=== PATIENT | male | born 1950 | race Two or more races ===

== ENCOUNTER 2016-10-16 14:34 | Inpatient (IN) | payer MEDICARE, OTHER ==
[~2016-10-16] VITALS: Ht 172.7 cm; Wt 41.3 kg
[2016-10-16] MEDS ORDERED: BENICAR20 MG ORAL (14:40)
[2016-10-16] MEDS ORDERED: AVODART0.5 MG ORAL (14:40)
[2016-10-16] MEDS ORDERED: VITAMIN D400 INTLU ORAL (14:40)
[2016-10-16] MEDS ORDERED: DEXILANT60 MG ORAL (14:40)
[2016-10-16] MEDS ORDERED: TAMSULOSIN HCL0.4 MG ORAL (14:40)
[2016-10-16] MEDS ORDERED: NOVOLOG MI100 UNITS/ SUBQ (14:40)
[2016-10-16] MEDS ORDERED: CARVEDILOL25 MG ORAL (14:40)
[2016-10-16] MEDS ORDERED: NITROSTAT0.4 M1 SL (14:40)
[2016-10-16] MEDS ORDERED: LANTUS SOL100 UNIT/1 SUBQ (14:40)
[2016-10-16] MEDS ORDERED: LYRICA75 M1 ORAL (14:41)
[2016-10-16] MEDS ORDERED: LORATADINE10 M1 PO ×2 (14:41→14:52)
[2016-10-16] MEDS ORDERED: ASPIR 8181 MG ORAL (14:52)
[2016-10-16 15:00] VITALS: BP 157/77
[2016-10-16] MEDS ORDERED: Ipratropium 0.02% Inh Soln 2.5ml UD HHN ONE (15:00)
[2016-10-16] MEDS ORDERED: Albuterol ud Inhalation HHN ONE (15:00)
[2016-10-16] MEDS ORDERED: Solu-MEDROL 125mg Inj IVP ONE (15:00)
--- NOTE | 2016-10-16 15:18 | Diagnostic Imaging Report ---
Indication: Dyspnea Comparison: None A single view chest radiograph was obtained. Findings: The heart is enlarged. There is a pacemaker present. Lungs are essentially clear. Aorta is ectatic and calcified. Bones are osteopenic. Impression: No acute disease
--- NOTE | 2016-10-16 15:36 | Emergency Room Report ---
History of Present Illness General Chief Complaint: Upper Respiratory Illness Source: EMS Present Illness HPI 66-year-old male presents ED complaining of shortness of breath x4 days. patient lives at home. Patient is on home oxygen but states that he's been more short of breath usual. States he feels very weak and dehydrated. Patient well. No fevers or chills. No chest pain. No reported cough. No other aggravating or leading factors. Denies any other associated symptoms Allergies: Coded Allergies: IODINE (Verified Allergy, Unknown, 10/16/16) Patient History Past Medical History: DM Past Surgical History: none Pertinent Family History: none Social History: Denies: alcohol use, drug use, smoking Immunizations: UTD Reviewed Nursing Documentation: PMH: Agreed, PSxH: Agreed Nursing Documentation-PMH Past Medical History: No History, Except For Hx Cardiac Problems: Yes Hx Diabetes: Yes Hx Gastrointestinal Problems: Yes Review of Systems All Other Systems: negative except mentioned in HPI Physical Exam Vital Signs Date Time Temp Pulse Resp B/P Pulse Ox O2 Delivery O2 Flow Rate FiO2 10/16/16 14:31 97.5 77 20 153/73 100 Nasal Cannula 2.0 Sp02 EP Interpretation: reviewed, normal General Appearance: no apparent distress, alert, GCS 15, non-toxic, cachetic, thin Head: normocephalic, atraumatic Eyes: bilateral eye PERRL, bilateral eye normal inspection ENT: hearing grossly normal, normal pharynx, no angioedema, normal voice Neck: full range of motion, supple/symm/no masses Respiratory: chest non-tender, decreased breath sounds, speaking full sentences , wheezing Cardiovascular #1: regular rate, rhythm, no edema Cardiovascular #2: 2+ carotid (R), 2+ carotid (L), 2+ radial (R), 2+ radial (L) , 2+ dorsalis pedis (R), 2+ dorsalis pedis (L) Gastrointestinal: normal bowel sounds, non tender, soft, non-distended, no guarding, no rebound Rectal: deferred Genitourinary: normal inspection, no CVA tenderness Musculoskeletal: back normal, gait/station normal, normal range of motion, non- tender Neurologic: alert, oriented x3, responsive, motor strength/tone normal, sensory intact, speech normal Psychiatric: judgement/insight normal, memory normal, mood/affect normal, no suicidal/homicidal ideation Reflexes: 3+ bicep (R), 3+ bicep (L), 3+ tricep (R), 3+ tricep (L), 3+ knee (R) , 3+ knee (L) Skin: normal color, no rash, warm/dry, well hydrated Lymphatic: no adenopathy Medical Decision Making Diagnostic Impression: Primary Impression: COPD exacerbation Additional Impressions: CHF exacerbation Qualified Codes: I50.9 - Heart failure, unspecified Sepsis Qualified Codes: A41.9 - Sepsis, unspecified organism ER Course Hospital Course 66-year-old M presenting to ED with SOB. h/o COPD Differential diagnoses include: Pneumonia, CHF exacerbation, pneumothorax, fluid overload Clinical course Patient placed on stretcher. On cardiac monitor technician with stable vitals. After initial history and physical, I ordered nebulizer treatments. I ordered labs, IV fluids, EKG, chest x-ray, blood cultures, UA. Labs - no leukocytosis noted, hemoglobin/hematocrit stable, electrolytes okay, lactate > 2, troponins negative, BNP > 50,000 CXR - R sided atelectasis, cardiomegaly, pacemaker abx given. lasix given. IVFs given but not at 30cc/kg because of pronounced CHF Case discussed with Dr. Mayer and he agreed to the patient to his service for further care and support I feel this is a highly complex case requiring extensive working including EKG/ Rhythm strip, Xray/CT/US, Blood/urine lab work, repeat exams while in ED, and administration of strong opiates/narcotics for pain control, admission to hospital or close patient follow up. Diagnosis - COPD exacerbation, CHF exacerbation, sepsis Patient admitted to telemetry in serious condition Labs Test 10/16/16 15:15 10/16/16 16:19 White Blood Count 6.5 K/UL (4.8-10.8) Red Blood Count 4.86 M/UL (4.70-6.10) Hemoglobin 14.5 G/DL (14.2-18.0) Hematocrit 45.9 % (42.0-52.0) Mean Corpuscular Volume 95 FL (80-99) Mean Corpuscular Hemoglobin 29.9 PG (27.0-31.0) Mean Corpuscular Hemoglobin Concent 31.6 G/DL (32.0-36.0) Red Cell Distribution Width 13.1 % (11.6-14.8) Platelet Count 185 K/UL (150-450) Mean Platelet Volume 9.1 FL (6.5-10.1) Neutrophils (%) (Auto) 71.9 % (45.0-75.0) Lymphocytes (%) (Auto) 21.5 % (20.0-45.0) Monocytes (%) (Auto) 6.0 % (1.0-10.0) Eosinophils (%) (Auto) 0.2 % (0.0-3.0) Basophils (%) (Auto) 0.5 % (0.0-2.0) Sodium Level 142 mEQ/L (135-145) Potassium Level 4.5 mEQ/L (3.4-4.9) Chloride Level 87 mEQ/L (98-107) Carbon Dioxide Level 31 mEQ/L (20-30) Anion Gap 24 (5-15) Blood Urea Nitrogen 19 mg/dL (7-23) Creatinine 1.5 mg/dL (0.7-1.2) Estimat Glomerular Filtration Rate 46.5 mL/min (>60) Glucose Level 255 mg/dL (74-106) Lactic Acid Level 2.80 mmol/L (0.66-2.22) Calcium Level 8.6 mg/dL (8.6-10.2) Total Bilirubin 0.5 mg/dL (0.0-1.2) Aspartate Amino Transf (AST/SGOT) 25 U/L (5-40) Alanine Aminotransferase (ALT/SGPT) 12 U/L (3-41) Alkaline Phosphatase 146 U/L (40-129) Total Creatine Kinase 104 U/L (38-174) Creatine Kinase MB 3.7 ng/mL (< 6.7) Creatine Kinase MB Relative Index 3.5 Troponin I < 0.30 ng/mL (<=0.30) Pro-B-Type Natriuretic Peptide 75143 pg/mL (0-125) Total Protein 7.3 g/dL (6.6-8.7) Albumin 4.1 g/dL (3.5-5.2) Globulin 3.2 g/dL Albumin/Globulin Ratio 1.2 (1.0-2.7) Urine Color Pale yellow Urine Appearance Clear Urine pH 9 (4.5-8.0) Urine Specific [place] 1.015 (1.005-1.035) Urine Protein 2+ (NEGATIVE) Urine Glucose (UA) 1+ (NEGATIVE) Urine Ketones 4+ (NEGATIVE) Urine Occult Blood 1+ (NEGATIVE) Urine Nitrite Negative (NEGATIVE) Urine Bilirubin Negative (NEGATIVE) Urine Urobilinogen Normal MG/DL (0.0-1.0) Urine Leukocyte Esterase 1+ (NEGATIVE) Urine RBC 0-2 /HPF (0 - 0) Urine WBC 5-10 /HPF (0 - 0) Urine Squamous Epithelial Cells None /LPF (NONE/OCC) Urine Bacteria Few /HPF (NONE) EKG Diagnostic Results Rate: normal Rhythm: NSR ST Segments: other - LVH ASA given to the pt in ED: No Rhythm Strip Diag. Results EP Interpretation: yes Rhythm: NSR, no PVC's, no ectopy Chest X-Ray Diagnostic Results EP Interpretation: Yes Findings: no pneumothorax, no acute cardiopulmonary disease, other - atelectasis. pacemaker Number of Views: 1 Last Vital Signs Date Time Temp Pulse Resp B/P Pulse Ox O2 Delivery O2 Flow Rate FiO2 10/16/16 14:31 97.5 77 20 153/73 100 Nasal Cannula 2.0 Status: improved Disposition: ADMITTED INPATIENT Condition: Serious Referrals: NOT CHOSEN IPA/,REFERRING (PCP) SHANELLE TIJERINA M.D. Oct 16, 2016 15:36
[2016-10-16 15:52] LABS: BASOPHILS % (AUTO) 0.5 % (0.0-2.0); EOSINOPHILS % (AUTO) 0.2 % (0.0-3.0); LYMPHOCYTES % (AUTO) 21.5 % (20.0-45.0); MEAN CORPUSCULAR HEMOGLOBIN 29.9 PG (27.0-31.0); MEAN CORPUSCULAR HGB CONC 31.6 G/DL (32.0-36.0); MEAN CORPUSCULAR VOLUME 95 FL (80-99); MEAN PLATELET VOLUME 9.1 FL (6.5-10.1); NEUTROPHILS % (AUTO) 71.9 % (45.0-75.0); PLATELET COUNT 185 K/UL (150-450); RED BLOOD COUNT 4.86 M/UL (4.70-6.10); RED CELL DISTRIBUTION WIDTH 13.1 % (11.6-14.8); WHITE BLOOD COUNT 6.5 K/UL (4.8-10.8)
[2016-10-16 16:05] LABS: TROPONIN I < 0.30 ng/mL (<=0.30)
[2016-10-16 16:06] LABS: ALBUMIN/GLOBULIN RATIO 1.2 (1.0-2.7); CALCIUM 8.6 mg/dL (8.6-10.2); CREATININE 1.5 mg/dL (0.7-1.2); GLOMERULAR FILTRATION RATE 46.5 mL/min (>60); POTASSIUM 4.5 mEQ/L (3.4-4.9); TOTAL PROTEIN 7.3 g/dL (6.6-8.7)
[2016-10-16 16:08] LABS: REFLEX LACTIC ACID YES OR NO YES
[2016-10-16] MEDS ORDERED: ANORO ELLIPTA1 EACH (16:15)
[2016-10-16] MEDS ORDERED: PLAVIX75 MG ORAL (16:15)
[2016-10-16] MEDS ORDERED: LINZESS145 MCG PO (16:15)
[2016-10-16] MEDS ORDERED: RANEXA500 MG ORAL (16:15)
[2016-10-16] MEDS ORDERED: IMITREX50 MG ORAL (16:15)
[2016-10-16] MEDS ORDERED: FERROUS SULFAT325 MG ORAL (16:15)
[2016-10-16] MEDS ORDERED: ENTRESTO 49 MG1 EACH PO (16:15)
[2016-10-16] MEDS ORDERED: TERBINAFINE HC250 MG PO (16:15)
[2016-10-16] MEDS ORDERED: ROXICODONE15 MG ORAL (16:15)
[2016-10-16] MEDS ORDERED: LEVOTHYROXINE25 MCG ORAL (16:15)
[2016-10-16] MEDS ORDERED: MECLIZINE HCL25 MG ORAL (16:15)
[2016-10-16] MEDS ORDERED: ATORVASTATIN CA40 MG ORAL (16:15)
[2016-10-16] MEDS ORDERED: ZENPEP DR 10,01 EACH PO (16:15)
[2016-10-16] MEDS ORDERED: SENSIPAR30 MG ORAL (16:15)
[2016-10-16] MEDS ORDERED: SERTRALINE HCL25 MG ORAL (16:15)
[2016-10-16] MEDS ORDERED: MEGESTROL ACETA40 MG PO (16:15)
[2016-10-16] MEDS ORDERED: MUPIROCIN22 GM TOPIC (16:15)
[2016-10-16] MEDS ORDERED: DOCUSIL100 M1 ORAL (16:15)
[2016-10-16 16:16] LABS: CKMB 3.7 ng/mL (< 6.7)
[2016-10-16 16:35] LABS: APPEARANCE,URINE CLEAR; KETONES,URINE 4+ (NEGATIVE); LEUKOCYTE ESTERASE ,URINE 1+ (NEGATIVE); NITRITE,URINE NEGATIVE (NEGATIVE); PH,URINE 9 (4.5-8.0); PROTEIN,URINE 2+ (NEGATIVE); UROBILINOGEN,URINE NORMAL MG/DL (0.0-1.0)
[2016-10-16 16:46] LABS: RBC,URINE 0-2 /HPF (0 - 0)
[2016-10-16 16:47] LABS: BACTERIA,URINE FEW /HPF
[2016-10-16 17:30] VITALS: BP 169/76
[2016-10-16 19:09] VITALS: BP 152/79
[2016-10-16] MEDS ORDERED: DuoNeb 0.5-3(2.5)mg/3ml neb HHN PRN (19:30)
[2016-10-16] MEDS ORDERED: Promethazine/Codeine 5ml UD ORAL PRN (19:30)
[2016-10-16] MEDS ORDERED: Nitroglycerin Subl 0.4mg tab (Bottle Of 25) SL PRN (19:30)
[2016-10-16] MEDS ORDERED: LORazepam Inj 2mg/ml 1ml IV PRN (19:30)
[2016-10-16] MEDS ORDERED: NovoLOG Insulin Flexpen SUBQ SCH (21:00)
[2016-10-16] MEDS: Morphine Sulfate 2mg/ml Inj IVP PRN (21:23)
[2016-10-16] MEDS ORDERED: Piperacillin/Tazobactam 2.25 GM in D5W 55 ML IV SCH (22:00)
[2016-10-16] MEDS ORDERED: Solu-MEDROL 125mg Inj IV SCH (22:00)
[2016-10-16] MEDS: Carvedilol 25mg Tab ORAL SCH (22:32)
[2016-10-16] MEDS: Theophylline ER 100mg ORAL SCH (22:33)
[2016-10-16] MEDS: Ranolazine 500mg tab ORAL SCH (22:33)
[2016-10-16] MEDS: Tamsulosin 0.4mg cap ORAL SCH (22:33)
[2016-10-16] MEDS: Heparin 5000 units/ml inj SUBQ SCH (22:35)
[2016-10-16] MEDS: NovoLOG Insulin Flexpen SUBQ SCH (23:00)
[2016-10-16] MEDS: Zoysn 3.37gm in D5W 110ml IVPB SCH (23:19)
[2016-10-17] VITALS (7 sets, daily range): BP systolic 120–154; BP diastolic 60–79
[2016-10-17] MEDS: Solu-MEDROL 125mg Inj IV SCH ×4 (05:56→22:37)
[2016-10-17] MEDS: Zoysn 3.37gm in D5W 110ml IVPB SCH ×2 (05:57→13:31)
[2016-10-17] MEDS: Levothyroxine 25mcg tab ORAL SCH (06:03)
[2016-10-17] MEDS: NovoLOG Insulin Flexpen SUBQ SCH ×4 (06:22→21:30)
[2016-10-17] MEDS ORDERED: Sensipar 30mg Tab ORAL SCH (09:00)
[2016-10-17] MEDS: Theophylline ER 100mg ORAL SCH ×2 (09:06→21:26)
[2016-10-17] MEDS: Carvedilol 25mg Tab ORAL SCH (09:06)
[2016-10-17] MEDS: Aspirin EC 81mg tab ORAL SCH (09:07)
[2016-10-17] MEDS: Sertraline 50mg tab ORAL SCH (09:07)
[2016-10-17] MEDS: Ranolazine 500mg tab ORAL SCH (09:07)
[2016-10-17] MEDS: Heparin 5000 units/ml inj SUBQ SCH ×2 (09:08→21:29)
--- NOTE | 2016-10-17 11:35 | Cardiology Progress Note ---
Assessment/Plan Assessment/Plan Dyspnea multifactorial chf and copd abd pain hsof prior pancreatitis PCI 08/19/16 lad adn diag congestive heart failure systolic dysfunction with acute exacerbation COPD HTN HLD DM PVD CAROL ANN hsi of alcholic cirrhosis hs of previsou paracentesis icm ? ef 15-20% 07/2016 hs of heaptic encephalopathy iodine allergy icd insitu ekg now with soem more diffuse t wave changes which appear more extensive than before with prolongation of qt interval repeat trop adn ekg treat any hopkalemia or hypomagesemia diuretics as bp adn renal fucntion allow copd treatmetn as per dr hancock check amylase and lipase proton pump inhibitors ? gi evluation for epigastric pain antiacids may need u/s abd [id number] Objective Last 24 Hour Vital Signs Date Time Temp Pulse Resp B/P Pulse Ox O2 Delivery O2 Flow Rate FiO2 10/17/16 09:06 66 136/67 10/17/16 08:20 98.2 66 20 136/67 99 Nasal Cannula 2.0 10/17/16 07:50 77 10/17/16 04:00 98.2 64 18 120/60 99 Room Air 10/17/16 04:00 66 10/17/16 01:00 98.2 64 18 120/60 99 Room Air 10/17/16 00:00 83 10/17/16 00:00 97.9 88 20 129/70 98 Room Air 10/16/16 22:32 90 152/79 10/16/16 21:53 97.3 10/16/16 20:03 90 16 Room Air 10/16/16 20:00 98 10/16/16 19:09 97.3 90 13 152/79 100 Nasal Cannula 2.0 10/16/16 18:40 97 25 154/75 100 Nasal Cannula 2.0 10/16/16 17:30 93 26 169/76 100 Nasal Cannula 2.0 10/16/16 15:20 87 18 99 Room Air 2.0 10/16/16 15:15 85 20 Room Air 2.0 10/16/16 15:05 85 20 Room Air 21 10/16/16 15:05 85 20 99 Room Air 21 10/16/16 15:00 97.6 85 20 157/77 99 Room Air 10/16/16 14:31 97.5 77 20 153/73 100 Nasal Cannula 2.0 10/16/16 14:20 86 18 100 Room Air 21 Intake and Output 10/16/16 10/17/16 19:00 07:00 Intake Total 1250 ml 377.5 ml Output Total 300 ml Balance 1250 ml 77.5 ml Intake Oral 240 ml IV Total 1250 ml 137.5 ml Output Urine Total 300 ml # Voids 1 Laboratory Tests Test 10/16/16 15:15 10/16/16 16:19 10/16/16 17:35 White Blood Count 6.5 K/UL (4.8-10.8) Red Blood Count 4.86 M/UL (4.70-6.10) Hemoglobin 14.5 G/DL (14.2-18.0) Hematocrit 45.9 % (42.0-52.0) Mean Corpuscular Volume 95 FL (80-99) Mean Corpuscular Hemoglobin 29.9 PG (27.0-31.0) Mean Corpuscular Hemoglobin Concent 31.6 G/DL (32.0-36.0) L Red Cell Distribution Width 13.1 % (11.6-14.8) Platelet Count 185 K/UL (150-450) Mean Platelet Volume 9.1 FL (6.5-10.1) Neutrophils (%) (Auto) 71.9 % (45.0-75.0) Lymphocytes (%) (Auto) 21.5 % (20.0-45.0) Monocytes (%) (Auto) 6.0 % (1.0-10.0) Eosinophils (%) (Auto) 0.2 % (0.0-3.0) Basophils (%) (Auto) 0.5 % (0.0-2.0) Sodium Level 142 mEQ/L (135-145) Potassium Level 4.5 mEQ/L (3.4-4.9) Chloride Level 87 mEQ/L (98-107) L Carbon Dioxide Level 31 mEQ/L (20-30) H Anion Gap 24 (5-15) H Blood Urea Nitrogen 19 mg/dL (7-23) Creatinine 1.5 mg/dL (0.7-1.2) H Estimat Glomerular Filtration Rate 46.5 mL/min (>60) Glucose Level 255 mg/dL (74-106) H Lactic Acid Level 2.80 mmol/L (0.66-2.22) H 5.60 mmol/L (0.66-2.22) H Calcium Level 8.6 mg/dL (8.6-10.2) Total Bilirubin 0.5 mg/dL (0.0-1.2) Aspartate Amino Transf (AST/SGOT) 25 U/L (5-40) Alanine Aminotransferase (ALT/SGPT) 12 U/L (3-41) Alkaline Phosphatase 146 U/L (40-129) H Total Creatine Kinase 104 U/L (38-174) Creatine Kinase MB 3.7 ng/mL (< 6.7) Creatine Kinase MB Relative Index 3.5 Troponin I < 0.30 ng/mL (<=0.30) Pro-B-Type Natriuretic Peptide 93015 pg/mL (0-125) H Total Protein 7.3 g/dL (6.6-8.7) Albumin 4.1 g/dL (3.5-5.2) Globulin 3.2 g/dL Albumin/Globulin Ratio 1.2 (1.0-2.7) Urine Color Pale yellow Urine Appearance Clear Urine pH 9 (4.5-8.0) Urine Specific [place] 1.015 (1.005-1.035) Urine Protein 2+ (NEGATIVE) H Urine Glucose (UA) 1+ (NEGATIVE) H Urine Ketones 4+ (NEGATIVE) H Urine Occult Blood 1+ (NEGATIVE) H Urine Nitrite Negative (NEGATIVE) Urine Bilirubin Negative (NEGATIVE) Urine Urobilinogen Normal MG/DL (0.0-1.0) Urine Leukocyte Esterase 1+ (NEGATIVE) H Urine RBC 0-2 /HPF (0 - 0) H Urine WBC 5-10 /HPF (0 - 0) H Urine Squamous Epithelial Cells None /LPF (NONE/OCC) Urine Bacteria Few /HPF (NONE) Microbiology Date/Time Source Procedure Growth Status 10/16/16 18:27 Nasal Nares Influenza Types A,B Antigen (ANIBAL) - Final Complete LISA SERNA Oct 17, 2016 11:35
[2016-10-17 12:36] LABS: CALCIUM 7.4 mg/dL (8.6-10.2); CREATININE 1.8 mg/dL (0.7-1.2); GLOMERULAR FILTRATION RATE 37.7 mL/min (>60); MAGNESIUM 1.3 mg/dL (1.7-2.5); POTASSIUM 4.1 mEQ/L (3.4-4.9)
[2016-10-17 13:05] LABS: ABG ALLEN TEST POSITIVE; ABG BASE EXCESS 4.1; ABG PCO2 32.7 mmHg (35.0-45.0)
[2016-10-17] MEDS ORDERED: Pneumococcal Vaccine 25mcg/0.5ml IM ONE (16:00)
[2016-10-17] MEDS: Morphine Sulfate 2mg/ml Inj IVP PRN ×2 (16:14→21:29)
--- NOTE | 2016-10-17 16:46 | History and Physical ---
History of Present Illness General Date patient seen: Oct 17, 2016 Reason for Hospitalization: Upper Respiratory Illness Present Illness HPI 66-year-old male with extensive PMHx including endstage heart disease, COPd, on home o2, liver disease, presents ED complaining of shortness of breath x4 days. States he feels very weak and dehydrated. He has not been eating for some time and look cachectic . Because of his cardiac diagnosis, he is being admitted to telemetry. Allergies: Coded Allergies: IODINE (Verified Allergy, Unknown, 10/16/16) Medication History Scheduled Aspirin* (Aspir 81*), 81 MG ORAL DAILY, (Reported) Atorvastatin Calcium* (Atorvastatin Calcium*), 80 MG ORAL BEDTIME, (Reported) Carvedilol* (Carvedilol*), Unknown Dose ORAL EVERY 12 HOURS, (Reported) Cinacalcet* (Sensipar*), 30 MG ORAL DAILY, (Reported) Clopidogrel Bisulfate* (Plavix*), Unknown Dose ORAL DAILY, (Reported) Dexlansoprazole (Dexilant), 60 MG ORAL DAILY, (Reported) Docusate Sodium* (Docusil*), 100 MG ORAL DAILY, (Reported) Dutasteride (Avodart), 0.5 MG ORAL DAILY, (Reported) Ferrous Sulfate* (Ferrous Sulfate*), 325 MG ORAL DAILY, (Reported) Insulin Glargine (Lantus), Unknown Dose SUBQ BEDTIME, (Reported) Levothyroxine Sodium* (Levothyroxine Sodium*), 25 MCG ORAL DAILY, (Reported) Meclizine Hcl* (Meclizine*), Unknown Dose ORAL THREE TIMES A DAY, (Reported) Mupirocin* (Mupirocin*), 1 APPLIC TOPIC THREE TIMES A DAY, (Reported) Olmesartan Medoxomil (Benicar), 20 MG ORAL DAILY, (Reported) Pregabalin* (Lyrica*), 100 MG ORAL THREE TIMES A DAY, (Reported) Ranolazine* (Ranexa*), 500 MG ORAL EVERY 12 HOURS, (Reported) Sertraline Hcl* (Sertraline Hcl*), 25 MG ORAL DAILY, (Reported) Sumatriptan Succinate* (Imitrex*), 100 MG ORAL DAILY PRN MIGRAINE, (Reported) Tamsulosin Hcl (Tamsulosin Hcl*), 0.4 MG ORAL BEDTIME, (Reported) Terbinafine Hcl* (Lamisil*), Unknown Dose PO DAILY, (Reported) Vitamin D (Vitamin D3), 5,000 UNITS ORAL DAILY, (Reported) Scheduled PRN Nitroglycerin (Nitrostat), 0.4 MG SL Q5M X3 DOSES PRN for CHEST PAIN, (Reported) OXYCODONE HCl* (Roxicodone*), Unknown Dose ORAL Q6H PRN for For Pain, (Reported) Miscellaneous Medications Insulin Aspart (Novolog Mix 70-30 Flexpen Syrn), Unknown Dose SUBQ, (Reported) Linaclotide (Linzess), 145 MCG PO, (Reported) Lipase/Protease/Amylase (Zenpep Dr 10,000 Units Capsule), Unknown Dose PO, ( Reported) Loratadine (Loratadine), 10 MG PO, (Reported) Loratadine (Loratadine), 10 MG PO, (Reported) Megestrol Acetate (Megestrol Acetate), 40 MG PO, (Reported) Sacubitril/Valsartan (Entresto 49 mg-51 mg Tablet), Unknown Dose PO, (Reported) Umeclidinium Brm/Vilanterol Tr (Anoro Ellipta 62.5-25 Mcg INH), (Reported) Patient History Healthcare decision maker Resuscitation status Full Code Advanced Directive on File Past Medical/Surgical History Past Medical/Surgical History: (1) Cardiomyopathy (2) COPD (chronic obstructive pulmonary disease) Review of Systems Constitutional: Reports: malaise, weakness ENT: Reports: no symptoms Respiratory: Reports: no symptoms Cardiovascular: Reports: no symptoms Gastrointestinal: Reports: no symptoms Genitourinary: Reports: no symptoms Physical Exam General Appearance: WD/WN Lines, tubes and drains: peripheral, central line HEENT: normocephalic, atraumatic Neck: non-tender, normal alignment Respiratory/Chest: chest wall non-tender, lungs clear Cardiovascular/Chest: normal peripheral pulses, normal rate Last 24 Hour Vital Signs Date Time Temp Pulse Resp B/P Pulse Ox O2 Delivery O2 Flow Rate FiO2 10/17/16 16:00 97.9 74 20 154/71 98 Nasal Cannula 2.0 10/17/16 12:51 98.9 64 20 141/71 100 Nasal Cannula 2.0 10/17/16 09:06 66 136/67 10/17/16 08:20 98.2 66 20 136/67 99 Nasal Cannula 2.0 10/17/16 07:50 77 10/17/16 04:00 98.2 64 18 120/60 99 Room Air 10/17/16 04:00 66 10/17/16 01:00 98.2 64 18 120/60 99 Room Air 10/17/16 00:00 83 10/17/16 00:00 97.9 88 20 129/70 98 Room Air 10/16/16 22:32 90 152/79 10/16/16 21:53 97.3 10/16/16 20:03 90 16 Room Air 21 10/16/16 20:00 98 10/16/16 19:09 97.3 90 13 152/79 100 Nasal Cannula 2.0 10/16/16 18:40 97 25 154/75 100 Nasal Cannula 2.0 10/16/16 17:30 93 26 169/76 100 Nasal Cannula 2.0 Intake and Output 10/16/16 10/17/16 19:00 07:00 Intake Total 1250 ml 377.5 ml Output Total 300 ml Balance 1250 ml 77.5 ml Intake Oral 240 ml IV Total 1250 ml 137.5 ml Output Urine Total 300 ml # Voids 1 Laboratory Tests Test 10/16/16 17:35 10/17/16 11:55 10/17/16 12:30 Lactic Acid Level 5.60 mmol/L (0.66-2.22) H Sodium Level 129 mEQ/L (135-145) #L Potassium Level 4.1 mEQ/L (3.4-4.9) Chloride Level 83 mEQ/L (98-107) L Carbon Dioxide Level 27 mEQ/L (20-30) Anion Gap 19 (5-15) H Blood Urea Nitrogen 26 mg/dL (7-23) H Creatinine 1.8 mg/dL (0.7-1.2) H Estimat Glomerular Filtration Rate 37.7 mL/min (>60) Glucose Level 532 mg/dL (74-106) #*H Calcium Level 7.4 mg/dL (8.6-10.2) L Magnesium Level 1.3 mg/dL (1.7-2.5) L Amylase Level 57 U/L (10-110) Lipase 10 U/L (< 60) Arterial Blood pH 7.527 (7.350-7.450) Arterial Blood Partial Pressure CO2 32.7 mmHg (35.0-45.0) L Arterial Blood Partial Pressure O2 108.8 mmHg (75.0-100.0) H Arterial Blood HCO3 26.5 mmol/L (22.0-26.0) H Arterial Blood Oxygen Saturation 98.2 % (92.0-98.0) H Arterial Blood Base Excess 4.1 Cristian Test Positive Microbiology Date/Time Source Procedure Growth Status 10/16/16 18:27 Nasal Nares Influenza Types A,B Antigen (ANIBAL) - Final Complete Height (Feet): 5 Height (Inches): 9.00 Weight (Pounds): 91 Medications Current Medications Medications (Trade) Dose Ordered Sig/Kevin Route PRN Reason Start Time Stop Time Status Last Admin Dose Admin Albuterol/ Ipratropium (DuoNeb 0.5-3(2.5)mg/3ml) 3 ml Q4H PRN HHN dyspnea 10/16/16 19:30 10/21/16 19:29 Aspirin (Ecotrin) 81 mg DAILY ORAL 10/17/16 09:00 11/16/16 08:59 10/17/16 09:07 Atorvastatin Calcium (Lipitor) 20 mg BEDTIME ORAL 10/17/16 21:00 11/16/16 20:59 Carvedilol (Coreg) 12.5 mg EVERY 12 HOURS ORAL 10/17/16 21:00 11/16/16 20:59 Cinacalcet (Sensipar) 30 mg DAILY ORAL 10/17/16 09:00 11/16/16 08:59 10/17/16 09:07 Clopidogrel Bisulfate (Plavix) 75 mg DAILY ORAL 10/17/16 09:00 11/16/16 08:59 10/17/16 09:07 Dextrose (Dextrose 50%) STAT PRN IV Hypoglycemia 10/16/16 19:30 11/15/16 19:29 Furosemide 40 mg 40 mg EVERY 12 HOURS IV 10/17/16 13:00 11/16/16 12:59 10/17/16 13:03 Heparin Sodium (Porcine) (Heparin 5000 units/ml) 5,000 units EVERY 12 HOURS SUBQ 10/16/16 22:00 11/15/16 21:59 10/17/16 09:08 Insulin Aspart BEFORE MEALS AND HS SUBQ 10/16/16 22:00 11/15/16 21:59 10/17/16 12:45 Levothyroxine Sodium (Synthroid) 25 mcg ACBREAKFAST ORAL 10/17/16 06:30 11/16/16 06:29 10/17/16 06:03 Lorazepam (Ativan 2mg/ml 1ml) 0.5 mg Q4H PRN IV For Anxiety 10/16/16 19:30 10/23/16 19:29 Magnesium Sulfate (Magnesium Sulfate 1gm/100ml) 100 ml @ 100 mls/hr Q1H IVPB 10/17/16 16:00 10/17/16 17:59 Methylprednisolone Sodium Succinate (Solu-MEDROL) 60 mg EVERY 6 HOURS IV 10/17/16 06:00 11/16/16 05:59 10/17/16 12:43 Morphine Sulfate (Morphine Sulfate) 2 mg Q4H PRN IVP severe pain 7-10 10/16/16 19:30 10/23/16 19:29 10/17/16 16:14 Nitroglycerin (Ntg) 0.4 mg Q5M X 3 DOSES PRN SL Prn Chest Pain 10/16/16 19:30 11/15/16 19:29 Ondansetron HCl (Zofran) 4 mg Q4H PRN IVP Nausea & Vomiting 10/16/16 19:30 11/15/16 19:29 10/17/16 16:14 Piperacillin Sod/ Tazobactam Sod/ Dextrose (Zosyn/D5W) 110 ml @ 27.5 mls/hr EVERY 8 HOURS IVPB 10/16/16 23:00 10/21/16 22:59 10/17/16 13:31 Pregabalin (Lyrica) 100 mg THREE TIMES A DAY ORAL 10/17/16 22:00 11/16/16 21:59 Promethazine HCl/ Codeine (Phenergan with Codeine) 5 ml Q6H PRN ORAL cough 10/16/16 19:30 11/15/16 19:29 Sertraline HCl (Zoloft) 25 mg DAILY ORAL 10/17/16 09:00 11/16/16 08:59 10/17/16 09:07 Tamsulosin HCl (Flomax) 0.4 mg BEDTIME ORAL 10/16/16 22:00 11/15/16 21:59 10/16/16 22:33 Temazepam (Restoril) 15 mg HSPRN PRN ORAL Insomnia 10/16/16 19:30 10/23/16 19:29 10/16/16 22:34 Theophylline (Candido-Dur) 100 mg EVERY 12 HOURS ORAL 10/16/16 22:00 11/15/16 21:59 10/17/16 09:06 Assessment/Plan Problem List: (1) COPD exacerbation ICD Codes: J44.1 - Chronic obstructive pulmonary disease with (acute) exacerbation SNOMED: 456464360, 161757685 (2) Cachexia ICD Codes: R64 - Cachexia SNOMED: 712027252 (3) Severe protein-calorie malnutrition ICD Codes: E43 - Unspecified severe protein-calorie malnutrition SNOMED: 857110796 (4) Cardiomyopathy ICD Codes: I42.9 - Cardiomyopathy, unspecified SNOMED: 26052381 Assessment/Plan respiratory treatment IV antibiotics check cultures sliding scale cardiac evaluation GI evaluation for poor oral intake. HALIMA JOSEPH Oct 17, 2016 16:46
--- NOTE | 2016-10-17 18:56 | Consultation ---
Consult Note Consult Note asked to eval for hyponatremia Chief Complaint: Upper Respiratory Illness HPI 66-year-old male presents ED complaining of shortness of breath x4 days. patient lives at home. Patient is on home oxygen but states that he's been more short of breath usual. States he feels very weak and dehydrated. Patient well. No fevers or chills. No chest pain. No reported cough. No other aggravating or leading factors. Denies any other associated symptoms Allergies: Coded Allergies: IODINE (Verified Allergy, Unknown, 10/16/16) Past Medical History: DM Hx Cardiac Problems: Yes Hx Diabetes: Yes Hx Gastrointestinal Problems: Yes Assessment/Plan Status: Low Na due to Hyper Glycemia and dehydration Renal failure due to DM and HTN DM and Proteinuria, Nephropathy- HTN- UTI, Low Mag Cachexia COPD Pacer / ICD CHF / Cardiomyopathy previous EjFx 20% PVD Iodine allergy Plan: kidney ADE Avoid Nephrotoxics- Mag IV- Lower lasix dose- Monitor renal parameters Per orders Urine studies JESUS REA Oct 17, 2016 18:56
[2016-10-17] MEDS ORDERED: Carvedilol 12.5mg tab ORAL SCH (21:00)
[2016-10-17] MEDS ORDERED: Atorvastatin 20mg tab ORAL SCH (21:00)
[2016-10-17] MEDS: Piperacillin/Tazobactam 2.25 GM in D5W 110 ML IV SCH (21:25)
[2016-10-17] MEDS: Carvedilol 12.5mg tab ORAL SCH (21:26)
[2016-10-17] MEDS: Tamsulosin 0.4mg cap ORAL SCH (21:26)
[2016-10-17] MEDS: Lyrica 50mg cap ORAL SCH (22:37)
[2016-10-18] VITALS (14 sets, daily range): BP systolic 94–156; BP diastolic 51–91
[2016-10-18] MEDS: Morphine Sulfate 2mg/ml Inj IVP PRN ×3 (01:40→10:09)
[2016-10-18] MEDS: Piperacillin/Tazobactam 2.25 GM in D5W 110 ML IV SCH ×3 (05:49→21:46)
[2016-10-18] MEDS: Solu-MEDROL 125mg Inj IV SCH (06:16)
[2016-10-18] MEDS: NovoLOG Insulin Flexpen SUBQ SCH ×4 (06:28→21:19)
[2016-10-18] MEDS: Levothyroxine 25mcg tab ORAL SCH (06:30)
[2016-10-18 07:31] LABS: BASOPHILS % (AUTO) 0.3 % (0.0-2.0); EOSINOPHILS % (AUTO) 0.1 % (0.0-3.0); LYMPHOCYTES % (AUTO) 11.6 % (20.0-45.0); MEAN CORPUSCULAR HEMOGLOBIN 30.7 PG (27.0-31.0); MEAN CORPUSCULAR HGB CONC 33.6 G/DL (32.0-36.0); MEAN CORPUSCULAR VOLUME 92 FL (80-99); MEAN PLATELET VOLUME 9.1 FL (6.5-10.1); MONOCYTES % (AUTO) 6.2 % (1.0-10.0); NEUTROPHILS % (AUTO) 81.8 % (45.0-75.0); PLATELET COUNT 181 K/UL (150-450); RED CELL DISTRIBUTION WIDTH 13.2 % (11.6-14.8); WHITE BLOOD COUNT 16.3 K/UL (4.8-10.8)
[2016-10-18 07:55] LABS: THYROID STIMULATING HORMONE 1.7 uIU/mL (0.300-4.500)
[2016-10-18 07:59] LABS: ALBUMIN/GLOBULIN RATIO 1.1 (1.0-2.7); CHOLESTEROL/HDL RATIO 2.7 (3.3-4.4); CREATININE 2.1 mg/dL (0.7-1.2); GLOMERULAR FILTRATION RATE 31.6 mL/min (>60); POTASSIUM 3.1 mEQ/L (3.4-4.9); TOTAL PROTEIN 7.6 g/dL (6.6-8.7)
[2016-10-18 08:07] LABS: CRP QUANT 1.2 mg/dL (< 0.5); MAGNESIUM 3.3 mg/dL (1.7-2.5); PHOSPHORUS 3.7 mg/dL (2.5-4.8); URIC ACID 8.2 mg/dL (3.0-7.5)
[2016-10-18 08:08] LABS: HEMOGLOBIN A1C 10.2 % (< 6.0)
[2016-10-18 08:22] LABS: TROPONIN I < 0.30 ng/mL (<=0.30)
[2016-10-18] MEDS: Theophylline ER 100mg ORAL SCH ×2 (08:57→21:09)
[2016-10-18] MEDS: Sertraline 50mg tab ORAL SCH (08:58)
[2016-10-18] MEDS: Carvedilol 12.5mg tab ORAL SCH (08:58)
[2016-10-18] MEDS: Lyrica 50mg cap ORAL SCH ×3 (08:58→17:50)
[2016-10-18] MEDS: Aspirin EC 81mg tab ORAL SCH (09:00)
[2016-10-18] MEDS: Heparin 5000 units/ml inj SUBQ SCH (09:00)
[2016-10-18] MEDS ORDERED: Metoclopramide 10mg/2ml Inj IVP PRN (09:45)
[2016-10-18] MEDS ORDERED: Metoclopramide 10mg/2ml Inj IVP STA (09:46)
[2016-10-18] MEDS: Pantoprazole Inj IVP SCH ×2 (10:00→10:09)
[2016-10-18] MEDS ORDERED: Pantoprazole 80 MG in NS 250 ML IV SCH ×2 (10:30→11:30)
--- NOTE | 2016-10-18 10:33 | Diagnostic Imaging Report ---
Indication: Abdominal tenderness, abnormal renal function tests Technique: Johnson-scale and duplex images of the upper abdomen were obtained Comparison: None Findings: There is trace ascites adjacent to the liver. Gallbladder could not be demonstrated, likely surgically absent as there is a right upper quadrant scar according to the technologist. Common bile duct measures 14 mm in diameter. No intrahepatic biliary ductal dilatation. Liver demonstrates increased and coarsened echogenicity. Microcalcifications are seen within the liver parenchyma. It demonstrates minimal micro-nodularity. Portal vein and hepatic veins are patent.. Pancreas is unremarkable. Spleen is unremarkable. Left kidney measures 9.2 cm in length. Right kidney measures 8.4 cm length. Right kidney demonstrates slightly increased echogenicity. Left kidney demonstrates normal echogenicity. There is no hydronephrosis. There is a 2 cm left renal cyst, which demonstrates slight mural nodularity. Non-aneurysmal abdominal aorta. The stomach is distended, filled with fluid Impression: Nonvisualized gallbladder, likely surgically absent. Correlate with surgical history Dilated extrahepatic bile ducts. Possibly related to age and postcholecystectomy state, but degree of dilatation is somewhat striking. Correlate with liver function tests, consider MRCP if clinically indicated Coarsened hepatic echogenicity, mild surface nodularity, consistent with stated clinical history of hepatic cirrhosis Trace ascites, likely related to the above Slight increased right renal echogenicity, could indicate medical renal disease. Negative for hydronephrosis Complex left renal cyst. Recommend further evaluation with contrast CT if clinically indicated graph distended stomach, nonspecific
[2016-10-18] MEDS ORDERED: Potassium Chloride 10 MEQ in NS 1000ml 1,000 ML IV SCH ×2 (10:45→12:00)
[2016-10-18] MEDS ORDERED: Octreotide Acetate 500 MCG in Sodium Chloride 499 ML IV SCH (11:30)
[2016-10-18 11:37] LABS: PROTHROMBIN TIME 20.3 SEC (9.30-11.50)
--- NOTE | 2016-10-18 12:30 | General Progress Note ---
Assessment/Plan Status: unchanged, deteriorating Status Narrative patient vomitted coffee ground material Assessment/Plan status: Low Na due to Hyper Glycemia and dehydration Renal failure due to DM and HTN DM and Proteinuria, Nephropathy- HTN- UTI, Low Mag Cachexia COPD Pacer / ICD CHF / Cardiomyopathy previous EjFx 20% PVD Iodine allergy Plan: to ICU GI eval kidney ADE Avoid Nephrotoxics- Mag IV- as needed Lower lasix dose- Monitor renal parameters Per orders Subjective ROS Limited/Unobtainable: No Constitutional: Reports: malaise, weakness Gastrointestinal/Abdominal: Reports: vomiting Allergies: Coded Allergies: IODINE (Verified Allergy, Unknown, 10/16/16) Objective Last 24 Hour Vital Signs Date Time Temp Pulse Resp B/P Pulse Ox O2 Delivery O2 Flow Rate FiO2 10/18/16 11:53 97.3 69 20 115/74 100 Nasal Cannula 2.0 10/18/16 10:39 97.0 10/18/16 08:58 85 156/91 10/18/16 08:34 97.0 85 20 156/91 99 Nasal Cannula 2.0 10/18/16 08:13 88 10/18/16 07:58 100 Nasal Cannula 2.0 28 10/18/16 07:56 Nasal Cannula 2.0 28 10/18/16 07:54 94 18 Nasal Cannula 2.0 28 10/18/16 04:34 97.5 69 20 144/79 100 Room Air 10/18/16 04:00 82 10/18/16 00:00 97.0 78 20 138/80 100 Room Air 10/18/16 00:00 66 10/17/16 21:26 71 145/79 10/17/16 20:07 71 18 Room Air 21 10/17/16 20:00 64 10/17/16 20:00 97.9 66 20 145/79 100 Nasal Cannula 2.0 10/17/16 16:00 97.9 74 20 154/71 98 Nasal Cannula 2.0 10/17/16 16:00 67 10/17/16 12:51 98.9 64 20 141/71 100 Nasal Cannula 2.0 Intake and Output 10/17/16 10/18/16 19:00 07:00 Intake Total 257.5 ml 470 ml Output Total 400 ml 1000 ml Balance -142.5 ml -530 ml Intake Oral 120 ml 260 ml IV Total 137.5 ml 210 ml Output Urine Total 400 ml 1000 ml # Voids 2 # Bowel Movements 3 Laboratory Tests 10/17/16 12:30: Arterial Blood pH 7.527H, Arterial Blood Partial Pressure CO2 32.7L, Arterial Blood Partial Pressure O2 108.8H, Arterial Blood HCO3 26.5H, Arterial Blood Oxygen Saturation 98.2H, Arterial Blood Base Excess 4.1, Cristian Test Positive 10/17/16 22:00: Urine Eosinophils None seen, Urine Random Sodium 119 10/18/16 05:40: White Blood Count 16.3H, Red Blood Count 5.20, Hemoglobin 16.0, Hematocrit 47.6 , Mean Corpuscular Volume 92, Mean Corpuscular Hemoglobin 30.7, Mean Corpuscular Hemoglobin Concent 33.6, Red Cell Distribution Width 13.2, Platelet Count 181, Mean Platelet Volume 9.1, Neutrophils (%) (Auto) 81.8H, Lymphocytes ( %) (Auto) 11.6L, Monocytes (%) (Auto) 6.2, Eosinophils (%) (Auto) 0.1, Basophils (%) (Auto) 0.3, Sodium Level 137, Potassium Level 3.1L, Chloride Level 82L, Carbon Dioxide Level 36H, Anion Gap 19H, Blood Urea Nitrogen 33H, Creatinine 2.1H, Estimat Glomerular Filtration Rate 31.6, Glucose Level 352#H, Hemoglobin A1c 10.2H, Uric Acid 8.2H, Calcium Level 8.0L, Phosphorus Level 3.7, Magnesium Level 3.3H, Total Bilirubin 0.5, Gamma Glutamyl Transpeptidase 64H, Aspartate Amino Transf (AST/SGOT) 25, Alanine Aminotransferase (ALT/SGPT) 13, Alkaline Phosphatase 130H, Total Creatine Kinase 227H, Troponin I < 0.30, C- Reactive Protein, Quantitative 1.2H, Pro-B-Type Natriuretic Peptide 12994N, Total Protein 7.6, Albumin 4.0, Globulin 3.6, Albumin/Globulin Ratio 1.1, Triglycerides Level 109, Cholesterol Level 139, LDL Cholesterol 66, HDL Cholesterol 51, Cholesterol/HDL Ratio 2.7L, Thyroid Stimulating Hormone (TSH) 1.700 10/18/16 11:15: Prothrombin Time 20.3H, Prothromb Time International Ratio 2.0H, Activated Partial Thromboplast Time 28 Height (Feet): 5 Height (Inches): 9.00 Weight (Pounds): 91 General Appearance: mild distress, other - cachextic Neck: stiff neck Cardiovascular: normal rate Respiratory/Chest: decreased breath sounds Abdomen: distended JESUS REA Oct 18, 2016 12:30
--- NOTE | 2016-10-18 13:36 | GI Initial Consult Note ---
ShawneeMelvi Justo NAltonPAlton 10/18/16 1336: History of Present Illness General Date patient seen: Oct 18, 2016 Time patient seen: 10:00 Reason for Hospitalization: Upper Respiratory Illness Referring physician: HALIMA JOSEPH Reason for Consultation: HEMATEMESIS Present Illness HPI 66-year-old male presents ED complaining of shortness of breath x4 days. patient lives at home. Patient is on home oxygen but states that he's been more short of breath usual. States he feels very weak and dehydrated. Patient well. No fevers or chills. No chest pain. No reported cough. No other aggravating or leading factors. Denies any other associated symptoms GI NOTE: HPI as noted above. GI consulted for hematemesis. Pt seen on floor, awake A&Ox4 with active hematemesis into basin; dark red with no noted coffee grounds. According to the patient he has had SOB x 4 days during that time he has vomited multiple times and noted to vomit blood x 2. The patient states he' s had a prior history hematemesis 7 years ago and had received an upper endoscopy at that time. He does not recall any results. He presents today with hemoconcentration, leukocytosis, abnormal LFTs and is displays symptoms of DKA. Home Meds Reported Medications Ferrous Sulfate* (FERROUS SULFATE*) 325 Mg Tablet, 325 MG ORAL DAILY, #30 TAB 0 Refills 10/16/16 Ranolazine* (RANEXA*) 500 Mg Tab.er.12h, 500 MG ORAL EVERY 12 HOURS, #60 TAB 0 Refills 10/16/16 Linaclotide (LINZESS) 145 Mcg Capsule, 145 MCG PO, CAP 10/16/16 Umeclidinium Brm/Vilanterol Tr (Anoro Ellipta 62.5-25 Mcg INH) 1 Each Blst.w.dev 10/16/16 Docusate Sodium* (DOCUSIL*) 100 Mg Capsule, 100 MG ORAL DAILY, CAP 10/16/16 Sertraline Hcl* (SERTRALINE HCL*) 25 Mg Tablet, 25 MG ORAL DAILY, TAB 10/16/16 Atorvastatin Calcium* (ATORVASTATIN CALCIUM*) 40 Mg Tablet, 80 MG ORAL BEDTIME, TAB 10/16/16 Cinacalcet* (SENSIPAR*) 30 Mg Tablet, 30 MG ORAL DAILY, TAB 10/16/16 Lipase/Protease/Amylase (ZENPEP DR 10,000 UNITS CAPSULE) 1 Each Capsule., PO, CAP 10/16/16 Megestrol Acetate (MEGESTROL ACETATE) 40 Mg Tablet, 40 MG PO, TAB 10/16/16 Levothyroxine Sodium* (LEVOTHYROXINE SODIUM*) 25 Mcg Tablet, 25 MCG ORAL DAILY, TAB Take in the morning on an empty stomach, at least 30 minutes before food. 10/16/16 Mupirocin* (MUPIROCIN*) 22 Gm Oint...g., 1 APPLIC TOPIC THREE TIMES A DAY, GM 10/16/16 Meclizine Hcl* (MECLIZINE*) 25 Mg Tablet, ORAL THREE TIMES A DAY, TAB 10/16/16 Terbinafine Hcl* (LAMISIL*) 250 Mg Tablet, PO DAILY, TAB 10/16/16 OXYCODONE HCl* (ROXICODONE*) 15 Mg Tablet, ORAL Q6H Y for For Pain, TAB 10/16/16 Clopidogrel Bisulfate* (PLAVIX*) 75 Mg Tablet, ORAL DAILY, TAB 10/16/16 Sacubitril/Valsartan (Entresto 49 mg-51 mg Tablet) 1 Each Tablet, PO, TAB 10/16/16 Sumatriptan Succinate* (IMITREX*) 50 Mg Tablet, 100 MG ORAL DAILY PRN MIGRAINE, TAB 10/16/16 Aspirin* (ASPIR 81*) 81 Mg Tablet.dr, 81 MG ORAL DAILY, TAB 10/16/16 Loratadine (LORATADINE) 10 Mg Tab.rapdis, 10 MG PO, TAB 10/16/16 Loratadine (LORATADINE) 10 Mg Tab.rapdis, 10 MG PO, TAB 10/16/16 Pregabalin* (LYRICA*) 75 Mg Capsule, 100 MG ORAL THREE TIMES A DAY, CAP 10/16/16 Vitamin D (Vitamin D3) 400 Unit Tablet, 5000 UNITS ORAL DAILY, TAB 10/16/16 Nitroglycerin (NITROSTAT) 0.4 Mg Tab.subl, 0.4 MG SL Q5M X3 DOSES Y for CHEST PAIN, #25 TAB 0 Refills 10/16/16 Dexlansoprazole (Dexilant) 60 Mg Alan.bp, 60 MG ORAL DAILY, CAP 10/16/16 Dutasteride (AVODART) 0.5 Mg Capsule, 0.5 MG ORAL DAILY, CAP 10/16/16 Carvedilol* (CARVEDILOL*) 25 Mg Tablet, ORAL EVERY 12 HOURS, TAB 10/16/16 Tamsulosin Hcl (TAMSULOSIN HCL*) 0.4 Mg Cap.er.24h, 0.4 MG ORAL BEDTIME, CAP 10/16/16 Insulin Glargine (LANTUS) 100 Unit/1 Ml Insuln.pen, SUBQ BEDTIME, #1 EA 0 Refills 10/16/16 Insulin Aspart (Novolog Mix 70-30 Flexpen Syrn) 100 Unit/1 Ml Insuln.pen, SUBQ, VIAL 10/16/16 Olmesartan Medoxomil (BENICAR) 20 Mg Tablet, 20 MG ORAL DAILY, TAB 10/16/16 Med list reviewed/reconciled: Yes Allergies: Coded Allergies: IODINE (Verified Allergy, Unknown, 10/16/16) Patient History Limited by: language barrier History Provided By: Medical Record PMH Narrative Past Medical History: DM Past Surgical History: none Pertinent Family History: none Social History: Denies: alcohol use, drug use, smoking Immunizations: UTD Reviewed Nursing Documentation: PMH: Agreed, PSxH: Agreed Nursing Documentation-PMH Past Medical History: No History, Except For Hx Cardiac Problems: Yes Hx Diabetes: Yes Hx Gastrointestinal Problems: Yes Social History: Reports: alcohol use - social/has quit Review of Systems All Other Systems: negative except mentioned in HPI Physical Exam Vital Signs Date Time Temp Pulse Resp B/P Pulse Ox O2 Delivery O2 Flow Rate FiO2 10/16/16 14:20 86 18 100 Room Air 21 10/16/16 14:31 97.5 153/73 2.0 Sp02 EP Interpretation: reviewed Labs Laboratory Tests Test 10/17/16 22:00 10/18/16 05:40 10/18/16 11:15 Urine Eosinophils None seen Urine Random Sodium 119 mmol/L White Blood Count 16.3 K/UL (4.8-10.8) H Red Blood Count 5.20 M/UL (4.70-6.10) Hemoglobin 16.0 G/DL (14.2-18.0) Hematocrit 47.6 % (42.0-52.0) Mean Corpuscular Volume 92 FL (80-99) Mean Corpuscular Hemoglobin 30.7 PG (27.0-31.0) Mean Corpuscular Hemoglobin Concent 33.6 G/DL (32.0-36.0) Red Cell Distribution Width 13.2 % (11.6-14.8) Platelet Count 181 K/UL (150-450) Mean Platelet Volume 9.1 FL (6.5-10.1) Neutrophils (%) (Auto) 81.8 % (45.0-75.0) H Lymphocytes (%) (Auto) 11.6 % (20.0-45.0) L Monocytes (%) (Auto) 6.2 % (1.0-10.0) Eosinophils (%) (Auto) 0.1 % (0.0-3.0) Basophils (%) (Auto) 0.3 % (0.0-2.0) Sodium Level 137 mEQ/L (135-145) Potassium Level 3.1 mEQ/L (3.4-4.9) L Chloride Level 82 mEQ/L (98-107) L Carbon Dioxide Level 36 mEQ/L (20-30) H Anion Gap 19 (5-15) H Blood Urea Nitrogen 33 mg/dL (7-23) H Creatinine 2.1 mg/dL (0.7-1.2) H Estimat Glomerular Filtration Rate 31.6 mL/min (>60) Glucose Level 352 mg/dL (74-106) #H Hemoglobin A1c 10.2 % (< 6.0) H Uric Acid 8.2 mg/dL (3.0-7.5) H Calcium Level 8.0 mg/dL (8.6-10.2) L Phosphorus Level 3.7 mg/dL (2.5-4.8) Magnesium Level 3.3 mg/dL (1.7-2.5) H Total Bilirubin 0.5 mg/dL (0.0-1.2) Gamma Glutamyl Transpeptidase 64 U/L (8-61) H Aspartate Amino Transf (AST/SGOT) 25 U/L (5-40) Alanine Aminotransferase (ALT/SGPT) 13 U/L (3-41) Alkaline Phosphatase 130 U/L (40-129) H Total Creatine Kinase 227 U/L (38-174) H Troponin I < 0.30 ng/mL (<=0.30) C-Reactive Protein, Quantitative 1.2 mg/dL (< 0.5) H Pro-B-Type Natriuretic Peptide 01342 pg/mL (0-125) H Total Protein 7.6 g/dL (6.6-8.7) Albumin 4.0 g/dL (3.5-5.2) Globulin 3.6 g/dL Albumin/Globulin Ratio 1.1 (1.0-2.7) Triglycerides Level 109 mg/dL (< 150) Cholesterol Level 139 mg/dL (< 200) LDL Cholesterol 66 mg/dL (60-99) HDL Cholesterol 51 mg/dL (> 60) Cholesterol/HDL Ratio 2.7 (3.3-4.4) L Thyroid Stimulating Hormone (TSH) 1.700 uIU/mL (0.300-4.500) Prothrombin Time 20.3 SEC (9.30-11.50) H Prothromb Time International Ratio 2.0 (0.9-1.1) H Activated Partial Thromboplast Time 28 SEC (23-33) General Appearance: alert, thin Head: normocephalic EENT: normal ENT inspection Neck: supple Respiratory: no respiratory distress Cardiovascular: normal rate Gastrointestinal: normal inspection, non tender, soft Rectal: deferred Neurologic: alert, oriented x3, responsive Psychiatric: normal inspection Skin: normal inspection, normal color, no rash Lymphatic: normal inspection, no adenopathy Current Medications Current Medications Medications (Trade) Dose Ordered Sig/Kevin Route PRN Reason Start Time Stop Time Status Last Admin Dose Admin Albuterol/ Ipratropium (DuoNeb 0.5-3(2.5)mg/3ml) 3 ml Q4H PRN HHN dyspnea 10/16/16 19:30 10/21/16 19:29 Atorvastatin Calcium 20 mg 20 mg BEDTIME ORAL 10/17/16 21:00 11/16/16 20:59 10/17/16 21:25 Carvedilol (Coreg) 25 mg EVERY 12 HOURS ORAL 10/17/16 21:00 11/16/16 20:59 10/18/16 08:58 Dextrose (Dextrose 50%) STAT PRN IV Hypoglycemia 10/16/16 19:30 11/15/16 19:29 Furosemide (Lasix) 40 mg DAILY IV 10/18/16 09:00 11/17/16 08:59 Insulin Aspart (NovoLOG) BEFORE MEALS AND HS SUBQ 10/16/16 22:00 11/15/16 21:59 10/18/16 11:56 Levothyroxine Sodium (Synthroid) 25 mcg ACBREAKFAST ORAL 10/17/16 06:30 11/16/16 06:29 10/17/16 06:03 Lorazepam (Ativan 2mg/ml 1ml) 0.5 mg Q4H PRN IV For Anxiety 10/16/16 19:30 10/23/16 19:29 Methylprednisolone Sodium Succinate 40 mg 40 mg EVERY 8 HOURS IVP 10/18/16 14:00 11/16/16 21:59 Metoclopramide HCl 10 mg 10 mg Q6H IVP 10/18/16 16:00 11/17/16 15:59 Morphine Sulfate (Morphine Sulfate) 2 mg Q4H PRN IVP severe pain 7-10 10/16/16 19:30 10/23/16 19:29 10/18/16 10:09 Nitroglycerin (Ntg) 0.4 mg Q5M X 3 DOSES PRN SL Prn Chest Pain 10/16/16 19:30 11/15/16 19:29 Pantoprazole/ Sodium Chloride (Protonix/Sodium Chloride) 250 ml @ 25 mls/hr Q10H IV 10/18/16 11:30 11/17/16 11:29 10/18/16 13:01 Piperacillin Sod/ Tazobactam Sod/ Dextrose (Zosyn/D5W) 110 ml @ 220 mls/hr EVERY 8 HOURS IV 10/17/16 22:00 10/23/16 21:59 10/18/16 05:49 Potassium Chloride 10 meq/ Sodium Chloride 1,005 ml @ 125 mls/hr Q8H3M IV 10/18/16 12:00 10/19/16 04:04 10/18/16 13:00 Potassium Chloride/Sodium Chloride (KCl/Sodium Chloride 1000ml bag) 1,005 ml @ 100 mls/hr Q10H3M IV 10/19/16 04:06 11/18/16 04:05 Pregabalin (Lyrica) 100 mg THREE TIMES A DAY ORAL 10/17/16 22:00 11/16/16 21:59 10/18/16 08:58 Sertraline HCl (Zoloft) 25 mg DAILY ORAL 10/17/16 09:00 11/16/16 08:59 10/18/16 08:58 Tamsulosin HCl (Flomax) 0.4 mg BEDTIME ORAL 10/16/16 22:00 11/15/16 21:59 10/17/16 21:26 Temazepam (Restoril) 15 mg HSPRN PRN ORAL Insomnia 10/16/16 19:30 10/23/16 19:29 10/17/16 21:26 Theophylline (Candido-Dur) 100 mg EVERY 12 HOURS ORAL 10/16/16 22:00 11/15/16 21:59 10/18/16 08:57 GI: Plan Problems: (1) DKA (diabetic ketoacidoses) (2) Hematemesis (3) SOB (shortness of breath) (4) LFTs abnormal (5) Hypoalbuminemia (6) Diabetes mellitus (7) Severe protein-calorie malnutrition Plan labs/symptoms reviewed patient undergoing DKA defer EGD at this time, possible Sunday if stable fluid replacement >> maintain NPO + IVF's @ 150cc/hr. ppi ggt electrolyte replacement coag correction DM mgmt fu labs Discussed with Dr. Marino. Thank you for referring this patient, we will follow. ISSAC MARINO 10/23/16 0811: History of Present Illness General Reason for Hospitalization: Upper Respiratory Illness Present Illness Home Meds Reported Medications Ferrous Sulfate* (FERROUS SULFATE*) 325 Mg Tablet, 325 MG ORAL DAILY, #30 TAB 0 Refills 10/16/16 Ranolazine* (RANEXA*) 500 Mg Tab.er.12h, 500 MG ORAL EVERY 12 HOURS, #60 TAB 0 Refills 10/16/16 Linaclotide (LINZESS) 145 Mcg Capsule, 145 MCG PO, CAP 10/16/16 Umeclidinium Brm/Vilanterol Tr (Anoro Ellipta 62.5-25 Mcg INH) 1 Each Blst.w.dev 10/16/16 Docusate Sodium* (DOCUSIL*) 100 Mg Capsule, 100 MG ORAL DAILY, CAP 10/16/16 Sertraline Hcl* (SERTRALINE HCL*) 25 Mg Tablet, 25 MG ORAL DAILY, TAB 10/16/16 Atorvastatin Calcium* (ATORVASTATIN CALCIUM*) 40 Mg Tablet, 80 MG ORAL BEDTIME, TAB 10/16/16 Cinacalcet* (SENSIPAR*) 30 Mg Tablet, 30 MG ORAL DAILY, TAB 10/16/16 Lipase/Protease/Amylase (ZENPEP DR 10,000 UNITS CAPSULE) 1 Each Capsule.dr, PO, CAP 10/16/16 Megestrol Acetate (MEGESTROL ACETATE) 40 Mg Tablet, 40 MG PO, TAB 10/16/16 Levothyroxine Sodium* (LEVOTHYROXINE SODIUM*) 25 Mcg Tablet, 25 MCG ORAL DAILY, TAB Take in the morning on an empty stomach, at least 30 minutes before food. 10/16/16 Mupirocin* (MUPIROCIN*) 22 Gm Oint...g., 1 APPLIC TOPIC THREE TIMES A DAY, GM 10/16/16 Meclizine Hcl* (MECLIZINE*) 25 Mg Tablet, ORAL THREE TIMES A DAY, TAB 10/16/16 Terbinafine Hcl* (LAMISIL*) 250 Mg Tablet, PO DAILY, TAB 10/16/16 OXYCODONE HCl* (ROXICODONE*) 15 Mg Tablet, ORAL Q6H Y for For Pain, TAB 10/16/16 Clopidogrel Bisulfate* (PLAVIX*) 75 Mg Tablet, ORAL DAILY, TAB 10/16/16 Sacubitril/Valsartan (Entresto 49 mg-51 mg Tablet) 1 Each Tablet, PO, TAB 10/16/16 Sumatriptan Succinate* (IMITREX*) 50 Mg Tablet, 100 MG ORAL DAILY PRN MIGRAINE, TAB 10/16/16 Aspirin* (ASPIR 81*) 81 Mg Tablet.dr, 81 MG ORAL DAILY, TAB 10/16/16 Loratadine (LORATADINE) 10 Mg Tab.rapdis, 10 MG PO, TAB 10/16/16 Loratadine (LORATADINE) 10 Mg Tab.rapdis, 10 MG PO, TAB 10/16/16 Pregabalin* (LYRICA*) 75 Mg Capsule, 100 MG ORAL THREE TIMES A DAY, CAP 10/16/16 Vitamin D (Vitamin D3) 400 Unit Tablet, 5000 UNITS ORAL DAILY, TAB 10/16/16 Nitroglycerin (NITROSTAT) 0.4 Mg Tab.subl, 0.4 MG SL Q5M X3 DOSES Y for CHEST PAIN, #25 TAB 0 Refills 10/16/16 Dexlansoprazole (Dexilant) 60 Mg Cap.bp, 60 MG ORAL DAILY, CAP 10/16/16 Dutasteride (AVODART) 0.5 Mg Capsule, 0.5 MG ORAL DAILY, CAP 10/16/16 Carvedilol* (CARVEDILOL*) 25 Mg Tablet, ORAL EVERY 12 HOURS, TAB 10/16/16 Tamsulosin Hcl (TAMSULOSIN HCL*) 0.4 Mg Cap.er.24h, 0.4 MG ORAL BEDTIME, CAP 10/16/16 Insulin Glargine (LANTUS) 100 Unit/1 Ml Insuln.pen, SUBQ BEDTIME, #1 EA 0 Refills 10/16/16 Insulin Aspart (Novolog Mix 70-30 Flexpen Syrn) 100 Unit/1 Ml Insuln.pen, SUBQ, VIAL 10/16/16 Olmesartan Medoxomil (BENICAR) 20 Mg Tablet, 20 MG ORAL DAILY, TAB 10/16/16 Allergies: Coded Allergies: IODINE (Verified Allergy, Unknown, 10/16/16) GI: Plan Plan The patient was seen and examined at bedside and all new and available data was reviewed in the patients chart. I agree with the above findings, impression and plan. (Patient seen earlier today. Signature stamp does not reflect patient encounter time.). -[facility]ac [facility] Justo N.PAlton Oct 18, 2016 13:36 ISSAC MARINO Oct 23, 2016 08:11
[2016-10-18] MEDS ORDERED: Solu-MEDROL 40mg Inj IVP SCH (14:00)
[2016-10-18] MEDS: Potassium Chloride 10 MEQ in NS 1000ml 1,000 ML IV SCH (15:00)
[2016-10-18] MEDS: Pantoprazole 80 MG in NS 250 ML IV SCH (15:00)
[2016-10-18] MEDS ORDERED: Nitroglycerin Subl 0.4mg tab (Bottle Of 25) SL PRN (15:45)
[2016-10-18] MEDS ORDERED: Metoclopramide 10mg/2ml Inj IVP SCH (16:00)
--- NOTE | 2016-10-18 16:05 | Pulmonolgy Critical Care Note ---
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, 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, 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 Discussed with: nurses, consultants, therapeutic case manageralterations manager - Objective Last 24 Hour Vital Signs Date Time Temp Pulse Resp B/P Pulse Ox O2 Delivery O2 Flow Rate FiO2 10/18/16 11:53 97.3 69 20 115/74 100 Nasal Cannula 2.0 10/18/16 10:39 97.0 10/18/16 08:58 85 156/91 10/18/16 08:34 97.0 85 20 156/91 99 Nasal Cannula 2.0 10/18/16 08:13 88 10/18/16 07:58 100 Nasal Cannula 2.0 28 10/18/16 07:56 Nasal Cannula 2.0 28 10/18/16 07:54 94 18 Nasal Cannula 2.0 28 10/18/16 04:34 97.5 69 20 144/79 100 Room Air 10/18/16 04:00 82 10/18/16 00:00 97.0 78 20 138/80 100 Room Air 10/18/16 00:00 66 10/17/16 21:26 71 145/79 10/17/16 20:07 71 18 Room Air 21 10/17/16 20:00 64 10/17/16 20:00 97.9 66 20 145/79 100 Nasal Cannula 2.0 Status: awake HEENT: atraumatic Neck: full ROM Lungs: clear Heart: HR/BP stable Abdomen: soft, active bowel sounds Extremities: no C/C/E Micro: Microbiology Date/Time Source Procedure Growth Status 10/16/16 15:30 Blood Blood Culture - Preliminary NO GROWTH AFTER 24 HOURS Resulted 10/16/16 15:15 Blood Blood Culture - Preliminary NO GROWTH AFTER 24 HOURS Resulted 10/16/16 18:27 Nasal Nares Influenza Types A,B Antigen (ANIBAL) - Final Complete Accucheck: 390 Critical Care - Subjective ROS Limited/Unobtainable: No ICU Day: 1 Interval Events: pt started to have hematemesis Condition: critical EKG Rhythm: Sinus Tachycardia FI02: 28 Sputum Amount: None I&O: Intake and Output 10/17/16 10/18/16 19:00 07:00 Intake Total 257.5 ml 470 ml Output Total 400 ml 1000 ml Balance -142.5 ml -530 ml Intake Oral 120 ml 260 ml IV Total 137.5 ml 210 ml Output Urine Total 400 ml 1000 ml # Voids 2 # Bowel Movements 3 CXR: no change Labs: Laboratory Tests Test 10/17/16 22:00 10/18/16 05:40 10/18/16 11:15 Urine Eosinophils None seen Urine Random Sodium 119 mmol/L White Blood Count 16.3 K/UL (4.8-10.8) H Red Blood Count 5.20 M/UL (4.70-6.10) Hemoglobin 16.0 G/DL (14.2-18.0) Hematocrit 47.6 % (42.0-52.0) Mean Corpuscular Volume 92 FL (80-99) Mean Corpuscular Hemoglobin 30.7 PG (27.0-31.0) Mean Corpuscular Hemoglobin Concent 33.6 G/DL (32.0-36.0) Red Cell Distribution Width 13.2 % (11.6-14.8) Platelet Count 181 K/UL (150-450) Mean Platelet Volume 9.1 FL (6.5-10.1) Neutrophils (%) (Auto) 81.8 % (45.0-75.0) H Lymphocytes (%) (Auto) 11.6 % (20.0-45.0) L Monocytes (%) (Auto) 6.2 % (1.0-10.0) Eosinophils (%) (Auto) 0.1 % (0.0-3.0) Basophils (%) (Auto) 0.3 % (0.0-2.0) Sodium Level 137 mEQ/L (135-145) Potassium Level 3.1 mEQ/L (3.4-4.9) L Chloride Level 82 mEQ/L (98-107) L Carbon Dioxide Level 36 mEQ/L (20-30) H Anion Gap 19 (5-15) H Blood Urea Nitrogen 33 mg/dL (7-23) H Creatinine 2.1 mg/dL (0.7-1.2) H Estimat Glomerular Filtration Rate 31.6 mL/min (>60) Glucose Level 352 mg/dL (74-106) #H Hemoglobin A1c 10.2 % (< 6.0) H Uric Acid 8.2 mg/dL (3.0-7.5) H Calcium Level 8.0 mg/dL (8.6-10.2) L Phosphorus Level 3.7 mg/dL (2.5-4.8) Magnesium Level 3.3 mg/dL (1.7-2.5) H Total Bilirubin 0.5 mg/dL (0.0-1.2) Gamma Glutamyl Transpeptidase 64 U/L (8-61) H Aspartate Amino Transf (AST/SGOT) 25 U/L (5-40) Alanine Aminotransferase (ALT/SGPT) 13 U/L (3-41) Alkaline Phosphatase 130 U/L (40-129) H Total Creatine Kinase 227 U/L (38-174) H Troponin I < 0.30 ng/mL (<=0.30) C-Reactive Protein, Quantitative 1.2 mg/dL (< 0.5) H Pro-B-Type Natriuretic Peptide 11491 pg/mL (0-125) H Total Protein 7.6 g/dL (6.6-8.7) Albumin 4.0 g/dL (3.5-5.2) Globulin 3.6 g/dL Albumin/Globulin Ratio 1.1 (1.0-2.7) Triglycerides Level 109 mg/dL (< 150) Cholesterol Level 139 mg/dL (< 200) LDL Cholesterol 66 mg/dL (60-99) HDL Cholesterol 51 mg/dL (> 60) Cholesterol/HDL Ratio 2.7 (3.3-4.4) L Thyroid Stimulating Hormone (TSH) 1.700 uIU/mL (0.300-4.500) Prothrombin Time 20.3 SEC (9.30-11.50) H Prothromb Time International Ratio 2.0 (0.9-1.1) H Activated Partial Thromboplast Time 28 SEC (23-33) HALIMA JOSEPH Oct 18, 2016 16:05
[2016-10-18] MEDS: Metoclopramide 10mg/2ml Inj IVP SCH ×2 (16:26→21:46)
[2016-10-18] MEDS ORDERED: Phytonadione 10 MG in D5W 55 ML IVPB ONE (17:15)
[2016-10-18] MEDS ORDERED: LORazepam Inj 2mg/ml 1ml IV PRN (19:30)
[2016-10-18] MEDS ORDERED: DuoNeb 0.5-3(2.5)mg/3ml neb HHN PRN (19:30)
[2016-10-18] MEDS ORDERED: Morphine Sulfate 2mg/ml Inj IVP PRN (19:30)
--- NOTE | 2016-10-18 20:53 | Cardiology Progress Note ---
Assessment/Plan Assessment/Plan Dyspnea multifactorial chf and copd abd pain hsof prior pancreatitis PCI 08/19/16 lad adn diag congestive heart failure systolic dysfunction with acute exacerbation COPD HTN HLD DM PVD CAROL ANN hsi of alcholic cirrhosis hs of previsou paracentesis icm ? ef 15-20% 07/2016 hs of heaptic encephalopathy iodine allergy icd insitu ekg now with soem more diffuse t wave changes which appear more extensive than before with prolongation of qt interval repeat trop neg ekg pull back on diurtic he seem to be feeling less sob adn cr is elevated copd treatmetn as per dr hancock amylase and lipase are fine proton pump inhibitors is in icu note for diabetes [id number] Subjective Cardiovascular: Reports: lightheadedness, Denies: chest pain Respiratory: Denies: shortness of breath Gastrointestinal/Abdominal: Reports: vomiting - at 3 am not since , Denies: abdominal pain Genitourinary: Denies: burning Subjective information via shorty sweeney in [facility] Objective Last 24 Hour Vital Signs Date Time Temp Pulse Resp B/P Pulse Ox O2 Delivery O2 Flow Rate FiO2 10/18/16 19:33 62 14 Nasal Cannula 2.0 28 10/18/16 19:33 Nasal Cannula 2.0 28 10/18/16 19:33 100 Nasal Cannula 2.0 28 10/18/16 19:00 63 13 100/59 100 Nasal Cannula 2.0 10/18/16 18:00 62 18 105/61 100 Nasal Cannula 2.0 10/18/16 17:00 64 16 100/84 100 Nasal Cannula 2.0 10/18/16 16:00 97.5 69 16 109/70 100 Nasal Cannula 2.0 10/18/16 16:00 71 10/18/16 15:00 76 16 126/79 100 Nasal Cannula 2.0 10/18/16 14:30 97.6 84 19 108/79 100 Nasal Cannula 2.0 10/18/16 11:53 97.3 69 20 115/74 100 Nasal Cannula 2.0 10/18/16 10:39 97.0 10/18/16 08:58 85 156/91 10/18/16 08:34 97.0 85 20 156/91 99 Nasal Cannula 2.0 10/18/16 08:13 88 10/18/16 07:58 100 Nasal Cannula 2.0 28 10/18/16 07:56 Nasal Cannula 2.0 28 10/18/16 07:54 94 18 Nasal Cannula 2.0 28 10/18/16 04:34 97.5 69 20 144/79 100 Room Air 10/18/16 04:00 82 10/18/16 00:00 97.0 78 20 138/80 100 Room Air 10/18/16 00:00 66 10/17/16 21:26 71 145/79 General Appearance: no apparent distress Neck: supple Cardiovascular: normal rate, regular rhythm Respiratory/Chest: lungs clear Abdomen: normal bowel sounds, non tender, soft Extremities: no swelling Intake and Output 10/17/16 10/18/16 19:00 07:00 Intake Total 257.5 ml 470 ml Output Total 400 ml 1000 ml Balance -142.5 ml -530 ml Intake Oral 120 ml 260 ml IV Total 137.5 ml 210 ml Output Urine Total 400 ml 1000 ml # Voids 2 # Bowel Movements 3 Laboratory Tests Test 10/17/16 22:00 10/18/16 05:40 10/18/16 11:15 Urine Eosinophils None seen Urine Random Sodium 119 mmol/L White Blood Count 16.3 K/UL (4.8-10.8) H Red Blood Count 5.20 M/UL (4.70-6.10) Hemoglobin 16.0 G/DL (14.2-18.0) Hematocrit 47.6 % (42.0-52.0) Mean Corpuscular Volume 92 FL (80-99) Mean Corpuscular Hemoglobin 30.7 PG (27.0-31.0) Mean Corpuscular Hemoglobin Concent 33.6 G/DL (32.0-36.0) Red Cell Distribution Width 13.2 % (11.6-14.8) Platelet Count 181 K/UL (150-450) Mean Platelet Volume 9.1 FL (6.5-10.1) Neutrophils (%) (Auto) 81.8 % (45.0-75.0) H Lymphocytes (%) (Auto) 11.6 % (20.0-45.0) L Monocytes (%) (Auto) 6.2 % (1.0-10.0) Eosinophils (%) (Auto) 0.1 % (0.0-3.0) Basophils (%) (Auto) 0.3 % (0.0-2.0) Sodium Level 137 mEQ/L (135-145) Potassium Level 3.1 mEQ/L (3.4-4.9) L Chloride Level 82 mEQ/L (98-107) L Carbon Dioxide Level 36 mEQ/L (20-30) H Anion Gap 19 (5-15) H Blood Urea Nitrogen 33 mg/dL (7-23) H Creatinine 2.1 mg/dL (0.7-1.2) H Estimat Glomerular Filtration Rate 31.6 mL/min (>60) Glucose Level 352 mg/dL (74-106) #H Hemoglobin A1c 10.2 % (< 6.0) H Uric Acid 8.2 mg/dL (3.0-7.5) H Calcium Level 8.0 mg/dL (8.6-10.2) L Phosphorus Level 3.7 mg/dL (2.5-4.8) Magnesium Level 3.3 mg/dL (1.7-2.5) H Total Bilirubin 0.5 mg/dL (0.0-1.2) Gamma Glutamyl Transpeptidase 64 U/L (8-61) H Aspartate Amino Transf (AST/SGOT) 25 U/L (5-40) Alanine Aminotransferase (ALT/SGPT) 13 U/L (3-41) Alkaline Phosphatase 130 U/L (40-129) H Total Creatine Kinase 227 U/L (38-174) H Troponin I < 0.30 ng/mL (<=0.30) C-Reactive Protein, Quantitative 1.2 mg/dL (< 0.5) H Pro-B-Type Natriuretic Peptide 81843 pg/mL (0-125) H Total Protein 7.6 g/dL (6.6-8.7) Albumin 4.0 g/dL (3.5-5.2) Globulin 3.6 g/dL Albumin/Globulin Ratio 1.1 (1.0-2.7) Triglycerides Level 109 mg/dL (< 150) Cholesterol Level 139 mg/dL (< 200) LDL Cholesterol 66 mg/dL (60-99) HDL Cholesterol 51 mg/dL (> 60) Cholesterol/HDL Ratio 2.7 (3.3-4.4) L Thyroid Stimulating Hormone (TSH) 1.700 uIU/mL (0.300-4.500) Prothrombin Time 20.3 SEC (9.30-11.50) H Prothromb Time International Ratio 2.0 (0.9-1.1) H Activated Partial Thromboplast Time 28 SEC (23-33) Microbiology Date/Time Source Procedure Growth Status 10/16/16 15:30 Blood Blood Culture - Preliminary NO GROWTH AFTER 24 HOURS Resulted 10/16/16 15:15 Blood Blood Culture - Preliminary NO GROWTH AFTER 24 HOURS Resulted 10/16/16 18:27 Nasal Nares Influenza Types A,B Antigen (ANIBAL) - Final Complete LISA SERNA Oct 18, 2016 20:53
[2016-10-18] MEDS ORDERED: Tamsulosin 0.4mg cap ORAL SCH (21:00)
[2016-10-18] MEDS: Carvedilol 25mg Tab ORAL SCH (21:09)
[2016-10-19] VITALS (18 sets, daily range): BP systolic 90–143; BP diastolic 39–93
[2016-10-19] MEDS: Potassium Chloride 10 MEQ in NS 1000ml 1,000 ML IV SCH ×4 (01:33→17:57)
[2016-10-19] MEDS ORDERED: Potassium Chloride 10 MEQ in NS 1000ml 1,000 ML IV SCH (04:06)
[2016-10-19] MEDS: Metoclopramide 10mg/2ml Inj IVP SCH ×4 (05:26→21:56)
[2016-10-19] MEDS: NovoLOG Insulin Flexpen SUBQ SCH ×2 (06:08→19:03)
[2016-10-19] MEDS ORDERED: Levothyroxine 25mcg tab ORAL SCH (06:30)
--- NOTE | 2016-10-19 06:57 | Geriatric Medicine Prog Note ---
DATE: 10/18/2016 NOTE: POOR AUDIO QUALITY ENDOCRINOLOGY PROGRESS NOTE: SUBJECTIVE: The patient with possible hematemesis was brought in to the ICU, but relatively stable. No further bleeding. He remains NPO. OBJECTIVE: VITAL SIGNS: Blood pressure 110/59, pulse 61, respirations 30, and temperature 98. RESPIRATORY: Clear. CARDIAC: Regular rhythm. LABORATORY DATA: . PLAN: . Thaddeus Frazier M.D. DRShaila CHAU JOB#: [id number] CC:
[2016-10-19 07:21] LABS: ALBUMIN/GLOBULIN RATIO 1.2 (1.0-2.7); CALCIUM 6.7 mg/dL (8.6-10.2); CRP QUANT 0.7 mg/dL (< 0.5); GLOMERULAR FILTRATION RATE 33.4 mL/min (>60); MAGNESIUM 2.3 mg/dL (1.7-2.5); PHOSPHORUS 4.9 mg/dL (2.5-4.8); POTASSIUM 3.3 mEQ/L (3.4-4.9); TOTAL PROTEIN 5.5 g/dL (6.6-8.7); URIC ACID 7.3 mg/dL (3.0-7.5)
[2016-10-19] MEDS: Pantoprazole 80 MG in NS 250 ML IV SCH ×2 (08:25→17:58)
[2016-10-19] MEDS: Piperacillin/Tazobactam 2.25 GM in D5W 110 ML IV SCH ×3 (08:25→21:57)
[2016-10-19] MEDS: Theophylline ER 100mg ORAL SCH ×2 (08:28→21:56)
[2016-10-19] MEDS: Lyrica 50mg cap ORAL SCH ×3 (08:29→17:59)
[2016-10-19 08:45] LABS: BASOPHILS % (AUTO) 0.5 % (0.0-2.0); LYMPHOCYTES % (AUTO) 7.8 % (20.0-45.0); MEAN CORPUSCULAR HEMOGLOBIN 30.2 PG (27.0-31.0); MEAN CORPUSCULAR HGB CONC 32.7 G/DL (32.0-36.0); MEAN CORPUSCULAR VOLUME 92 FL (80-99); MEAN PLATELET VOLUME 9.2 FL (6.5-10.1); NEUTROPHILS % (AUTO) 83.7 % (45.0-75.0); PLATELET COUNT 132 K/UL (150-450); RED BLOOD COUNT 3.52 M/UL (4.70-6.10); RED CELL DISTRIBUTION WIDTH 13.3 % (11.6-14.8); WHITE BLOOD COUNT 9.3 K/UL (4.8-10.8)
[2016-10-19] MEDS ORDERED: Sertraline 50mg tab ORAL SCH (09:00)
[2016-10-19] MEDS: Carvedilol 25mg Tab ORAL SCH ×2 (09:36→21:55)
--- NOTE | 2016-10-19 09:51 | Diagnostic Imaging Report ---
Indication: Acute renal failure. Abnormal renal function tests Technique: Grayscale and duplex images of the kidneys, retroperitoneum, and bladder were obtained. Comparison:Abdominal ultrasound of the previous day Findings: Right kidney measures 9 cm in length. Left kidney measures 8 point cm in length. Both kidneys demonstrate normal echogenicity. Increased renal echogenicity described on previous days exam is less striking on the current study. No hydronephrosis. The left kidney demonstrates a 3.1 cm lower pole cyst. This demonstrates some mural nodularity which is also demonstrated on the prior study. Normal inferior vena cava. Bladder is distended. Impression: Negative for hydronephrosis Complex left renal cyst, also described on prior day's abdominal ultrasound. Further evaluation with contrast CT or MRI is recommended, as previously reported Distended bladder, nonspecific.
--- NOTE | 2016-10-19 10:27 | Pulmonolgy Critical Care Note ---
Critical Care - Asmt/Plan Problems: (1) Hemorrhagic shock (2) COPD exacerbation (3) Hematemesis (4) Cardiomyopathy (5) Cachexia (6) Severe protein-calorie malnutrition (7) Diabetes mellitus (8) Hypoalbuminemia Respiratory: monitor respiratory rate, adjust FIO2 Cardiac: continue to monitor HR/BP Renal: F/U I&O, keep IV fluid, check electrolytes Infectious Disease: check cultures, continue antibiotics Gastrointestinal: continue feedings/current rate Endocrine: monitor blood sugar, continue sliding scale insulin Hematologic: monitor H/H, transfuse if hgb<8.5 Neurologic: PRN Ativan, PRN Morphine, keep patient comfortable Affect: PRN ativan Disposition: keep in ICU Notes Reviewed: water manager, cardio, renal Discussed with: nurses, consultants, caseworker intakerelations manager - Objective Last 24 Hour Vital Signs Date Time Temp Pulse Resp B/P Pulse Ox O2 Delivery O2 Flow Rate FiO2 10/19/16 10:00 86 20 142/58 98 Room Air 10/19/16 09:36 73 133/77 10/19/16 09:00 71 12 133/77 100 Room Air 10/19/16 08:27 66 18 Room Air 21 10/19/16 08:27 Room Air 21 10/19/16 08:27 98 Room Air 21 10/19/16 08:00 97.1 67 18 123/60 99 Room Air 10/19/16 08:00 72 10/19/16 07:00 73 13 123/56 100 Nasal Cannula 2.0 10/19/16 06:00 59 13 110/43 100 Nasal Cannula 2.0 10/19/16 05:00 56 13 99/39 100 Nasal Cannula 2.0 10/19/16 04:00 53 10/19/16 04:00 97.5 53 13 97/42 100 Nasal Cannula 2.0 10/19/16 03:00 51 13 92/47 100 Nasal Cannula 2.0 10/19/16 02:00 97.5 54 13 91/45 100 Nasal Cannula 2.0 10/19/16 01:00 54 13 92/47 100 Nasal Cannula 2.0 10/19/16 00:00 97.7 55 13 90/47 100 Nasal Cannula 2.0 10/19/16 00:00 56 10/18/16 23:00 58 13 94/51 100 Nasal Cannula 2.0 10/18/16 22:00 61 13 94/56 100 Nasal Cannula 2.0 10/18/16 21:09 61 107/63 10/18/16 21:00 61 13 107/63 100 Nasal Cannula 2.0 10/18/16 20:00 97.5 66 13 97/55 100 Nasal Cannula 2.0 10/18/16 20:00 60 10/18/16 19:33 62 14 Nasal Cannula 2.0 28 10/18/16 19:33 Nasal Cannula 2.0 28 10/18/16 19:33 100 Nasal Cannula 2.0 28 10/18/16 19:00 63 13 100/59 100 Nasal Cannula 2.0 10/18/16 18:00 62 18 105/61 100 Nasal Cannula 2.0 10/18/16 17:00 64 16 100/84 100 Nasal Cannula 2.0 10/18/16 16:00 97.5 69 16 109/70 100 Nasal Cannula 2.0 10/18/16 16:00 71 10/18/16 15:00 76 16 126/79 100 Nasal Cannula 2.0 10/18/16 14:30 97.6 84 19 108/79 100 Nasal Cannula 2.0 10/18/16 11:53 97.3 69 20 115/74 100 Nasal Cannula 2.0 10/18/16 10:39 97.0 Status: awake Condition: critical HEENT: atraumatic Lungs: clear Heart: HR/BP stable, regular Abdomen: non-tender, active bowel sounds Extremities: no C/C/E, edema Micro: Microbiology Date/Time Source Procedure Growth Status 10/16/16 15:30 Blood Blood Culture - Preliminary NO GROWTH AFTER 48 HOURS Resulted 10/16/16 15:15 Blood Blood Culture - Preliminary NO GROWTH AFTER 48 HOURS Resulted 10/16/16 18:27 Nasal Nares Influenza Types A,B Antigen (ANIBAL) - Final Complete Accucheck: 227 Critical Care - Subjective ROS Limited/Unobtainable: No ICU Day: 2 Interval Events: no more episode of bleeding feels better FI02: 21 Sputum Amount: None Fluids: ns 10 meq 125 cc.hour I&O: Intake and Output 10/18/16 10/19/16 19:00 07:00 Intake Total 806 ml 1641.875 ml Output Total 750 ml 200 ml Balance 56 ml 1441.875 ml Intake Oral 0 ml IV Total 806 ml 1641.875 ml Output Urine Total 750 ml 200 ml CXR: no change Labs: Laboratory Tests Test 10/18/16 11:15 10/19/16 05:45 10/19/16 07:45 10/19/16 07:50 Prothrombin Time 20.3 SEC (9.30-11.50) H Prothromb Time International Ratio 2.0 (0.9-1.1) H Activated Partial Thromboplast Time 28 SEC (23-33) Sodium Level 137 mEQ/L (135-145) Potassium Level 3.3 mEQ/L (3.4-4.9) L Chloride Level 93 mEQ/L (98-107) L Carbon Dioxide Level 29 mEQ/L (20-30) Anion Gap 15 (5-15) Blood Urea Nitrogen 57 mg/dL (7-23) H Creatinine 2.0 mg/dL (0.7-1.2) H Estimat Glomerular Filtration Rate 33.4 mL/min (>60) Glucose Level 234 mg/dL (74-106) #H Uric Acid 7.3 mg/dL (3.0-7.5) Calcium Level 6.7 mg/dL (8.6-10.2) L Phosphorus Level 4.9 mg/dL (2.5-4.8) H Magnesium Level 2.3 mg/dL (1.7-2.5) Total Bilirubin 0.5 mg/dL (0.0-1.2) Gamma Glutamyl Transpeptidase 42 U/L (8-61) Aspartate Amino Transf (AST/SGOT) 15 U/L (5-40) Alanine Aminotransferase (ALT/SGPT) 11 U/L (3-41) Alkaline Phosphatase 89 U/L (40-129) C-Reactive Protein, Quantitative 0.7 mg/dL (< 0.5) H Pro-B-Type Natriuretic Peptide 00529 pg/mL (0-125) H Total Protein 5.5 g/dL (6.6-8.7) L Albumin 3.0 g/dL (3.5-5.2) L Globulin 2.5 g/dL Albumin/Globulin Ratio 1.2 (1.0-2.7) Urine Eosinophils Pending White Blood Count 9.3 K/UL (4.8-10.8) Red Blood Count 3.52 M/UL (4.70-6.10) L Hemoglobin 10.6 G/DL (14.2-18.0) #L Hematocrit 32.5 % (42.0-52.0) #L Mean Corpuscular Volume 92 FL (80-99) Mean Corpuscular Hemoglobin 30.2 PG (27.0-31.0) Mean Corpuscular Hemoglobin Concent 32.7 G/DL (32.0-36.0) Red Cell Distribution Width 13.3 % (11.6-14.8) Platelet Count 132 K/UL (150-450) L Mean Platelet Volume 9.2 FL (6.5-10.1) Neutrophils (%) (Auto) 83.7 % (45.0-75.0) H Lymphocytes (%) (Auto) 7.8 % (20.0-45.0) L Monocytes (%) (Auto) 8.0 % (1.0-10.0) Eosinophils (%) (Auto) 0.0 % (0.0-3.0) Basophils (%) (Auto) 0.5 % (0.0-2.0) HALIMA JOSEPH Oct 19, 2016 10:27
[2016-10-19] MEDS ORDERED: NovoLOG Insulin Flexpen SUBQ SCH (12:00)
--- NOTE | 2016-10-19 12:35 | Diagnostic Imaging Report ---
APPROVED REPORT CPT Code: 59837 Present Symptoms Comments: R/O DVT BILATERAL: Imaging reveals a patent deep venous system bilaterally. There is no evidence of thrombus within the femoral, popliteal or tibial segments. The greater saphenous veins are also within normal limits. Doppler indicates normal spontaneous flow within these segments.
--- NOTE | 2016-10-19 13:30 | General Progress Note ---
Assessment/Plan Status: unchanged Status Narrative Cr 1.1-1.8-2.1----2 Assessment/Plan status: GI bleed- Low Na due to Hyper Glycemia and dehydration Renal failure due to DM and HTN DM and Proteinuria, Nephropathy- HTN- UTI, Low Mag Cachexia COPD Pacer / ICD CHF / Cardiomyopathy previous EjFx 20% PVD Iodine allergy Plan: to ICU GI eval kidney ADE- Negative- Avoid Nephrotoxics- Mag IV- as needed Lower lasix dose- Monitor renal parameters Per orders Subjective ROS Limited/Unobtainable: No Constitutional: Reports: malaise, weakness Allergies: Coded Allergies: IODINE (Verified Allergy, Unknown, 10/16/16) Objective Last 24 Hour Vital Signs Date Time Temp Pulse Resp B/P Pulse Ox O2 Delivery O2 Flow Rate FiO2 10/19/16 12:00 97.2 73 16 138/65 98 Room Air 10/19/16 12:00 76 10/19/16 11:00 75 16 143/62 98 Room Air 10/19/16 10:00 86 20 142/58 98 Room Air 10/19/16 09:36 73 133/77 10/19/16 09:00 71 12 133/77 100 Room Air 10/19/16 08:27 66 18 Room Air 21 10/19/16 08:27 Room Air 21 10/19/16 08:27 98 Room Air 21 10/19/16 08:00 97.1 67 18 123/60 99 Room Air 10/19/16 08:00 72 10/19/16 07:00 73 13 123/56 100 Nasal Cannula 2.0 10/19/16 06:00 59 13 110/43 100 Nasal Cannula 2.0 10/19/16 05:00 56 13 99/39 100 Nasal Cannula 2.0 10/19/16 04:00 53 10/19/16 04:00 97.5 53 13 97/42 100 Nasal Cannula 2.0 10/19/16 03:00 51 13 92/47 100 Nasal Cannula 2.0 10/19/16 02:00 97.5 54 13 91/45 100 Nasal Cannula 2.0 10/19/16 01:00 54 13 92/47 100 Nasal Cannula 2.0 10/19/16 00:00 97.7 55 13 90/47 100 Nasal Cannula 2.0 10/19/16 00:00 56 10/18/16 23:00 58 13 94/51 100 Nasal Cannula 2.0 10/18/16 22:00 61 13 94/56 100 Nasal Cannula 2.0 10/18/16 21:09 61 107/63 10/18/16 21:00 61 13 107/63 100 Nasal Cannula 2.0 10/18/16 20:00 97.5 66 13 97/55 100 Nasal Cannula 2.0 10/18/16 20:00 60 10/18/16 19:33 62 14 Nasal Cannula 2.0 28 10/18/16 19:33 Nasal Cannula 2.0 28 10/18/16 19:33 100 Nasal Cannula 2.0 28 10/18/16 19:00 63 13 100/59 100 Nasal Cannula 2.0 10/18/16 18:00 62 18 105/61 100 Nasal Cannula 2.0 10/18/16 17:00 64 16 100/84 100 Nasal Cannula 2.0 10/18/16 16:00 97.5 69 16 109/70 100 Nasal Cannula 2.0 10/18/16 16:00 71 10/18/16 15:00 76 16 126/79 100 Nasal Cannula 2.0 10/18/16 14:30 97.6 84 19 108/79 100 Nasal Cannula 2.0 Intake and Output 10/18/16 10/19/16 19:00 07:00 Intake Total 806 ml 1641.875 ml Output Total 750 ml 200 ml Balance 56 ml 1441.875 ml Intake Oral 0 ml IV Total 806 ml 1641.875 ml Output Urine Total 750 ml 200 ml Laboratory Tests 10/19/16 05:45: Sodium Level 137, Potassium Level 3.3L, Chloride Level 93L, Carbon Dioxide Level 29, Anion Gap 15, Blood Urea Nitrogen 57H, Creatinine 2.0H, Estimat Glomerular Filtration Rate 33.4, Glucose Level 234#H, Uric Acid 7.3, Calcium Level 6.7L, Phosphorus Level 4.9H, Magnesium Level 2.3, Total Bilirubin 0.5, Gamma Glutamyl Transpeptidase 42, Aspartate Amino Transf (AST/SGOT) 15, Alanine Aminotransferase (ALT/SGPT) 11, Alkaline Phosphatase 89, C-Reactive Protein, Quantitative 0.7H, Pro-B-Type Natriuretic Peptide 68895H, Total Protein 5.5L, Albumin 3.0L, Globulin 2.5, Albumin/Globulin Ratio 1.2 10/19/16 07:45: Urine Eosinophils None seen 10/19/16 07:50: White Blood Count 9.3, Red Blood Count 3.52L, Hemoglobin 10.6#L, Hematocrit 32.5 #L, Mean Corpuscular Volume 92, Mean Corpuscular Hemoglobin 30.2, Mean Corpuscular Hemoglobin Concent 32.7, Red Cell Distribution Width 13.3, Platelet Count 132L, Mean Platelet Volume 9.2, Neutrophils (%) (Auto) 83.7H, Lymphocytes (%) (Auto) 7.8L, Monocytes (%) (Auto) 8.0, Eosinophils (%) (Auto) 0.0, Basophils (%) (Auto) 0.5 Height (Feet): 5 Height (Inches): 9.00 Weight (Pounds): 91 General Appearance: lethargic, mild distress Respiratory/Chest: decreased breath sounds Abdomen: distended JESUS REA Oct 19, 2016 13:30
--- NOTE | 2016-10-19 15:05 | GI Progress Note ---
Assessment/Plan Problems: (1) Hypoalbuminemia ICD Codes: E88.09 - Other disorders of plasma-protein metabolism, not elsewhere classified SNOMED: 620746321 (2) LFTs abnormal ICD Codes: R79.89 - Other specified abnormal findings of blood chemistry SNOMED: 637843241 (3) DKA (diabetic ketoacidoses) ICD Codes: E13.10 - Other specified diabetes mellitus with ketoacidosis without coma SNOMED: 64054289, 104362669 (4) Hematemesis ICD Codes: K92.0 - Hematemesis SNOMED: 8738860 (5) Hemorrhagic shock SNOMED: 695884 Status: stable Status Narrative Discussed with Dr. Marino. Assessment/Plan EGD scheduled for tomorrow. - CLD now, NPO @ [place]. ppi gtt repeat coags DM mgmt fu labs Subjective Gastrointestinal/Abdominal: Reports: vomiting - denies at this time Objective Last 24 Hour Vital Signs Date Time Temp Pulse Resp B/P Pulse Ox O2 Delivery O2 Flow Rate FiO2 10/19/16 14:00 73 15 122/93 98 Room Air 10/19/16 13:00 76 15 140/68 98 Room Air 10/19/16 12:00 97.2 73 16 138/65 98 Room Air 10/19/16 12:00 76 10/19/16 11:00 75 16 143/62 98 Room Air 10/19/16 10:00 86 20 142/58 98 Room Air 10/19/16 09:36 73 133/77 10/19/16 09:00 71 12 133/77 100 Room Air 10/19/16 08:27 66 18 Room Air 21 10/19/16 08:27 Room Air 21 10/19/16 08:27 98 Room Air 21 10/19/16 08:00 97.1 67 18 123/60 99 Room Air 10/19/16 08:00 72 10/19/16 07:00 73 13 123/56 100 Nasal Cannula 2.0 10/19/16 06:00 59 13 110/43 100 Nasal Cannula 2.0 10/19/16 05:00 56 13 99/39 100 Nasal Cannula 2.0 10/19/16 04:00 53 10/19/16 04:00 97.5 53 13 97/42 100 Nasal Cannula 2.0 10/19/16 03:00 51 13 92/47 100 Nasal Cannula 2.0 10/19/16 02:00 97.5 54 13 91/45 100 Nasal Cannula 2.0 10/19/16 01:00 54 13 92/47 100 Nasal Cannula 2.0 10/19/16 00:00 97.7 55 13 90/47 100 Nasal Cannula 2.0 10/19/16 00:00 56 10/18/16 23:00 58 13 94/51 100 Nasal Cannula 2.0 10/18/16 22:00 61 13 94/56 100 Nasal Cannula 2.0 10/18/16 21:09 61 107/63 10/18/16 21:00 61 13 107/63 100 Nasal Cannula 2.0 10/18/16 20:00 97.5 66 13 97/55 100 Nasal Cannula 2.0 10/18/16 20:00 60 10/18/16 19:33 62 14 Nasal Cannula 2.0 28 10/18/16 19:33 Nasal Cannula 2.0 28 10/18/16 19:33 100 Nasal Cannula 2.0 28 10/18/16 19:00 63 13 100/59 100 Nasal Cannula 2.0 10/18/16 18:00 62 18 105/61 100 Nasal Cannula 2.0 10/18/16 17:00 64 16 100/84 100 Nasal Cannula 2.0 10/18/16 16:00 97.5 69 16 109/70 100 Nasal Cannula 2.0 10/18/16 16:00 71 Intake and Output 10/18/16 10/19/16 19:00 07:00 Intake Total 806 ml 1641.875 ml Output Total 750 ml 200 ml Balance 56 ml 1441.875 ml Intake Oral 0 ml IV Total 806 ml 1641.875 ml Output Urine Total 750 ml 200 ml Laboratory Tests Test 10/19/16 05:45 10/19/16 07:45 10/19/16 07:50 Sodium Level 137 mEQ/L (135-145) Potassium Level 3.3 mEQ/L (3.4-4.9) L Chloride Level 93 mEQ/L (98-107) L Carbon Dioxide Level 29 mEQ/L (20-30) Anion Gap 15 (5-15) Blood Urea Nitrogen 57 mg/dL (7-23) H Creatinine 2.0 mg/dL (0.7-1.2) H Estimat Glomerular Filtration Rate 33.4 mL/min (>60) Glucose Level 234 mg/dL (74-106) #H Uric Acid 7.3 mg/dL (3.0-7.5) Calcium Level 6.7 mg/dL (8.6-10.2) L Phosphorus Level 4.9 mg/dL (2.5-4.8) H Magnesium Level 2.3 mg/dL (1.7-2.5) Total Bilirubin 0.5 mg/dL (0.0-1.2) Gamma Glutamyl Transpeptidase 42 U/L (8-61) Aspartate Amino Transf (AST/SGOT) 15 U/L (5-40) Alanine Aminotransferase (ALT/SGPT) 11 U/L (3-41) Alkaline Phosphatase 89 U/L (40-129) C-Reactive Protein, Quantitative 0.7 mg/dL (< 0.5) H Pro-B-Type Natriuretic Peptide 47048 pg/mL (0-125) H Total Protein 5.5 g/dL (6.6-8.7) L Albumin 3.0 g/dL (3.5-5.2) L Globulin 2.5 g/dL Albumin/Globulin Ratio 1.2 (1.0-2.7) Urine Eosinophils None seen White Blood Count 9.3 K/UL (4.8-10.8) Red Blood Count 3.52 M/UL (4.70-6.10) L Hemoglobin 10.6 G/DL (14.2-18.0) #L Hematocrit 32.5 % (42.0-52.0) #L Mean Corpuscular Volume 92 FL (80-99) Mean Corpuscular Hemoglobin 30.2 PG (27.0-31.0) Mean Corpuscular Hemoglobin Concent 32.7 G/DL (32.0-36.0) Red Cell Distribution Width 13.3 % (11.6-14.8) Platelet Count 132 K/UL (150-450) L Mean Platelet Volume 9.2 FL (6.5-10.1) Neutrophils (%) (Auto) 83.7 % (45.0-75.0) H Lymphocytes (%) (Auto) 7.8 % (20.0-45.0) L Monocytes (%) (Auto) 8.0 % (1.0-10.0) Eosinophils (%) (Auto) 0.0 % (0.0-3.0) Basophils (%) (Auto) 0.5 % (0.0-2.0) Height (Feet): 5 Height (Inches): 9.00 Weight (Pounds): 91 General Appearance: no apparent distress, alert, thin Cardiovascular: normal rate Respiratory/Chest: normal breath sounds, no respiratory distress Abdominal Exam: normal bowel sounds, non tender, soft Melvi Mallory N.PAlton Oct 19, 2016 15:05
[2016-10-19] MEDS ORDERED: Nitroglycerin Subl 0.4mg tab (Bottle Of 25) SL PRN (16:00)
[2016-10-19] MEDS ORDERED: LORazepam Inj 2mg/ml 1ml IV PRN (16:30)
[2016-10-19] MEDS ORDERED: DuoNeb 0.5-3(2.5)mg/3ml neb HHN PRN (16:30)
[2016-10-19] MEDS ORDERED: Morphine Sulfate 2mg/ml Inj IVP PRN (16:30)
[2016-10-19] MEDS ORDERED: Tubing IV Secondary IV ONE (16:37)
[2016-10-19] MEDS ORDERED: NS 275ml ONE ×2 (16:37→18:29)
[2016-10-19] MEDS ORDERED: Tubing IV Blood Pump IV ONE (18:29)
[2016-10-19] MEDS ORDERED: Tamsulosin 0.4mg cap ORAL SCH (21:00)
[2016-10-20] VITALS (11 sets, daily range): BP systolic 107–156; BP diastolic 54–82
[2016-10-20] MEDS: Pantoprazole 80 MG in NS 250 ML IV SCH ×3 (02:30→21:34)
[2016-10-20] MEDS: Potassium Chloride 10 MEQ in NS 1000ml 1,000 ML IV SCH ×3 (03:53→22:30)
[2016-10-20] MEDS: Metoclopramide 10mg/2ml Inj IVP SCH ×3 (04:24→21:31)
[2016-10-20] MEDS: Piperacillin/Tazobactam 2.25 GM in D5W 110 ML IV SCH ×2 (05:27→13:59)
[2016-10-20] MEDS: NovoLOG Insulin Flexpen SUBQ SCH ×4 (05:28→18:51)
[2016-10-20] MEDS ORDERED: Pantoprazole Inj ONE (06:06)
[2016-10-20] MEDS ORDERED: Levothyroxine 25mcg tab ORAL SCH (06:30)
[2016-10-20 07:44] LABS: BASOPHILS % (AUTO) 0.8 % (0.0-2.0); EOSINOPHILS % (AUTO) 0.1 % (0.0-3.0); LYMPHOCYTES % (AUTO) 11.8 % (20.0-45.0); MEAN CORPUSCULAR HEMOGLOBIN 30.4 PG (27.0-31.0); MEAN CORPUSCULAR HGB CONC 32.3 G/DL (32.0-36.0); MEAN CORPUSCULAR VOLUME 94 FL (80-99); MEAN PLATELET VOLUME 10.2 FL (6.5-10.1); MONOCYTES % (AUTO) 5.5 % (1.0-10.0); NEUTROPHILS % (AUTO) 81.8 % (45.0-75.0); PLATELET COUNT 116 K/UL (150-450); RED BLOOD COUNT 3.23 M/UL (4.70-6.10); RED CELL DISTRIBUTION WIDTH 13.6 % (11.6-14.8); WHITE BLOOD COUNT 8.1 K/UL (4.8-10.8)
[2016-10-20 07:56] LABS: INR 1.2 (0.9-1.1)
[2016-10-20 07:59] LABS: ALBUMIN/GLOBULIN RATIO 1.1 (1.0-2.7); CALCIUM 6.9 mg/dL (8.6-10.2); CREATININE 1.5 mg/dL (0.7-1.2); GLOMERULAR FILTRATION RATE 46.5 mL/min (>60); MAGNESIUM 1.7 mg/dL (1.7-2.5); PHOSPHORUS 2.2 mg/dL (2.5-4.8); POTASSIUM 3.4 mEQ/L (3.4-4.9); TOTAL PROTEIN 5.1 g/dL (6.6-8.7)
[2016-10-20 08:15] LABS: ABG ALLEN TEST POSITIVE; ABG BASE EXCESS -3.6; ABG PCO2 37.4 mmHg (35.0-45.0)
[2016-10-20] MEDS: Theophylline ER 100mg ORAL SCH ×2 (08:29→21:30)
[2016-10-20] MEDS: Carvedilol 25mg Tab ORAL SCH ×2 (08:29→21:30)
[2016-10-20] MEDS: Lyrica 50mg cap ORAL SCH ×3 (08:29→18:38)
--- NOTE | 2016-10-20 08:47 | Consultation ---
DATE OF CONSULTATION: 10/17/2016 CARDIOLOGY CONSULTATION REASON FOR ADMISSION: Evaluation of shortness of breath. HISTORY OF PRESENT ILLNESS: This is an elderly gentleman who has a history of multiple medical problems as delineated below. The patient was recently hospitalized in July 2016 at [facility]. Some of the records which I reviewed, and at that time, he apparently had cardiac catheterization. He subsequently underwent drug-eluting stent placements for 80% stenosis of the second diagonal and also PCI and drug-eluting stent in the left anterior descending artery, proximal and mid. He had presented with non-ST elevation myocardial infarction. He was noted to have diffuse disease in those vessels as well and he has been treated with aspirin and Plavix since. He presented to the hospital because of shortness of breath, and there is really no chest pain or pressure. He does have some epigastric pain. He denies having any similar symptoms that he had with his admission to [facility] with [id number] myocardial infarction. He has had shortness of breath. He is on chronic home O2 therapy, but he has had worsening shortness of breath. He has minimal coughing and wheezing. No pain or pressure. He uses two soft pillows. No PND. No dizziness or lightheadedness on standing. No heart pounding or palpitations. PAST MEDICAL HISTORY: Besides what was mentioned as far as coronary artery disease above, it is positive for a history of alcoholic liver disease with cirrhosis, diabetes mellitus, cardiomyopathy, hypertension, chronic obstructive pulmonary disease, systemic hypertension, rib fractures, history of hepatitis, peripheral vascular disease, and status post transurethral resection of prostate as well. In 2013, he underwent placement of Biotronik Linox Smart Device, intracardiac defibrillator was placed by Dr. Jimmie Bauer over at [facility]. He had also had a history of significant pulmonary hypertension, severe tricuspid regurgitation, alcoholic cirrhosis, ascites with recurrent paracentesis, recurrent pancreatitis, chronic obstructive pulmonary disease, peptic ulcer disease, and benign prostatic hypertrophy. ALLERGIES: He is reportedly allergic to iodine. SOCIAL HISTORY: He was born in . He has more than 28-[id number]-oeci history of smoking. He still uses tobacco at this time. He has a history of significant alcohol use, but apparently not recently. REVIEW OF SYSTEMS: Gastrointestinal: He has had nausea and vomiting, and he had just a bout of diarrhea before he came in. No bloody stools or black tarry stools. Genitourinary: Denies. Pulmonary: He does have shortness of breath, but has some coughing and no wheezing. Constitutional: He has not had any fevers, but he feels cold and chills at times. No significant weight loss according to himself. Neurologic: Negative. PHYSICAL EXAMINATION: GENERAL: Thin elderly gentleman, in no apparent respiratory distress. NECK: Supple. No jugular venous distention. LUNGS: Decreased breath sounds noted bilaterally. No wheezing. CARDIAC: Regular rate and rhythm. No heaves, thrills, or gallops noted. ABDOMEN: Soft and nontender. Positive bowel sounds. EXTREMITIES: There is no clubbing, cyanosis, nor is there any edema. NEUROLOGIC: He is awake, alert, responsive, and in no apparent respiratory distress. LABORATORY AND DIAGNOSTIC DATA: On review of [facility] data, thoracic echocardiogram that was performed on 08/20/2016 showed ejection fraction 15% to 20%. LV thrombus was not excluded. Severe diastolic relaxation abnormality was noted. Moderately severe depressed left ventricular systolic function. PA pressure of 62 with dilated IVC. Pacing device in place. His labs from this hospitalization - his white count is 6.5, hemoglobin 14.5, and platelet count 185,000. His sodium 142, potassium 4.5, chloride 87, bicarbonate of 31, BUN of 19, creatinine 1.5, and glucose of 255. Troponin less than 0.03 and ProBNP 52,000. Albumin of 4.1. His urinalysis shows 2+ protein, 1+ glucose, 4+ ketones, 1+ blood, 5 to 10 WBCs, and 0 to 2 RBCs. His electrocardiogram from yesterday shows prolongation of the QT interval. He does have some T-wave inversions in V1, V2, V3, and V4, but these T-wave inversions appear to be relatively diffuse and in direct comparison with his last echocardiogram performed at [facility], it appears that the T-wave inversions that were present before are noted to be more pronounced in V1 through V4 as well, which he seemed to not have had on prior occasions on the EKG on 08/18/2016. ASSESSMENT: 1. Dyspnea, multifactorial, probably a combination of congestive heart failure and chronic obstructive pulmonary disease. 2. Abdominal pain. 3. History of prior pancreatitis. 4. Percutaneous coronary intervention in July 2016, left anterior descending artery and diagonal. 5. Congestive heart failure, systolic and diastolic dysfunction with acute exacerbation. 6. Chronic obstructive pulmonary disease. 7. Systemic hypertension. 8. History of hyperlipidemia. 9. Diabetes mellitus. 10. Peripheral vascular disease. 11. History of renal insufficiency. 12. History of alcoholic cirrhosis. 13. Previous history of paracentesis. 14. History of ischemic cardiomyopathy, ejection fraction 15% to 20% in July 2016. 15. History of hepatic encephalopathy. 16. History of iodine allergy. 17. History of intracardiac defibrillator in situ. PLAN: Dr. Mayer, this patient was seen in cardiac consultation. As mentioned, the patient's EKG shows some changes that were not present on previous EKG in addition to prolongation of QT. His repeat EKG and troponin are pending. He should have treatment of any hypokalemia and hypomagnesemia with diuretics as blood pressure and renal function allows. Treatment of heart failure and chronic obstructive pulmonary disease treatment as per yourself, and check amylase and lipase as well for his abdominal pain in light of his prior history of pancreatitis. Proton pump inhibitor. He may need GI evaluation for his epigastric pain. Anti-acid will be provided. He may need ultrasound of the abdomen. Cole Bear M.D. DR: ONEL JOB#: [id number] CC:
--- NOTE | 2016-10-20 08:52 | Pre-Procedure Note/Attestation ---
Pre-Procedure Note/Attestation Complete Prior to Procedure Planned Procedure: not applicable Procedure Narrative: egd Indications for Procedure Pre-Operative Diagnosis: gib Attestation I attest that I discussed the nature of the procedure; its benefits; risks and complications; and alternatives (and the risks and benefits of such alternatives ), prior to the procedure, with the patient (or the patient's legal software support representative). I attest that, if there was a reasonable possibility of needing a blood transfusion, the patient (or the patient's legal software support representative) was given the [facility] standardized written summary, pursuant to the Raimundo Bonnie Blood Safety Act ([place] Health and Safety Code # 1645, as amended). I attest that I re-evaluated the patient just prior to the surgery and that there has been no change in the patient's H&P, except as documented below: SANDY GASCA Oct 20, 2016 08:52
[2016-10-20] MEDS ORDERED: Sertraline 50mg tab ORAL SCH (09:00)
[2016-10-20] MEDS ORDERED: Propofol 10mg/ml 20ml IV ONE (10:00)
[2016-10-20] MEDS ORDERED: Lidocaine 1% MPF 10mg/ml 5ml ONE (10:00)
[2016-10-20] MEDS ORDERED: NS 550ML IV ONE (10:10)
--- NOTE | 2016-10-20 10:12 | Anethesia Preoperative Eval ---
Anesthesia Pre-op PMH/ROS General Date of Evaluation: Oct 20, 2016 Time of Evaluation: 10:11 Anesthesiologist: christian ASA Score: ASA 3 Mallampati Score Class I : Soft palate, uvula, fauces, pillars visible Class II: Soft palate, uvula, fauces visible Class III: Soft palate, base of uvula visible Class IV: Only hard plate visible Mallampati Classification: Class II Surgeon: patsy Diagnosis: anemia Surgical Procedure: egd Anesthesia History: none Family History: no anesthesia problems Allergies: Coded Allergies: IODINE (Verified Allergy, Unknown, 10/16/16) Medications: see eMAR Past Medical History Cardiovascular: Reports: CAD, other - pacemaker Pulmonary: Reports: COPD Gastrointestinal/Genitourinary: Reports: CRI Endocrine: Reports: DM HEENT: Denies: EKUK (L), EKUK (R), cataract (L), cataract (R), glaucoma, other Hematology/Immune: Reports: anemia Musculoskeletal/Integumentary: Denies: DDD, DJD, OA, RA, edema, other PMH Narrative: (1) Cardiomyopathy (2) COPD (chronic obstructive pulmonary disease) Anesthesia Pre-op Phys. Exam Physician Exam Last Vital Signs Date Time Temp Pulse Resp B/P Pulse Ox O2 Delivery O2 Flow Rate FiO2 10/20/16 08:29 68 149/75 10/20/16 07:58 Room Air 10/20/16 07:58 96 10/20/16 07:57 97.5 20 10/19/16 19:00 21 10/19/16 07:00 2.0 Constitutional: NAD Neurologic: CN 2-12 intact Cardiovascular: RRR Respiratory: CTA Gastrointestinal: S/NT/ND Airway Exam Mallampati Score: Class III MO: limited ROM: full Dentures: no lower, no upper Anesthesia Pre-op A/P Labs Hematology Test 10/20/16 07:05 White Blood Count 8.1 K/UL (4.8-10.8) Red Blood Count 3.23 M/UL (4.70-6.10) L Hemoglobin 9.8 G/DL (14.2-18.0) L Hematocrit 30.4 % (42.0-52.0) L Mean Corpuscular Volume 94 FL (80-99) Mean Corpuscular Hemoglobin 30.4 PG (27.0-31.0) Mean Corpuscular Hemoglobin Concent 32.3 G/DL (32.0-36.0) Red Cell Distribution Width 13.6 % (11.6-14.8) Platelet Count 116 K/UL (150-450) L Mean Platelet Volume 10.2 FL (6.5-10.1) H Neutrophils (%) (Auto) 81.8 % (45.0-75.0) H Lymphocytes (%) (Auto) 11.8 % (20.0-45.0) L Monocytes (%) (Auto) 5.5 % (1.0-10.0) Eosinophils (%) (Auto) 0.1 % (0.0-3.0) Basophils (%) (Auto) 0.8 % (0.0-2.0) Coagulation Test 10/20/16 07:05 Prothrombin Time 12.0 SEC (9.30-11.50) H Prothromb Time International Ratio 1.2 (0.9-1.1) H Activated Partial Thromboplast Time 28 SEC (23-33) Chemistry Test 10/20/16 07:05 Sodium Level 142 mEQ/L (135-145) Potassium Level 3.4 mEQ/L (3.4-4.9) Chloride Level 102 mEQ/L (98-107) Carbon Dioxide Level 21 mEQ/L (20-30) Anion Gap 19 (5-15) H Blood Urea Nitrogen 34 mg/dL (7-23) H Creatinine 1.5 mg/dL (0.7-1.2) H Estimat Glomerular Filtration Rate 46.5 mL/min (>60) Glucose Level 213 mg/dL (74-106) H Calcium Level 6.9 mg/dL (8.6-10.2) L Phosphorus Level 2.2 mg/dL (2.5-4.8) L Magnesium Level 1.7 mg/dL (1.7-2.5) Total Bilirubin 0.5 mg/dL (0.0-1.2) Aspartate Amino Transf (AST/SGOT) 14 U/L (5-40) Alanine Aminotransferase (ALT/SGPT) 10 U/L (3-41) Alkaline Phosphatase 70 U/L (40-129) Total Protein 5.1 g/dL (6.6-8.7) L Albumin 2.7 g/dL (3.5-5.2) L Globulin 2.4 g/dL Albumin/Globulin Ratio 1.1 (1.0-2.7) Studies Pre-op Studies: EKG - sr Risk Assessment & Plan Plan: mac Status Change Before Surgery: No Pre-Antibiotics Drug: none KATHIA DENT CRNA Oct 20, 2016 10:12
--- NOTE | 2016-10-20 10:30 | Endoscopy Procedure Note ---
Endoscopy Procedure Note Indication for Procedure: gib Procedures Performed: EGD Operative Findings/Diagnosis: esophagitis Specimen: yes Pt Tolerated Procedure Well: Yes Estimated Blood Loss: none Anesthesiologist: amber Anesthesia: MAC Implant(s) used?: No 50 yrs or older w/o bx or poly: Not Applicable 10yrs. F/U not recommended: Not Applicable SANDY GASCA Oct 20, 2016 10:30
--- NOTE | 2016-10-20 10:47 | Immediate Post-Op Evaluation ---
Immediate Post-Op Evalulation Immediate Post-Op Evalulation Procedure: egd Date of Evaluation: Oct 20, 2016 Time of Evaluation: 10:35 IV Fluids: 250 Blood Pressure Systolic: 153 Blood Pressure Diastolic: 81 Pulse Rate: 78 Respiratory Rate: 14 O2 Sat by Pulse Oximetry: 99 Temperature (Fahrenheit): 98.4 Nausea: No Vomiting: No Complications none Patient Status: awake, patent Hydration Status: adequate Drug: none KATHIA DENT CRNA Oct 20, 2016 10:47
--- NOTE | 2016-10-20 10:48 | 48 Hour Post Anesthesia Eval ---
Post Anesthesia Evaluation Procedure: egd Date of Evaluation: Oct 20, 2016 Time of Evaluation: 10:47 Blood Pressure Systolic: 150 0: 80 Pulse Rate: 70 Respiratory Rate: 14 O2 Sat by Pulse Oximetry: 99 Airway: patent Nausea: No Vomiting: No Hydration Status: adequate Mental Status/LOC: patient returned to baseline Post-Anesthesia Complications: none Follow-up care needed: N/A KATHIA DENT CRNA Oct 20, 2016 10:48
--- NOTE | 2016-10-20 12:04 | Pulmonology Progress Note ---
Assessment/Plan Problems: (1) COPD exacerbation (2) Cachexia (3) Severe protein-calorie malnutrition (4) Cardiomyopathy (5) Hemorrhagic shock (6) Hypoalbuminemia (7) DKA (diabetic ketoacidoses) (8) Hematemesis Assessment/Plan vital signs stable no more gi bleeing INR better resume diet if ok with GI respiratory treatment PT/ot Subjective ROS Limited/Unobtainable: No Interval Events: EGd showing gastric ulcer and esophagitis Allergies: Coded Allergies: IODINE (Verified Allergy, Unknown, 10/16/16) Objective Last 24 Hour Vital Signs Date Time Temp Pulse Resp B/P Pulse Ox O2 Delivery O2 Flow Rate FiO2 10/20/16 11:24 96.3 74 20 155/78 96 Room Air 10/20/16 10:50 97.4 74 24 154/76 97 Room Air 10/20/16 10:48 70 14 99 10/20/16 10:47 78 14 99 10/20/16 10:40 75 23 156/78 97 Room Air 10/20/16 10:35 78 24 151/80 97 Room Air 10/20/16 10:30 97.6 80 20 153/81 100 Simple Mask 6.0 10/20/16 08:29 68 149/75 10/20/16 07:58 Room Air 10/20/16 07:58 96 Room Air 10/20/16 07:57 97.5 68 20 149/75 99 Room Air 10/20/16 07:54 83 18 Room Air 10/20/16 04:10 98.0 78 20 135/54 97 Room Air 10/20/16 04:00 66 10/20/16 00:00 62 10/20/16 00:00 97.7 51 20 107/58 94 Room Air 10/19/16 21:55 89 136/74 10/19/16 20:00 98.8 89 19 136/74 98 Room Air 10/19/16 20:00 73 10/19/16 19:00 98 Room Air 21 10/19/16 19:00 Room Air 10/19/16 19:00 69 16 Room Air 21 10/19/16 16:00 74 10/19/16 16:00 97.9 71 20 131/67 97 Room Air 10/19/16 15:00 73 14 131/51 97 Room Air 10/19/16 14:00 73 15 122/93 98 Room Air 10/19/16 13:00 76 15 140/68 98 Room Air Intake and Output 10/19/16 10/20/16 19:00 07:00 Intake Total 1380 ml 1598.75 ml Output Total 1225 ml 50 ml Balance 155 ml 1548.75 ml Intake Oral 200 ml IV Total 1120 ml 1598.75 ml Other 60 ml Output Urine Total 1225 ml 50 ml # Voids 3 # Bowel Movements 4 1 General Appearance: WD/WN HEENT: normocephalic, atraumatic Respiratory/Chest: chest wall non-tender, lungs clear Cardiovascular: normal peripheral pulses, normal rate Abdomen: normal bowel sounds, soft, non tender Genitourinary: normal external genitalia Skin: no lesions Neurologic/Psychiatric: editor newspaper II-XII grossly normal Laboratory Tests 10/20/16 07:05: White Blood Count 8.1, Red Blood Count 3.23L, Hemoglobin 9.8L, Hematocrit 30.4L , Mean Corpuscular Volume 94, Mean Corpuscular Hemoglobin 30.4, Mean Corpuscular Hemoglobin Concent 32.3, Red Cell Distribution Width 13.6, Platelet Count 116L, Mean Platelet Volume 10.2H, Neutrophils (%) (Auto) 81.8H, Lymphocytes (%) (Auto) 11.8L, Monocytes (%) (Auto) 5.5, Eosinophils (%) (Auto) 0.1, Basophils (%) (Auto) 0.8, Prothrombin Time 12.0H, Prothromb Time International Ratio 1.2H, Activated Partial Thromboplast Time 28, Sodium Level 142, Potassium Level 3.4, Chloride Level 102, Carbon Dioxide Level 21, Anion Gap 19H, Blood Urea Nitrogen 34H, Creatinine 1.5H, Estimat Glomerular Filtration Rate 46.5, Glucose Level 213H, Calcium Level 6.9L, Phosphorus Level 2.2L, Magnesium Level 1.7, Total Bilirubin 0.5, Aspartate Amino Transf (AST/SGOT ) 14, Alanine Aminotransferase (ALT/SGPT) 10, Alkaline Phosphatase 70, Total Protein 5.1L, Albumin 2.7L, Globulin 2.4, Albumin/Globulin Ratio 1.1 10/20/16 08:00: Arterial Blood pH 7.370, Arterial Blood Partial Pressure CO2 37.4, Arterial Blood Partial Pressure O2 77.9, Arterial Blood HCO3 21.2L, Arterial Blood Oxygen Saturation 95.2, Arterial Blood Base Excess -3.6, Cristian Test Positive Current Medications Medications (Trade) Dose Ordered Sig/Kevin Route PRN Reason Start Time Stop Time Status Last Admin Dose Admin Albuterol/ Ipratropium (DuoNeb 0.5-3(2.5)mg/3ml) 3 ml Q4H PRN HHN dyspnea 10/19/16 16:30 10/24/16 16:29 Carvedilol (Coreg) 25 mg EVERY 12 HOURS ORAL 10/19/16 21:00 11/18/16 20:59 10/20/16 08:29 Dextrose (Dextrose 50%) STAT PRN IV Hypoglycemia 10/19/16 16:30 11/18/16 16:29 Insulin Aspart (NovoLOG) EVERY 6 HOURS SUBQ 10/19/16 18:00 11/18/16 17:59 10/19/16 19:03 Levothyroxine Sodium (Synthroid) 25 mcg ACBREAKFAST ORAL 10/20/16 06:30 11/19/16 06:29 10/20/16 06:14 Lorazepam (Ativan 2mg/ml 1ml) 0.5 mg Q4H PRN IV For Anxiety 10/19/16 16:30 10/26/16 16:29 Metoclopramide HCl (Reglan) 5 mg Q6H IVP 10/19/16 16:30 11/18/16 16:29 10/20/16 10:57 Morphine Sulfate (Morphine Sulfate) 2 mg Q4H PRN IVP severe pain 7-10 10/19/16 16:30 10/26/16 16:29 Nitroglycerin (Ntg) 0.4 mg Q5M X 3 DOSES PRN SL Prn Chest Pain 10/19/16 16:00 11/18/16 15:59 Pantoprazole (Protonix) 40 mg DAILY ORAL 10/21/16 09:00 11/20/16 08:59 Pantoprazole 80 mg/Sodium Chloride 250 ml @ 25 mls/hr Q10H IV 10/19/16 16:30 11/18/16 16:29 10/20/16 06:15 Piperacillin Sod/ Tazobactam Sod/ Dextrose (Zosyn/D5W) 110 ml @ 220 mls/hr EVERY 8 HOURS IV 10/19/16 22:00 10/22/16 23:59 10/20/16 05:27 Potassium Chloride 10 meq/ Sodium Chloride 1,005 ml @ 100 mls/hr Q10H3M IV 10/19/16 16:30 11/18/16 16:29 10/20/16 03:53 Pregabalin (Lyrica) 50 mg THREE TIMES A DAY ORAL 10/19/16 18:00 11/18/16 17:59 10/20/16 08:29 Sertraline HCl (Zoloft) 25 mg DAILY ORAL 10/20/16 09:00 11/19/16 08:59 10/20/16 08:30 Sucralfate (Carafate) 1 gm FOUR TIMES A DAY ORAL 10/20/16 13:00 11/19/16 12:59 Tamsulosin HCl (Flomax) 0.4 mg BEDTIME ORAL 10/19/16 21:00 11/18/16 20:59 10/19/16 21:55 Temazepam (Restoril) 15 mg HSPRN PRN ORAL Insomnia 10/19/16 21:00 10/26/16 20:59 Theophylline (Candido-Dur) 100 mg EVERY 12 HOURS ORAL 10/19/16 21:00 11/18/16 20:59 10/20/16 08:29 HALIMA JOSEPH Oct 20, 2016 12:04
[2016-10-20] MEDS ORDERED: Sucralfate 1gm tab ORAL SCH (13:00)
--- NOTE | 2016-10-20 13:34 | Diagnostic Imaging Report ---
Indication: Dyspnea Comparison: 10/16/16 A single view chest radiograph was obtained. Findings: No definite infiltrate or pulmonary vascular congestion identified. Pacemaker is present. The heart is enlarged. The aorta is mildly enlarged consistent with atherosclerotic vascular disease. The bones are osteopenic. Impression: No acute disease
--- NOTE | 2016-10-20 13:43 | General Progress Note ---
Assessment/Plan Status: stable Status Narrative Cr lower Assessment/Plan status: GI bleed- Low Na due to Hyper Glycemia and dehydration Renal failure due to DM and HTN DM and Proteinuria, Nephropathy- HTN- UTI, Low Mag Cachexia COPD Pacer / ICD CHF / Cardiomyopathy previous EjFx 20% PVD Iodine allergy Plan: K Phos IV kidney ADE- Negative- Avoid Nephrotoxics- Mag IV- as needed Lower lasix dose- Monitor renal parameters Per orders Subjective ROS Limited/Unobtainable: No Constitutional: Reports: malaise Allergies: Coded Allergies: IODINE (Verified Allergy, Unknown, 10/16/16) Objective Last 24 Hour Vital Signs Date Time Temp Pulse Resp B/P Pulse Ox O2 Delivery O2 Flow Rate FiO2 10/20/16 11:24 96.3 74 20 155/78 96 Room Air 10/20/16 10:50 97.4 74 24 154/76 97 Room Air 10/20/16 10:48 70 14 99 10/20/16 10:47 78 14 99 10/20/16 10:40 75 23 156/78 97 Room Air 10/20/16 10:35 78 24 151/80 97 Room Air 10/20/16 10:30 97.6 80 20 153/81 100 Simple Mask 6.0 10/20/16 08:29 68 149/75 10/20/16 07:58 Room Air 10/20/16 07:58 96 Room Air 10/20/16 07:57 97.5 68 20 149/75 99 Room Air 10/20/16 07:54 83 18 Room Air 10/20/16 04:10 98.0 78 20 135/54 97 Room Air 10/20/16 04:00 66 10/20/16 00:00 62 10/20/16 00:00 97.7 51 20 107/58 94 Room Air 10/19/16 21:55 89 136/74 10/19/16 20:00 98.8 89 19 136/74 98 Room Air 10/19/16 20:00 73 10/19/16 19:00 98 Room Air 21 10/19/16 19:00 Room Air 10/19/16 19:00 69 16 Room Air 21 10/19/16 16:00 74 10/19/16 16:00 97.9 71 20 131/67 97 Room Air 10/19/16 15:00 73 14 131/51 97 Room Air 10/19/16 14:00 73 15 122/93 98 Room Air Intake and Output 10/19/16 10/20/16 19:00 07:00 Intake Total 1380 ml 1598.75 ml Output Total 1225 ml 50 ml Balance 155 ml 1548.75 ml Intake Oral 200 ml IV Total 1120 ml 1598.75 ml Other 60 ml Output Urine Total 1225 ml 50 ml # Voids 3 # Bowel Movements 4 1 Laboratory Tests 10/20/16 07:05: White Blood Count 8.1, Red Blood Count 3.23L, Hemoglobin 9.8L, Hematocrit 30.4L , Mean Corpuscular Volume 94, Mean Corpuscular Hemoglobin 30.4, Mean Corpuscular Hemoglobin Concent 32.3, Red Cell Distribution Width 13.6, Platelet Count 116L, Mean Platelet Volume 10.2H, Neutrophils (%) (Auto) 81.8H, Lymphocytes (%) (Auto) 11.8L, Monocytes (%) (Auto) 5.5, Eosinophils (%) (Auto) 0.1, Basophils (%) (Auto) 0.8, Prothrombin Time 12.0H, Prothromb Time International Ratio 1.2H, Activated Partial Thromboplast Time 28, Sodium Level 142, Potassium Level 3.4, Chloride Level 102, Carbon Dioxide Level 21, Anion Gap 19H, Blood Urea Nitrogen 34H, Creatinine 1.5H, Estimat Glomerular Filtration Rate 46.5, Glucose Level 213H, Calcium Level 6.9L, Phosphorus Level 2.2L, Magnesium Level 1.7, Total Bilirubin 0.5, Aspartate Amino Transf (AST/SGOT ) 14, Alanine Aminotransferase (ALT/SGPT) 10, Alkaline Phosphatase 70, Total Protein 5.1L, Albumin 2.7L, Globulin 2.4, Albumin/Globulin Ratio 1.1 10/20/16 08:00: Arterial Blood pH 7.370, Arterial Blood Partial Pressure CO2 37.4, Arterial Blood Partial Pressure O2 77.9, Arterial Blood HCO3 21.2L, Arterial Blood Oxygen Saturation 95.2, Arterial Blood Base Excess -3.6, Cristian Test Positive Height (Feet): 5 Height (Inches): 8.00 Weight (Pounds): 91 General Appearance: no apparent distress, other Objective no change in PE JESUS REA Oct 20, 2016 13:43
[2016-10-20] MEDS ORDERED: Potassium Phosphate 20 MM in NS 275 ML IV ONE (15:00)
[2016-10-20] MEDS ORDERED: Nitroglycerin Subl 0.4mg tab (Bottle Of 25) SL PRN (16:45)
[2016-10-20] MEDS ORDERED: LORazepam Inj 2mg/ml 1ml IV PRN (17:00)
[2016-10-20] MEDS ORDERED: Morphine Sulfate 2mg/ml Inj IVP PRN (17:00)
[2016-10-20] MEDS ORDERED: DuoNeb 0.5-3(2.5)mg/3ml neb HHN PRN (17:00)
[2016-10-20] MEDS: Sucralfate 1gm tab ORAL SCH ×2 (18:00→21:30)
--- NOTE | 2016-10-20 18:04 | Cardiology Progress Note ---
Assessment/Plan Assessment/Plan Dyspnea multifactorial chf and copd abd pain hsof prior pancreatitis PCI 08/19/16 lad adn diag congestive heart failure systolic dysfunction with acute exacerbation COPD HTN HLD DM PVD CAROL ANN hsi of alcholic cirrhosis hs of previsou paracentesis icm ? ef 15-20% 07/2016 hs of heaptic encephalopathy iodine allergy icd insitu ekg now with soem more diffuse t wave changes which appear more extensive than before with prolongation of qt interval will repeat in am repeat trop neg cr is better copd treatmetn as per dr hancock amylase and lipase are fine proton pump inhibitors looks improved resume plavix resume entresto lower dose [id number] Subjective Cardiovascular: Reports: lightheadedness - minor , Denies: chest pain, palpitations Respiratory: Denies: cough Gastrointestinal/Abdominal: Denies: abdomen distended Genitourinary: Denies: no symptoms Subjective has a hard tiem swallowing solid food due to pain but jello is fine Objective Last 24 Hour Vital Signs Date Time Temp Pulse Resp B/P Pulse Ox O2 Delivery O2 Flow Rate FiO2 10/20/16 16:00 97.7 74 20 148/82 97 Room Air 10/20/16 12:00 71 10/20/16 11:24 96.3 74 20 155/78 96 Room Air 10/20/16 10:50 97.4 74 24 154/76 97 Room Air 10/20/16 10:48 70 14 99 10/20/16 10:47 78 14 99 10/20/16 10:40 75 23 156/78 97 Room Air 10/20/16 10:35 78 24 151/80 97 Room Air 10/20/16 10:30 97.6 80 20 153/81 100 Simple Mask 6.0 10/20/16 08:29 68 149/75 10/20/16 08:00 73 10/20/16 07:58 Room Air 10/20/16 07:58 96 Room Air 10/20/16 07:57 97.5 68 20 149/75 99 Room Air 10/20/16 07:54 83 18 Room Air 10/20/16 04:10 98.0 78 20 135/54 97 Room Air 10/20/16 04:00 66 10/20/16 00:00 62 10/20/16 00:00 97.7 51 20 107/58 94 Room Air 10/19/16 21:55 89 136/74 10/19/16 20:00 98.8 89 19 136/74 98 Room Air 10/19/16 20:00 73 10/19/16 19:00 98 Room Air 21 10/19/16 19:00 Room Air 10/19/16 19:00 69 16 Room Air 21 General Appearance: no apparent distress, alert Neck: supple Cardiovascular: normal rate, regular rhythm Respiratory/Chest: lungs clear Abdomen: normal bowel sounds, non tender, soft Extremities: no swelling Intake and Output 10/19/16 10/20/16 19:00 07:00 Intake Total 1380 ml 1598.75 ml Output Total 1225 ml 50 ml Balance 155 ml 1548.75 ml Intake Oral 200 ml IV Total 1120 ml 1598.75 ml Other 60 ml Output Urine Total 1225 ml 50 ml # Voids 3 # Bowel Movements 4 1 Laboratory Tests Test 10/20/16 07:05 10/20/16 08:00 White Blood Count 8.1 K/UL (4.8-10.8) Red Blood Count 3.23 M/UL (4.70-6.10) L Hemoglobin 9.8 G/DL (14.2-18.0) L Hematocrit 30.4 % (42.0-52.0) L Mean Corpuscular Volume 94 FL (80-99) Mean Corpuscular Hemoglobin 30.4 PG (27.0-31.0) Mean Corpuscular Hemoglobin Concent 32.3 G/DL (32.0-36.0) Red Cell Distribution Width 13.6 % (11.6-14.8) Platelet Count 116 K/UL (150-450) L Mean Platelet Volume 10.2 FL (6.5-10.1) H Neutrophils (%) (Auto) 81.8 % (45.0-75.0) H Lymphocytes (%) (Auto) 11.8 % (20.0-45.0) L Monocytes (%) (Auto) 5.5 % (1.0-10.0) Eosinophils (%) (Auto) 0.1 % (0.0-3.0) Basophils (%) (Auto) 0.8 % (0.0-2.0) Erythrocyte Sedimentation Rate Pending Reticulocyte Count Pending Prothrombin Time 12.0 SEC (9.30-11.50) H Prothromb Time International Ratio 1.2 (0.9-1.1) H Activated Partial Thromboplast Time 28 SEC (23-33) Sodium Level 142 mEQ/L (135-145) Potassium Level 3.4 mEQ/L (3.4-4.9) Chloride Level 102 mEQ/L (98-107) Carbon Dioxide Level 21 mEQ/L (20-30) Anion Gap 19 (5-15) H Blood Urea Nitrogen 34 mg/dL (7-23) H Creatinine 1.5 mg/dL (0.7-1.2) H Estimat Glomerular Filtration Rate 46.5 mL/min (>60) Glucose Level 213 mg/dL (74-106) H Calcium Level 6.9 mg/dL (8.6-10.2) L Phosphorus Level 2.2 mg/dL (2.5-4.8) L Magnesium Level 1.7 mg/dL (1.7-2.5) Iron Level 78 ug/dL (59-158) Total Iron Binding Capacity 142 ug/dL (250-400) L Percent Iron Saturation 55 % (15-50) H Unsaturated Iron Binding 64 ug/dL (112-346) L Total Bilirubin 0.5 mg/dL (0.0-1.2) Aspartate Amino Transf (AST/SGOT) 14 U/L (5-40) Alanine Aminotransferase (ALT/SGPT) 10 U/L (3-41) Alkaline Phosphatase 70 U/L (40-129) Lactate Dehydrogenase 178 U/L (135-230) Total Protein 5.1 g/dL (6.6-8.7) L Albumin 2.7 g/dL (3.5-5.2) L Globulin 2.4 g/dL Albumin/Globulin Ratio 1.1 (1.0-2.7) Alpha Fetoprotein Pending Carcinoembryonic Antigen 5.2 ng/mL H Vitamin B12 Level 736 pg/mL (211-946) Folate Pending Arterial Blood pH 7.370 (7.350-7.450) Arterial Blood Partial Pressure CO2 37.4 mmHg (35.0-45.0) Arterial Blood Partial Pressure O2 77.9 mmHg (75.0-100.0) Arterial Blood HCO3 21.2 mmol/L (22.0-26.0) L Arterial Blood Oxygen Saturation 95.2 % (92.0-98.0) Arterial Blood Base Excess -3.6 Cristian Test Positive LISA SERNA Oct 20, 2016 18:04
[2016-10-20] MEDS ORDERED: Tubing IV Secondary IV ONE (18:21)
[2016-10-20] MEDS ORDERED: NS 275ml ONE (18:21)
--- NOTE | 2016-10-20 19:47 | Procedure Note ---
DATE OF PROCEDURE: 10/20/2016 SURGEON: Issac Marino M.D. PROCEDURE: Upper endoscopy with biopsy. ANESTHESIA: Per Sierra STOVER. INSTRUMENT: Olympus adult flexible upper endoscope. INDICATION: Upper gastrointestinal bleeding. REASON FOR PROCEDURE: The procedure, risks, benefits, and possible consequences, including hemorrhage, aspiration, perforation and infection, and alternative treatments, were explained to the patient/legal guardian by Dr. Issac Marino and the patient/legal guardian understood and accepted these risks. DESCRIPTION OF PROCEDURE: After informed consent was obtained and the patient was adequately sedated, Olympus upper endoscope was advanced from mouth into the second portion of duodenum and retroflexion was performed in the stomach. The patient had evidence of severe distal esophagitis grade 4. In the stomach, there was diffuse gastritis. Random biopsy from antrum of the stomach was obtained to rule out H. pylori infection. Retroflexion of stomach showed evidence of a small hiatal hernia. Then, the scope was advanced into the duodenum and the patient had one clean-based small duodenal ulcer. SUMMARY OF FINDINGS: 1. Severe distal esophagitis. 2. Small hiatal hernia. 3. Gastritis, status post biopsy. 4. Duodenal ulcer. RECOMMENDATIONS: 1. Start Protonix 40 mg p.o. daily. 2. Followup biopsy results. 3. Sent serology for H. pylori. 4. Reflux measures. 5. Monitor hemoglobin and hematocrit, transfuse as needed. Issac Marino M.D. DR: JAKUB JOB#: [id number] CC:
[2016-10-20] MEDS ORDERED: Levemir Flexpen SUBQ SCH (21:00)
[2016-10-20] MEDS: Tamsulosin 0.4mg cap ORAL SCH (21:30)
[2016-10-20] MEDS: Piperacillin/Tazobactam 2.25 GM in D5W 55 ML IV SCH (21:31)
[2016-10-20] MEDS: Levemir Flexpen SUBQ SCH (21:35)
[2016-10-20 22:26] LABS: RETICULOCYTE COUNT 0.9 % (0.0-2.0)
[2016-10-21] MEDS: NovoLOG Insulin Flexpen SUBQ SCH ×4 (00:12→18:00)
[2016-10-21] MEDS: Metoclopramide 10mg/2ml Inj IVP SCH ×4 (03:48→21:21)
[2016-10-21 04:00] VITALS: BP 117/61
[2016-10-21] MEDS: Piperacillin/Tazobactam 2.25 GM in D5W 55 ML IV SCH ×3 (05:06→21:20)
[2016-10-21] MEDS: Levothyroxine 25mcg tab ORAL SCH (05:46)
[2016-10-21 06:56] LABS: BASOPHILS % (AUTO) 1.1 % (0.0-2.0); EOSINOPHILS % (AUTO) 1.3 % (0.0-3.0); LYMPHOCYTES % (AUTO) 12.5 % (20.0-45.0); MEAN CORPUSCULAR HEMOGLOBIN 30.6 PG (27.0-31.0); MEAN CORPUSCULAR HGB CONC 32.3 G/DL (32.0-36.0); MEAN CORPUSCULAR VOLUME 95 FL (80-99); MEAN PLATELET VOLUME 10.8 FL (6.5-10.1); MONOCYTES % (AUTO) 7.1 % (1.0-10.0); PLATELET COUNT 145 K/UL (150-450); RED BLOOD COUNT 3.74 M/UL (4.70-6.10); RED CELL DISTRIBUTION WIDTH 13.6 % (11.6-14.8); WHITE BLOOD COUNT 8.6 K/UL (4.8-10.8)
[2016-10-21 07:14] LABS: CALCIUM 7.4 mg/dL (8.6-10.2); CREATININE 1.6 mg/dL (0.7-1.2); GLOMERULAR FILTRATION RATE 43.2 mL/min (>60); POTASSIUM 3.6 mEQ/L (3.4-4.9)
[2016-10-21 08:03] VITALS: BP 150/92
[2016-10-21] MEDS ORDERED: Pantoprazole Inj ONE (08:26)
[2016-10-21] MEDS: Pantoprazole 80 MG in NS 250 ML IV SCH ×2 (08:43→18:25)
[2016-10-21] MEDS: Levemir Flexpen SUBQ SCH ×2 (08:45→20:31)
[2016-10-21] MEDS: Carvedilol 25mg Tab ORAL SCH ×2 (08:46→20:30)
[2016-10-21] MEDS: Sucralfate 1gm tab ORAL SCH ×4 (08:46→20:30)
[2016-10-21] MEDS: Sertraline 50mg tab ORAL SCH (08:46)
[2016-10-21] MEDS: Lyrica 50mg cap ORAL SCH ×3 (08:47→18:00)
[2016-10-21] MEDS: Potassium Chloride 10 MEQ in NS 1000ml 1,000 ML IV SCH ×2 (09:00→18:25)
[2016-10-21 11:41] VITALS: BP 151/89
--- NOTE | 2016-10-21 12:08 | General Progress Note ---
Assessment/Plan Status: stable Assessment/Plan status: GI bleed- Low Na due to Hyper Glycemia and dehydration Renal failure due to DM and HTN DM and Proteinuria, Nephropathy- HTN- UTI, Low Mag Cachexia COPD Pacer / ICD CHF / Cardiomyopathy previous EjFx 20% PVD Iodine allergy Plan: K Phos IV as needed kidney ADE- Negative- Avoid Nephrotoxics- Mag IV- as needed Lower lasix dose- Monitor renal parameters Per orders Subjective ROS Limited/Unobtainable: No Constitutional: Reports: malaise, weakness Allergies: Coded Allergies: IODINE (Verified Allergy, Unknown, 10/16/16) Objective Last 24 Hour Vital Signs Date Time Temp Pulse Resp B/P Pulse Ox O2 Delivery O2 Flow Rate FiO2 10/21/16 11:41 97.0 89 19 151/89 100 Room Air 10/21/16 08:46 91 150/92 10/21/16 08:03 97.7 91 19 150/92 100 Room Air 10/21/16 07:50 97 Room Air 21 10/21/16 07:50 Room Air 10/21/16 04:50 90 18 Room Air 10/21/16 04:00 98.7 70 20 117/61 98 Room Air 10/20/16 23:49 97.8 79 20 142/72 97 Room Air 10/20/16 21:30 88 139/63 10/20/16 20:00 98.2 88 22 139/63 96 Room Air 10/20/16 19:58 Room Air 10/20/16 19:58 98 Room Air 10/20/16 19:58 82 18 Room Air 10/20/16 16:00 97.7 74 20 148/82 97 Room Air Intake and Output 10/20/16 10/21/16 19:00 07:00 Intake Total 443.888 ml 1158.888 ml Output Total 100 ml 250 ml Balance 343.888 ml 908.888 ml Intake Oral 150 ml 240 ml IV Total 293.888 ml 918.888 ml Output Urine Total 100 ml 250 ml Estimated Blood Loss 0 ml # Voids 2 # Bowel Movements 2 1 Laboratory Tests 10/20/16 19:40: Erythrocyte Sedimentation Rate 39H, Reticulocyte Count 0.9 10/21/16 05:05: White Blood Count 8.6, Red Blood Count 3.74L, Hemoglobin 11.4L, Hematocrit 35.4L , Mean Corpuscular Volume 95, Mean Corpuscular Hemoglobin 30.6, Mean Corpuscular Hemoglobin Concent 32.3, Red Cell Distribution Width 13.6, Platelet Count 145L, Mean Platelet Volume 10.8H, Neutrophils (%) (Auto) 78.0H, Lymphocytes (%) (Auto) 12.5L, Monocytes (%) (Auto) 7.1, Eosinophils (%) (Auto) 1.3, Basophils (%) (Auto) 1.1, Sodium Level 140, Potassium Level 3.6, Chloride Level 104, Carbon Dioxide Level 23, Anion Gap 13, Blood Urea Nitrogen 21, Creatinine 1.6H, Estimat Glomerular Filtration Rate 43.2, Glucose Level 113#H, Calcium Level 7.4L, Helicobacter pylori IgG Antibody [Pending] 10/21/16 06:00: Urine Eosinophils None seen Height (Feet): 5 Height (Inches): 8.00 Weight (Pounds): 91 General Appearance: no apparent distress Cardiovascular: normal rate Respiratory/Chest: decreased breath sounds Abdomen: soft Objective no change in PE JESUS REA Oct 21, 2016 12:08
[2016-10-21] MEDS ORDERED: Tubing IV Secondary IV ONE (13:06)
[2016-10-21] MEDS ORDERED: Potassium Phosphate 20 MM in NS 275 ML IV ONE (15:00)
[2016-10-21 16:00] VITALS: BP 154/78
[2016-10-21 19:45] VITALS: BP 153/82
[2016-10-21] MEDS: Theophylline ER 100mg ORAL SCH (20:30)
[2016-10-21] MEDS: Tamsulosin 0.4mg cap ORAL SCH (20:30)
--- NOTE | 2016-10-21 21:24 | Pulmonology Progress Note ---
Assessment/Plan Problems: (1) COPD exacerbation (2) Cachexia (3) Severe protein-calorie malnutrition (4) Cardiomyopathy (5) Hemorrhagic shock (6) Hypoalbuminemia (7) DKA (diabetic ketoacidoses) (8) Hematemesis Assessment/Plan vital signs stable no more gi bleeing INR better resume diet if ok with GI respiratory treatment PT/ot dc planing home pt refusing rehab Subjective ROS Limited/Unobtainable: No Interval Events: feeling better Constitutional: Reports: no symptoms HEENT: Repors: no symptoms Allergies: Coded Allergies: IODINE (Verified Allergy, Unknown, 10/16/16) Objective Last 24 Hour Vital Signs Date Time Temp Pulse Resp B/P Pulse Ox O2 Delivery O2 Flow Rate FiO2 10/21/16 20:30 95 153/82 10/21/16 19:52 95 18 Room Air 10/21/16 19:51 Room Air 10/21/16 19:51 98 Room Air 10/21/16 19:45 98.2 90 20 153/82 98 Room Air 10/21/16 17:40 97.5 10/21/16 16:00 97.5 81 20 154/78 98 Room Air 10/21/16 11:41 97.0 89 19 151/89 100 Room Air 10/21/16 08:46 91 150/92 10/21/16 08:03 97.7 91 19 150/92 100 Room Air 10/21/16 07:50 97 Room Air 21 10/21/16 07:50 Room Air 10/21/16 04:50 90 18 Room Air 10/21/16 04:00 98.7 70 20 117/61 98 Room Air 10/20/16 23:49 97.8 79 20 142/72 97 Room Air 10/20/16 21:30 88 139/63 Intake and Output 10/20/16 10/21/16 19:00 07:00 Intake Total 443.888 ml 1158.888 ml Output Total 100 ml 250 ml Balance 343.888 ml 908.888 ml Intake Oral 150 ml 240 ml IV Total 293.888 ml 918.888 ml Output Urine Total 100 ml 250 ml Estimated Blood Loss 0 ml # Voids 2 # Bowel Movements 2 1 General Appearance: WD/WN HEENT: normocephalic Respiratory/Chest: chest wall non-tender, normal breath sounds Cardiovascular: normal peripheral pulses, normal rate Abdomen: normal bowel sounds, no organomegaly Microbiology Date/Time Source Procedure Growth Status 10/19/16 06:00 Nasal Nares MRSA Culture - Final NO METHICILLIN RESISTANT STAPH AUREUS... Complete Laboratory Tests 10/21/16 05:05: White Blood Count 8.6, Red Blood Count 3.74L, Hemoglobin 11.4L, Hematocrit 35.4L , Mean Corpuscular Volume 95, Mean Corpuscular Hemoglobin 30.6, Mean Corpuscular Hemoglobin Concent 32.3, Red Cell Distribution Width 13.6, Platelet Count 145L, Mean Platelet Volume 10.8H, Neutrophils (%) (Auto) 78.0H, Lymphocytes (%) (Auto) 12.5L, Monocytes (%) (Auto) 7.1, Eosinophils (%) (Auto) 1.3, Basophils (%) (Auto) 1.1, Sodium Level 140, Potassium Level 3.6, Chloride Level 104, Carbon Dioxide Level 23, Anion Gap 13, Blood Urea Nitrogen 21, Creatinine 1.6H, Estimat Glomerular Filtration Rate 43.2, Glucose Level 113#H, Calcium Level 7.4L, Helicobacter pylori IgG Antibody [Pending] 10/21/16 06:00: Urine Eosinophils None seen Current Medications Medications (Trade) Dose Ordered Sig/Kevin Route PRN Reason Start Time Stop Time Status Last Admin Dose Admin Acetaminophen (Tylenol) 650 mg Q4H PRN ORAL Mild Pain/Temp > 100.5 10/21/16 16:30 11/20/16 16:29 10/21/16 16:41 Albuterol/ Ipratropium (DuoNeb 0.5-3(2.5)mg/3ml) 3 ml Q4H PRN HHN dyspnea 10/20/16 17:00 10/25/16 16:59 Carvedilol (Coreg) 25 mg EVERY 12 HOURS ORAL 10/20/16 21:00 11/19/16 20:59 10/21/16 20:30 Clopidogrel Bisulfate (Plavix) 75 mg DAILY ORAL 10/20/16 19:00 11/19/16 18:59 10/21/16 08:45 Dextrose (Dextrose 50%) STAT PRN IV Hypoglycemia 10/20/16 17:00 11/19/16 16:59 Insulin Aspart (NovoLOG) EVERY 6 HOURS SUBQ 10/20/16 18:00 11/19/16 17:59 10/21/16 12:00 Insulin Detemir (Levemir) 5 units EVERY 12 HOURS SUBQ 10/20/16 21:00 11/19/16 20:59 10/21/16 20:31 Levothyroxine Sodium (Synthroid) 25 mcg ACBREAKFAST ORAL 10/21/16 06:30 11/20/16 06:29 10/21/16 05:46 Lorazepam (Ativan 2mg/ml 1ml) 0.5 mg Q4H PRN IV For Anxiety 10/20/16 17:00 10/27/16 16:59 Metoclopramide HCl (Reglan) 5 mg Q6H IVP 10/20/16 22:30 11/19/16 22:29 10/21/16 16:03 Morphine Sulfate (Morphine Sulfate) 2 mg Q4H PRN IVP Severe Pain (Pain Scale 7-10) 10/20/16 17:00 10/27/16 16:59 Nitroglycerin (Ntg) 0.4 mg Q5M X 3 DOSES PRN SL Prn Chest Pain 10/20/16 16:45 11/19/16 16:44 Non-Formulary Medication (Non-Formulary Med) 1 ea BID ORAL 10/20/16 18:15 11/19/16 18:14 UNV Pantoprazole 80 mg/Sodium Chloride 250 ml @ 25 mls/hr Q10H IV 10/20/16 22:00 11/19/16 21:59 10/21/16 18:25 Piperacillin Sod/ Tazobactam Sod/ Dextrose (Zosyn/D5W) 55 ml @ 110 mls/hr EVERY 8 HOURS IV 10/20/16 22:00 10/27/16 21:59 10/21/16 13:40 Potassium Chloride 10 meq/ Sodium Chloride 1,005 ml @ 100 mls/hr Q10H3M IV 10/20/16 23:00 11/19/16 22:59 10/21/16 18:25 Pregabalin (Lyrica) 50 mg THREE TIMES A DAY ORAL 10/20/16 18:00 11/19/16 17:59 10/21/16 13:54 Sertraline HCl (Zoloft) 25 mg DAILY ORAL 10/21/16 09:00 11/20/16 08:59 10/21/16 08:46 Sucralfate (Carafate) 1 gm FOUR TIMES A DAY ORAL 10/20/16 18:00 11/19/16 17:59 10/21/16 20:30 Tamsulosin HCl (Flomax) 0.4 mg BEDTIME ORAL 10/20/16 21:00 11/19/16 20:59 10/21/16 20:30 Temazepam (Restoril) 15 mg HSPRN PRN ORAL Insomnia 10/20/16 21:00 10/27/16 20:59 10/21/16 20:30 Theophylline (Candido-Dur) 100 mg QHS ORAL 10/20/16 21:00 11/19/16 20:59 10/21/16 20:30 HALIMA JOSEPH Oct 21, 2016 21:24
[2016-10-22] VITALS: BP 137/75
[2016-10-22] MEDS: NovoLOG Insulin Flexpen SUBQ SCH ×2 (00:03→06:00)
[2016-10-22] MEDS ORDERED: Pantoprazole Inj ONE (03:58)
[2016-10-22 04:00] VITALS: BP 150/75
[2016-10-22] MEDS: Metoclopramide 10mg/2ml Inj IVP SCH (04:14)
[2016-10-22] MEDS: Pantoprazole 80 MG in NS 250 ML IV SCH ×2 (04:14→14:00)
[2016-10-22] MEDS: Piperacillin/Tazobactam 2.25 GM in D5W 55 ML IV SCH ×2 (06:13→14:54)
[2016-10-22] MEDS: Levothyroxine 25mcg tab ORAL SCH (06:20)
[2016-10-22 07:06] LABS: BASOPHILS % (AUTO) 0.4 % (0.0-2.0); EOSINOPHILS % (AUTO) 2.3 % (0.0-3.0); LYMPHOCYTES % (AUTO) 16.8 % (20.0-45.0); MEAN CORPUSCULAR HEMOGLOBIN 30.7 PG (27.0-31.0); MEAN CORPUSCULAR HGB CONC 32.3 G/DL (32.0-36.0); MEAN CORPUSCULAR VOLUME 95 FL (80-99); MEAN PLATELET VOLUME 10.2 FL (6.5-10.1); MONOCYTES % (AUTO) 6.6 % (1.0-10.0); NEUTROPHILS % (AUTO) 74.1 % (45.0-75.0); PLATELET COUNT 153 K/UL (150-450); RED BLOOD COUNT 3.69 M/UL (4.70-6.10); RED CELL DISTRIBUTION WIDTH 13.8 % (11.6-14.8); WHITE BLOOD COUNT 7.6 K/UL (4.8-10.8)
[2016-10-22] MEDS ORDERED: Potassium Chloride 10 MEQ in NS 1000ml 1,000 ML IV SCH (07:30)
[2016-10-22 07:31] LABS: INR 1.2 (0.9-1.1); PROTHROMBIN TIME 12.4 SEC (9.30-11.50)
[2016-10-22 07:49] LABS: ALBUMIN/GLOBULIN RATIO 1.2 (1.0-2.7); CALCIUM 7.5 mg/dL (8.6-10.2); CREATININE 1.5 mg/dL (0.7-1.2); GLOMERULAR FILTRATION RATE 46.5 mL/min (>60); MAGNESIUM 1.5 mg/dL (1.7-2.5); PHOSPHORUS 2.2 mg/dL (2.5-4.8); POTASSIUM 4.5 mEQ/L (3.4-4.9); TOTAL PROTEIN 5.4 g/dL (6.6-8.7)
[2016-10-22 08:00] VITALS: BP 167/80
--- NOTE | 2016-10-22 09:10 | General Progress Note ---
Assessment/Plan Problem List: (1) Diabetes mellitus ICD Codes: E11.9 - Type 2 diabetes mellitus without complications SNOMED: 57028767 (2) COPD exacerbation ICD Codes: J44.1 - Chronic obstructive pulmonary disease with (acute) exacerbation SNOMED: 674205091, 155044596 (3) Cardiomyopathy ICD Codes: I42.9 - Cardiomyopathy, unspecified SNOMED: 96873612 Assessment/Plan continue Levemir 5 units bid change Novolog coverage to sensitive scale and change frequency to ac / hs Subjective ROS Limited/Unobtainable: Yes Allergies: Coded Allergies: IODINE (Verified Allergy, Unknown, 10/16/16) Subjective events noted - interval notes reviewed Objective Last 24 Hour Vital Signs Date Time Temp Pulse Resp B/P Pulse Ox O2 Delivery O2 Flow Rate FiO2 10/22/16 08:00 96.8 83 18 167/80 100 Room Air 10/22/16 07:00 100 Room Air 10/22/16 07:00 Room Air 10/22/16 07:00 90 18 Room Air 10/22/16 04:00 97.5 79 18 150/75 100 Room Air 10/22/16 00:00 98.6 80 18 137/75 99 Room Air 10/21/16 20:30 95 153/82 10/21/16 19:52 95 18 Room Air 10/21/16 19:51 Room Air 10/21/16 19:51 98 Room Air 10/21/16 19:45 98.2 90 20 153/82 98 Room Air 10/21/16 17:40 97.5 10/21/16 16:00 97.5 81 20 154/78 98 Room Air 10/21/16 11:41 97.0 89 19 151/89 100 Room Air Intake and Output 10/21/16 10/22/16 19:00 07:00 Intake Total 1740 ml 1807 ml Output Total 200 ml 1000 ml Balance 1540 ml 807 ml Intake Oral 360 ml 380 ml IV Total 1380 ml 1427 ml Output Urine Total 200 ml 1000 ml # Voids 1 4 Laboratory Tests 10/22/16 05:20: White Blood Count 7.6, Red Blood Count 3.69L, Hemoglobin 11.3L, Hematocrit 35.1L , Mean Corpuscular Volume 95, Mean Corpuscular Hemoglobin 30.7, Mean Corpuscular Hemoglobin Concent 32.3, Red Cell Distribution Width 13.8, Platelet Count 153, Mean Platelet Volume 10.2H, Neutrophils (%) (Auto) 74.1, Lymphocytes (%) (Auto) 16.8L, Monocytes (%) (Auto) 6.6, Eosinophils (%) (Auto) 2.3, Basophils (%) (Auto) 0.4, Prothrombin Time 12.4H, Prothromb Time International Ratio 1.2H, Activated Partial Thromboplast Time 30, Sodium Level 141, Potassium Level 4.5, Chloride Level 105, Carbon Dioxide Level 24, Anion Gap 12, Blood Urea Nitrogen 14, Creatinine 1.5H, Estimat Glomerular Filtration Rate 46.5, Glucose Level 217#H, Calcium Level 7.5L, Phosphorus Level 2.2L, Magnesium Level 1.5L, Total Bilirubin 0.4, Aspartate Amino Transf (AST/SGOT) 18, Alanine Aminotransferase (ALT/SGPT) 10, Alkaline Phosphatase 138H, Total Protein 5.4L, Albumin 3.0L, Globulin 2.4, Albumin/Globulin Ratio 1.2 Height (Feet): 5 Height (Inches): 8.00 Weight (Pounds): 91 General Appearance: no apparent distress EENT: pale conjunctivae Neck: normal alignment Cardiovascular: normal peripheral pulses Respiratory/Chest: decreased breath sounds Abdomen: normal bowel sounds Objective Current Medications Medications (Trade) Dose Ordered Sig/Kevin Route PRN Reason Start Time Stop Time Status Last Admin Dose Admin Acetaminophen 650 mg 650 mg Q4H PRN ORAL Mild Pain/Temp > 100.5 10/21/16 16:30 11/20/16 16:29 10/21/16 16:41 Albuterol/ Ipratropium (DuoNeb 0.5-3(2.5)mg/3ml) 3 ml Q4H PRN HHN dyspnea 10/20/16 17:00 10/25/16 16:59 Carvedilol (Coreg) 25 mg EVERY 12 HOURS ORAL 10/20/16 21:00 11/19/16 20:59 10/21/16 20:30 Clopidogrel Bisulfate (Plavix) 75 mg DAILY ORAL 10/20/16 19:00 11/19/16 18:59 10/21/16 08:45 Dextrose (Dextrose 50%) STAT PRN IV Hypoglycemia 10/20/16 17:00 11/19/16 16:59 Insulin Aspart (NovoLOG) AC+HS SUBQ 10/22/16 11:30 11/21/16 11:29 Insulin Detemir (Levemir) 5 units EVERY 12 HOURS SUBQ 10/20/16 21:00 11/19/16 20:59 10/21/16 20:31 Levothyroxine Sodium (Synthroid) 25 mcg ACBREAKFAST ORAL 10/21/16 06:30 11/20/16 06:29 10/22/16 06:20 Lorazepam (Ativan 2mg/ml 1ml) 0.5 mg Q4H PRN IV For Anxiety 10/20/16 17:00 10/27/16 16:59 Metoclopramide HCl (Reglan) 5 mg Q6HR IVP 10/22/16 12:00 11/21/16 11:59 Morphine Sulfate (Morphine Sulfate) 2 mg Q4H PRN IVP Severe Pain (Pain Scale 7-10) 10/20/16 17:00 10/27/16 16:59 Nitroglycerin (Ntg) 0.4 mg Q5M X 3 DOSES PRN SL Prn Chest Pain 10/20/16 16:45 11/19/16 16:44 Non-Formulary Medication (Non-Formulary Med) 1 ea BID ORAL 10/20/16 18:15 11/19/16 18:14 UNV Pantoprazole 80 mg/Sodium Chloride 250 ml @ 25 mls/hr Q10H IV 10/20/16 22:00 11/19/16 21:59 10/22/16 04:14 Piperacillin Sod/ Tazobactam Sod/ Dextrose (Zosyn/D5W) 55 ml @ 110 mls/hr EVERY 8 HOURS IV 10/20/16 22:00 10/27/16 21:59 10/22/16 06:13 Potassium Chloride/Sodium Chloride (KCl/Sodium Chloride 1000ml bag) 1,005 ml @ 100 mls/hr Q10H3M IV 10/22/16 07:30 11/21/16 07:29 10/22/16 07:18 Pregabalin (Lyrica) 50 mg THREE TIMES A DAY ORAL 10/20/16 18:00 11/19/16 17:59 10/21/16 13:54 Sertraline HCl (Zoloft) 25 mg DAILY ORAL 10/21/16 09:00 11/20/16 08:59 10/21/16 08:46 Sucralfate (Carafate) 1 gm FOUR TIMES A DAY ORAL 10/20/16 18:00 11/19/16 17:59 10/21/16 20:30 Tamsulosin HCl (Flomax) 0.4 mg BEDTIME ORAL 10/20/16 21:00 11/19/16 20:59 10/21/16 20:30 Temazepam (Restoril) 15 mg HSPRN PRN ORAL Insomnia 10/20/16 21:00 10/27/16 20:59 10/21/16 20:30 Theophylline (Candido-Dur) 100 mg QHS ORAL 10/20/16 21:00 11/19/16 20:59 10/21/16 20:30 Item Value Date Time Bedside Blood Glucose 191 mg/dl H 10/22/16 0600 Bedside Blood Glucose 112 mg/dl 10/22/16 0003 Bedside Blood Glucose 180 mg/dl H 10/21/16 2031 Bedside Blood Glucose 108 mg/dl 10/21/16 1853 Bedside Blood Glucose 143 mg/dl H 10/21/16 1200 Bedside Blood Glucose 97 mg/dl 10/21/16 0845 PJ MATOS Oct 22, 2016 09:10
[2016-10-22] MEDS: Levemir Flexpen SUBQ SCH (09:22)
[2016-10-22] MEDS: Sucralfate 1gm tab ORAL SCH ×2 (09:27→12:23)
[2016-10-22] MEDS: Sertraline 50mg tab ORAL SCH (09:27)
[2016-10-22] MEDS: Lyrica 50mg cap ORAL SCH ×2 (09:27→12:23)
[2016-10-22] MEDS: Carvedilol 25mg Tab ORAL SCH (09:27)
[2016-10-22] MEDS ORDERED: NovoLOG Insulin Flexpen SUBQ SCH ×2 (11:30)
[2016-10-22 11:55] VITALS: BP 161/94
[2016-10-22] MEDS ORDERED: Metoclopramide 10mg/2ml Inj IVP SCH (12:00)
[2016-10-22] MEDS ORDERED: Phospha 250 Neutral tab ORAL SCH (13:00)
--- NOTE | 2016-10-22 13:19 | General Progress Note ---
Assessment/Plan Status: stable Assessment/Plan status: GI bleed- Low Na due to Hyper Glycemia and dehydration Renal failure due to DM and HTN DM and Proteinuria, Nephropathy- HTN- UTI, Low Mag Cachexia COPD Pacer / ICD CHF / Cardiomyopathy previous EjFx 20% PVD Iodine allergy Plan: Mag supplement as needed Phos supplement as needed kidney ADE- Negative- Avoid Nephrotoxics- Lower lasix dose- Monitor renal parameters Per orders Subjective ROS Limited/Unobtainable: No Constitutional: Reports: malaise Allergies: Coded Allergies: IODINE (Verified Allergy, Unknown, 10/16/16) Objective Last 24 Hour Vital Signs Date Time Temp Pulse Resp B/P Pulse Ox O2 Delivery O2 Flow Rate FiO2 10/22/16 11:55 98.4 85 18 161/94 100 Room Air 10/22/16 09:27 83 167/80 10/22/16 08:00 96.8 83 18 167/80 100 Room Air 10/22/16 07:00 100 Room Air 10/22/16 07:00 Room Air 10/22/16 07:00 90 18 Room Air 10/22/16 04:00 97.5 79 18 150/75 100 Room Air 10/22/16 00:00 98.6 80 18 137/75 99 Room Air 10/21/16 20:30 95 153/82 10/21/16 19:52 95 18 Room Air 10/21/16 19:51 Room Air 10/21/16 19:51 98 Room Air 10/21/16 19:45 98.2 90 20 153/82 98 Room Air 10/21/16 17:40 97.5 10/21/16 16:00 97.5 81 20 154/78 98 Room Air Intake and Output 10/21/16 10/22/16 19:00 07:00 Intake Total 1740 ml 1807 ml Output Total 200 ml 1000 ml Balance 1540 ml 807 ml Intake Oral 360 ml 380 ml IV Total 1380 ml 1427 ml Output Urine Total 200 ml 1000 ml # Voids 1 4 Laboratory Tests 10/22/16 05:20: White Blood Count 7.6, Red Blood Count 3.69L, Hemoglobin 11.3L, Hematocrit 35.1L , Mean Corpuscular Volume 95, Mean Corpuscular Hemoglobin 30.7, Mean Corpuscular Hemoglobin Concent 32.3, Red Cell Distribution Width 13.8, Platelet Count 153, Mean Platelet Volume 10.2H, Neutrophils (%) (Auto) 74.1, Lymphocytes (%) (Auto) 16.8L, Monocytes (%) (Auto) 6.6, Eosinophils (%) (Auto) 2.3, Basophils (%) (Auto) 0.4, Prothrombin Time 12.4H, Prothromb Time International Ratio 1.2H, Activated Partial Thromboplast Time 30, Sodium Level 141, Potassium Level 4.5, Chloride Level 105, Carbon Dioxide Level 24, Anion Gap 12, Blood Urea Nitrogen 14, Creatinine 1.5H, Estimat Glomerular Filtration Rate 46.5, Glucose Level 217#H, Calcium Level 7.5L, Phosphorus Level 2.2L, Magnesium Level 1.5L, Total Bilirubin 0.4, Aspartate Amino Transf (AST/SGOT) 18, Alanine Aminotransferase (ALT/SGPT) 10, Alkaline Phosphatase 138H, Total Protein 5.4L, Albumin 3.0L, Globulin 2.4, Albumin/Globulin Ratio 1.2 Height (Feet): 5 Height (Inches): 8.00 Weight (Pounds): 91 General Appearance: no apparent distress Objective no change in PE JESUS REA Oct 22, 2016 13:19
--- NOTE | 2016-10-22 13:56 | Pulmonology Progress Note ---
Assessment/Plan Problems: (1) COPD exacerbation (2) Cachexia (3) Severe protein-calorie malnutrition (4) Cardiomyopathy (5) Hemorrhagic shock (6) Hypoalbuminemia (7) DKA (diabetic ketoacidoses) (8) Hematemesis Assessment/Plan vital signs stable no more gi bleeing INR better tolerating diet diet respiratory treatment PT/ot dc planing home for today pt refusing rehab Subjective ROS Limited/Unobtainable: No Interval Events: asymptomatic, wants to go home Allergies: Coded Allergies: IODINE (Verified Allergy, Unknown, 10/16/16) Objective Last 24 Hour Vital Signs Date Time Temp Pulse Resp B/P Pulse Ox O2 Delivery O2 Flow Rate FiO2 10/22/16 11:55 98.4 85 18 161/94 100 Room Air 10/22/16 09:27 83 167/80 10/22/16 08:00 96.8 83 18 167/80 100 Room Air 10/22/16 07:00 100 Room Air 10/22/16 07:00 Room Air 10/22/16 07:00 90 18 Room Air 10/22/16 04:00 97.5 79 18 150/75 100 Room Air 10/22/16 00:00 98.6 80 18 137/75 99 Room Air 10/21/16 20:30 95 153/82 10/21/16 19:52 95 18 Room Air 10/21/16 19:51 Room Air 10/21/16 19:51 98 Room Air 10/21/16 19:45 98.2 90 20 153/82 98 Room Air 10/21/16 17:40 97.5 10/21/16 16:00 97.5 81 20 154/78 98 Room Air Intake and Output 10/21/16 10/22/16 19:00 07:00 Intake Total 1740 ml 1807 ml Output Total 200 ml 1000 ml Balance 1540 ml 807 ml Intake Oral 360 ml 380 ml IV Total 1380 ml 1427 ml Output Urine Total 200 ml 1000 ml # Voids 1 4 General Appearance: WD/WN HEENT: normocephalic, atraumatic Cardiovascular: normal peripheral pulses, normal rate Abdomen: normal bowel sounds, no organomegaly Extremities: no cyanosis Skin: no ulcers Laboratory Tests 10/22/16 05:20: White Blood Count 7.6, Red Blood Count 3.69L, Hemoglobin 11.3L, Hematocrit 35.1L , Mean Corpuscular Volume 95, Mean Corpuscular Hemoglobin 30.7, Mean Corpuscular Hemoglobin Concent 32.3, Red Cell Distribution Width 13.8, Platelet Count 153, Mean Platelet Volume 10.2H, Neutrophils (%) (Auto) 74.1, Lymphocytes (%) (Auto) 16.8L, Monocytes (%) (Auto) 6.6, Eosinophils (%) (Auto) 2.3, Basophils (%) (Auto) 0.4, Prothrombin Time 12.4H, Prothromb Time International Ratio 1.2H, Activated Partial Thromboplast Time 30, Sodium Level 141, Potassium Level 4.5, Chloride Level 105, Carbon Dioxide Level 24, Anion Gap 12, Blood Urea Nitrogen 14, Creatinine 1.5H, Estimat Glomerular Filtration Rate 46.5, Glucose Level 217#H, Calcium Level 7.5L, Phosphorus Level 2.2L, Magnesium Level 1.5L, Total Bilirubin 0.4, Aspartate Amino Transf (AST/SGOT) 18, Alanine Aminotransferase (ALT/SGPT) 10, Alkaline Phosphatase 138H, Total Protein 5.4L, Albumin 3.0L, Globulin 2.4, Albumin/Globulin Ratio 1.2 Current Medications Medications (Trade) Dose Ordered Sig/Kevin Route PRN Reason Start Time Stop Time Status Last Admin Dose Admin Acetaminophen 650 mg 650 mg Q4H PRN ORAL Mild Pain/Temp > 100.5 10/21/16 16:30 11/20/16 16:29 10/21/16 16:41 Albuterol/ Ipratropium (DuoNeb 0.5-3(2.5)mg/3ml) 3 ml Q4H PRN HHN dyspnea 10/20/16 17:00 10/25/16 16:59 Carvedilol (Coreg) 25 mg EVERY 12 HOURS ORAL 10/20/16 21:00 11/19/16 20:59 10/22/16 09:27 Clopidogrel Bisulfate (Plavix) 75 mg DAILY ORAL 10/20/16 19:00 11/19/16 18:59 10/22/16 09:26 Dextrose (Dextrose 50%) STAT PRN IV Hypoglycemia 10/20/16 17:00 11/19/16 16:59 Insulin Aspart BEFORE MEALS AND HS SUBQ 10/22/16 11:30 11/21/16 11:29 10/22/16 11:57 Insulin Detemir (Levemir) 5 units EVERY 12 HOURS SUBQ 10/20/16 21:00 11/19/16 20:59 10/22/16 09:22 Levothyroxine Sodium (Synthroid) 25 mcg ACBREAKFAST ORAL 10/21/16 06:30 11/20/16 06:29 10/22/16 06:20 Lorazepam (Ativan 2mg/ml 1ml) 0.5 mg Q4H PRN IV For Anxiety 10/20/16 17:00 10/27/16 16:59 Magnesium Sulfate (Magnesium Sulfate 1gm/100ml) 100 ml @ 100 mls/hr Q1H IVPB 10/22/16 12:00 10/22/16 15:59 10/22/16 13:46 Metoclopramide HCl (Reglan) 5 mg Q6HR IVP 10/22/16 12:00 11/21/16 11:59 10/22/16 12:03 Morphine Sulfate (Morphine Sulfate) 2 mg Q4H PRN IVP Severe Pain (Pain Scale 7-10) 10/20/16 17:00 10/27/16 16:59 Nitroglycerin (Ntg) 0.4 mg Q5M X 3 DOSES PRN SL Prn Chest Pain 10/20/16 16:45 11/19/16 16:44 Non-Formulary Medication (Non-Formulary Med) 1 ea BID ORAL 10/20/16 18:15 11/19/16 18:14 UNV Pantoprazole 80 mg/Sodium Chloride 250 ml @ 25 mls/hr Q10H IV 10/20/16 22:00 11/19/16 21:59 10/22/16 04:14 Phosphorus (Phospha 250 Neutral) 500 mg THREE TIMES A DAY ORAL 10/22/16 13:00 10/23/16 09:01 10/22/16 12:24 Piperacillin Sod/ Tazobactam Sod/ Dextrose (Zosyn/D5W) 55 ml @ 110 mls/hr EVERY 8 HOURS IV 10/20/16 22:00 10/27/16 21:59 10/22/16 06:13 Potassium Chloride/Sodium Chloride (KCl/Sodium Chloride 1000ml bag) 1,005 ml @ 100 mls/hr Q10H3M IV 10/22/16 07:30 11/21/16 07:29 10/22/16 07:18 Pregabalin (Lyrica) 50 mg THREE TIMES A DAY ORAL 10/20/16 18:00 11/19/16 17:59 10/22/16 12:23 Sertraline HCl (Zoloft) 25 mg DAILY ORAL 10/21/16 09:00 11/20/16 08:59 10/22/16 09:27 Sucralfate (Carafate) 1 gm FOUR TIMES A DAY ORAL 10/20/16 18:00 11/19/16 17:59 10/22/16 12:23 Tamsulosin HCl (Flomax) 0.4 mg BEDTIME ORAL 10/20/16 21:00 11/19/16 20:59 10/21/16 20:30 Temazepam (Restoril) 15 mg HSPRN PRN ORAL Insomnia 10/20/16 21:00 10/27/16 20:59 10/21/16 20:30 Theophylline (Candido-Dur) 100 mg QHS ORAL 10/20/16 21:00 11/19/16 20:59 10/21/16 20:30 HALIMA JOSEPH Oct 22, 2016 13:56
--- NOTE | 2016-10-22 14:58 | Consultation ---
Consult Note Consult Note ID Dic # [id number] LASHAY NAZARIO M.D. Oct 22, 2016 14:58
[2016-10-22] MEDS ORDERED: NS 275ml ONE (15:59)
[2016-10-22] MEDS ORDERED: Tubing IV Secondary IV ONE (15:59)
--- NOTE | 2016-10-23 00:47 | Consultation ---
DATE OF CONSULTATION: INFECTIOUS DISEASE CONSULTATION CONSULTING PHYSICIAN: Rainer Casillas M.D. REQUESTING PHYSICIAN: Sue Mayer M.D. REASON FOR CONSULTATION: Evaluation of the patient for possible aspiration pneumonia and need for antibiotic management. HISTORY OF PRESENT ILLNESS: The patient is a 66-year-old male, who was been admitted to this medical center for shortness of breath. The patient apparently had hemoptysis with dilation. The patient had leukocytosis has been started on IV Zosyn. Infectious Disease consultation has been requested for evaluation of the patient's antibiotic management. PAST MEDICAL HISTORY: Significant for, 1. Coronary artery disease status post myocardial infarction with history of pacemaker placement. 2. History of chronic obstructive pulmonary disease. 3. Diabetes. ALLERGIES: None. FAMILY HISTORY: Noncontributory. REVIEW OF SYSTEMS: As mentioned above. PHYSICAL EXAMINATION: VITAL SIGNS: Temperature 98.4 degrees, pulse 86, respiratory rate 18, and blood pressure 150/94. HEENT: Mild pale conjunctivae. No icterus. NECK: No lymphadenopathy. CHEST: Coarse breathing sounds. HEART: S1 and S2. ABDOMEN: Soft. EXTREMITIES: No cyanosis at this time. NEUROLOGIC: Awake. LABORATORY DATA: White blood cells 7.6, hemoglobin 11.3, and platelet 153,000. UA is unremarkable. BUN 14 and creatinine 0.5. AST, ALT and alkaline phosphatase are unremarkable as of 10/20/2016. Blood culture negative. Blood culture negative. EGD that showed esophagitis. ASSESSMENT: The patient is a 66-year-old with above multiple medical problems, who was admitted to this medical center with shortness of breath. Chest x-ray did not show any evidence of acute process. Repeat chest x-ray four days later also is the same. The patient's white blood cells has improved on IV Zosyn. Does not appear to have any source of infection. There is a plan of [place] [facility] [place] The patient can be off of antibiotics. PLAN: 1. We will discharge from off of antibiotics. 2. The patient may follow with the gastrointestinal. In case the patient stays in the hospital we will follow the patient with you. CBC and BMP and blood work up today. Thank you, Dr. Mayer, for allowing me to participate in the care of this patient. I will follow the patient with you during this hospitalization. Rainer Casillas M.D. DR: MARÍA JOB#: [id number] CC:
--- NOTE | 2016-10-23 19:23 | Cardiology Report ---
APPROVED REPORT EKG Measurement Heart [id number] Normal sinus rhythm Left axis deviation Possible Inferior infarct, age undetermined Cannot rule out Anterior infarct, age undetermined Abnormal ECG
--- NOTE | 2016-10-24 10:41 | Discharge Summary ---
Discharge Summary Hospital Course Date of Admission Oct 16, 2016 at 15:47 Date of Discharge Oct 22, 2016 at 16:00 Admitting Diagnosis SOB HPI Dieudonne Wagner is a 66 year old male who was admitted on Oct 16, 2016 at 15:47 for Shortness Of Breath Hospital Course dc summary dictated #[id number] Discharge Medications Continued Medications: Carvedilol* (Carvedilol*) 25 Mg Tablet Unknown Dose ORAL EVERY 12 HOURS, TAB Cinacalcet* (Sensipar*) 30 Mg Tablet 30 MG ORAL DAILY, TAB Dexlansoprazole (Dexilant) 60 Mg Cap.dr.bp 60 MG ORAL DAILY, CAP Ferrous Sulfate* (Ferrous Sulfate*) 325 Mg Tablet 325 MG ORAL DAILY, #30 TAB 0 Refills Insulin Aspart (Novolog Mix 70-30 Flexpen Syrn) 100 Unit/1 Ml Insuln.pen Unknown Dose SUBQ, VIAL Insulin Glargine (Lantus) 100 Unit/1 Ml Insuln.pen Unknown Dose SUBQ BEDTIME, #1 EA 0 Refills Levothyroxine Sodium* (Levothyroxine Sodium*) 25 Mcg Tablet 25 MCG ORAL DAILY, TAB Take in the morning on an empty stomach, at least 30 minutes before food. Olmesartan Medoxomil (Benicar) 20 Mg Tablet 20 MG ORAL DAILY, TAB OXYCODONE HCl* (Roxicodone*) 15 Mg Tablet Unknown Dose ORAL Q6H PRN for For Pain, TAB Pregabalin* (Lyrica*) 75 Mg Capsule 100 MG ORAL THREE TIMES A DAY, CAP Tamsulosin Hcl (Tamsulosin Hcl*) 0.4 Mg Cap.er.24h 0.4 MG ORAL BEDTIME, CAP Discharge Condition Upon Discharge: stable Discharge Disposition Patient was discharged to Home with Home Health(06) Discharge Diagnoses: Jerod (Mary)Jocy NP Oct 24, 2016 10:41
--- NOTE | 2016-10-25 09:48 | Discharge Summary 2 SIG ---
DATE OF ADMISSION: 10/16/2016 DATE OF DISCHARGE: 10/22/2016 REASON FOR ADMISSION: 66-year-old male who lives at home and chronically oxygen dependent, presented with worsening shortness of breath for the last couple of days. He felt weak and dehydrated. He denied fever or chills. He denied chest pain. No cough. The patient also has end-stage heart disease. The patient was admitted to telemetry floor for further management. First troponin was negative. Chest x-ray revealed no acute cardiopulmonary disease. Last ejection fraction on echocardiogram was 20%. Chest x-ray revealed right-sided atelectasis, cardiomegaly, and ICD. Pro BNP was over 50,000. Lactate was above 2. Electrolytes were stable. Hemoglobin and hematocrit were stable. No leukocytosis. No intravenous fluids given due to the systolic heart failure. The patient was admitted to telemetry floor for further management. ADMITTING DIAGNOSES: 1. Chronic obstructive pulmonary disease exacerbation. 2. Congestive heart failure exacerbation. 3. Sepsis. 4. Acute renal failure. 5. Cachexia. 6. Diabetes. HOSPITAL STAY: The patient was admitted to telemetry floor. Relay Shop Tester and leather dresser were involved in care of this patient. The patient's last ejection fraction was 20%. Per seamless tube roller, two troponin were negative. The patient had an AICD. He has a recent PCI on 08/19/2016 with LAD as well as diagnostic. Per Cardiology, dyspnea likely multifactorial secondary to congestive heart failure and chronic obstructive pulmonary disease. Chronic obstructive pulmonary disease exacerbation was treated with supplemental oxygen, empiric antibiotic, and steroids, and it has improved. The patient also complained of abdominal pain and hematemesis. GI consult was requested. The patient subsequently undergone EGD, which revealed severe esophagitis, gastritis, and duodenal ulcer. The patient was started on Protonix. Hemoglobin and hematocrit were closely monitored. H. pylori serology as well as the biopsy pending. Reflux measure initiated. Blood sugar was managed with the sliding scale of insulin and long-acting Levemir, enrollment consultant followed. Hemoglobin A1c is 10.2, definitely not at goal. The patient needs close follow up as outpatient for optimization of blood sugar control. The patient initially with evidence of acute renal failure. Lathe Mechanic was consulted. Acute renal failure likely secondary to diabetes as well as the hypertension as per blood donor recruiter supervisor.. The patient also with evidence of diabetic nephropathy. With blood sugar treatment, acute renal failure improved. Lathe Mechanic recommended avoid nephrotoxic. Electrolyte abnormality: hypomagnesemia, hypophosphatemia, and hypocalcemia were addressed by blood donor recruiter supervisor and corrected. Renal ultrasound revealed no hydronephrosis, but revealed complexed renal cyst and recommended CT or MRI to be done as an outpatient. Abdominal ultrasound revealed findings consistent with a history of alcoholic cirrhosis. The patient also has a history of previous paracentesis, but no evidence of ascites at this time. Hematemesis resolved. Relay Shop Tester recommended restart Plavix and Entresto. Per seamless tube roller, dyspnea multifactorial secondary to congestive heart failure and chronic obstructive pulmonary disease. Per seamless tube roller , the patient definitely had acute systolic congestive heart failure exacerbation. Continue Lasix and beta-miguel. No HEATHER inhibitors secondary to acute renal failure, which subsequently resolved to the baseline. The patient apparently had element of the chronic kidney insufficiency as well, probably due to diabetic nephropathy. Anemia workup revealed stable iron, folate, and B12. Normal alpha-fetoprotein, elevated CEA of 5.2. Stool OB was not collected. The patient did not provide samples. Patient was recommended outpatient gastrointestinal workup. The patient was cleared for discharge. Pro BNP down to 20,000 from initial over 50,000. Venous duplex bilateral lower extremities negative. Chest x-ray negative. Culture luu, blood culture negative. Influenza screen negative. No evidence of infectious process. All consultants cleared for discharge. FINAL DIAGNOSES: 1. Chronic obstructive pulmonary disease exacerbation. 2. Chronic oxygen dependency. 3. Systolic heart failure exacerbation. 4. Cardiomyopathy. 5. AICD. 6. Diabetes mellitus. 7. Hematemesis, status post EGD with finding of severe esophagitis, gastritis, duodenal ulcer. 8. Hypertension. 9. Hyperlipidemia. 10. DVT. 11. Acute renal failure, a chronic renal insufficiency. 12. Diabetic nephropathy. 13. Electrolyte abnormalities (hypomagnesemia, hypocalcemia, hypophosphatemia). 14. Anemia of chronic disease. 15. Elevated CEA. 16. Cachexia. 17. Severe protein calorie malnutrition. DISCHARGE MEDICATIONS: See medication reconciliation list. DISCHARGE INSTRUCTIONS: The patient was discharged home. Follow up with primary medical doctor and seamless tube roller. The patient was recommended outpatient colonoscopy to be done in lieu of anemia and elevated CEA.GI will follow up with biopsy results and H. pylori serology. If positive, will be treated accordingly. Sue Mayer M.D. I have been assigned to dictate discharge summary on this account and I was not involved in the patient's management. Jocy EspinozaIan sánchez DR: BROOKE JOB#: [id number] CC: BRITTNI
--- NOTE | 2016-11-18 03:26 | Cardiology Report ---
APPROVED REPORT EKG Measurement Heart [id number] Normal sinus rhythm Left axis deviation Anterior infarct, age undetermined Prolonged QT Abnormal ECG
--- NOTE | 2016-11-18 03:28 | Cardiology Report ---
APPROVED REPORT EKG Measurement Heart [id number] Normal sinus rhythm Left ventricular hypertrophy with repolarization abnormality Prolonged QT Abnormal ECG
--- NOTE | 2016-11-21 10:04 | Cardiology Report ---
APPROVED REPORT EXAM: Two-dimensional and M-mode echocardiogram with Doppler and color Doppler. INDICATION Left ventricular function M-Mode DIMENSIONS IVSd0.8 (0.7-1.1cm)Left Atrium (MM)3.8 (1.6-4.0cm) LVDd4.8 (3.5-5.6cm)Aortic Root3.1 (2.0-3.7cm) PWd1.2 (0.7-1.1cm)Aortic Cusp Exc.1.8 (1.5-2.0cm) LVDs3.9 (2.5-4.0cm) PWs1.2 cm Normal left ventricular chamber size, systolic function and wall motion. Left ventricular ejection fraction estimated to be 50 %. No evidence of left ventricular hypertrophy. No evidence of pericardial fat or effusion. Mild bi-atrial enlargement by 2D. Focal aortic valve sclerosis with adequate cusp excursion Thickened mitral valve leaflets with normal excursion. Mild mitral annulus and aortic root calcification. Pulmonic valve is well visualized. Normal tricuspid valve structure. IVC is normal in size with physiologic collapse. Probable pacemaker wire present in the right side chambers. A color flow and spectral Doppler study was performed and revealed: no aortic regurgitation. Severe mitral regurgitation (2jets) Left ventricular diastolic dysfunction grade 3. Moderate tricuspid regurgitation. Tricuspid systolic velocities suggests peak right ventricular systolic pressure of 62 mmHg Consistent with severe pulmonary hypertension. Pulmonic regurgitation present.
== END 2016-10-22 16:00 | disposition home health service (06) | DRG 190 ==
LOC: EDBD 14:34 → EMR 14:54 → 2E 15:47 → EDBEDREQ 16:33 → 2E 17:13 → ICU 10-18 15:27 → 2E 10-19 15:37 → 4W 10-20 16:28
PROC: 30233K1 Transfusion of Nonautologous Frozen Plasma into Peripheral Vein, Percutaneous Approach (ICD-10-PCS; principal; 2016-10-19)
PROC: 0DB68ZX Excision of Stomach, Via Natural or Artificial Opening Endoscopic, Diagnostic (ICD-10-PCS; 2016-10-20)
DX: J44.1 Chronic obstructive pulmonary disease with (acute) exacerbation (principal); E43 Unspecified severe protein-calorie malnutrition; I50.23 Acute on chronic systolic (congestive) heart failure; N17.9 Acute kidney failure, unspecified; K92.0 Hematemesis; E13.10 Other specified diabetes mellitus with ketoacidosis without coma; I42.9 Cardiomyopathy, unspecified; R64 Cachexia; K26.9 Duodenal ulcer, unspecified as acute or chronic, without hemorrhage or perforation; Z68.1 Body mass index [BMI] 19.9 or less, adult; I82.409 Acute embolism and thrombosis of unspecified deep veins of unspecified lower extremity; K92.2 Gastrointestinal hemorrhage, unspecified; E11.21 Type 2 diabetes mellitus with diabetic nephropathy; E86.0 Dehydration; I73.9 Peripheral vascular disease, unspecified; Z95.810 Presence of automatic (implantable) cardiac defibrillator; E78.5 Hyperlipidemia, unspecified; K20.9 Esophagitis, unspecified; K70.30 Alcoholic cirrhosis of liver without ascites; K29.70 Gastritis, unspecified, without bleeding; E83.42 Hypomagnesemia; E83.51 Hypocalcemia; E83.39 Other disorders of phosphorus metabolism; R97.0 Elevated carcinoembryonic antigen [CEA]; Z88.8 Allergy status to other drugs, medicaments and biological substances; I25.10 Atherosclerotic heart disease of native coronary artery without angina pectoris; Z95.5 Presence of coronary angioplasty implant and graft; I25.2 Old myocardial infarction; I10 Essential (primary) hypertension; I27.2 Other secondary pulmonary hypertension; I07.1 Rheumatic tricuspid insufficiency; N40.0 Benign prostatic hyperplasia without lower urinary tract symptoms; F17.200 Nicotine dependence, unspecified, uncomplicated; K44.9 Diaphragmatic hernia without obstruction or gangrene; Z99.81 Dependence on supplemental oxygen
CPT/HCPCS: 36415; 36600; 71010; 76700; 76775; 80048; 80053; 80061; 81003; 82105; 82150; 82378; 82550; 82553; 82607; 82746; 82803; 82962; 82977; 83036; 83540; 83550; 83605; 83615; 83690; 83735; 83880; 84100; 84300; 84443; 84484; 84550; 85025; 85044; 85610; 85651; 85730; 86140; 86677; 86710; 86850; 86900; 86901; 86927; 87040; 87081; 89050; 90732; 93005; 93306; 93970; 94003; 94150; 94640; 94664; 94760; C9399; J1815; J2405; J2765; S5561

== ENCOUNTER 2016-10-29 10:40 | Inpatient (IN) | payer MEDICARE, OTHER ==
[~2016-10-29] VITALS: Ht 162.6 cm; Wt 49.4 kg
[~2016-10-29 10:40] MED LIST: ANORO ELLIPTA1 EACH; ASPIR 8181 MG ORAL; ATORVASTATIN CA40 MG ORAL; AVODART0.5 MG ORAL; BENICAR20 MG ORAL; CARVEDILOL25 MG ORAL; DEXILANT60 MG ORAL; DOCUSIL100 M1 ORAL; ENTRESTO 49 MG1 EACH PO; FERROUS SULFAT325 MG ORAL; IMITREX50 MG ORAL; LANTUS SOL100 UNIT/1 SUBQ; LEVOTHYROXINE25 MCG ORAL; LINZESS145 MCG PO; LORATADINE10 M1 PO; LYRICA75 M1 ORAL; MECLIZINE HCL25 MG ORAL; MEGESTROL ACETA40 MG PO; MUPIROCIN22 GM TOPIC; NITROSTAT0.4 M1 SL; NOVOLOG MI100 UNITS/ SUBQ; PLAVIX75 MG ORAL; RANEXA500 MG ORAL; ROXICODONE15 MG ORAL; SENSIPAR30 MG ORAL; SERTRALINE HCL25 MG ORAL; TAMSULOSIN HCL0.4 MG ORAL; TERBINAFINE HC250 MG PO; VITAMIN D400 INTLU ORAL; ZENPEP DR 10,01 EACH PO
[2016-10-29 11:36] VITALS: BP 143/74
[2016-10-29 11:41] LABS: BASOPHILS % (AUTO) 0.7 % (0.0-2.0); EOSINOPHILS % (AUTO) 0.5 % (0.0-3.0); LYMPHOCYTES % (AUTO) 10.7 % (20.0-45.0); MEAN CORPUSCULAR HEMOGLOBIN 29.9 PG (27.0-31.0); MEAN CORPUSCULAR HGB CONC 30.5 G/DL (32.0-36.0); MEAN CORPUSCULAR VOLUME 98 FL (80-99); MEAN PLATELET VOLUME 8.5 FL (6.5-10.1); MONOCYTES % (AUTO) 10.1 % (1.0-10.0); PLATELET COUNT 205 K/UL (150-450); RED BLOOD COUNT 3.15 M/UL (4.70-6.10); WHITE BLOOD COUNT 11.7 K/UL (4.8-10.8)
[2016-10-29 11:56] LABS: ALANINE AMINOTRANSFERASE 25 U/L (3-41); ALBUMIN/GLOBULIN RATIO 1.3 (1.0-2.7); ASPARTATE AMINO TRANSFERASE 34 U/L (5-40); CALCIUM 7.6 mg/dL (8.6-10.2); CHLORIDE 88 mEQ/L (98-107); CREATININE 1.8 mg/dL (0.7-1.2); GLOMERULAR FILTRATION RATE 37.7 mL/min (>60); HEMOLYSIS 5; POTASSIUM 4.9 mEQ/L (3.4-4.9); SODIUM 140 mEQ/L (135-145); TOTAL PROTEIN 6.3 g/dL (6.6-8.7)
[2016-10-29 11:57] LABS: TROPONIN I < 0.30 ng/mL (<=0.30)
[2016-10-29 12:07] LABS: CKMB < 1.5 ng/mL (< 6.7)
[2016-10-29 12:13] LABS: ANION GAP 6 (5-15)
[2016-10-29 12:16] LABS: CARBON DIOXIDE 46 mEQ/L (20-30)
[2016-10-29 12:38] LABS: ABG ALLEN TEST POSITIVE; ABG PCO2 65.6 mmHg (35.0-45.0)
[2016-10-29] MEDS ORDERED: Azithromycin 500 MG in NS 275 ML IV ONE (12:45)
[2016-10-29] MEDS ORDERED: Cefepime HCl 1 GM in NS 55 ML IV ONE (12:45)
[2016-10-29] MEDS ORDERED: Cefepime 1gm vial ONE (13:04)
[2016-10-29 13:22] VITALS: BP 115/80
[2016-10-29] MEDS ORDERED: Azithromycin Inj IV ONE (13:46)
--- NOTE | 2016-10-29 13:47 | Emergency Room Report ---
History of Present Illness General Chief Complaint: Dyspnea/Respdistress Source: Patient, Medical Record Present Illness HPI 66-year-old male presents ED complaining of shortness of breath. States he has history of COPD and is on home oxygen. Worsening shortness of breath x3 days. No fevers or chills. No cough. Denies chest pain. Notes increased leg swelling. Patient was recently discharged from this hospital. No other aggravating or relieving factors. Denies any other associated symptoms Allergies: Coded Allergies: IODINE (Verified Allergy, Unknown, 10/16/16) Patient History Past Medical History: DM, COPD Past Surgical History: pacemaker Pertinent Family History: none Social History: Denies: alcohol use, drug use, smoking Immunizations: UTD Reviewed Nursing Documentation: PMH: Agreed, PSxH: Agreed Nursing Documentation-PMH Past Medical History: No History, Except For Hx Cardiac Problems: Yes Hx Pacemaker: Yes - defibulator Hx COPD: Yes Hx Diabetes: Yes Hx Cancer: No Hx Gastrointestinal Problems: Yes Hx Neurological Problems: No Review of Systems All Other Systems: negative except mentioned in HPI Physical Exam Vital Signs Date Time Temp Pulse Resp B/P Pulse Ox O2 Delivery O2 Flow Rate FiO2 10/29/16 10:38 98.4 90 26 151/71 100 Nasal Cannula 2.0 10/29/16 13:22 25 Sp02 EP Interpretation: reviewed, normal General Appearance: alert, GCS 15, non-toxic, mild distress, thin Head: normocephalic Eyes: bilateral eye PERRL, bilateral eye normal inspection ENT: normal ENT inspection Neck: normal inspection Respiratory: chest non-tender, lungs clear, normal breath sounds, speaking full sentences Cardiovascular #1: regular rate, rhythm, no edema Gastrointestinal: normal bowel sounds, non tender, soft, non-distended, no guarding, no rebound Rectal: deferred Genitourinary: no CVA tenderness Musculoskeletal: normal inspection Neurologic: alert, oriented x3, responsive, motor strength/tone normal, sensory intact, speech normal Psychiatric: normal inspection Skin: normal inspection Lymphatic: normal inspection Procedures Critical Care Time Critical Care Time i. I feel this is a highly complex case requiring extensive working including EKG/Rhythm strip, Xray/CT/US, Blood/urine lab work, repeat exams while in ED, and administration of strong opiates/narcotics for pain control, admission to hospital or close patient follow up. Total time: 30 min bedside evaluation and treatment excludes procedures (EKG). Reason for critical care: Hypoxic, respiratory distress Possible complications: hypotension, hypertension, RI, shock, arrhythmias, metabolic acidosis, end organ damage, respiratory failure. Interventions: Labs, IV fluids, EKG, chest x-ray, ABG, BiPAP, Lasix, antibiotics Course: Patient brought in for respiratory distress. History of COPD. Labs show leukocytosis. ABG shows PCO2 greater than 60. BNP elevated. Given antibiotics. Given Lasix. Started on BiPAP. Consultations: nursing staff, EMS, family Performed by: Dr Lira Tolerated well condition = serious j. because of unstable vital signs this patient had a condition that could potentially threaten life or limb. I feel this is a critical patient who required my full attention while patient was considered critical. Total Critical Care Time excluding procedures was greater than 35 minutes Medical Decision Making Diagnostic Impression: Primary Impression: COPD (chronic obstructive pulmonary disease) Qualified Codes: J44.9 - Chronic obstructive pulmonary disease, unspecified Additional Impression: CHF exacerbation Qualified Codes: I50.9 - Heart failure, unspecified ER Course Hospital Course 66-year-old male presents ED complaining of shortness of breath, leg swelling Differential diagnoses include: RI/unstable angina, contusion, muscle strain, PTX, rib fracture Clinical course Patient placed on stretcher. on court monitor. After initial history and physical I ordered labs, EKG, chest x-ray, IVFs labs reviewed- noted leukocytosis, hemoglobin/hematocrit stable, electrolytes ok , troponins negative, BNP elevated ABG - hypercapnia Chest x-ray- perihilar infiltrate abx given. Lasix given. Started on BiPAP respiratory status improved Patient will be admitted to Dr. Moreno Juarez. I feel this is a highly complex case requiring extensive working including EKG/Rhythm strip, Xray/CT/US, Blood/urine lab work, repeat exams while in ED, and administration of strong opiates/narcotics for pain control, admission to hospital or close patient follow up. Diagnosis - CHF exacerbation, COPD exacerbation admitted to [facility] in serious condition Labs Test 10/29/16 11:15 10/29/16 12:31 10/29/16 13:13 White Blood Count 11.7 K/UL (4.8-10.8) Red Blood Count 3.15 M/UL (4.70-6.10) Hemoglobin 9.4 G/DL (14.2-18.0) Hematocrit 30.9 % (42.0-52.0) Mean Corpuscular Volume 98 FL (80-99) Mean Corpuscular Hemoglobin 29.9 PG (27.0-31.0) Mean Corpuscular Hemoglobin Concent 30.5 G/DL (32.0-36.0) Red Cell Distribution Width 16.0 % (11.6-14.8) Platelet Count 205 K/UL (150-450) Mean Platelet Volume 8.5 FL (6.5-10.1) Neutrophils (%) (Auto) 78.0 % (45.0-75.0) Lymphocytes (%) (Auto) 10.7 % (20.0-45.0) Monocytes (%) (Auto) 10.1 % (1.0-10.0) Eosinophils (%) (Auto) 0.5 % (0.0-3.0) Basophils (%) (Auto) 0.7 % (0.0-2.0) Sodium Level 140 mEQ/L (135-145) Potassium Level 4.9 mEQ/L (3.4-4.9) Chloride Level 88 mEQ/L (98-107) Carbon Dioxide Level 46 mEQ/L (20-30) Anion Gap 6 (5-15) Blood Urea Nitrogen 17 mg/dL (7-23) Creatinine 1.8 mg/dL (0.7-1.2) Estimat Glomerular Filtration Rate 37.7 mL/min (>60) Glucose Level 301 mg/dL (74-106) Lactic Acid Level 1.30 mmol/L (0.66-2.22) Calcium Level 7.6 mg/dL (8.6-10.2) Total Bilirubin 0.7 mg/dL (0.0-1.2) Aspartate Amino Transf (AST/SGOT) 34 U/L (5-40) Alanine Aminotransferase (ALT/SGPT) 25 U/L (3-41) Alkaline Phosphatase 198 U/L (40-129) Total Creatine Kinase 74 U/L (38-174) Creatine Kinase MB < 1.5 ng/mL (< 6.7) Creatine Kinase MB Relative Index 2.0 Troponin I < 0.30 ng/mL (<=0.30) Pro-B-Type Natriuretic Peptide 58440 pg/mL (0-125) Total Protein 6.3 g/dL (6.6-8.7) Albumin 3.6 g/dL (3.5-5.2) Globulin 2.7 g/dL Albumin/Globulin Ratio 1.3 (1.0-2.7) Arterial Blood pH 7.440 (7.350-7.450) Arterial Blood Partial Pressure CO2 65.6 mmHg (35.0-45.0) Arterial Blood Partial Pressure O2 115.1 mmHg (75.0-100.0) Arterial Blood HCO3 43.7 mmol/L (22.0-26.0) Arterial Blood Oxygen Saturation 98.0 % (92.0-98.0) Arterial Blood Base Excess 17.0 Cristian Test Positive EKG Diagnostic Results Rate: normal Rhythm: NSR ST Segments: no acute changes ASA given to the pt in ED: No Rhythm Strip Diag. Results EP Interpretation: yes Rhythm: NSR, no PVC's, no ectopy Chest X-Ray Diagnostic Results EP Interpretation: Yes Findings: no effusion, no pneumothorax, no acute cardiopulmonary disease, other - increased perhilar infiltrate. Number of Views: 1 Last Vital Signs Date Time Temp Pulse Resp B/P Pulse Ox O2 Delivery O2 Flow Rate FiO2 10/29/16 13:22 98.0 79 19 115/80 100 Bi-pap 2.0 25 Status: improved Disposition: ADMITTED INPATIENT Condition: Serious SHANELLE LIRA M.D. Oct 29, 2016 13:47
[2016-10-29 13:55] LABS: APPEARANCE,URINE CLEAR; KETONES,URINE NEGATIVE (NEGATIVE); NITRITE,URINE NEGATIVE (NEGATIVE); PH,URINE 9 (4.5-8.0); PROTEIN,URINE 1+ (NEGATIVE)
[2016-10-29 13:56] LABS: BACTERIA,URINE OCCASIONAL /HPF; LEUKOCYTE ESTERASE ,URINE NEGATIVE (NEGATIVE); SQUAMOUS EPITHELIAL CELL,UR OCCASIONAL /LPF (NONE/OCC); UROBILINOGEN,URINE NORMAL MG/DL (0.0-1.0); WBC,URINE 0-2 /HPF (0 - 0)
[2016-10-29] MEDS ORDERED: DuoNeb 0.5-3(2.5)mg/3ml neb HHN PRN (14:15)
[2016-10-29] MEDS ORDERED: Miralax 17gm pkt ORAL PRN (14:15)
[2016-10-29] MEDS ORDERED: Mylanta II UD 30ml ORAL PRN (14:15)
[2016-10-29] MEDS ORDERED: Morphine Sulfate 2mg/ml Inj IVP PRN (14:15)
[2016-10-29] MEDS ORDERED: Nitroglycerin Subl 0.4mg tab (Bottle Of 25) SL PRN (14:15)
[2016-10-29] MEDS ORDERED: LORazepam Inj 2mg/ml 1ml IV PRN (14:15)
[2016-10-29 14:48] LABS: ABG PCO2 51.8 mmHg (35.0-45.0)
[2016-10-29 14:49] LABS: ABG ALLEN TEST POSITIVE; ABG BASE EXCESS 15.6
--- NOTE | 2016-10-29 14:57 | History and Physical ---
History of Present Illness General Date patient seen: Oct 29, 2016 Time patient seen: 13:30 Reason for Hospitalization: Dyspnea/Respdistress Present Illness HPI 66 y/ld male presented to ED for increased SOB x 1 week patient was [place] [facility] [place] stable for few days and then started to develop progressive SOB, worse the last 4 days, reports cough, productive, yellow phlegm, no hemoptysis, no wheezing, + chest tightness cough "wet" per patient's son, yesterday increased leg edema , took diuretic with decrease in edema ( per son) denies chest pain, palpitations, dizziness patient is chronically oxygen dependent , has oxygen at home still smoking 1/3 pack a day PMH: COPD, DM, pacemaker, HTN, CHF, hepatic cirrhosis, hx of ETOH absue, diabetic neuropathy, chronic renal insufficiency in ED CXR with perihilar infiltrate ABG revealed hypercapnia mild leukocytosis, baseline HH, lytes stable, troponin negative pro BNP- [id number] patient given diuretic, antibiotic, HHN treatment patient requires admission for further management of his condition Allergies: Coded Allergies: IODINE (Verified Allergy, Unknown, 10/16/16) Medication History Scheduled Aspirin* (Aspir 81*), 81 MG ORAL DAILY, (Reported) Atorvastatin Calcium* (Atorvastatin Calcium*), 80 MG ORAL BEDTIME, (Reported) Carvedilol* (Carvedilol*), Unknown Dose ORAL EVERY 12 HOURS, (Reported) Cinacalcet* (Sensipar*), 30 MG ORAL DAILY, (Reported) Clopidogrel Bisulfate* (Plavix*), Unknown Dose ORAL DAILY, (Reported) Dexlansoprazole (Dexilant), 60 MG ORAL DAILY, (Reported) Docusate Sodium* (Docusil*), 100 MG ORAL DAILY, (Reported) Dutasteride (Avodart), 0.5 MG ORAL DAILY, (Reported) Ferrous Sulfate* (Ferrous Sulfate*), 325 MG ORAL DAILY, (Reported) Insulin Glargine (Lantus), Unknown Dose SUBQ BEDTIME, (Reported) Levothyroxine Sodium* (Levothyroxine Sodium*), 25 MCG ORAL DAILY, (Reported) Meclizine Hcl* (Meclizine*), Unknown Dose ORAL THREE TIMES A DAY, (Reported) Mupirocin* (Mupirocin*), 1 APPLIC TOPIC THREE TIMES A DAY, (Reported) Pregabalin* (Lyrica*), 100 MG ORAL THREE TIMES A DAY, (Reported) Sertraline Hcl* (Sertraline Hcl*), 25 MG ORAL DAILY, (Reported) Sumatriptan Succinate* (Imitrex*), 100 MG ORAL DAILY PRN MIGRAINE, (Reported) Tamsulosin Hcl (Tamsulosin Hcl*), 0.4 MG ORAL BEDTIME, (Reported) Vitamin D (Vitamin D3), 5,000 UNITS ORAL DAILY, (Reported) Scheduled PRN Nitroglycerin (Nitrostat), 0.4 MG SL Q5M X3 DOSES PRN for CHEST PAIN, (Reported) OXYCODONE HCl* (Roxicodone*), Unknown Dose ORAL Q6H PRN for For Pain, (Reported) Miscellaneous Medications Insulin Aspart (Novolog Mix 70-30 Flexpen Syrn), Unknown Dose SUBQ, (Reported) Linaclotide (Linzess), 145 MCG PO, (Reported) Lipase/Protease/Amylase (Zenpep Dr 10,000 Units Capsule), Unknown Dose PO, ( Reported) Loratadine (Loratadine), 10 MG PO, (Reported) Loratadine (Loratadine), 10 MG PO, (Reported) Megestrol Acetate (Megestrol Acetate), 40 MG PO, (Reported) Umeclidinium Brm/Vilanterol Tr (Anoro Ellipta 62.5-25 Mcg INH), (Reported) Discontinued Medications Olmesartan Medoxomil (Benicar), 20 MG ORAL DAILY, (Reported) Discontinued Reason: Pt stopped taking med Ranolazine* (Ranexa*), 500 MG ORAL EVERY 12 HOURS, (Reported) Discontinued Reason: Pt stopped taking med Sacubitril/Valsartan (Entresto 49 mg-51 mg Tablet), Unknown Dose PO, (Reported) Discontinued Reason: Pt stopped taking med Terbinafine Hcl* (Lamisil*), Unknown Dose PO DAILY, (Reported) Discontinued Reason: Pt stopped taking med Patient History Healthcare decision maker Resuscitation status Advanced Directive on File Review of Systems Constitutional: Reports: weakness Eye: Reports: no symptoms ENT: Reports: no symptoms Respiratory: Reports: see HPI Cardiovascular: Reports: see HPI Gastrointestinal: Reports: other - hepatic cirrhosis Genitourinary: Reports: other - BPH, chronci renal insuficiency Musculoskeletal: Reports: no symptoms Skin: Reports: dryness Psychiatric: Reports: no symptoms Neurological: Reports: numbness, other - diabetic neuropathy , paresthesia Endocrine: Reports: other - diabetes Hematologic/Lymphatic: Reports: anemia Physical Exam General Appearance: other - thin Kazakh speaking male in mild distress Lines, tubes and drains: peripheral HEENT: normocephalic, atraumatic, anicteric, mucous membranes moist, PERRL Neck: non-tender, normal alignment, supple Respiratory/Chest: chest wall non-tender, no respiratory distress, no accessory muscle use, crackles/rales - few at bases Cardiovascular/Chest: normal peripheral pulses, normal rate Abdomen: normal bowel sounds, non tender, soft Extremities: normal range of motion, non-tender, no calf tenderness, normal capillary refill, other - +1 BLE Neurologic: 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 grossly normal, alert, oriented x 3, responsive, normal mood/affect Musculoskeletal: normal muscle bulk Last 24 Hour Vital Signs Date Time Temp Pulse Resp B/P Pulse Ox O2 Delivery O2 Flow Rate FiO2 10/29/16 13:22 98.0 79 19 115/80 100 Bi-pap 2.0 25 10/29/16 11:36 98.4 81 18 143/74 100 Nasal Cannula 2.0 10/29/16 11:36 90 26 Nasal Cannula 2.0 10/29/16 10:38 98.4 90 26 151/71 100 Nasal Cannula 2.0 Laboratory Tests Test 10/29/16 11:15 10/29/16 12:31 10/29/16 13:13 White Blood Count 11.7 K/UL (4.8-10.8) H Red Blood Count 3.15 M/UL (4.70-6.10) L Hemoglobin 9.4 G/DL (14.2-18.0) L Hematocrit 30.9 % (42.0-52.0) L Mean Corpuscular Volume 98 FL (80-99) Mean Corpuscular Hemoglobin 29.9 PG (27.0-31.0) Mean Corpuscular Hemoglobin Concent 30.5 G/DL (32.0-36.0) L Red Cell Distribution Width 16.0 % (11.6-14.8) H Platelet Count 205 K/UL (150-450) Mean Platelet Volume 8.5 FL (6.5-10.1) Neutrophils (%) (Auto) 78.0 % (45.0-75.0) H Lymphocytes (%) (Auto) 10.7 % (20.0-45.0) L Monocytes (%) (Auto) 10.1 % (1.0-10.0) H Eosinophils (%) (Auto) 0.5 % (0.0-3.0) Basophils (%) (Auto) 0.7 % (0.0-2.0) Sodium Level 140 mEQ/L (135-145) Potassium Level 4.9 mEQ/L (3.4-4.9) Chloride Level 88 mEQ/L (98-107) L Carbon Dioxide Level 46 mEQ/L (20-30) *H Anion Gap 6 (5-15) Blood Urea Nitrogen 17 mg/dL (7-23) Creatinine 1.8 mg/dL (0.7-1.2) H Estimat Glomerular Filtration Rate 37.7 mL/min (>60) Glucose Level 301 mg/dL (74-106) H Lactic Acid Level 1.30 mmol/L (0.66-2.22) Calcium Level 7.6 mg/dL (8.6-10.2) L Total Bilirubin 0.7 mg/dL (0.0-1.2) Aspartate Amino Transf (AST/SGOT) 34 U/L (5-40) Alanine Aminotransferase (ALT/SGPT) 25 U/L (3-41) Alkaline Phosphatase 198 U/L (40-129) H Total Creatine Kinase 74 U/L (38-174) Creatine Kinase MB < 1.5 ng/mL (< 6.7) Creatine Kinase MB Relative Index 2.0 Troponin I < 0.30 ng/mL (<=0.30) Pro-B-Type Natriuretic Peptide 66190 pg/mL (0-125) H Total Protein 6.3 g/dL (6.6-8.7) L Albumin 3.6 g/dL (3.5-5.2) Globulin 2.7 g/dL Albumin/Globulin Ratio 1.3 (1.0-2.7) Arterial Blood pH 7.440 (7.350-7.450) Arterial Blood Partial Pressure CO2 65.6 mmHg (35.0-45.0) *H Arterial Blood Partial Pressure O2 115.1 mmHg (75.0-100.0) H Arterial Blood HCO3 43.7 mmol/L (22.0-26.0) H Arterial Blood Oxygen Saturation 98.0 % (92.0-98.0) Arterial Blood Base Excess 17.0 Cristian Test Positive Urine Color Pale yellow Urine Appearance Clear Urine pH 9 (4.5-8.0) Urine Specific [place] 1.005 (1.005-1.035) Urine Protein 1+ (NEGATIVE) H Urine Glucose (UA) 1+ (NEGATIVE) H Urine Ketones Negative (NEGATIVE) Urine Occult Blood 1+ (NEGATIVE) H Urine Nitrite Negative (NEGATIVE) Urine Bilirubin Negative (NEGATIVE) Urine Urobilinogen Normal MG/DL (0.0-1.0) Urine Leukocyte Esterase Negative (NEGATIVE) Urine RBC 2-4 /HPF (0 - 0) H Urine WBC 0-2 /HPF (0 - 0) Urine Squamous Epithelial Cells Occasional /LPF Urine Bacteria Occasional /HPF (NONE) Microbiology Date/Time Source Procedure Growth Status 10/29/16 11:40 Nasal Nares Influenza Types A,B Antigen (ANIBAL) - Final Complete Height (Feet): 5 Height (Inches): 6.00 Weight (Pounds): 120 Medications Current Medications Medications (Trade) Dose Ordered Sig/Kevin Route PRN Reason Start Time Stop Time Status Last Admin Dose Admin Acetaminophen (Tylenol) 650 mg Q4H PRN ORAL Mild Pain (Pain Scale 1-3) 10/29/16 14:15 11/28/16 14:14 Al Hydroxide/Mg Hydroxide (Mylanta II) 30 ml Q6H PRN ORAL dyspepsia 10/29/16 14:15 11/28/16 14:14 Albuterol/ Ipratropium (DuoNeb 0.5-3(2.5)mg/3ml) 3 ml Q4H PRN HHN Shortness of Breath 10/29/16 14:15 11/03/16 14:14 Aspirin (Ecotrin) 81 mg DAILY ORAL 10/30/16 09:00 11/29/16 08:59 Atorvastatin Calcium (Lipitor) 80 mg BEDTIME ORAL 10/29/16 21:00 11/28/16 20:59 Cefepime HCl/ Dextrose (Maxipime/D5W) 55 ml @ 110 mls/hr EVERY 12 HOURS IVPB 2/5/17 21:00 11/05/16 20:59 UNV Cinacalcet (Sensipar) 30 mg DAILY ORAL 10/30/16 09:00 11/29/16 08:59 UNV Clopidogrel Bisulfate (Plavix) 75 mg DAILY ORAL 10/30/16 09:00 11/29/16 08:59 Dextrose (Dextrose 50%) STAT PRN IV Hypoglycemia 10/29/16 14:15 11/28/16 14:14 Diphenhydramine HCl (Benadryl) 25 mg Q6H PRN ORAL Itching/Pruritis 10/29/16 14:15 11/28/16 14:14 Docusate Sodium (Colace) 100 mg EVERY 12 HOURS ORAL 10/29/16 21:00 11/28/16 20:59 Ferrous Sulfate (Feosol) 325 mg DAILY ORAL 10/30/16 09:00 11/29/16 08:59 Heparin Sodium (Porcine) (Heparin 5000 units/ml) 5,000 units EVERY 12 HOURS SUBQ 10/29/16 21:00 11/28/16 20:59 Levothyroxine Sodium (Synthroid) 25 mcg ACBREAKFAST ORAL 10/30/16 06:30 11/29/16 06:29 Lorazepam (Ativan 2mg/ml 1ml) 0.5 mg Q4H PRN IV For Anxiety 10/29/16 14:15 11/05/16 14:14 Methylprednisolone Sodium Succinate 60 mg 60 mg EVERY 6 HOURS IVP 10/29/16 18:00 11/28/16 17:59 Morphine Sulfate (Morphine Sulfate) 1 mg Q4H PRN IVP For Pain 10/29/16 14:15 11/05/16 14:14 Nitroglycerin (Ntg) 0.4 mg Q5M PRN SL Prn Chest Pain 10/29/16 14:15 11/28/16 14:14 Ondansetron HCl (Zofran) 4 mg Q6H PRN IVP Nausea & Vomiting 10/29/16 14:15 11/28/16 14:14 Polyethylene Glycol (Miralax) 17 gm DAILYPRN PRN ORAL Constipation 10/29/16 14:15 11/28/16 14:14 Pregabalin (Lyrica) 100 mg THREE TIMES A DAY ORAL 10/29/16 18:00 11/28/16 17:59 UNV Ranitidine HCl (Zantac) 150 mg TWICE A DAY ORAL 10/29/16 18:00 11/28/16 17:59 Ranolazine (Ranexa ER 500mg) 500 mg EVERY 12 HOURS ORAL 10/29/16 21:00 11/28/16 20:59 UNV Sertraline HCl (Zoloft) 25 mg DAILY ORAL 10/30/16 09:00 11/29/16 08:59 UNV Tamsulosin HCl (Flomax) 0.4 mg BEDTIME ORAL 10/29/16 21:00 11/28/16 20:59 Temazepam (Restoril) 15 mg DAILYPRN PRN ORAL Insomnia 10/29/16 14:15 11/05/16 14:14 Assessment/Plan Assessment/Plan ASSESSMENT acute hypercapnic respiratory failure on chronic respiratory failure, requiring BiPASP chronic hypoxemia ( home O2 dependent) acute COPD exacerbation possible PNA acute diastolic CHF metabolic alkalosis current smoker hepatic cirrhosis hx of ETOH abuse HTN severe pulmonary HTN severe MR moderate TR pacemaker DM chronic renal insufficiency hypothyroidism anemia elevated CEA PLAN OF CARE tele BiPAP ABG in am try to wean from BiPAP titrate FiO2 to keep sat above 02% pulmonary toilet IV steroids and taper as permitted empiric antibiotics sputum cx fup with CXR ECHO on previous admission with EF 50% and RVSP of 62 c/w severe pulmonary HTN, + severe MR. grade 3 diastolic dysfunction, moderate TR start diuretics monitor I/O renal parameters, trend pro BNP, CXR renal US on previous admission no hydro, normal echogenicity, avoid nephrotoxic BP management with diuretic and BB at this time, further adjustment as per cardio no HEATHER/ARB due to renal insufficiency staff counselor on smoking cessation Nicotine patch patient with hx of ETOH abuse ( stopped 8 yrs ago) and subsequent hx of alcohol induced cirrhosis, LFT stable BS management with Levemir adn SS of insulin, optimize as needed , last admission Hgb1c -10.2 not at goal monitor HH, on iron supplement CEA elevated on previous admission get stool OB x 2 DVT, GI prophylaxis TSH stable on previous admission, continue curent dose of TSH ADDENDUM discussed with cardio : due to alkalosis inclining not to diurese as it could worsen alkalosis Lasix discontinued will check Bicarb in am and consider Diamox case discussed and evaluated by supervising physician Jerod ([facility]),Jocy VASQUEZ Oct 29, 2016 14:57
[2016-10-29 15:28] VITALS: BP 100/71
[2016-10-29] MEDS: NovoLOG Insulin Flexpen SUBQ SCH ×2 (17:02→21:00)
[2016-10-29 17:18] VITALS: BP 145/103
[2016-10-29] MEDS: Solu-MEDROL 125mg Inj IVP SCH ×2 (18:00→23:37)
--- NOTE | 2016-10-29 18:05 | Cardiology Progress Note ---
Subjective Subjective metablic alkalosis respirartoty acidosis copd cm chf icd anemia renal insuf i am hesitant to diurese as alkalosis consider diamox administartion first to croec alkalosis kandy follow bipap pulm rxn venous duplex [id number] Objective Last 24 Hour Vital Signs Date Time Temp Pulse Resp B/P Pulse Ox O2 Delivery O2 Flow Rate FiO2 10/29/16 17:31 88 26 100 2.0 10/29/16 17:18 97.8 88 19 145/103 100 Nasal Cannula 2.0 10/29/16 15:28 97.4 89 24 100/71 100 Nasal Cannula 2.0 10/29/16 14:30 84 22 Bi-pap 25 10/29/16 14:28 84 22 100 Facial 25 10/29/16 13:22 98.0 79 19 115/80 100 Bi-pap 2.0 25 10/29/16 11:36 98.4 81 18 143/74 100 Nasal Cannula 2.0 10/29/16 11:36 90 26 Nasal Cannula 2.0 10/29/16 10:38 98.4 90 26 151/71 100 Nasal Cannula 2.0 Laboratory Tests Test 10/29/16 11:15 10/29/16 12:31 10/29/16 13:13 10/29/16 14:45 White Blood Count 11.7 K/UL (4.8-10.8) H Red Blood Count 3.15 M/UL (4.70-6.10) L Hemoglobin 9.4 G/DL (14.2-18.0) L Hematocrit 30.9 % (42.0-52.0) L Mean Corpuscular Volume 98 FL (80-99) Mean Corpuscular Hemoglobin 29.9 PG (27.0-31.0) Mean Corpuscular Hemoglobin Concent 30.5 G/DL (32.0-36.0) L Red Cell Distribution Width 16.0 % (11.6-14.8) H Platelet Count 205 K/UL (150-450) Mean Platelet Volume 8.5 FL (6.5-10.1) Neutrophils (%) (Auto) 78.0 % (45.0-75.0) H Lymphocytes (%) (Auto) 10.7 % (20.0-45.0) L Monocytes (%) (Auto) 10.1 % (1.0-10.0) H Eosinophils (%) (Auto) 0.5 % (0.0-3.0) Basophils (%) (Auto) 0.7 % (0.0-2.0) Sodium Level 140 mEQ/L (135-145) Potassium Level 4.9 mEQ/L (3.4-4.9) Chloride Level 88 mEQ/L (98-107) L Carbon Dioxide Level 46 mEQ/L (20-30) *H Anion Gap 6 (5-15) Blood Urea Nitrogen 17 mg/dL (7-23) Creatinine 1.8 mg/dL (0.7-1.2) H Estimat Glomerular Filtration Rate 37.7 mL/min (>60) Glucose Level 301 mg/dL (74-106) H Lactic Acid Level 1.30 mmol/L (0.66-2.22) Calcium Level 7.6 mg/dL (8.6-10.2) L Total Bilirubin 0.7 mg/dL (0.0-1.2) Aspartate Amino Transf (AST/SGOT) 34 U/L (5-40) Alanine Aminotransferase (ALT/SGPT) 25 U/L (3-41) Alkaline Phosphatase 198 U/L (40-129) H Total Creatine Kinase 74 U/L (38-174) Creatine Kinase MB < 1.5 ng/mL (< 6.7) Creatine Kinase MB Relative Index 2.0 Troponin I < 0.30 ng/mL (<=0.30) Pro-B-Type Natriuretic Peptide 49145 pg/mL (0-125) H Total Protein 6.3 g/dL (6.6-8.7) L Albumin 3.6 g/dL (3.5-5.2) Globulin 2.7 g/dL Albumin/Globulin Ratio 1.3 (1.0-2.7) Arterial Blood pH 7.440 (7.350-7.450) 7.511 (7.350-7.450) Arterial Blood Partial Pressure CO2 65.6 mmHg (35.0-45.0) *H 51.8 mmHg (35.0-45.0) H Arterial Blood Partial Pressure O2 115.1 mmHg (75.0-100.0) H 109.5 mmHg (75.0-100.0) H Arterial Blood HCO3 43.7 mmol/L (22.0-26.0) H 40.5 mmol/L (22.0-26.0) H Arterial Blood Oxygen Saturation 98.0 % (92.0-98.0) 98.0 % (92.0-98.0) Arterial Blood Base Excess 17.0 15.6 Cristian Test Positive Positive Urine Color Pale yellow Urine Appearance Clear Urine pH 9 (4.5-8.0) Urine Specific [place] 1.005 (1.005-1.035) Urine Protein 1+ (NEGATIVE) H Urine Glucose (UA) 1+ (NEGATIVE) H Urine Ketones Negative (NEGATIVE) Urine Occult Blood 1+ (NEGATIVE) H Urine Nitrite Negative (NEGATIVE) Urine Bilirubin Negative (NEGATIVE) Urine Urobilinogen Normal MG/DL (0.0-1.0) Urine Leukocyte Esterase Negative (NEGATIVE) Urine RBC 2-4 /HPF (0 - 0) H Urine WBC 0-2 /HPF (0 - 0) Urine Squamous Epithelial Cells Occasional /LPF Urine Bacteria Occasional /HPF (NONE) Microbiology Date/Time Source Procedure Growth Status 10/29/16 11:40 Nasal Nares Influenza Types A,B Antigen (ANIBAL) - Final Complete LISA SERNA Oct 29, 2016 18:05
[2016-10-29 20:00] VITALS: BP 126/75
[2016-10-29] MEDS: Docusate 100mg cap ORAL SCH (21:00)
[2016-10-29] MEDS: Carvedilol 12.5mg tab ORAL SCH (21:00)
[2016-10-29] MEDS: Atorvastatin 20mg tab ORAL SCH (21:00)
[2016-10-29] MEDS ORDERED: Atorvastatin 80mg tab ORAL SCH (21:00)
[2016-10-29] MEDS: Ranolazine 500mg tab ORAL SCH (21:00)
[2016-10-29] MEDS ORDERED: Levemir Flexpen SUBQ SCH (21:00)
[2016-10-29] MEDS: Tamsulosin 0.4mg cap ORAL SCH (21:00)
[2016-10-29] MEDS: Heparin 5000 units/ml inj SUBQ SCH (21:59)
[2016-10-29] MEDS: Lyrica 50mg cap ORAL SCH (22:00)
[2016-10-29] MEDS: Levemir Flexpen SUBQ SCH (22:10)
[2016-10-30] VITALS: BP 128/81
--- NOTE | 2016-10-30 01:48 | Consultation ---
DATE OF CONSULTATION: 10/29/2016 REFERRING PHYSICIAN: Sue Mayer M.D. REASON FOR CONSULT: Cardiomyopathy and shortness of breath. HISTORY OF PRESENT ILLNESS: This is an unfortunate middle-aged gentleman with history of multiple medical problems as delineated below. The patient was recently hospitalized and discharged from facility here. Unfortunately, he presents to the hospital because of increasing shortness of breath, cough, and congestion over the past 4 days according to his son who is providing this information. He has expectorate. He really has not had any fever or chills. He has had shortness of breath and has required oxygen almost around the clock according to his son. He usually in fact recently he has increased the oxygen level from to 2 to 3 liters nasal cannula and he was altered when he was brought to the emergency room. Here at [facility], he was placed on BiPAP, improved. He became agitated and requested of the BiPAP. Now, he is alert, responsive, and communicated with his son who has translated for me. He does not have any chest pain at the present time. He does have shortness of breath, but is feeling little bit better he states. There has been no fevers or chills. He has cough and congestion. PAST MEDICAL/SURGICAL HISTORY: Positive for coronary artery disease. He has undergone drug-eluting stent placement, 80% stenosis second diagonal, also PCI and drug-eluting stent in left anterior descending artery proximal. He has presented with non-ST elevation myocardial infarction previously. He has noted to have diffuse disease in those vessels as well and has been treated with aspirin . He also has a history of alcoholic liver disease, cirrhosis, diabetes mellitus, cardiomyopathy, hypertension, chronic obstructive pulmonary disease, systemic hypertension, rib fracture, history of hepatitis, and peripheral vascular disease, status post TURP. He had Biotronik line intracardiac defibrillator placed by Dr. Jimmie Ash at [facility]. He has a history pulmonary hypertension, severe tricuspid regurgitation, alcoholic cirrhosis, ascites, recurrent paracentesis, recurrent pancreatitis, peptic ulcer disease, and benign prostatic hypertrophy. ALLERGIES: He is allergic to iodine. SOCIAL HISTORY: He has more than [id number] history of smoking. He still uses tobacco at times. In fact, in past hospitalization, he told me he knows when to use and when not to use in relation to my recommendation against the use with oxygen. REVIEW OF SYSTEMS: Gastrointestinal: He has had poor p.o. intake. No diarrhea. He is constipated. No vomiting. Genitourinary: No discomfort on urination. Pulmonary: Positive for cough and congestion. Constitutional: As mentioned in history of present illness. Cardiac: No chest pains or pressure. No PND. One pillow use. PHYSICAL EXAMINATION: GENERAL: Shows to be an elderly gentleman, appears weak, rather pale. He is lying down on left lateral decubitus position. NECK: Supple. No jugular venous distention. LUNGS: Rhonchi noted. Decreased breath sounds noted. CARDIAC: Regular rate and rhythm. No heaves, thrills, or gallops noted. ABDOMEN: Soft and nontender. Positive bowel sounds. EXTREMITIES: 1 to 2+ edema of the lower extremities. His son indicates that for the past 3 to 4 days, he has had significant lower extremity edema as compared to the level that he has when he came to the hospital. LABORATORY AND DIAGNOSTIC VALUES: White count is 11.7, hemoglobin 9.4, and a platelet count of 205,000. His white count was 7.3 by time of discharge and his hemoglobin is 11.2 at time of discharge, although he had been . His blood gas with pH is 7.4, pCO2 65, pO2 of 115, and bicarbonate of 42 at time of admission to the hospital, subsequently pH 7.55, pCO2 51, pO2 109, and bicarbonate of 40. His sodium is 140, potassium 4.9, chloride 88, bicarbonate of 46, BUN of 17, creatinine 1.8, and glucose of 301 with lactic acid of 1.3. His ProBNP is 33,000. His troponin was negative. His alkaline phosphatase was 198. Urinalysis, 0 to 2 WBCs. Chest x-ray looks fairly clear defibrillator is noted in place. His EKG shows what appears to be normal sinus rhythm with T-wave inversions in 1 and aVL as well as V5 and V6. ASSESSMENT: 1. Respiratory insufficiency. 2. Respiratory acidosis. 3. Chronic obstructive pulmonary disease. 4. History of cardiomyopathy and congestive heart failure. 5. Alkalosis. I am concerned about his CO2 of being so high and his blood gases showing metabolic alkalosis with possible respiratory at time of his presentation, therefore has been diuresing at the present time. He may require Diamox. He will be followed. His medication will be adjusted as necessary. Set of cardiac enzymes will be ordered for tomorrow morning. I will follow the patient. Venous duplex bilateral lower extremities will also be ordered in light of his multiple medical problems. Cole Bear M.D. DR: MICHAELLE JOB#: [id number] CC:
[2016-10-30 04:00] VITALS: BP 152/85
[2016-10-30 05:17] LABS: MEAN CORPUSCULAR HEMOGLOBIN 30.5 PG (27.0-31.0); MEAN CORPUSCULAR HGB CONC 31.9 G/DL (32.0-36.0); MEAN CORPUSCULAR VOLUME 96 FL (80-99); MEAN PLATELET VOLUME 8.8 FL (6.5-10.1); PLATELET COUNT 222 K/UL (150-450); RED BLOOD COUNT 3.33 M/UL (4.70-6.10); RED CELL DISTRIBUTION WIDTH 14.6 % (11.6-14.8); WHITE BLOOD COUNT 9.5 K/UL (4.8-10.8)
[2016-10-30 05:28] LABS: CALCIUM 7.8 mg/dL (8.6-10.2); CREATININE 1.7 mg/dL (0.7-1.2); GLOMERULAR FILTRATION RATE 40.3 mL/min (>60); MAGNESIUM 1.6 mg/dL (1.7-2.5)
[2016-10-30] MEDS: Solu-MEDROL 125mg Inj IVP SCH (05:43)
[2016-10-30] MEDS: NovoLOG Insulin Flexpen SUBQ SCH ×4 (05:44→21:26)
[2016-10-30] MEDS: Lyrica 50mg cap ORAL SCH ×3 (05:44→21:13)
[2016-10-30] MEDS: Levothyroxine 25mcg tab ORAL SCH (05:45)
[2016-10-30 06:46] LABS: HEMOGLOBIN A1C 7.9 % (< 6.0)
[2016-10-30 08:00] VITALS: BP 151/87
[2016-10-30] MEDS: Docusate 100mg cap ORAL SCH ×2 (08:08→21:12)
[2016-10-30] MEDS: Carvedilol 12.5mg tab ORAL SCH ×2 (08:08→21:12)
[2016-10-30] MEDS: Aspirin EC 81mg tab ORAL SCH (08:09)
[2016-10-30] MEDS: Ranolazine 500mg tab ORAL SCH ×2 (08:09→21:27)
[2016-10-30] MEDS: Heparin 5000 units/ml inj SUBQ SCH ×2 (08:12→21:16)
[2016-10-30] MEDS: Sertraline 50mg tab ORAL SCH (08:21)
[2016-10-30] MEDS ORDERED: Sensipar 30mg Tab ORAL SCH (09:00)
--- NOTE | 2016-10-30 09:39 | Diagnostic Imaging Report ---
Indication: SOB Technique: One view of the chest Comparison: 10/20/2016 Findings: Left chest AICD is again demonstrated. There is mild interstitial congestion and small bilateral pleural effusions, increased from the previous exam. A coronary stent is again noted. The heart is enlarged. Aorta is tortuous and calcified Impression: Mild interstitial edema and bilateral pleural effusions Cardiomegaly Other findings as noted
[2016-10-30 10:04] LABS: ABG ALLEN TEST POSITIVE; ABG BASE EXCESS 15.5; ABG PCO2 53.8 mmHg (35.0-45.0)
--- NOTE | 2016-10-30 11:37 | Pulmonology Progress Note ---
Assessment/Plan Problems: (1) Acute respiratory failure (2) COPD (chronic obstructive pulmonary disease) (3) PVD (peripheral vascular disease) (4) Cardiomyopathy (5) Cachexia (6) Severe protein-calorie malnutrition (7) Diabetes mellitus Assessment/Plan taper steroids respiratory treatment cardiology f/u arterial study of legs check cultures Subjective ROS Limited/Unobtainable: No Interval Events: looks comforable Constitutional: Reports: no symptoms HEENT: Repors: no symptoms Respiratory: Reports: no symptoms Cardiovascular: Reports: no symptoms Allergies: Coded Allergies: IODINE (Verified Allergy, Unknown, 10/16/16) Objective Last 24 Hour Vital Signs Date Time Temp Pulse Resp B/P Pulse Ox O2 Delivery O2 Flow Rate FiO2 10/30/16 08:08 97 151/87 10/30/16 08:00 96.8 80 21 151/87 100 Nasal Cannula 2.0 10/30/16 08:00 75 10/30/16 07:20 80 16 Nasal Cannula 2.0 28 10/30/16 07:20 Nasal Cannula 2.0 10/30/16 07:20 100 Nasal Cannula 2.0 28 10/30/16 05:00 84 10/30/16 04:00 96.8 78 18 152/85 99 Nasal Cannula 2.0 10/30/16 00:00 78 10/30/16 00:00 97.5 74 16 128/81 100 Nasal Cannula 2.0 10/29/16 21:00 80 126/75 10/29/16 20:00 97.0 80 18 126/75 90 Nasal Cannula 2.0 10/29/16 20:00 80 10/29/16 19:30 85 22 124/67 100 Nasal Cannula 2.0 10/29/16 19:00 Nasal Cannula 2.0 10/29/16 19:00 98 Nasal Cannula 2.0 28 10/29/16 19:00 86 20 Nasal Cannula 2.0 28 10/29/16 17:31 88 26 100 2.0 10/29/16 17:18 97.8 88 19 145/103 100 Nasal Cannula 2.0 10/29/16 15:28 97.4 89 24 100/71 100 Nasal Cannula 2.0 10/29/16 14:30 84 22 Bi-pap 25 10/29/16 14:28 84 22 100 Facial 25 10/29/16 13:22 98.0 79 19 115/80 100 Bi-pap 2.0 25 10/29/16 11:36 98.4 81 18 143/74 100 Nasal Cannula 2.0 10/29/16 11:36 90 26 Nasal Cannula 2.0 Intake and Output 10/29/16 10/30/16 19:00 07:00 Intake Total 830 ml 120 ml Balance 830 ml 120 ml Intake Oral 120 ml IV Total 830 ml # Voids 1 General Appearance: WD/WN HEENT: normocephalic, anicteric Respiratory/Chest: chest wall non-tender, lungs clear, chest wall tender Cardiovascular: normal peripheral pulses, normal rate, regular rhythm Abdomen: normal bowel sounds, soft, non tender Genitourinary: normal external genitalia Extremities: no cyanosis Skin: no lesions, no ulcers Microbiology Date/Time Source Procedure Growth Status 10/29/16 11:40 Nasal Nares Influenza Types A,B Antigen (ANIBAL) - Final Complete Laboratory Tests 10/29/16 12:31: Arterial Blood pH 7.440, Arterial Blood Partial Pressure CO2 65.6*H, Arterial Blood Partial Pressure O2 115.1H, Arterial Blood HCO3 43.7H, Arterial Blood Oxygen Saturation 98.0, Arterial Blood Base Excess 17.0, Cristian Test Positive 10/29/16 13:13: Urine Color Pale yellow, Urine Appearance Clear, Urine pH 9, Urine Specific [place] 1.005, Urine Protein 1+H, Urine Glucose (UA) 1+H, Urine Ketones Negative , Urine Occult Blood 1+H, Urine Nitrite Negative, Urine Bilirubin Negative, Urine Urobilinogen Normal, Urine Leukocyte Esterase Negative, Urine RBC 2-4H, Urine WBC 0-2, Urine Squamous Epithelial Cells Occasional, Urine Bacteria Occasional 10/29/16 14:45: Arterial Blood pH 7.511H, Arterial Blood Partial Pressure CO2 51.8H, Arterial Blood Partial Pressure O2 109.5H, Arterial Blood HCO3 40.5H, Arterial Blood Oxygen Saturation 98.0, Arterial Blood Base Excess 15.6, Cristian Test Positive 10/30/16 04:15: White Blood Count 9.5, Red Blood Count 3.33L, Hemoglobin 10.1L, Hematocrit 31.8L , Mean Corpuscular Volume 96, Mean Corpuscular Hemoglobin 30.5, Mean Corpuscular Hemoglobin Concent 31.9L, Red Cell Distribution Width 14.6, Platelet Count 222, Mean Platelet Volume 8.8, Neutrophils (%) (Auto) , Lymphocytes (%) (Auto) , Monocytes (%) (Auto) , Eosinophils (%) (Auto) , Basophils (%) (Auto) , Sodium Level 141, Potassium Level 4.0, Chloride Level 93L , Carbon Dioxide Level 37H, Anion Gap 11, Blood Urea Nitrogen 19, Creatinine 1.7H, Estimat Glomerular Filtration Rate 40.3, Glucose Level 54#L, Hemoglobin A1c 7.9H, Calcium Level 7.8L, Magnesium Level 1.6L, Pro-B-Type Natriuretic Peptide [id number] 10/30/16 09:56: Arterial Blood pH 7.499H, Arterial Blood Partial Pressure CO2 53.8H, Arterial Blood Partial Pressure O2 120.8H, Arterial Blood HCO3 40.9H, Arterial Blood Oxygen Saturation 98.3H, Arterial Blood Base Excess 15.5, Cristian Test Positive Current Medications Medications (Trade) Dose Ordered Sig/Kevin Route PRN Reason Start Time Stop Time Status Last Admin Dose Admin Acetaminophen (Tylenol) 650 mg Q4H PRN ORAL Mild Pain (Pain Scale 1-3) 10/29/16 14:15 11/28/16 14:14 Al Hydroxide/Mg Hydroxide (Mylanta II) 30 ml Q6H PRN ORAL dyspepsia 10/29/16 14:15 11/28/16 14:14 Albuterol/ Ipratropium (DuoNeb 0.5-3(2.5)mg/3ml) 3 ml Q4H PRN HHN Shortness of Breath 10/29/16 14:15 11/03/16 14:14 Aspirin (Ecotrin) 81 mg DAILY ORAL 10/30/16 09:00 11/29/16 08:59 10/30/16 08:09 Atorvastatin Calcium (Lipitor) 20 mg BEDTIME ORAL 10/29/16 21:00 11/28/16 20:59 Carvedilol (Coreg) 12.5 mg Q12HR ORAL 10/29/16 21:00 11/28/16 20:59 10/30/16 08:08 Cefepime HCl/ Dextrose (Maxipime/D5W) 55 ml @ 110 mls/hr Q24H IVPB 10/30/16 13:00 11/06/16 12:59 Cinacalcet (Sensipar) 30 mg DAILY ORAL 10/30/16 09:00 11/29/16 08:59 10/30/16 08:09 Clopidogrel Bisulfate (Plavix) 75 mg DAILY ORAL 10/30/16 09:00 11/29/16 08:59 10/30/16 08:20 Dextrose (Dextrose 50%) STAT PRN IV Hypoglycemia 10/29/16 14:15 11/28/16 14:14 10/30/16 05:43 Diphenhydramine HCl (Benadryl) 25 mg Q6H PRN ORAL Itching/Pruritis 10/29/16 14:15 11/28/16 14:14 Docusate Sodium (Colace) 100 mg EVERY 12 HOURS ORAL 10/29/16 21:00 11/28/16 20:59 10/30/16 08:08 Ferrous Sulfate (Feosol) 325 mg DAILY ORAL 10/30/16 09:00 11/29/16 08:59 10/30/16 08:09 Heparin Sodium (Porcine) (Heparin 5000 units/ml) 5,000 units EVERY 12 HOURS SUBQ 10/29/16 21:00 11/28/16 20:59 10/30/16 08:12 Insulin Aspart (NovoLOG) BEFORE MEALS AND HS SUBQ 10/29/16 17:30 11/28/16 17:29 10/29/16 17:02 Insulin Detemir (Levemir) 5 units BEDTIME SUBQ 10/29/16 22:00 11/28/16 21:59 10/29/16 22:10 Levothyroxine Sodium (Synthroid) 25 mcg ACBREAKFAST ORAL 10/30/16 06:30 11/29/16 06:29 10/30/16 05:45 Lorazepam (Ativan 2mg/ml 1ml) 0.5 mg Q4H PRN IV For Anxiety 10/29/16 14:15 11/05/16 14:14 10/29/16 15:23 Methylprednisolone Sodium Succinate 60 mg 60 mg EVERY 6 HOURS IVP 10/29/16 18:00 11/28/16 17:59 10/30/16 05:43 Morphine Sulfate (Morphine Sulfate) 1 mg Q4H PRN IVP For Pain 10/29/16 14:15 11/05/16 14:14 Nicotine (Nicoderm) 1 patch Q24H TDERMAL 10/29/16 14:45 11/28/16 14:44 Nitroglycerin (Ntg) 0.4 mg Q5M PRN SL Prn Chest Pain 10/29/16 14:15 11/28/16 14:14 Ondansetron HCl (Zofran) 4 mg Q6H PRN IVP Nausea & Vomiting 10/29/16 14:15 11/28/16 14:14 Polyethylene Glycol (Miralax) 17 gm DAILYPRN PRN ORAL Constipation 10/29/16 14:15 11/28/16 14:14 Pregabalin (Lyrica) 100 mg Q8HR ORAL 10/29/16 22:00 11/28/16 21:59 10/30/16 05:44 Ranitidine HCl (Zantac) 150 mg QHS ORAL 10/30/16 21:00 11/29/16 20:59 Ranolazine (Ranexa ER 500mg) 500 mg EVERY 12 HOURS ORAL 10/29/16 21:00 11/28/16 20:59 10/30/16 08:09 Sertraline HCl (Zoloft) 25 mg DAILY ORAL 10/30/16 09:00 11/29/16 08:59 10/30/16 08:21 Tamsulosin HCl (Flomax) 0.4 mg BEDTIME ORAL 10/29/16 21:00 11/28/16 20:59 Temazepam (Restoril) 15 mg DAILYPRN PRN ORAL Insomnia 10/29/16 14:15 11/05/16 14:14 HALIMA JOSEPH Oct 30, 2016 11:37
[2016-10-30 12:00] VITALS: BP 135/69
[2016-10-30] MEDS: Cefepime HCl 1 GM in D5W 55 ML IVPB SCH (12:24)
--- NOTE | 2016-10-30 13:09 | Consultation ---
Consult Note Consult Note Asked to evaluate at the request of Dr Joseph for renal failure- Patient known to me from his recent admission. Chief Complaint: Dyspnea/Respdistress Source: Patient, Medical Record 66-year-old male presents ED complaining of shortness of breath. States he has history of COPD and is on home oxygen. Worsening shortness of breath x3 days. No fevers or chills. No cough. Denies chest pain. Notes increased leg swelling. Patient was recently discharged from this hospital. No other aggravating or relieving factors. Denies any other associated symptoms Allergies: IODINE (Verified Allergy, Unknown, 10/16/16) Past Medical History: DM, COPD Past Surgical History: pacemaker Patient examined- [place] speaker- Data reviewed Assessment/Plan Renal failure due to DM and HTN DM and Proteinuria, Nephropathy-chronic renal insufficiency h/o GI bleed- ? dehydration acute hypercapnic respiratory failure on chronic respiratory failure, requiring BiPASP chronic hypoxemia ( home O2 dependent) acute COPD exacerbation possible PNA acute diastolic CHF current smoker hepatic cirrhosis hx of ETOH abuse severe pulmonary HTN severe MR moderate TR hypothyroidism anemia h/o elevated CEA Cachexia Pacer / ICD CHF / Cardiomyopathy previous EjFx 20% PVD Iodine allergy Plan: Mag supplement as needed Phos supplement as needed kidney ADE- Negative- on previous admission Avoid Nephrotoxics- optimize cardiac and pulmonary status Monitor renal parameters Per orders JESUS REA Oct 30, 2016 13:09
--- NOTE | 2016-10-30 15:28 | Consultation ---
Consult Note Consult Note ID CONSULT: Ange# [id number] Assessment/Plan ASSESSMENT: 66 y/o male with: // Dyspnea, suspect multifactorial: COPD, diastolic CHF, severe pulmonary HTN, severe MR, bilateral pleural effusions - SCx pending - CXR: Mild interstitial edema and bilateral pleural effusions. Cardiomegaly. - negative: influenza // Leukocytosis, mild - resolved, afebrile // Acute on chronic diastolic CHF - trop(-) x1, BNP 30546 - TTE: EF 50%, grade III diastolic dysfunction, mod TR, sev MR, sev pulmonary HTN - h/o CAD SP PPM // COPD exacerbation // CKD3 // DM2 - HbA1c 7.9% // Cirrhosis // Tobacco abuse // Negative MRSA screen // No ABX allergies // Full Code PLAN: - continue cefepime d# 2 / 5 - taper steroids per pulm - f/u cultures - monitor CBC, temperatures - monitor BMP - monitor CXR - tobacco cessation Thanks! Will follow TAMIKO BUSTOS Oct 30, 2016 15:28
[2016-10-30 16:00] VITALS: BP 142/58
[2016-10-30 19:00] VITALS: BP 142/78
--- NOTE | 2016-10-30 19:18 | Consultation ---
DATE OF CONSULTATION: 10/30/2016 INFECTIOUS DISEASE CONSULTATION: REQUESTING PHYSICIAN: Sue Mayer M.D. REASON FOR CONSULTATION: Leukocytosis. HISTORY OF PRESENT ILLNESS: This is a 66-year-old diabetic male smoker with multiple medical problems admitted on 10/29/2016 with shortness of breath. Chest x-ray showed mild interstitial edema, bilateral pleural effusions, and cardiomegaly. An influenza screen is negative and sputum culture is pending. He had a mild leukocytosis that has now resolved and he is afebrile. Troponin was negative [place]1 [place] [address]. He has been started on empiric cefepime and steroids and ID now consulted to assist in management. PAST MEDICAL HISTORY: 1. Diabetes, hemoglobin A1c 7.9%. 2. Hypothyroidism. 3. Depression. 4. BPH. 5. Hypertension. 6. Hyperlipidemia. 7. Chronic kidney disease stage 3. 8. Cirrhosis. 9. Coronary artery disease. 10. Chronic obstructive pulmonary disease. 11. Severe mitral regurgitation. 12. Moderate tricuspid regurgitation. 13. Grade 3 diastolic dysfunction. 14. Severe pulmonary hypertension. PAST SURGICAL HISTORY: 1. Cholecystectomy. 2. Pacemaker placement. MEDICATIONS: 1. Cefepime. 2. Solu-Medrol. 3. Protonix. 4. Zantac. 5. Aspirin. 6. Plavix. 7. Zoloft. 8. Synthroid. 9. Lyrica. 10. Subcutaneous heparin. 11. Insulin. 12. Flomax. 13. Lipitor. 14. Coreg. ALLERGIES: Iodine. SOCIAL HISTORY: The patient is an active smoker and has a history of alcohol abuse. FAMILY HISTORY: Noncontributory. REVIEW OF SYSTEMS: As per history of present illness. Ten systems reviewed. All pertinent positives and negatives noted. PHYSICAL EXAMINATION: VITAL SIGNS: Maximum temperature 98.4 degrees, blood pressure 135/69, heart rate in the 90s, respiratory rate 20, and saturating 100% on two liters nasal cannula. GENERAL: No apparent distress. Nontoxic appearing. CARDIOVASCULAR: Regular rate and rhythm. No murmurs. PULMONARY: Coarse breath sounds bilaterally. ABDOMEN: Bowel sounds present. Soft, nondistended, and nontender. EXTREMITIES: Edema. LABORATORY DATA: White blood cell count 9.5 decreased from 11.7 with left shift, hemoglobin 10.1, and platelets 222,000. Sodium 141, potassium 4, chloride 93, bicarb 37, BUN 19, and creatinine 1.7. Lactic acid 1.3. AST 34, ALT 25, and alkaline phosphatase 198. Total bilirubin 0.5. Albumin 3.6. Troponin negative x1. BNP 72954. Urinalysis negative . MICROBIOLOGY: 1. On 10/30/2016 sputum culture pending. 2. On 10/29/2016, influenza screen negative. 3. On 10/29/2016, blood culture pending. IMAGIN. On 10/29/2016, chest x-ray with mild interstitial edema with bilateral pleural effusions and cardiomegaly. 2. Severe arterial and venous Doppler is pending. ASSESSMENT: 1. Dyspnea, suspect multifactorial including chronic obstructive pulmonary disease, diastolic congestive heart failure, severe pulmonary hypertension, severe mitral regurgitation, and bilateral pleural effusions. Sputum culture is pending. Chest x-ray shows mild interstitial edema and bilateral pleural effusions and an influenza screen is negative. 2. Leukocytosis, mild now resolved and afebrile. 3. Acute on chronic diastolic congestive heart failure exacerbation with a negative trop[place] x[place] [address]. Recent echocardiogram showed an ejection fraction of 50%, grade 3 diastolic dysfunction, moderate tricuspid regurgitation, severe mitral regurgitation, and severe pulmonary hypertension. 4. Chronic obstructive pulmonary disease exacerbation. 5. Chronic kidney disease stage 3. 6. Diabetes, hemoglobin A1c 7.9%. 7. Cirrhosis. 8. Tobacco abuse. 9. Negative methicillin-resistant Staphylococcus aureus screen. 10. No antibiotic allergies. 11. Full Code. PLAN: 1. Continue cefepime day #2 of 5. 2. Taper steroids per Pulmonary. 3. Follow up cultures. 4. Monitor CBC and temperatures. 5. Monitor BMP. 6. Monitor chest x-ray. 7. Tobacco cessation. Thank you. We will follow the. Nash Browne M.D. DR: Freddie JOB#: [id number] CC: Sue Mayer M.D.; Fax#: [phone] Chamorro M.D; Fax#: [phone]
--- NOTE | 2016-10-30 20:29 | Cardiology Progress Note ---
Assessment/Plan Assessment/Plan 1. Respiratory insufficiency. 2. Respiratory acidosis. 3. Chronic obstructive pulmonary disease. 4. History of cardiomyopathy and congestive heart failure. 5. Alkalosis. seems comfortable bp is elevated abg noted bicarb is better may need to resume diuretics by tomorrow med for chf soon Subjective Cardiovascular: Denies: chest pain, irregular heart rate, lightheadedness Respiratory: Denies: shortness of breath Gastrointestinal/Abdominal: Reports: abdominal pain Genitourinary: Denies: burning Objective Last 24 Hour Vital Signs Date Time Temp Pulse Resp B/P Pulse Ox O2 Delivery O2 Flow Rate FiO2 10/30/16 19:00 95 Nasal Cannula 2.0 28 10/30/16 19:00 98.1 82 20 142/78 100 Room Air 10/30/16 19:00 82 16 Nasal Cannula 2.0 28 10/30/16 19:00 Nasal Cannula 2.0 10/30/16 16:00 79 10/30/16 16:00 98.2 89 19 142/58 100 Nasal Cannula 2.0 10/30/16 12:53 96.8 10/30/16 12:00 86 10/30/16 12:00 98.1 92 20 135/69 100 Nasal Cannula 2.0 10/30/16 08:08 97 151/87 10/30/16 08:00 96.8 80 21 151/87 100 Nasal Cannula 2.0 10/30/16 08:00 75 10/30/16 07:20 80 16 Nasal Cannula 2.0 28 10/30/16 07:20 Nasal Cannula 2.0 10/30/16 07:20 100 Nasal Cannula 2.0 28 10/30/16 05:00 84 10/30/16 04:00 96.8 78 18 152/85 99 Nasal Cannula 2.0 10/30/16 00:00 78 10/30/16 00:00 97.5 74 16 128/81 100 Nasal Cannula 2.0 10/29/16 21:00 80 126/75 General Appearance: no apparent distress, alert Cardiovascular: normal rate Respiratory/Chest: decreased breath sounds Abdomen: normal bowel sounds, non tender, soft Extremities: moderate edema Intake and Output 10/29/16 10/30/16 19:00 07:00 Intake Total 830 ml 120 ml Balance 830 ml 120 ml Intake Oral 120 ml IV Total 830 ml # Voids 1 Laboratory Tests Test 10/30/16 04:15 10/30/16 09:56 White Blood Count 9.5 K/UL (4.8-10.8) Red Blood Count 3.33 M/UL (4.70-6.10) L Hemoglobin 10.1 G/DL (14.2-18.0) L Hematocrit 31.8 % (42.0-52.0) L Mean Corpuscular Volume 96 FL (80-99) Mean Corpuscular Hemoglobin 30.5 PG (27.0-31.0) Mean Corpuscular Hemoglobin Concent 31.9 G/DL (32.0-36.0) L Red Cell Distribution Width 14.6 % (11.6-14.8) Platelet Count 222 K/UL (150-450) Mean Platelet Volume 8.8 FL (6.5-10.1) Neutrophils (%) (Auto) % (45.0-75.0) Lymphocytes (%) (Auto) % (20.0-45.0) Monocytes (%) (Auto) % (1.0-10.0) Eosinophils (%) (Auto) % (0.0-3.0) Basophils (%) (Auto) % (0.0-2.0) Sodium Level 141 mEQ/L (135-145) Potassium Level 4.0 mEQ/L (3.4-4.9) Chloride Level 93 mEQ/L (98-107) L Carbon Dioxide Level 37 mEQ/L (20-30) H Anion Gap 11 (5-15) Blood Urea Nitrogen 19 mg/dL (7-23) Creatinine 1.7 mg/dL (0.7-1.2) H Estimat Glomerular Filtration Rate 40.3 mL/min (>60) Glucose Level 54 mg/dL (74-106) #L Hemoglobin A1c 7.9 % (< 6.0) H Calcium Level 7.8 mg/dL (8.6-10.2) L Magnesium Level 1.6 mg/dL (1.7-2.5) L Pro-B-Type Natriuretic Peptide 12612 pg/mL (0-125) H Arterial Blood pH 7.499 (7.350-7.450) Arterial Blood Partial Pressure CO2 53.8 mmHg (35.0-45.0) H Arterial Blood Partial Pressure O2 120.8 mmHg (75.0-100.0) H Arterial Blood HCO3 40.9 mmol/L (22.0-26.0) H Arterial Blood Oxygen Saturation 98.3 % (92.0-98.0) H Arterial Blood Base Excess 15.5 Cristian Test Positive Microbiology Date/Time Source Procedure Growth Status 10/29/16 11:40 Nasal Nares Influenza Types A,B Antigen (ANIBAL) - Final Complete LISA SERNA Oct 30, 2016 20:29
[2016-10-30] MEDS: Morphine Sulfate 2mg/ml Inj IVP PRN (21:09)
[2016-10-30] MEDS: Atorvastatin 20mg tab ORAL SCH (21:12)
[2016-10-30] MEDS: Tamsulosin 0.4mg cap ORAL SCH (21:13)
[2016-10-30] MEDS: Levemir Flexpen SUBQ SCH (21:26)
--- NOTE | 2016-10-30 23:50 | General Progress Note ---
Progress Note Progress Note Dictated consult to follow Asked by Dr Mayer to eval legs and PAD Multi organ dysfunction CHF EF 20% with ICD COPD daily smoker on home o2 and sever pulm HTN Liver cirrhosis w alcohol abuse Anemia w Hx of GI bleed Renal failure Has chronic leg disabling claudication and intermittent rest pain with no foot ulcer 2+ femorals absent pop DP PT pulses Feet warm Duplex reviewed Imp Chronic bilateral leg ischemic pain with multilevel occlusive dz Multiple noted risk factors Rec Medical optimization Complete duplex images DVT and Decub precautions Will benefit from selective leg angio angio to assess for percutaneous revascularization (can be done as outpatient) Dual antiplatelet and statin therapy if ok with GI TOO KAYE Oct 30, 2016 23:50
[2016-10-31] VITALS: BP 120/67
[2016-10-31 04:00] VITALS: BP 100/58
[2016-10-31] MEDS: Morphine Sulfate 2mg/ml Inj IVP PRN ×4 (05:57→18:58)
[2016-10-31] MEDS: Lyrica 50mg cap ORAL SCH ×3 (05:57→21:38)
[2016-10-31] MEDS: Levothyroxine 25mcg tab ORAL SCH (06:49)
[2016-10-31] MEDS: NovoLOG Insulin Flexpen SUBQ SCH ×4 (06:49→22:37)
[2016-10-31 07:47] VITALS: BP 107/65
[2016-10-31 07:47] LABS: BASOPHILS % (AUTO) 0.4 % (0.0-2.0); LYMPHOCYTES % (AUTO) 14.1 % (20.0-45.0); MEAN CORPUSCULAR HEMOGLOBIN 30.2 PG (27.0-31.0); MEAN CORPUSCULAR HGB CONC 31.9 G/DL (32.0-36.0); MEAN CORPUSCULAR VOLUME 95 FL (80-99); MEAN PLATELET VOLUME 8.8 FL (6.5-10.1); MONOCYTES % (AUTO) 5.8 % (1.0-10.0); NEUTROPHILS % (AUTO) 79.7 % (45.0-75.0); PLATELET COUNT 188 K/UL (150-450); RED CELL DISTRIBUTION WIDTH 15.2 % (11.6-14.8); WHITE BLOOD COUNT 9.7 K/UL (4.8-10.8)
[2016-10-31 08:02] LABS: TROPONIN I < 0.30 ng/mL (<=0.30)
[2016-10-31 08:05] LABS: CRP QUANT 4.9 mg/dL (< 0.5); MAGNESIUM 2.5 mg/dL (1.7-2.5); PHOSPHORUS 4.2 mg/dL (2.5-4.8)
[2016-10-31 08:09] LABS: THYROID STIMULATING HORMONE 1.23 uIU/mL (0.300-4.500)
[2016-10-31 08:10] LABS: CALCIUM 7.2 mg/dL (8.6-10.2); CREATININE 1.9 mg/dL (0.7-1.2); GLOMERULAR FILTRATION RATE 35.4 mL/min (>60); POTASSIUM 4.5 mEQ/L (3.4-4.9); TOTAL PROTEIN 4.8 g/dL (6.6-8.7)
[2016-10-31 08:18] LABS: HEMOLYSIS 8; IRON 41 ug/dL (59-158); TOTAL IRON BINDING CAPACITY 108 ug/dL (250-400)
[2016-10-31] MEDS: Carvedilol 12.5mg tab ORAL SCH ×2 (09:00→21:39)
[2016-10-31] MEDS ORDERED: Solu-MEDROL 125mg Inj IVP SCH (09:00)
--- NOTE | 2016-10-31 09:09 | Diagnostic Imaging Report ---
Indication: SOB Technique: One view of the chest Comparison: 2 01/24/17 Findings: Left chest AICD is again demonstrated. Again demonstrated is minimal bilateral pleural fluid. There is improved aeration since the prior exam. Previously demonstrated interstitial congestion has improved somewhat. Impression: Improved but persistent bilateral interstitial congestion. Persistent small bilateral pleural effusions Other findings as noted
[2016-10-31] MEDS: Ranolazine 500mg tab ORAL SCH ×2 (09:22→22:35)
[2016-10-31] MEDS: Docusate 100mg cap ORAL SCH ×2 (09:23→21:39)
[2016-10-31] MEDS: Sertraline 50mg tab ORAL SCH (09:24)
[2016-10-31] MEDS: Aspirin EC 81mg tab ORAL SCH (09:40)
[2016-10-31] MEDS: Heparin 5000 units/ml inj SUBQ SCH ×2 (09:43→21:49)
--- NOTE | 2016-10-31 10:41 | Cardiology Progress Note ---
Assessment/Plan Assessment/Plan 1. Respiratory insufficiency. 2. Respiratory acidosis. 3. Chronic obstructive pulmonary disease. 4. History of cardiomyopathy and congestive heart failure. 5. Alkalosis. alcoholic liver disease, cirrhosis, diabetes mellitus, cardiomyopathy, hypertension, chronic obstructive pulmonary disease, systemic hypertension, rib fracture, history of hepatitis, peripheral vascular disease seems comfortable bp is better bicarb is better diuretics today d/c renexa in light of cirrhosis old data revwied old meds reviwed will start on acei if ok with renal more than 45 min spent Subjective Cardiovascular: Denies: chest pain, irregular heart rate, lightheadedness Respiratory: Denies: shortness of breath Gastrointestinal/Abdominal: Reports: abdominal pain Genitourinary: Denies: burning Objective Last 24 Hour Vital Signs Date Time Temp Pulse Resp B/P Pulse Ox O2 Delivery O2 Flow Rate FiO2 10/31/16 09:00 72 107/65 10/31/16 07:47 97.0 72 20 107/65 100 Nasal Cannula 2.0 10/31/16 07:43 70 10/31/16 07:17 95 Nasal Cannula 2.0 28 10/31/16 07:17 82 16 Nasal Cannula 2.0 28 10/31/16 07:17 Nasal Cannula 2.0 10/31/16 04:00 97.6 66 16 100/58 100 Nasal Cannula 2.0 10/31/16 04:00 64 10/31/16 00:00 97.3 80 16 120/67 100 Nasal Cannula 16.0 10/31/16 00:00 74 10/30/16 21:12 80 144/81 10/30/16 20:00 81 10/30/16 19:00 95 Nasal Cannula 2.0 28 10/30/16 19:00 98.1 82 20 142/78 100 Room Air 10/30/16 19:00 82 16 Nasal Cannula 2.0 28 10/30/16 19:00 Nasal Cannula 2.0 10/30/16 16:00 79 10/30/16 16:00 98.2 89 19 142/58 100 Nasal Cannula 2.0 10/30/16 12:53 96.8 10/30/16 12:00 86 10/30/16 12:00 98.1 92 20 135/69 100 Nasal Cannula 2.0 General Appearance: no apparent distress, alert Cardiovascular: normal rate Respiratory/Chest: decreased breath sounds Abdomen: normal bowel sounds, non tender, soft Extremities: moderate edema Intake and Output 10/30/16 10/31/16 19:00 07:00 Intake Total 550 ml 220 ml Output Total 400 ml Balance 150 ml 220 ml Intake Oral 450 ml 120 ml IV Total 100 ml 100 ml Output Urine Total 400 ml # Voids 1 1 # Bowel Movements 1 Laboratory Tests Test 10/31/16 06:40 White Blood Count 9.7 K/UL (4.8-10.8) Red Blood Count 2.90 M/UL (4.70-6.10) L Hemoglobin 8.8 G/DL (14.2-18.0) L Hematocrit 27.5 % (42.0-52.0) L Mean Corpuscular Volume 95 FL (80-99) Mean Corpuscular Hemoglobin 30.2 PG (27.0-31.0) Mean Corpuscular Hemoglobin Concent 31.9 G/DL (32.0-36.0) L Red Cell Distribution Width 15.2 % (11.6-14.8) H Platelet Count 188 K/UL (150-450) Mean Platelet Volume 8.8 FL (6.5-10.1) Neutrophils (%) (Auto) 79.7 % (45.0-75.0) H Lymphocytes (%) (Auto) 14.1 % (20.0-45.0) L Monocytes (%) (Auto) 5.8 % (1.0-10.0) Eosinophils (%) (Auto) 0.0 % (0.0-3.0) Basophils (%) (Auto) 0.4 % (0.0-2.0) Sodium Level 139 mEQ/L (135-145) Potassium Level 4.5 mEQ/L (3.4-4.9) Chloride Level 93 mEQ/L (98-107) L Carbon Dioxide Level 35 mEQ/L (20-30) H Anion Gap 11 (5-15) Blood Urea Nitrogen 34 mg/dL (7-23) H Creatinine 1.9 mg/dL (0.7-1.2) H Estimat Glomerular Filtration Rate 35.4 mL/min (>60) Glucose Level 142 mg/dL (74-106) H Uric Acid 9.0 mg/dL (3.0-7.5) H Calcium Level 7.2 mg/dL (8.6-10.2) L Phosphorus Level 4.2 mg/dL (2.5-4.8) Magnesium Level 2.5 mg/dL (1.7-2.5) Iron Level 41 ug/dL (59-158) L Total Iron Binding Capacity 108 ug/dL (250-400) L Percent Iron Saturation 38 % (15-50) Unsaturated Iron Binding 67 ug/dL (112-346) L Ferritin 266 ng/mL (10-230) H Total Bilirubin 0.3 mg/dL (0.0-1.2) Gamma Glutamyl Transpeptidase 45 U/L (8-61) Aspartate Amino Transf (AST/SGOT) 13 U/L (5-40) Alanine Aminotransferase (ALT/SGPT) 13 U/L (3-41) Alkaline Phosphatase 126 U/L (40-129) Total Creatine Kinase 31 U/L (38-174) L Troponin I < 0.30 ng/mL (<=0.30) C-Reactive Protein, Quantitative 4.9 mg/dL (< 0.5) H Pro-B-Type Natriuretic Peptide > 85720 pg/mL (0-125) H Total Protein 4.8 g/dL (6.6-8.7) L Albumin 2.4 g/dL (3.5-5.2) L Globulin 2.4 g/dL Albumin/Globulin Ratio 1.0 (1.0-2.7) Vitamin B12 Level 784 pg/mL (211-946) Folate Pending Thyroid Stimulating Hormone (TSH) 1.230 uIU/mL (0.300-4.500) Microbiology Date/Time Source Procedure Growth Status 10/29/16 11:25 Blood Blood Culture - Preliminary NO GROWTH AFTER 24 HOURS Resulted 10/29/16 11:15 Blood Blood Culture - Preliminary NO GROWTH AFTER 24 HOURS Resulted 10/29/16 17:14 Nasal Nares MRSA Culture - Final NO METHICILLIN RESISTANT STAPH AUREUS... Complete 10/29/16 11:40 Nasal Nares Influenza Types A,B Antigen (ANIBAL) - Final Complete 10/29/16 17:14 Stool VRE Culture - Final Enterococcus Faecium - Vre Complete Objective Current Medications Medications (Trade) Dose Ordered Sig/Kevin Route PRN Reason Start Time Stop Time Status Last Admin Dose Admin Acetaminophen (Tylenol) 650 mg Q4H PRN ORAL Mild Pain (Pain Scale 1-3) 10/29/16 14:15 11/28/16 14:14 Albuterol/ Ipratropium (DuoNeb 0.5-3(2.5)mg/3ml) 3 ml Q4H PRN HHN Shortness of Breath 10/29/16 14:15 11/03/16 14:14 Aspirin (Ecotrin) 81 mg DAILY ORAL 10/30/16 09:00 11/29/16 08:59 10/31/16 09:40 Atorvastatin Calcium (Lipitor) 20 mg BEDTIME ORAL 10/29/16 21:00 11/28/16 20:59 10/30/16 21:12 Carvedilol (Coreg) 12.5 mg Q12HR ORAL 10/29/16 21:00 11/28/16 20:59 10/30/16 21:12 Cefepime HCl/ Dextrose (Maxipime/D5W) 55 ml @ 110 mls/hr Q24H IVPB 10/30/16 13:00 11/06/16 12:59 10/30/16 12:24 Clopidogrel Bisulfate (Plavix) 75 mg DAILY ORAL 10/30/16 09:00 11/29/16 08:59 10/31/16 09:40 Dextrose (Dextrose 50%) STAT PRN IV Hypoglycemia 10/29/16 14:15 11/28/16 14:14 10/30/16 05:43 Docusate Sodium (Colace) 100 mg EVERY 12 HOURS ORAL 10/29/16 21:00 11/28/16 20:59 10/31/16 09:23 Heparin Sodium (Porcine) (Heparin 5000 units/ml) 5,000 units EVERY 12 HOURS SUBQ 10/29/16 21:00 11/28/16 20:59 10/31/16 09:43 Insulin Aspart (NovoLOG) BEFORE MEALS AND HS SUBQ 10/29/16 17:30 11/28/16 17:29 10/31/16 06:49 Insulin Detemir (Levemir) 5 units BEDTIME SUBQ 10/29/16 22:00 11/28/16 21:59 10/30/16 21:26 Levothyroxine Sodium (Synthroid) 25 mcg ACBREAKFAST ORAL 10/30/16 06:30 11/29/16 06:29 10/31/16 06:49 Lorazepam (Ativan 2mg/ml 1ml) 0.5 mg Q4H PRN IV For Anxiety 10/29/16 14:15 11/05/16 14:14 10/29/16 15:23 Methylprednisolone Sodium Succinate (Solu-MEDROL) 60 mg DAILY IVP 10/31/16 09:00 11/30/16 08:59 10/31/16 09:24 Morphine Sulfate (Morphine Sulfate) 2 mg Q4H PRN IVP FOR MODERATE TO SEVERE PAIN 10/30/16 15:30 11/06/16 15:29 10/31/16 10:14 Nicotine (Nicoderm) 1 patch Q24H TDERMAL 10/29/16 14:45 11/28/16 14:44 10/30/16 14:00 Nitroglycerin (Ntg) 0.4 mg Q5M PRN SL Prn Chest Pain 10/29/16 14:15 11/28/16 14:14 Ondansetron HCl (Zofran) 4 mg Q6H PRN IVP Nausea & Vomiting 10/29/16 14:15 11/28/16 14:14 Pantoprazole (Protonix) 40 mg EVERY 12 HOURS ORAL 10/30/16 21:00 11/29/16 20:59 10/31/16 09:22 Polyethylene Glycol (Miralax) 17 gm DAILYPRN PRN ORAL Constipation 10/29/16 14:15 11/28/16 14:14 Pregabalin (Lyrica) 100 mg Q8HR ORAL 10/29/16 22:00 11/28/16 21:59 10/31/16 05:57 Ranitidine HCl (Zantac) 150 mg QHS ORAL 10/30/16 21:00 11/29/16 20:59 10/30/16 21:12 Ranolazine (Ranexa ER 500mg) 500 mg EVERY 12 HOURS ORAL 10/29/16 21:00 11/28/16 20:59 10/31/16 09:22 Sertraline HCl (Zoloft) 25 mg DAILY ORAL 10/30/16 09:00 11/29/16 08:59 10/31/16 09:24 Tamsulosin HCl 0.4 mg 0.4 mg BEDTIME ORAL 10/29/16 21:00 11/28/16 20:59 10/30/16 21:13 Temazepam (Restoril) 15 mg DAILYPRN PRN ORAL Insomnia 10/29/16 14:15 11/05/16 14:14 10/30/16 23:25 LISA SERNA Oct 31, 2016 10:41
[2016-10-31 11:47] VITALS: BP 115/66
--- NOTE | 2016-10-31 12:28 | Pulmonology Progress Note ---
Assessment/Plan Problems: (1) Acute respiratory failure (2) COPD (chronic obstructive pulmonary disease) (3) PVD (peripheral vascular disease) (4) Cardiomyopathy (5) Cachexia (6) Severe protein-calorie malnutrition (7) Diabetes mellitus Assessment/Plan taper steroids respiratory treatment cardiology f/u outpatient angiogram when more stable check cultures prbc prn Subjective ROS Limited/Unobtainable: No Interval Events: was seen by vascular surgeon, who recommended outpatietn vascular studies Constitutional: Reports: no symptoms HEENT: Repors: no symptoms Allergies: Coded Allergies: IODINE (Verified Allergy, Unknown, 10/16/16) Objective Last 24 Hour Vital Signs Date Time Temp Pulse Resp B/P Pulse Ox O2 Delivery O2 Flow Rate FiO2 10/31/16 11:47 97.5 69 20 115/66 99 Nasal Cannula 2.0 10/31/16 10:14 97.0 10/31/16 09:00 72 107/65 10/31/16 07:47 97.0 72 20 107/65 100 Nasal Cannula 2.0 10/31/16 07:43 70 10/31/16 07:17 95 Nasal Cannula 2.0 28 10/31/16 07:17 82 16 Nasal Cannula 2.0 28 10/31/16 07:17 Nasal Cannula 2.0 10/31/16 04:00 97.6 66 16 100/58 100 Nasal Cannula 2.0 10/31/16 04:00 64 10/31/16 00:00 97.3 80 16 120/67 100 Nasal Cannula 16.0 10/31/16 00:00 74 10/30/16 21:12 80 144/81 10/30/16 20:00 81 10/30/16 19:00 95 Nasal Cannula 2.0 28 10/30/16 19:00 98.1 82 20 142/78 100 Room Air 10/30/16 19:00 82 16 Nasal Cannula 2.0 28 10/30/16 19:00 Nasal Cannula 2.0 10/30/16 16:00 79 10/30/16 16:00 98.2 89 19 142/58 100 Nasal Cannula 2.0 10/30/16 12:53 96.8 Intake and Output 10/30/16 10/31/16 19:00 07:00 Intake Total 550 ml 220 ml Output Total 400 ml Balance 150 ml 220 ml Intake Oral 450 ml 120 ml IV Total 100 ml 100 ml Output Urine Total 400 ml # Voids 1 1 # Bowel Movements 1 General Appearance: cachetic HEENT: normocephalic Respiratory/Chest: chest wall non-tender, lungs clear Cardiovascular: normal peripheral pulses, normal rate Genitourinary: normal external genitalia Extremities: no clubbing Skin: no lesions 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 Complete 10/29/16 11:40 Nasal Nares Influenza Types A,B Antigen (ANIBAL) - Final Complete 10/29/16 17:14 Stool VRE Culture - Final Enterococcus Faecium - Vre Complete Laboratory Tests 10/31/16 06:40: White Blood Count 9.7, Red Blood Count 2.90L, Hemoglobin 8.8L, Hematocrit 27.5L , Mean Corpuscular Volume 95, Mean Corpuscular Hemoglobin 30.2, Mean Corpuscular Hemoglobin Concent 31.9L, Red Cell Distribution Width 15.2H, Platelet Count 188, Mean Platelet Volume 8.8, Neutrophils (%) (Auto) 79.7H, Lymphocytes (%) (Auto) 14.1L, Monocytes (%) (Auto) 5.8, Eosinophils (%) (Auto) 0.0, Basophils (%) (Auto) 0.4, Sodium Level 139, Potassium Level 4.5, Chloride Level 93L, Carbon Dioxide Level 35H, Anion Gap 11, Blood Urea Nitrogen 34H, Creatinine 1.9H, Estimat Glomerular Filtration Rate 35.4, Glucose Level 142H, Uric Acid 9.0H, Calcium Level 7.2L, Phosphorus Level 4.2, Magnesium Level 2.5, Iron Level 41L, Total Iron Binding Capacity 108L, Percent Iron Saturation 38, Unsaturated Iron Binding 67L, Ferritin 266H, Total Bilirubin 0.3, Gamma Glutamyl Transpeptidase 45, Aspartate Amino Transf (AST/SGOT) 13, Alanine Aminotransferase (ALT/SGPT) 13, Alkaline Phosphatase 126, Total Creatine Kinase 31L, Troponin I < 0.30, C-Reactive Protein, Quantitative 4.9H, Pro-B-Type Natriuretic Peptide > 27501Z, Total Protein 4.8L, Albumin 2.4L, Globulin 2.4, Albumin/Globulin Ratio 1.0, Vitamin B12 Level 784, Folate [Pending], Thyroid Stimulating Hormone (TSH) 1.230 10/31/16 10:20: Urine Random Sodium 101 Current Medications Medications (Trade) Dose Ordered Sig/Kevin Route PRN Reason Start Time Stop Time Status Last Admin Dose Admin Acetaminophen (Tylenol) 650 mg Q4H PRN ORAL Mild Pain (Pain Scale 1-3) 10/29/16 14:15 11/28/16 14:14 Albuterol/ Ipratropium (DuoNeb 0.5-3(2.5)mg/3ml) 3 ml Q4H PRN HHN Shortness of Breath 10/29/16 14:15 11/03/16 14:14 Aspirin (Ecotrin) 81 mg DAILY ORAL 10/30/16 09:00 11/29/16 08:59 10/31/16 09:40 Atorvastatin Calcium (Lipitor) 20 mg BEDTIME ORAL 10/29/16 21:00 11/28/16 20:59 10/30/16 21:12 Carvedilol (Coreg) 12.5 mg Q12HR ORAL 10/29/16 21:00 11/28/16 20:59 10/30/16 21:12 Cefepime HCl/ Dextrose (Maxipime/D5W) 55 ml @ 110 mls/hr Q24H IVPB 10/30/16 13:00 11/06/16 12:59 10/30/16 12:24 Clopidogrel Bisulfate (Plavix) 75 mg DAILY ORAL 10/30/16 09:00 11/29/16 08:59 10/31/16 09:40 Dextrose (Dextrose 50%) STAT PRN IV Hypoglycemia 10/29/16 14:15 11/28/16 14:14 10/30/16 05:43 Docusate Sodium (Colace) 100 mg EVERY 12 HOURS ORAL 10/29/16 21:00 11/28/16 20:59 10/31/16 09:23 Heparin Sodium (Porcine) (Heparin 5000 units/ml) 5,000 units EVERY 12 HOURS SUBQ 10/29/16 21:00 11/28/16 20:59 10/31/16 09:43 Insulin Aspart (NovoLOG) BEFORE MEALS AND HS SUBQ 10/29/16 17:30 11/28/16 17:29 10/31/16 11:39 Insulin Detemir (Levemir) 5 units BEDTIME SUBQ 10/29/16 22:00 11/28/16 21:59 10/30/16 21:26 Levothyroxine Sodium (Synthroid) 25 mcg ACBREAKFAST ORAL 10/30/16 06:30 11/29/16 06:29 10/31/16 06:49 Lorazepam (Ativan 2mg/ml 1ml) 0.5 mg Q4H PRN IV For Anxiety 10/29/16 14:15 11/05/16 14:14 10/29/16 15:23 Methylprednisolone Sodium Succinate (Solu-MEDROL) 60 mg DAILY IVP 10/31/16 09:00 11/30/16 08:59 10/31/16 09:24 Morphine Sulfate (Morphine Sulfate) 2 mg Q4H PRN IVP FOR MODERATE TO SEVERE PAIN 10/30/16 15:30 11/06/16 15:29 10/31/16 10:14 Nicotine (Nicoderm) 1 patch Q24H TDERMAL 10/29/16 14:45 11/28/16 14:44 10/30/16 14:00 Nitroglycerin (Ntg) 0.4 mg Q5M PRN SL Prn Chest Pain 10/29/16 14:15 11/28/16 14:14 Ondansetron HCl (Zofran) 4 mg Q6H PRN IVP Nausea & Vomiting 10/29/16 14:15 11/28/16 14:14 Pantoprazole (Protonix) 40 mg EVERY 12 HOURS ORAL 10/30/16 21:00 11/29/16 20:59 10/31/16 09:22 Polyethylene Glycol (Miralax) 17 gm DAILYPRN PRN ORAL Constipation 10/29/16 14:15 11/28/16 14:14 Pregabalin (Lyrica) 100 mg Q8HR ORAL 10/29/16 22:00 11/28/16 21:59 10/31/16 05:57 Ranitidine HCl (Zantac) 150 mg QHS ORAL 10/30/16 21:00 11/29/16 20:59 10/30/16 21:12 Ranolazine (Ranexa ER 500mg) 500 mg EVERY 12 HOURS ORAL 10/29/16 21:00 11/28/16 20:59 10/31/16 09:22 Sertraline HCl (Zoloft) 25 mg DAILY ORAL 10/30/16 09:00 11/29/16 08:59 10/31/16 09:24 Tamsulosin HCl 0.4 mg 0.4 mg BEDTIME ORAL 10/29/16 21:00 11/28/16 20:59 10/30/16 21:13 Temazepam (Restoril) 15 mg DAILYPRN PRN ORAL Insomnia 10/29/16 14:15 11/05/16 14:14 10/30/16 23:25 HALIMA JOSEPH Oct 31, 2016 12:28
--- NOTE | 2016-10-31 12:39 | Diagnostic Imaging Report ---
Indication: DYSPNEA Technique: One view of the chest Comparison: none Findings: The heart remains enlarged. Mild interstitial congestion may slightly improved from the prior exam. Bilateral costophrenic angles remain slightly blunted, suspect small bilateral pleural effusions. Left chest AICD, coronary stent again demonstrated Impression: Stable to minimally improved interstitial congestion, over one day. Otherwise, little change
--- NOTE | 2016-10-31 13:17 | General Progress Note ---
Assessment/Plan Status: unchanged Status Narrative Cr higher Assessment/Plan Renal failure due to DM and HTN DM and Proteinuria, Nephropathy-chronic renal insufficiency h/o GI bleed- ? dehydration acute hypercapnic respiratory failure on chronic respiratory failure, requiring BiPASP chronic hypoxemia ( home O2 dependent) acute COPD exacerbation possible PNA acute diastolic CHF current smoker hepatic cirrhosis hx of ETOH abuse severe pulmonary HTN severe MR moderate TR hypothyroidism anemia h/o elevated CEA Cachexia Pacer / ICD CHF / Cardiomyopathy previous EjFx 20% PVD Iodine allergy Plan: Mag supplement as needed Phos supplement as needed kidney ADE- Negative- on previous admission Avoid Nephrotoxics- optimize cardiac and pulmonary status Monitor renal parameters Per orders Subjective ROS Limited/Unobtainable: No Constitutional: Reports: malaise, weakness Respiratory: Reports: orthopnea Allergies: Coded Allergies: IODINE (Verified Allergy, Unknown, 10/16/16) Objective Last 24 Hour Vital Signs Date Time Temp Pulse Resp B/P Pulse Ox O2 Delivery O2 Flow Rate FiO2 10/31/16 11:47 97.5 69 20 115/66 99 Nasal Cannula 2.0 10/31/16 11:45 70 10/31/16 10:14 97.0 10/31/16 09:00 72 107/65 10/31/16 07:47 97.0 72 20 107/65 100 Nasal Cannula 2.0 10/31/16 07:43 70 10/31/16 07:17 95 Nasal Cannula 2.0 28 10/31/16 07:17 82 16 Nasal Cannula 2.0 28 10/31/16 07:17 Nasal Cannula 2.0 10/31/16 04:00 97.6 66 16 100/58 100 Nasal Cannula 2.0 10/31/16 04:00 64 10/31/16 00:00 97.3 80 16 120/67 100 Nasal Cannula 16.0 10/31/16 00:00 74 10/30/16 21:12 80 144/81 10/30/16 20:00 81 10/30/16 19:00 95 Nasal Cannula 2.0 28 10/30/16 19:00 98.1 82 20 142/78 100 Room Air 10/30/16 19:00 82 16 Nasal Cannula 2.0 28 10/30/16 19:00 Nasal Cannula 2.0 10/30/16 16:00 79 10/30/16 16:00 98.2 89 19 142/58 100 Nasal Cannula 2.0 Intake and Output 10/30/16 10/31/16 19:00 07:00 Intake Total 550 ml 220 ml Output Total 400 ml Balance 150 ml 220 ml Intake Oral 450 ml 120 ml IV Total 100 ml 100 ml Output Urine Total 400 ml # Voids 1 1 # Bowel Movements 1 Laboratory Tests 10/31/16 06:40: White Blood Count 9.7, Red Blood Count 2.90L, Hemoglobin 8.8L, Hematocrit 27.5L , Mean Corpuscular Volume 95, Mean Corpuscular Hemoglobin 30.2, Mean Corpuscular Hemoglobin Concent 31.9L, Red Cell Distribution Width 15.2H, Platelet Count 188, Mean Platelet Volume 8.8, Neutrophils (%) (Auto) 79.7H, Lymphocytes (%) (Auto) 14.1L, Monocytes (%) (Auto) 5.8, Eosinophils (%) (Auto) 0.0, Basophils (%) (Auto) 0.4, Sodium Level 139, Potassium Level 4.5, Chloride Level 93L, Carbon Dioxide Level 35H, Anion Gap 11, Blood Urea Nitrogen 34H, Creatinine 1.9H, Estimat Glomerular Filtration Rate 35.4, Glucose Level 142H, Uric Acid 9.0H, Calcium Level 7.2L, Phosphorus Level 4.2, Magnesium Level 2.5, Iron Level 41L, Total Iron Binding Capacity 108L, Percent Iron Saturation 38, Unsaturated Iron Binding 67L, Ferritin 266H, Total Bilirubin 0.3, Gamma Glutamyl Transpeptidase 45, Aspartate Amino Transf (AST/SGOT) 13, Alanine Aminotransferase (ALT/SGPT) 13, Alkaline Phosphatase 126, Total Creatine Kinase 31L, Troponin I < 0.30, C-Reactive Protein, Quantitative 4.9H, Pro-B-Type Natriuretic Peptide > [id number], Total Protein 4.8L, Albumin 2.4L, Globulin 2.4, Albumin/Globulin Ratio 1.0, Vitamin B12 Level 784, Folate [Pending], Thyroid Stimulating Hormone (TSH) 1.230 10/31/16 10:20: Urine Random Sodium 101 Height (Feet): 5 Height (Inches): 4.00 Weight (Pounds): 107 General Appearance: mild distress Neck: stiff neck Cardiovascular: normal rate Respiratory/Chest: decreased breath sounds Abdomen: distended JESUS REA Oct 31, 2016 13:17
[2016-10-31] MEDS: Cefepime HCl 1 GM in D5W 55 ML IVPB SCH (13:33)
--- NOTE | 2016-10-31 14:38 | Diagnostic Imaging Report ---
Indication: Abdominal distention and pain Technique: Grayscale and duplex images of the abdominal aorta Comparison: Abdomen ultrasound 10/17/2016 Findings: Normal caliber abdominal aorta. Patent and non-aneurysmal proximal celiac and superior mesenteric arteries. The systolic velocity in the celiac origin is one 54 cm/s. Peak systolic velocity in the superior mesenteric artery origin is 26 5 cm/s. Calculated aortic flow velocities 45 cm/s. Elevated velocities are seen in the left common iliac artery, peak systolic velocity 105 cm/s. Turbulent flow is also visualized at that level. Impression: Possible significant stenosis of the left common iliac artery Elevated flow velocities in the celiac axis and superior mesenteric arteries, significant stenoses of these vessels not excludable. Consider CT angiography or MR angiography for better characterization of the above if clinically indicated
[2016-10-31 16:00] VITALS: BP 115/64
--- NOTE | 2016-10-31 16:40 | Infectious Diseases Prog Note ---
Assessment/Plan Assessment/Plan ASSESSMENT: 66 y/o male with: // Dyspnea, suspect multifactorial: COPD, diastolic CHF, severe pulmonary HTN, severe MR, bilateral pleural effusions - SCx pending - CXR: Mild interstitial edema and bilateral pleural effusions. Cardiomegaly. - negative: influenza // Leukocytosis, mild - resolved, afebrile // Acute on chronic diastolic CHF - trop(-) x1, BNP 23919 - TTE: EF 50%, grade III diastolic dysfunction, mod TR, sev MR, sev pulmonary HTN - h/o CAD SP PPM // COPD exacerbation // CKD3 // PAD // DM2 - HbA1c 7.9% // Cirrhosis // Tobacco abuse // Negative MRSA screen // No ABX allergies // Full Code PLAN: - continue cefepime d# 3 / , ok to complete course with PO azithromycin at discharge - taper steroids per pulm - f/u cultures - monitor CBC, temperatures - monitor BMP - monitor CXR - tobacco cessation - outpt angiogram per vascular Subjective Allergies: Coded Allergies: IODINE (Verified Allergy, Unknown, 10/16/16) Subjective remains afebrile. comfortable Objective Vital Signs Last 24 Hour Vital Signs Date Time Temp Pulse Resp B/P Pulse Ox O2 Delivery O2 Flow Rate FiO2 10/31/16 14:52 97.5 10/31/16 11:47 97.5 69 20 115/66 99 Nasal Cannula 2.0 10/31/16 11:45 70 10/31/16 09:00 72 107/65 10/31/16 07:47 97.0 72 20 107/65 100 Nasal Cannula 2.0 10/31/16 07:43 70 10/31/16 07:17 95 Nasal Cannula 2.0 28 10/31/16 07:17 82 16 Nasal Cannula 2.0 28 10/31/16 07:17 Nasal Cannula 2.0 10/31/16 04:00 97.6 66 16 100/58 100 Nasal Cannula 2.0 10/31/16 04:00 64 10/31/16 00:00 97.3 80 16 120/67 100 Nasal Cannula 16.0 10/31/16 00:00 74 10/30/16 21:12 80 144/81 10/30/16 20:00 81 10/30/16 19:00 95 Nasal Cannula 2.0 28 10/30/16 19:00 98.1 82 20 142/78 100 Room Air 10/30/16 19:00 82 16 Nasal Cannula 2.0 28 10/30/16 19:00 Nasal Cannula 2.0 Height (Feet): 5 Height (Inches): 4.00 Weight (Pounds): 107 General Appearance: no acute distress Respiratory/Chest: no respiratory distress Cardiovascular: normal rate, regular rhythm Abdomen: normal bowel sounds, soft, non tender, non distended Microbiology Date/Time Source Procedure Growth Status 10/29/16 11:25 Blood Blood Culture - Preliminary NO GROWTH AFTER 24 HOURS Resulted 10/29/16 11:15 Blood Blood Culture - Preliminary NO GROWTH AFTER 24 HOURS Resulted 10/29/16 17:14 Nasal Nares MRSA Culture - Final NO METHICILLIN RESISTANT STAPH AUREUS... Complete 10/29/16 11:40 Nasal Nares Influenza Types A,B Antigen (ANIBAL) - Final Complete 10/29/16 17:14 Stool VRE Culture - Final Enterococcus Faecium - Vre Complete Laboratory Tests Test 10/31/16 06:40 10/31/16 10:20 White Blood Count 9.7 K/UL (4.8-10.8) Red Blood Count 2.90 M/UL (4.70-6.10) L Hemoglobin 8.8 G/DL (14.2-18.0) L Hematocrit 27.5 % (42.0-52.0) L Mean Corpuscular Volume 95 FL (80-99) Mean Corpuscular Hemoglobin 30.2 PG (27.0-31.0) Mean Corpuscular Hemoglobin Concent 31.9 G/DL (32.0-36.0) L Red Cell Distribution Width 15.2 % (11.6-14.8) H Platelet Count 188 K/UL (150-450) Mean Platelet Volume 8.8 FL (6.5-10.1) Neutrophils (%) (Auto) 79.7 % (45.0-75.0) H Lymphocytes (%) (Auto) 14.1 % (20.0-45.0) L Monocytes (%) (Auto) 5.8 % (1.0-10.0) Eosinophils (%) (Auto) 0.0 % (0.0-3.0) Basophils (%) (Auto) 0.4 % (0.0-2.0) Sodium Level 139 mEQ/L (135-145) Potassium Level 4.5 mEQ/L (3.4-4.9) Chloride Level 93 mEQ/L (98-107) L Carbon Dioxide Level 35 mEQ/L (20-30) H Anion Gap 11 (5-15) Blood Urea Nitrogen 34 mg/dL (7-23) H Creatinine 1.9 mg/dL (0.7-1.2) H Estimat Glomerular Filtration Rate 35.4 mL/min (>60) Glucose Level 142 mg/dL (74-106) H Uric Acid 9.0 mg/dL (3.0-7.5) H Calcium Level 7.2 mg/dL (8.6-10.2) L Phosphorus Level 4.2 mg/dL (2.5-4.8) Magnesium Level 2.5 mg/dL (1.7-2.5) Iron Level 41 ug/dL (59-158) L Total Iron Binding Capacity 108 ug/dL (250-400) L Percent Iron Saturation 38 % (15-50) Unsaturated Iron Binding 67 ug/dL (112-346) L Ferritin 266 ng/mL (10-230) H Total Bilirubin 0.3 mg/dL (0.0-1.2) Gamma Glutamyl Transpeptidase 45 U/L (8-61) Aspartate Amino Transf (AST/SGOT) 13 U/L (5-40) Alanine Aminotransferase (ALT/SGPT) 13 U/L (3-41) Alkaline Phosphatase 126 U/L (40-129) Total Creatine Kinase 31 U/L (38-174) L Troponin I < 0.30 ng/mL (<=0.30) C-Reactive Protein, Quantitative 4.9 mg/dL (< 0.5) H Pro-B-Type Natriuretic Peptide > 22341 pg/mL (0-125) H Total Protein 4.8 g/dL (6.6-8.7) L Albumin 2.4 g/dL (3.5-5.2) L Globulin 2.4 g/dL Albumin/Globulin Ratio 1.0 (1.0-2.7) Vitamin B12 Level 784 pg/mL (211-946) Folate Pending Thyroid Stimulating Hormone (TSH) 1.230 uIU/mL (0.300-4.500) Urine Random Sodium 101 mmol/L Current Medications Medications (Trade) Dose Ordered Sig/Kevin Route PRN Reason Start Time Stop Time Status Last Admin Dose Admin Acetaminophen (Tylenol) 650 mg Q4H PRN ORAL Mild Pain (Pain Scale 1-3) 10/29/16 14:15 11/28/16 14:14 Albuterol/ Ipratropium (DuoNeb 0.5-3(2.5)mg/3ml) 3 ml Q4H PRN HHN Shortness of Breath 10/29/16 14:15 11/03/16 14:14 Aspirin (Ecotrin) 81 mg DAILY ORAL 10/30/16 09:00 11/29/16 08:59 10/31/16 09:40 Atorvastatin Calcium (Lipitor) 20 mg BEDTIME ORAL 10/29/16 21:00 11/28/16 20:59 10/30/16 21:12 Carvedilol (Coreg) 12.5 mg Q12HR ORAL 10/29/16 21:00 11/28/16 20:59 10/30/16 21:12 Cefepime HCl/ Dextrose (Maxipime/D5W) 55 ml @ 110 mls/hr Q24H IVPB 10/30/16 13:00 11/06/16 12:59 10/31/16 13:33 Clopidogrel Bisulfate (Plavix) 75 mg DAILY ORAL 10/30/16 09:00 11/29/16 08:59 10/31/16 09:40 Dextrose (Dextrose 50%) STAT PRN IV Hypoglycemia 10/29/16 14:15 11/28/16 14:14 10/30/16 05:43 Docusate Sodium (Colace) 100 mg EVERY 12 HOURS ORAL 10/29/16 21:00 11/28/16 20:59 10/31/16 09:23 Heparin Sodium (Porcine) (Heparin 5000 units/ml) 5,000 units EVERY 12 HOURS SUBQ 10/29/16 21:00 11/28/16 20:59 10/31/16 09:43 Insulin Aspart (NovoLOG) BEFORE MEALS AND HS SUBQ 10/29/16 17:30 11/28/16 17:29 10/31/16 11:39 Insulin Detemir (Levemir) 5 units BEDTIME SUBQ 10/29/16 22:00 11/28/16 21:59 10/30/16 21:26 Levothyroxine Sodium (Synthroid) 25 mcg ACBREAKFAST ORAL 10/30/16 06:30 11/29/16 06:29 10/31/16 06:49 Lorazepam (Ativan 2mg/ml 1ml) 0.5 mg Q4H PRN IV For Anxiety 10/29/16 14:15 11/05/16 14:14 10/29/16 15:23 Methylprednisolone Sodium Succinate (Solu-MEDROL) 40 mg DAILY IVP 11/01/16 09:00 12/01/16 08:59 Morphine Sulfate (Morphine Sulfate) 2 mg Q4H PRN IVP FOR MODERATE TO SEVERE PAIN 10/30/16 15:30 11/06/16 15:29 10/31/16 14:22 Nicotine (Nicoderm) 1 patch Q24H TDERMAL 10/29/16 14:45 11/28/16 14:44 10/31/16 14:23 Nitroglycerin (Ntg) 0.4 mg Q5M PRN SL Prn Chest Pain 10/29/16 14:15 11/28/16 14:14 Ondansetron HCl (Zofran) 4 mg Q6H PRN IVP Nausea & Vomiting 10/29/16 14:15 11/28/16 14:14 Pantoprazole (Protonix) 40 mg EVERY 12 HOURS ORAL 10/30/16 21:00 11/29/16 20:59 10/31/16 09:22 Polyethylene Glycol (Miralax) 17 gm DAILYPRN PRN ORAL Constipation 10/29/16 14:15 11/28/16 14:14 Pregabalin (Lyrica) 100 mg Q8HR ORAL 10/29/16 22:00 11/28/16 21:59 10/31/16 13:31 Ranitidine HCl (Zantac) 150 mg QHS ORAL 10/30/16 21:00 11/29/16 20:59 10/30/16 21:12 Ranolazine (Ranexa ER 500mg) 500 mg EVERY 12 HOURS ORAL 10/29/16 21:00 11/28/16 20:59 10/31/16 09:22 Sertraline HCl (Zoloft) 25 mg DAILY ORAL 10/30/16 09:00 11/29/16 08:59 10/31/16 09:24 Tamsulosin HCl 0.4 mg 0.4 mg BEDTIME ORAL 10/29/16 21:00 11/28/16 20:59 10/30/16 21:13 Temazepam (Restoril) 15 mg DAILYPRN PRN ORAL Insomnia 10/29/16 14:15 11/05/16 14:14 10/30/16 23:25 TAMIKO BUSTOS Oct 31, 2016 16:40
[2016-10-31 20:00] VITALS: BP 117/82
--- NOTE | 2016-10-31 20:23 | Cardiology Report ---
APPROVED REPORT EKG Measurement Heart [id number] Normal sinus rhythm Left axis deviation Prolonged QT Abnormal ECG
[2016-10-31] MEDS ORDERED: Nitroglycerin Subl 0.4mg tab (Bottle Of 25) SL PRN (21:05)
[2016-10-31] MEDS ORDERED: Miralax 17gm pkt ORAL PRN (21:30)
[2016-10-31] MEDS ORDERED: LORazepam Inj 2mg/ml 1ml IV PRN (21:30)
[2016-10-31] MEDS ORDERED: DuoNeb 0.5-3(2.5)mg/3ml neb HHN PRN (21:30)
[2016-10-31] MEDS: Tamsulosin 0.4mg cap ORAL SCH (21:38)
[2016-10-31] MEDS: Atorvastatin 20mg tab ORAL SCH (21:40)
[2016-10-31] MEDS: Levemir Flexpen SUBQ SCH (22:37)
[2016-11-01] VITALS: BP 135/74
[2016-11-01] MEDS: Morphine Sulfate 2mg/ml Inj IVP PRN ×5 (00:08→19:04)
[2016-11-01 04:00] VITALS: BP 128/70
[2016-11-01] MEDS: Lyrica 50mg cap ORAL SCH ×3 (05:46→21:28)
[2016-11-01] MEDS: Levothyroxine 25mcg tab ORAL SCH (06:12)
[2016-11-01] MEDS: NovoLOG Insulin Flexpen SUBQ SCH ×4 (06:12→20:55)
[2016-11-01 07:58] VITALS: BP 123/74
[2016-11-01] MEDS: Heparin 5000 units/ml inj SUBQ SCH ×2 (08:41→21:16)
[2016-11-01] MEDS: Aspirin EC 81mg tab ORAL SCH (08:45)
[2016-11-01] MEDS: Carvedilol 12.5mg tab ORAL SCH ×2 (08:45→20:38)
[2016-11-01] MEDS: Ranolazine 500mg tab ORAL SCH ×2 (08:46→20:38)
[2016-11-01] MEDS: Sertraline 50mg tab ORAL SCH (08:47)
[2016-11-01] MEDS: Docusate 100mg cap ORAL SCH ×2 (08:47→20:39)
[2016-11-01] MEDS ORDERED: Solu-MEDROL 40mg Inj IVP SCH ×2 (09:00)
[2016-11-01 11:45] VITALS: BP 126/76
[2016-11-01] MEDS: Cefepime HCl 1 GM in D5W 55 ML IVPB SCH (14:35)
--- NOTE | 2016-11-01 15:55 | Pulmonology Progress Note ---
Assessment/Plan Problems: (1) Acute respiratory failure (2) COPD (chronic obstructive pulmonary disease) (3) PVD (peripheral vascular disease) (4) Cardiomyopathy (5) Cachexia (6) Severe protein-calorie malnutrition (7) Diabetes mellitus Assessment/Plan taper steroids respiratory treatment cardiology f/u outpatient angiogram when more stable check cultures prbc prn dc planing for am pt/ot Subjective ROS Limited/Unobtainable: No Constitutional: Reports: no symptoms HEENT: Repors: no symptoms Allergies: Coded Allergies: IODINE (Verified Allergy, Unknown, 10/16/16) Objective Last 24 Hour Vital Signs Date Time Temp Pulse Resp B/P Pulse Ox O2 Delivery O2 Flow Rate FiO2 11/01/16 11:45 99.2 79 20 126/76 97 Nasal Cannula 2.0 11/01/16 08:45 78 123/74 11/01/16 07:58 97.7 78 20 123/74 97 Nasal Cannula 2.0 11/01/16 07:02 78 16 Nasal Cannula 2.0 28 11/01/16 07:02 Nasal Cannula 2.0 11/01/16 07:02 98 Nasal Cannula 2.0 28 11/01/16 04:00 98.2 75 16 128/70 100 Nasal Cannula 2.0 100 11/01/16 00:00 97.7 75 16 135/74 100 Nasal Cannula 2.0 100 10/31/16 21:39 77 117/82 10/31/16 20:00 98.2 77 20 117/82 97 Room Air 10/31/16 19:00 77 16 Nasal Cannula 2.0 28 10/31/16 19:00 Nasal Cannula 2.0 10/31/16 19:00 97 Nasal Cannula 2.0 28 10/31/16 16:00 97.7 74 18 115/64 Nasal Cannula 2.0 100 Intake and Output 10/31/16 11/01/16 19:00 07:00 Intake Total 295 ml 340 ml Output Total 200 ml Balance 95 ml 340 ml Intake Oral 240 ml 340 ml IV Total 55 ml Output Urine Total 200 ml # Voids 1 1 General Appearance: cachetic HEENT: normocephalic, atraumatic Respiratory/Chest: chest wall non-tender, lungs clear Cardiovascular: normal peripheral pulses, regular rhythm Abdomen: normal bowel sounds, no organomegaly Genitourinary: normal external genitalia Extremities: no clubbing Skin: no lesions, no ulcers Microbiology Date/Time Source Procedure Growth Status 10/29/16 17:14 Nasal Nares MRSA Culture - Final NO METHICILLIN RESISTANT STAPH AUREUS... Complete 10/29/16 17:14 Stool VRE Culture - Final Enterococcus Faecium - Vre Complete Laboratory Tests 11/01/16 09:55: Stool Occult Blood Positive Current Medications Medications (Trade) Dose Ordered Sig/Kevin Route PRN Reason Start Time Stop Time Status Last Admin Dose Admin Acetaminophen (Tylenol) 650 mg Q4H PRN ORAL Mild Pain (Pain Scale 1-3) 10/31/16 21:30 11/30/16 21:29 Albuterol/ Ipratropium (DuoNeb 0.5-3(2.5)mg/3ml) 3 ml Q4H PRN HHN Shortness of Breath 10/31/16 21:30 11/05/16 21:29 Aspirin (Ecotrin) 81 mg DAILY ORAL 11/01/16 09:00 12/01/16 08:59 11/01/16 08:45 Atorvastatin Calcium (Lipitor) 20 mg BEDTIME ORAL 10/31/16 22:30 11/30/16 22:29 10/31/16 21:40 Carvedilol (Coreg) 12.5 mg Q12HR ORAL 10/31/16 22:30 11/30/16 22:29 11/01/16 08:45 Cefepime HCl/ Dextrose (Maxipime/D5W) 55 ml @ 110 mls/hr Q24H IVPB 11/01/16 13:00 11/05/16 12:59 11/01/16 14:35 Clopidogrel Bisulfate (Plavix) 75 mg DAILY ORAL 11/01/16 09:00 12/01/16 08:59 11/01/16 08:47 Dextrose (Dextrose 50%) STAT PRN IV Hypoglycemia 11/01/16 14:15 12/01/16 14:14 Docusate Sodium (Colace) 100 mg EVERY 12 HOURS ORAL 10/31/16 22:30 11/30/16 22:29 11/01/16 08:47 Heparin Sodium (Porcine) (Heparin 5000 units/ml) 5,000 units EVERY 12 HOURS SUBQ 10/31/16 22:30 11/30/16 22:29 11/01/16 08:41 Insulin Aspart (NovoLOG) BEFORE MEALS AND HS SUBQ 10/31/16 22:30 11/30/16 22:29 11/01/16 12:41 Insulin Detemir (Levemir) 5 units BEDTIME SUBQ 10/31/16 22:30 11/30/16 22:29 10/31/16 22:37 Levothyroxine Sodium (Synthroid) 25 mcg ACBREAKFAST ORAL 11/01/16 06:30 12/01/16 06:29 11/01/16 06:12 Lorazepam (Ativan 2mg/ml 1ml) 0.5 mg Q4H PRN IV For Anxiety 10/31/16 21:30 11/07/16 21:29 Methylprednisolone Sodium Succinate (Solu-MEDROL) 40 mg DAILY IVP 11/01/16 09:00 12/01/16 08:59 11/01/16 08:47 Morphine Sulfate (Morphine Sulfate) 2 mg Q4H PRN IVP FOR MODERATE TO SEVERE PAIN 10/31/16 21:30 11/07/16 21:29 11/01/16 13:39 Nicotine (Nicoderm) 1 patch Q24H TDERMAL 11/01/16 15:00 12/01/16 14:59 11/01/16 15:27 Nitroglycerin (Ntg) 0.4 mg Q5MIN X 3 D0SES PRN SL Prn Chest Pain 10/31/16 21:05 11/30/16 21:04 Ondansetron HCl (Zofran) 4 mg Q6H PRN IVP Nausea & Vomiting 10/31/16 21:30 11/30/16 21:29 Pantoprazole (Protonix) 40 mg EVERY 12 HOURS ORAL 10/31/16 22:30 11/30/16 22:29 11/01/16 08:45 Polyethylene Glycol (Miralax) 17 gm DAILYPRN PRN ORAL Constipation 10/31/16 21:30 11/30/16 21:29 Pregabalin (Lyrica) 100 mg Q8HR ORAL 10/31/16 22:00 11/30/16 21:59 11/01/16 14:34 Ranitidine HCl (Zantac) 150 mg QHS ORAL 10/31/16 22:30 11/30/16 22:29 10/31/16 21:42 Ranolazine (Ranexa ER 500mg) 500 mg EVERY 12 HOURS ORAL 10/31/16 22:30 11/30/16 22:29 11/01/16 08:46 Sertraline HCl (Zoloft) 25 mg DAILY ORAL 11/01/16 09:00 12/01/16 08:59 11/01/16 08:47 Tamsulosin HCl (Flomax) 0.4 mg BEDTIME ORAL 10/31/16 22:30 11/30/16 22:29 10/31/16 21:38 Temazepam (Restoril) 15 mg DAILYPRN PRN ORAL Insomnia 10/31/16 21:30 11/07/16 21:29 10/31/16 21:42 HALIMA JOSEPH Nov 01, 2016 15:55
[2016-11-01 16:00] VITALS: BP 125/70
--- NOTE | 2016-11-01 16:13 | Diagnostic Imaging Report ---
APPROVED REPORT CPT Code: 59807 Vascular Symptoms Comments: Weakness Risk Factors PAD Doppler Spectral Velocity Analysis RightLeft BILATERAL: CCA - Imaging reveals no significant plaque in the right and left common external carotid arteries. The Doppler signal indicates the degree of stenosis is minimal (10% - 20%) in the right internal and external carotid arteries and minimal (20% - 30%) in the left internal and external carotid arteries. VERTEBRAL- The vertebral arteries are patent without evidence of stenosis or steal.
--- NOTE | 2016-11-01 16:14 | Diagnostic Imaging Report ---
APPROVED REPORT CPT Code: 81905 Present Symptoms Lower Extremity Pain: Bilateral BILATERAL: Imaging reveals a patent deep venous system bilaterally. There is no evidence of thrombus within the femoral, popliteal or tibial segments. The greater saphenous veins are also within normal limits. Doppler indicates normal spontaneous flow within these segments.
--- NOTE | 2016-11-01 16:14 | Diagnostic Imaging Report ---
APPROVED REPORT CPT Code: 01386 Symptoms Comments: Pain Surgery/Intervention Stent : Site : Left SFA RIGHT LEG: Common femoral artery waveform analysis is within normal limits at rest. Color flow duplex sonography reveals calcification throughout the superficial femoral and popliteal arteries. A moderate (30% -65%) stenosis is seen in the proximal popliteal artery. There is no evidence of occlusion within these segments. The tibioperoneal trunk is patent. The dorsalis pedis tibial artery is not well visualized. The posterior, and anterior tibial arteries are also patent. Doppler tibial artery waveform analysis is monophasic, consistent with severe to critical ischemia at rest. LEFT LEG: Common femoral artery waveform analysis is within normal limits at rest. An occluded stent is seen in the proximal to mid segment of the superficial femoral artery. Reconstitution is seen in the distal superficial femoral artery. The popliteal artery and tibioperoneal trunk are patent. The posterior, anterior, and dorsalis pedis tibial arteries are also patent. Doppler tibial artery waveform analysis is monophasic, consistent with severe to critical ischemia at rest. LASHON Damon was notified of abnormal results at 1355 hours.
--- NOTE | 2016-11-01 18:10 | Infectious Diseases Prog Note ---
Assessment/Plan Assessment/Plan ASSESSMENT: 66 y/o male with: // Dyspnea, suspect multifactorial: COPD, diastolic CHF, severe pulmonary HTN, severe MR, bilateral pleural effusions - SCx uncollected - CXR: Mild interstitial edema and bilateral pleural effusions. Cardiomegaly. - negative: influenza // Leukocytosis, mild - resolved, afebrile // Acute on chronic diastolic CHF - trop(-) x1, BNP 45868 - TTE: EF 50%, grade III diastolic dysfunction, mod TR, sev MR, sev pulmonary HTN - h/o CAD SP PPM // COPD exacerbation // CKD3 // PAD // DM2 - HbA1c 7.9% // Cirrhosis // Tobacco abuse // Negative MRSA screen // No ABX allergies // Full Code PLAN: - ok to DC in AM off of ABX from ID standpoint. Will continue cefepime d# 4 / 5 while still inpt - taper steroids per pulm - f/u cultures - monitor CBC, temperatures - monitor BMP - monitor CXR - tobacco cessation - outpt angiogram per vascular Subjective Allergies: Coded Allergies: IODINE (Verified Allergy, Unknown, 10/16/16) Subjective remains afebrile. comfortable for possible DC AM Objective Vital Signs Last 24 Hour Vital Signs Date Time Temp Pulse Resp B/P Pulse Ox O2 Delivery O2 Flow Rate FiO2 11/01/16 16:00 97.9 78 18 125/70 100 Nasal Cannula 2.0 11/01/16 11:45 99.2 79 20 126/76 97 Nasal Cannula 2.0 11/01/16 08:45 78 123/74 11/01/16 07:58 97.7 78 20 123/74 97 Nasal Cannula 2.0 11/01/16 07:02 78 16 Nasal Cannula 2.0 28 11/01/16 07:02 Nasal Cannula 2.0 11/01/16 07:02 98 Nasal Cannula 2.0 28 11/01/16 04:00 98.2 75 16 128/70 100 Nasal Cannula 2.0 100 11/01/16 00:00 97.7 75 16 135/74 100 Nasal Cannula 2.0 100 10/31/16 21:39 77 117/82 10/31/16 20:00 98.2 77 20 117/82 97 Room Air 10/31/16 19:00 77 16 Nasal Cannula 2.0 28 10/31/16 19:00 Nasal Cannula 2.0 10/31/16 19:00 97 Nasal Cannula 2.0 28 Height (Feet): 5 Height (Inches): 4.00 Weight (Pounds): 106 General Appearance: no acute distress Respiratory/Chest: no respiratory distress Cardiovascular: normal rate, regular rhythm Abdomen: normal bowel sounds, soft, non tender, non distended Laboratory Tests Test 11/01/16 09:55 Stool Occult Blood Positive (NEGATIVE) Current Medications Medications (Trade) Dose Ordered Sig/Kevin Route PRN Reason Start Time Stop Time Status Last Admin Dose Admin Acetaminophen (Tylenol) 650 mg Q4H PRN ORAL Mild Pain (Pain Scale 1-3) 10/31/16 21:30 11/30/16 21:29 Albuterol/ Ipratropium (DuoNeb 0.5-3(2.5)mg/3ml) 3 ml Q4H PRN HHN Shortness of Breath 10/31/16 21:30 11/05/16 21:29 Aspirin (Ecotrin) 81 mg DAILY ORAL 11/01/16 09:00 12/01/16 08:59 11/01/16 08:45 Atorvastatin Calcium (Lipitor) 20 mg BEDTIME ORAL 10/31/16 22:30 11/30/16 22:29 10/31/16 21:40 Carvedilol (Coreg) 12.5 mg Q12HR ORAL 10/31/16 22:30 11/30/16 22:29 11/01/16 08:45 Cefepime HCl/ Dextrose (Maxipime/D5W) 55 ml @ 110 mls/hr Q24H IVPB 11/01/16 13:00 11/05/16 12:59 11/01/16 14:35 Clopidogrel Bisulfate (Plavix) 75 mg DAILY ORAL 11/01/16 09:00 12/01/16 08:59 11/01/16 08:47 Dextrose (Dextrose 50%) STAT PRN IV Hypoglycemia 11/01/16 14:15 12/01/16 14:14 Docusate Sodium (Colace) 100 mg EVERY 12 HOURS ORAL 10/31/16 22:30 11/30/16 22:29 11/01/16 08:47 Heparin Sodium (Porcine) (Heparin 5000 units/ml) 5,000 units EVERY 12 HOURS SUBQ 10/31/16 22:30 11/30/16 22:29 11/01/16 08:41 Insulin Aspart (NovoLOG) BEFORE MEALS AND HS SUBQ 10/31/16 22:30 11/30/16 22:29 11/01/16 16:34 Insulin Detemir (Levemir) 5 units BEDTIME SUBQ 10/31/16 22:30 11/30/16 22:29 10/31/16 22:37 Levothyroxine Sodium (Synthroid) 25 mcg ACBREAKFAST ORAL 11/01/16 06:30 12/01/16 06:29 11/01/16 06:12 Lorazepam (Ativan 2mg/ml 1ml) 0.5 mg Q4H PRN IV For Anxiety 10/31/16 21:30 11/07/16 21:29 Morphine Sulfate (Morphine Sulfate) 2 mg Q4H PRN IVP FOR MODERATE TO SEVERE PAIN 10/31/16 21:30 11/07/16 21:29 11/01/16 13:39 Nicotine (Nicoderm) 1 patch Q24H TDERMAL 11/01/16 15:00 12/01/16 14:59 11/01/16 15:27 Nitroglycerin (Ntg) 0.4 mg Q5MIN X 3 D0SES PRN SL Prn Chest Pain 10/31/16 21:05 11/30/16 21:04 Ondansetron HCl (Zofran) 4 mg Q6H PRN IVP Nausea & Vomiting 10/31/16 21:30 11/30/16 21:29 Pantoprazole (Protonix) 40 mg EVERY 12 HOURS ORAL 10/31/16 22:30 11/30/16 22:29 11/01/16 08:45 Polyethylene Glycol (Miralax) 17 gm DAILYPRN PRN ORAL Constipation 10/31/16 21:30 11/30/16 21:29 Prednisone (predniSONE) 20 mg DAILY ORAL 11/02/16 09:00 12/02/16 08:59 Pregabalin (Lyrica) 100 mg Q8HR ORAL 10/31/16 22:00 11/30/16 21:59 11/01/16 14:34 Ranitidine HCl (Zantac) 150 mg QHS ORAL 10/31/16 22:30 11/30/16 22:29 10/31/16 21:42 Ranolazine (Ranexa ER 500mg) 500 mg EVERY 12 HOURS ORAL 10/31/16 22:30 11/30/16 22:29 11/01/16 08:46 Sertraline HCl (Zoloft) 25 mg DAILY ORAL 11/01/16 09:00 12/01/16 08:59 11/01/16 08:47 Tamsulosin HCl (Flomax) 0.4 mg BEDTIME ORAL 10/31/16 22:30 11/30/16 22:29 10/31/16 21:38 Temazepam (Restoril) 15 mg DAILYPRN PRN ORAL Insomnia 10/31/16 21:30 11/07/16 21:29 10/31/16 21:42 TAMIKO BUSTOS Nov 01, 2016 18:10
[2016-11-01 19:00] VITALS: BP 122/68
[2016-11-01] MEDS: Atorvastatin 20mg tab ORAL SCH (20:38)
[2016-11-01] MEDS: Tamsulosin 0.4mg cap ORAL SCH (20:39)
--- NOTE | 2016-11-01 21:12 | Cardiology Progress Note ---
Assessment/Plan Assessment/Plan 1. Respiratory insufficiency. 2. Respiratory acidosis. 3. Chronic obstructive pulmonary disease. 4. History of cardiomyopathy and congestive heart failure. 5. Alkalosis. alcoholic liver disease, cirrhosis, diabetes mellitus, cardiomyopathy, hypertension, chronic obstructive pulmonary disease, systemic hypertension, rib fracture, history of hepatitis, peripheral vascular disease with ischemia seems comfortable bp is better bicarb is better diuretics today d/c renexa in light of cirrhosis old data revwied old meds reviwed consider vascualr surgery evla diuretics Subjective Cardiovascular: Denies: chest pain, lightheadedness Gastrointestinal/Abdominal: Denies: abdominal pain Genitourinary: Denies: burning Objective Last 24 Hour Vital Signs Date Time Temp Pulse Resp B/P Pulse Ox O2 Delivery O2 Flow Rate FiO2 11/01/16 20:38 80 122/68 11/01/16 19:35 Nasal Cannula 2.0 11/01/16 19:35 99 Nasal Cannula 2.0 28 11/01/16 19:34 97.9 11/01/16 19:32 78 17 Nasal Cannula 2.0 28 11/01/16 19:00 98.1 80 18 122/68 Nasal Cannula 2.0 11/01/16 16:00 97.9 78 18 125/70 100 Nasal Cannula 2.0 11/01/16 11:45 99.2 79 20 126/76 97 Nasal Cannula 2.0 11/01/16 08:45 78 123/74 11/01/16 07:58 97.7 78 20 123/74 97 Nasal Cannula 2.0 11/01/16 07:02 78 16 Nasal Cannula 2.0 28 11/01/16 07:02 Nasal Cannula 2.0 11/01/16 07:02 98 Nasal Cannula 2.0 28 11/01/16 04:00 98.2 75 16 128/70 100 Nasal Cannula 2.0 100 11/01/16 00:00 97.7 75 16 135/74 100 Nasal Cannula 2.0 100 10/31/16 21:39 77 117/82 General Appearance: no apparent distress, alert Neck: JVD Cardiovascular: normal rate, regular rhythm Respiratory/Chest: decreased breath sounds Abdomen: normal bowel sounds, non tender Extremities: moderate edema Intake and Output 10/31/16 11/01/16 19:00 07:00 Intake Total 295 ml 340 ml Output Total 200 ml Balance 95 ml 340 ml Intake Oral 240 ml 340 ml IV Total 55 ml Output Urine Total 200 ml # Voids 1 1 Laboratory Tests Test 11/01/16 09:55 Stool Occult Blood Positive (NEGATIVE) Objective Current Medications Medications (Trade) Dose Ordered Sig/Kevin Route PRN Reason Start Time Stop Time Status Last Admin Dose Admin Acetaminophen (Tylenol) 650 mg Q4H PRN ORAL Mild Pain (Pain Scale 1-3) 10/29/16 14:15 11/28/16 14:14 Albuterol/ Ipratropium (DuoNeb 0.5-3(2.5)mg/3ml) 3 ml Q4H PRN HHN Shortness of Breath 10/29/16 14:15 11/03/16 14:14 Aspirin (Ecotrin) 81 mg DAILY ORAL 10/30/16 09:00 11/29/16 08:59 10/31/16 09:40 Atorvastatin Calcium (Lipitor) 20 mg BEDTIME ORAL 10/29/16 21:00 11/28/16 20:59 10/30/16 21:12 Carvedilol (Coreg) 12.5 mg Q12HR ORAL 10/29/16 21:00 11/28/16 20:59 10/30/16 21:12 Cefepime HCl/ Dextrose (Maxipime/D5W) 55 ml @ 110 mls/hr Q24H IVPB 10/30/16 13:00 11/06/16 12:59 10/30/16 12:24 Clopidogrel Bisulfate (Plavix) 75 mg DAILY ORAL 10/30/16 09:00 11/29/16 08:59 10/31/16 09:40 Dextrose (Dextrose 50%) STAT PRN IV Hypoglycemia 10/29/16 14:15 11/28/16 14:14 10/30/16 05:43 Docusate Sodium (Colace) 100 mg EVERY 12 HOURS ORAL 10/29/16 21:00 11/28/16 20:59 10/31/16 09:23 Heparin Sodium (Porcine) (Heparin 5000 units/ml) 5,000 units EVERY 12 HOURS SUBQ 10/29/16 21:00 11/28/16 20:59 10/31/16 09:43 Insulin Aspart (NovoLOG) BEFORE MEALS AND HS SUBQ 10/29/16 17:30 11/28/16 17:29 10/31/16 06:49 Insulin Detemir (Levemir) 5 units BEDTIME SUBQ 10/29/16 22:00 11/28/16 21:59 10/30/16 21:26 Levothyroxine Sodium (Synthroid) 25 mcg ACBREAKFAST ORAL 10/30/16 06:30 11/29/16 06:29 10/31/16 06:49 Lorazepam (Ativan 2mg/ml 1ml) 0.5 mg Q4H PRN IV For Anxiety 10/29/16 14:15 11/05/16 14:14 10/29/16 15:23 Methylprednisolone Sodium Succinate (Solu-MEDROL) 60 mg DAILY IVP 10/31/16 09:00 11/30/16 08:59 10/31/16 09:24 Morphine Sulfate (Morphine Sulfate) 2 mg Q4H PRN IVP FOR MODERATE TO SEVERE PAIN 10/30/16 15:30 11/06/16 15:29 10/31/16 10:14 Nicotine (Nicoderm) 1 patch Q24H TDERMAL 10/29/16 14:45 11/28/16 14:44 10/30/16 14:00 Nitroglycerin (Ntg) 0.4 mg Q5M PRN SL Prn Chest Pain 10/29/16 14:15 11/28/16 14:14 Ondansetron HCl (Zofran) 4 mg Q6H PRN IVP Nausea & Vomiting 10/29/16 14:15 11/28/16 14:14 Pantoprazole (Protonix) 40 mg EVERY 12 HOURS ORAL 10/30/16 21:00 11/29/16 20:59 10/31/16 09:22 Polyethylene Glycol (Miralax) 17 gm DAILYPRN PRN ORAL Constipation 10/29/16 14:15 11/28/16 14:14 Pregabalin (Lyrica) 100 mg Q8HR ORAL 10/29/16 22:00 11/28/16 21:59 10/31/16 05:57 Ranitidine HCl (Zantac) 150 mg QHS ORAL 10/30/16 21:00 11/29/16 20:59 10/30/16 21:12 Ranolazine (Ranexa ER 500mg) 500 mg EVERY 12 HOURS ORAL 10/29/16 21:00 11/28/16 20:59 2/7/17 09:22 Sertraline HCl (Zoloft) 25 mg DAILY ORAL 10/30/16 09:00 11/29/16 08:59 10/31/16 09:24 Tamsulosin HCl 0.4 mg 0.4 mg BEDTIME ORAL 10/29/16 21:00 11/28/16 20:59 10/30/16 21:13 Temazepam (Restoril) 15 mg DAILYPRN PRN ORAL Insomnia 10/29/16 14:15 11/05/16 14:14 10/30/16 23:25 LISA SERNA Nov 01, 2016 21:12
[2016-11-01] MEDS: Levemir Flexpen SUBQ SCH (21:17)
[2016-11-02] VITALS: BP 127/66
[2016-11-02] MEDS: Morphine Sulfate 2mg/ml Inj IVP PRN ×5 (02:20→19:23)
[2016-11-02 04:00] VITALS: BP 127/66
[2016-11-02] MEDS: Levothyroxine 25mcg tab ORAL SCH (06:09)
[2016-11-02] MEDS: Lyrica 50mg cap ORAL SCH ×3 (06:10→20:58)
[2016-11-02] MEDS: NovoLOG Insulin Flexpen SUBQ SCH ×4 (06:21→21:06)
[2016-11-02 07:11] LABS: INR 1.3 (0.9-1.1); PROTHROMBIN TIME 13.7 SEC (9.30-11.50)
[2016-11-02 07:18] LABS: BASOPHILS % (AUTO) 0.8 % (0.0-2.0); EOSINOPHILS % (AUTO) 0.1 % (0.0-3.0); LYMPHOCYTES % (AUTO) 22.6 % (20.0-45.0); MEAN CORPUSCULAR HEMOGLOBIN 30.5 PG (27.0-31.0); MEAN CORPUSCULAR HGB CONC 31.7 G/DL (32.0-36.0); MEAN CORPUSCULAR VOLUME 96 FL (80-99); MEAN PLATELET VOLUME 8.9 FL (6.5-10.1); MONOCYTES % (AUTO) 8.8 % (1.0-10.0); NEUTROPHILS % (AUTO) 67.8 % (45.0-75.0); PLATELET COUNT 143 K/UL (150-450); RED BLOOD COUNT 2.62 M/UL (4.70-6.10); RED CELL DISTRIBUTION WIDTH 15.3 % (11.6-14.8); WHITE BLOOD COUNT 5.9 K/UL (4.8-10.8)
[2016-11-02 07:21] LABS: ALBUMIN/GLOBULIN RATIO 1.1 (1.0-2.7); CALCIUM 7.7 mg/dL (8.6-10.2); CREATININE 2.2 mg/dL (0.7-1.2); GLOMERULAR FILTRATION RATE 29.9 mL/min (>60); MAGNESIUM 1.9 mg/dL (1.7-2.5); PHOSPHORUS 3.8 mg/dL (2.5-4.8); POTASSIUM 4.9 mEQ/L (3.4-4.9); TOTAL PROTEIN 5.1 g/dL (6.6-8.7)
[2016-11-02 08:15] VITALS: BP 154/82
[2016-11-02] MEDS: Aspirin EC 81mg tab ORAL SCH (08:26)
[2016-11-02] MEDS: Docusate 100mg cap ORAL SCH ×2 (08:26→20:58)
[2016-11-02] MEDS: PredniSONE 20mg tab ORAL SCH (08:26)
[2016-11-02] MEDS: Carvedilol 12.5mg tab ORAL SCH ×2 (08:27→20:58)
[2016-11-02] MEDS: Lisinopril 2.5mg tab ORAL SCH (08:27)
[2016-11-02] MEDS: Sertraline 50mg tab ORAL SCH (08:28)
[2016-11-02] MEDS: Heparin 5000 units/ml inj SUBQ SCH ×2 (08:28→20:59)
--- NOTE | 2016-11-02 10:21 | General Progress Note ---
Assessment/Plan Status: unchanged Status Narrative Cr 2.2 Assessment/Plan Renal failure due to DM and HTN DM and Proteinuria, Nephropathy-chronic renal insufficiency h/o GI bleed- ? dehydration acute hypercapnic respiratory failure on chronic respiratory failure, requiring BiPASP chronic hypoxemia ( home O2 dependent) acute COPD exacerbation possible PNA acute diastolic CHF current smoker hepatic cirrhosis hx of ETOH abuse severe pulmonary HTN severe MR moderate TR hypothyroidism anemia h/o elevated CEA Cachexia Pacer / ICD CHF / Cardiomyopathy previous EjFx 20% PVD Iodine allergy Plan: Mag supplement as needed Phos supplement as needed kidney ADE- Negative- on previous admission Avoid Nephrotoxics- optimize cardiac and pulmonary status Monitor renal parameters Per orders ? Dc planning? Subjective ROS Limited/Unobtainable: No Constitutional: Reports: malaise, weakness Allergies: Coded Allergies: IODINE (Verified Allergy, Unknown, 10/16/16) Objective Last 24 Hour Vital Signs Date Time Temp Pulse Resp B/P Pulse Ox O2 Delivery O2 Flow Rate FiO2 11/02/16 08:27 128/76 11/02/16 08:27 81 128/76 11/02/16 08:15 98.4 89 20 154/82 97 Nasal Cannula 2.0 11/02/16 07:35 80 16 Nasal Cannula 2.0 28 11/02/16 07:35 Nasal Cannula 2.0 11/02/16 07:35 98 Nasal Cannula 2.0 28 11/02/16 04:00 98.2 78 20 127/66 Nasal Cannula 11/02/16 00:00 98.2 78 20 127/66 Nasal Cannula 11/01/16 20:38 80 122/68 11/01/16 19:35 Nasal Cannula 2.0 11/01/16 19:35 99 Nasal Cannula 2.0 28 11/01/16 19:34 97.9 11/01/16 19:32 78 17 Nasal Cannula 2.0 28 11/01/16 19:00 98.1 80 18 122/68 Nasal Cannula 2.0 11/01/16 16:00 97.9 78 18 125/70 100 Nasal Cannula 2.0 11/01/16 11:45 99.2 79 20 126/76 97 Nasal Cannula 2.0 Intake and Output 11/01/16 11/02/16 19:00 07:00 Intake Total 535 ml 360 ml Balance 535 ml 360 ml Intake Oral 480 ml 360 ml IV Total 55 ml # Voids 2 6 # Bowel Movements 1 Laboratory Tests 11/02/16 06:20: White Blood Count 5.9, Red Blood Count 2.62L, Hemoglobin 8.0L, Hematocrit 25.1L , Mean Corpuscular Volume 96, Mean Corpuscular Hemoglobin 30.5, Mean Corpuscular Hemoglobin Concent 31.7L, Red Cell Distribution Width 15.3H, Platelet Count 143L, Mean Platelet Volume 8.9, Neutrophils (%) (Auto) 67.8, Lymphocytes (%) (Auto) 22.6, Monocytes (%) (Auto) 8.8, Eosinophils (%) (Auto) 0.1, Basophils (%) (Auto) 0.8, Prothrombin Time 13.7H, Prothromb Time International Ratio 1.3H, Activated Partial Thromboplast Time 31, Sodium Level 137, Potassium Level 4.9, Chloride Level 96L, Carbon Dioxide Level 28, Anion Gap 13, Blood Urea Nitrogen 35H, Creatinine 2.2H, Estimat Glomerular Filtration Rate 29.9, Glucose Level 369H, Calcium Level 7.7L, Phosphorus Level 3.8, Magnesium Level 1.9, Total Bilirubin 0.3, Aspartate Amino Transf (AST/SGOT) 9, Alanine Aminotransferase (ALT/SGPT) 11, Alkaline Phosphatase 113, Total Protein 5.1L, Albumin 2.7L, Globulin 2.4, Albumin/Globulin Ratio 1.1 Height (Feet): 5 Height (Inches): 4.00 Weight (Pounds): 108 General Appearance: no apparent distress Cardiovascular: normal rate Respiratory/Chest: decreased breath sounds Abdomen: soft JESUS REA Nov 02, 2016 10:21
[2016-11-02 11:51] VITALS: BP 129/76
[2016-11-02] MEDS: Cefepime HCl 1 GM in D5W 55 ML IVPB SCH (12:10)
--- NOTE | 2016-11-02 12:20 | GI Initial Consult Note ---
History of Present Illness General Date patient seen: Nov 02, 2016 Time patient seen: 10:00 Reason for Hospitalization: Dyspnea/Respdistress Referring physician: HALIMA HERNADEZ Reason for Consultation: OB STOOL POSITIVE Present Illness HPI 66-year-old male presents ED complaining of shortness of breath. States he has history of COPD and is on home oxygen. Worsening shortness of breath x3 days. No fevers or chills. No cough. Denies chest pain. Notes increased leg swelling. Patient was recently discharged from this hospital. No other aggravating or relieving factors. Denies any other associated symptoms. GI CONSULT: HPI as noted above. GI consulted for positive OB stool. Pt seen on floor, awake A&Ox4 NAD ambulating with no active s/sx of hematemesis. Pt seen here a few weeks prior for hematemesis. S/P EGD with dx as noted below. Patient presents today with anemia, currently receiving 1 unit of blood and hypoalbuminemia. Unremarkable iron panel. Unknown history of colonoscopy. Endoscopy Procedure Note Indication for Procedure: gib Procedures Performed: EGD Operative Findings/Diagnosis: esophagitis SANDY MARINO - Oct 20, 2016 10:30 SUMMARY OF FINDINGS: 1. Severe distal esophagitis. 2. Small hiatal hernia. 3. Gastritis, status post biopsy. 4. Duodenal ulcer. RECOMMENDATIONS: 1. Start Protonix 40 mg p.o. daily. 2. Followup biopsy results. 3. Sent serology for H. pylori. 4. Reflux measures. 5. Monitor hemoglobin and hematocrit, transfuse as needed. Home Meds Reported Medications Ferrous Sulfate* (FERROUS SULFATE*) 325 Mg Tablet, 325 MG ORAL DAILY, #30 TAB 0 Refills 10/16/16 Linaclotide (LINZESS) 145 Mcg Capsule, 145 MCG PO, CAP 10/16/16 Umeclidinium Brm/Vilanterol Tr (Anoro Ellipta 62.5-25 Mcg INH) 1 Each Blst.w.dev 10/16/16 Docusate Sodium* (DOCUSIL*) 100 Mg Capsule, 100 MG ORAL DAILY, CAP 10/16/16 Sertraline Hcl* (SERTRALINE HCL*) 25 Mg Tablet, 25 MG ORAL DAILY, TAB 10/16/16 Atorvastatin Calcium* (ATORVASTATIN CALCIUM*) 40 Mg Tablet, 80 MG ORAL BEDTIME, TAB 10/16/16 Cinacalcet* (SENSIPAR*) 30 Mg Tablet, 30 MG ORAL DAILY, TAB 10/16/16 Lipase/Protease/Amylase (ZENPEP DR 10,000 UNITS CAPSULE) 1 Each Capsule., PO, CAP 10/16/16 Megestrol Acetate (MEGESTROL ACETATE) 40 Mg Tablet, 40 MG PO, TAB 10/16/16 Levothyroxine Sodium* (LEVOTHYROXINE SODIUM*) 25 Mcg Tablet, 25 MCG ORAL DAILY, TAB Take in the morning on an empty stomach, at least 30 minutes before food. 10/16/16 Mupirocin* (MUPIROCIN*) 22 Gm Oint...g., 1 APPLIC TOPIC THREE TIMES A DAY, GM 10/16/16 Meclizine Hcl* (MECLIZINE*) 25 Mg Tablet, ORAL THREE TIMES A DAY, TAB 10/16/16 OXYCODONE HCl* (ROXICODONE*) 15 Mg Tablet, ORAL Q6H Y for For Pain, TAB 10/16/16 Clopidogrel Bisulfate* (PLAVIX*) 75 Mg Tablet, ORAL DAILY, TAB 10/16/16 Sumatriptan Succinate* (IMITREX*) 50 Mg Tablet, 100 MG ORAL DAILY PRN MIGRAINE, TAB 10/16/16 Aspirin* (ASPIR 81*) 81 Mg Tablet.dr, 81 MG ORAL DAILY, TAB 10/16/16 Loratadine (LORATADINE) 10 Mg Tab.rapdis, 10 MG PO, TAB 10/16/16 Loratadine (LORATADINE) 10 Mg Tab.rapdis, 10 MG PO, TAB 10/16/16 Pregabalin* (LYRICA*) 75 Mg Capsule, 100 MG ORAL THREE TIMES A DAY, CAP 10/16/16 Vitamin D (Vitamin D3) 400 Unit Tablet, 5000 UNITS ORAL DAILY, TAB 10/16/16 Nitroglycerin (NITROSTAT) 0.4 Mg Tab.subl, 0.4 MG SL Q5M X3 DOSES Y for CHEST PAIN, #25 TAB 0 Refills 10/16/16 Dexlansoprazole (Dexilant) 60 Mg Cap.bp, 60 MG ORAL DAILY, CAP 10/16/16 Dutasteride (AVODART) 0.5 Mg Capsule, 0.5 MG ORAL DAILY, CAP 10/16/16 Carvedilol* (CARVEDILOL*) 25 Mg Tablet, ORAL EVERY 12 HOURS, TAB 10/16/16 Tamsulosin Hcl (TAMSULOSIN HCL*) 0.4 Mg Cap.er.24h, 0.4 MG ORAL BEDTIME, CAP 10/16/16 Insulin Glargine (LANTUS) 100 Unit/1 Ml Insuln.pen, SUBQ BEDTIME, #1 EA 0 Refills 10/16/16 Insulin Aspart (Novolog Mix 70-30 Flexpen Syrn) 100 Unit/1 Ml Insuln.pen, SUBQ, VIAL 10/16/16 Discontinued Reported Medications Ranolazine* (RANEXA*) 500 Mg Tab.er.12h, 500 MG ORAL EVERY 12 HOURS, #60 TAB 0 Refills 10/16/16 Terbinafine Hcl* (LAMISIL*) 250 Mg Tablet, PO DAILY, TAB 10/16/16 Sacubitril/Valsartan (Entresto 49 mg-51 mg Tablet) 1 Each Tablet, PO, TAB 10/16/16 Olmesartan Medoxomil (BENICAR) 20 Mg Tablet, 20 MG ORAL DAILY, TAB 10/16/16 Med list reviewed/reconciled: Yes Allergies: Coded Allergies: IODINE (Verified Allergy, Unknown, 10/16/16) Patient History History Provided By: Patient, Medical Record PMH Narrative Patient History Past Medical History: DM, COPD Past Surgical History: pacemaker Pertinent Family History: none Social History: Denies: alcohol use, drug use, smoking Immunizations: UTD Reviewed Nursing Documentation: PMH: Agreed, PSxH: Agreed Nursing Documentation-PMH Past Medical History: No History, Except For Hx Cardiac Problems: Yes Hx Pacemaker: Yes - defibulator Hx COPD: Yes Hx Diabetes: Yes Hx Cancer: No Hx Gastrointestinal Problems: Yes Hx Neurological Problems: No Review of Systems All Other Systems: negative except mentioned in HPI Physical Exam Vital Signs Date Time Temp Pulse Resp B/P Pulse Ox O2 Delivery O2 Flow Rate FiO2 10/29/16 10:38 98.4 90 26 151/71 100 Nasal Cannula 2.0 10/29/16 13:22 25 Sp02 EP Interpretation: reviewed Labs Laboratory Tests Test 11/02/16 06:20 White Blood Count 5.9 K/UL (4.8-10.8) Red Blood Count 2.62 M/UL (4.70-6.10) L Hemoglobin 8.0 G/DL (14.2-18.0) L Hematocrit 25.1 % (42.0-52.0) L Mean Corpuscular Volume 96 FL (80-99) Mean Corpuscular Hemoglobin 30.5 PG (27.0-31.0) Mean Corpuscular Hemoglobin Concent 31.7 G/DL (32.0-36.0) L Red Cell Distribution Width 15.3 % (11.6-14.8) H Platelet Count 143 K/UL (150-450) L Mean Platelet Volume 8.9 FL (6.5-10.1) Neutrophils (%) (Auto) 67.8 % (45.0-75.0) Lymphocytes (%) (Auto) 22.6 % (20.0-45.0) Monocytes (%) (Auto) 8.8 % (1.0-10.0) Eosinophils (%) (Auto) 0.1 % (0.0-3.0) Basophils (%) (Auto) 0.8 % (0.0-2.0) Prothrombin Time 13.7 SEC (9.30-11.50) H Prothromb Time International Ratio 1.3 (0.9-1.1) H Activated Partial Thromboplast Time 31 SEC (23-33) Sodium Level 137 mEQ/L (135-145) Potassium Level 4.9 mEQ/L (3.4-4.9) Chloride Level 96 mEQ/L (98-107) L Carbon Dioxide Level 28 mEQ/L (20-30) Anion Gap 13 (5-15) Blood Urea Nitrogen 35 mg/dL (7-23) H Creatinine 2.2 mg/dL (0.7-1.2) H Estimat Glomerular Filtration Rate 29.9 mL/min (>60) Glucose Level 369 mg/dL (74-106) H Calcium Level 7.7 mg/dL (8.6-10.2) L Phosphorus Level 3.8 mg/dL (2.5-4.8) Magnesium Level 1.9 mg/dL (1.7-2.5) Total Bilirubin 0.3 mg/dL (0.0-1.2) Aspartate Amino Transf (AST/SGOT) 9 U/L (5-40) Alanine Aminotransferase (ALT/SGPT) 11 U/L (3-41) Alkaline Phosphatase 113 U/L (40-129) Total Protein 5.1 g/dL (6.6-8.7) L Albumin 2.7 g/dL (3.5-5.2) L Globulin 2.4 g/dL Albumin/Globulin Ratio 1.1 (1.0-2.7) General Appearance: well appearing, no apparent distress, thin Head: normocephalic EENT: normal ENT inspection Neck: supple Respiratory: normal breath sounds, no respiratory distress Cardiovascular: normal rate Gastrointestinal: normal inspection, non tender, soft, normal bowel sounds Rectal: deferred Musculoskeletal: normal inspection Neurologic: normal inspection, alert, oriented x3, responsive Psychiatric: normal inspection, judgement/insight normal, memory normal Skin: normal inspection, normal color, no rash, warm/dry Lymphatic: normal inspection, no adenopathy Current Medications Current Medications Medications (Trade) Dose Ordered Sig/Kevin Route PRN Reason Start Time Stop Time Status Last Admin Dose Admin Acetaminophen (Tylenol) 650 mg Q4H PRN ORAL Mild Pain (Pain Scale 1-3) 10/31/16 21:30 11/30/16 21:29 Albuterol/ Ipratropium (DuoNeb 0.5-3(2.5)mg/3ml) 3 ml Q4H PRN HHN Shortness of Breath 10/31/16 21:30 11/05/16 21:29 Aspirin (Ecotrin) 81 mg DAILY ORAL 11/01/16 09:00 12/01/16 08:59 11/02/16 08:26 Atorvastatin Calcium (Lipitor) 20 mg BEDTIME ORAL 10/31/16 22:30 11/30/16 22:29 11/01/16 20:38 Carvedilol (Coreg) 12.5 mg Q12HR ORAL 10/31/16 22:30 11/30/16 22:29 11/02/16 08:27 Cefepime HCl/ Dextrose (Maxipime/D5W) 55 ml @ 110 mls/hr Q24H IVPB 11/01/16 13:00 11/05/16 12:59 11/01/16 14:35 Clopidogrel Bisulfate (Plavix) 75 mg DAILY ORAL 11/01/16 09:00 12/01/16 08:59 11/02/16 08:26 Dextrose (Dextrose 50%) STAT PRN IV Hypoglycemia 11/01/16 14:15 12/01/16 14:14 Docusate Sodium (Colace) 100 mg EVERY 12 HOURS ORAL 10/31/16 22:30 11/30/16 22:29 11/02/16 08:26 Furosemide (Lasix) 20 mg DAILY ORAL 11/02/16 09:00 12/02/16 08:59 11/02/16 08:27 Heparin Sodium (Porcine) (Heparin 5000 units/ml) 5,000 units EVERY 12 HOURS SUBQ 10/31/16 22:30 11/30/16 22:29 11/01/16 21:16 Insulin Aspart (NovoLOG) BEFORE MEALS AND HS SUBQ 10/31/16 22:30 11/30/16 22:29 11/02/16 06:21 Insulin Detemir (Levemir) 5 units BEDTIME SUBQ 10/31/16 22:30 11/30/16 22:29 11/01/16 21:17 Levothyroxine Sodium (Synthroid) 25 mcg ACBREAKFAST ORAL 11/01/16 06:30 12/01/16 06:29 11/02/16 06:09 Lisinopril (Zestril) 2.5 mg DAILY ORAL 11/02/16 09:00 12/02/16 08:59 11/02/16 08:27 Lorazepam (Ativan 2mg/ml 1ml) 0.5 mg Q4H PRN IV For Anxiety 10/31/16 21:30 11/07/16 21:29 Morphine Sulfate (Morphine Sulfate) 2 mg Q4H PRN IVP FOR MODERATE TO SEVERE PAIN 10/31/16 21:30 11/07/16 21:29 11/02/16 10:51 Nicotine (Nicoderm) 1 patch Q24H TDERMAL 11/01/16 15:00 12/01/16 14:59 11/01/16 15:27 Nitroglycerin (Ntg) 0.4 mg Q5MIN X 3 D0SES PRN SL Prn Chest Pain 10/31/16 21:05 11/30/16 21:04 Ondansetron HCl (Zofran) 4 mg Q6H PRN IVP Nausea & Vomiting 10/31/16 21:30 11/30/16 21:29 Pantoprazole (Protonix) 40 mg EVERY 12 HOURS ORAL 10/31/16 22:30 11/30/16 22:29 11/02/16 08:28 Polyethylene Glycol (Miralax) 17 gm DAILYPRN PRN ORAL Constipation 10/31/16 21:30 11/30/16 21:29 Prednisone (predniSONE) 20 mg DAILY ORAL 11/02/16 09:00 12/02/16 08:59 11/02/16 08:26 Pregabalin (Lyrica) 100 mg Q8HR ORAL 10/31/16 22:00 11/30/16 21:59 11/02/16 06:10 Ranitidine HCl (Zantac) 150 mg QHS ORAL 10/31/16 22:30 11/30/16 22:29 11/01/16 20:39 Sertraline HCl (Zoloft) 25 mg DAILY ORAL 11/01/16 09:00 12/01/16 08:59 11/02/16 08:28 Tamsulosin HCl (Flomax) 0.4 mg BEDTIME ORAL 10/31/16 22:30 11/30/16 22:29 11/01/16 20:39 Temazepam (Restoril) 15 mg DAILYPRN PRN ORAL Insomnia 10/31/16 21:30 11/07/16 21:29 11/01/16 21:25 GI: Plan Problems: (1) Occult blood in stools (2) Severe protein-calorie malnutrition (3) Diabetes mellitus (4) LFTs abnormal (5) Hypoalbuminemia (6) Hematemesis Plan iron panel reviewed OB stool positive >> dark H Pylori negative s/p EGD 10/20/15 - SUMMARY OF FINDINGS: 1. Severe distal esophagitis grade 4 2. Small hiatal hernia. 3. Gastritis, status post biopsy. 4. Duodenal ulcer. defer colonoscopy at this time, ok for outpatient monitor H&H, transfuse prn ppi + H2 DM mgmt ADA diet fu labs Discussed with Dr. Marino. Thank you for referring this patient, we will follow. Melvi Mallory N.P. Nov 02, 2016 12:19
[2016-11-02 16:00] VITALS: BP 130/88
--- NOTE | 2016-11-02 16:44 | Infectious Diseases Prog Note ---
Assessment/Plan Assessment/Plan ASSESSMENT: 66 y/o male with: // Dyspnea, suspect multifactorial: COPD, diastolic CHF, severe pulmonary HTN, severe MR, bilateral pleural effusions - SCx uncollected - CXR: Mild interstitial edema and bilateral pleural effusions. Cardiomegaly. - negative: influenza // Leukocytosis, mild - resolved, afebrile // Acute on chronic diastolic CHF - trop(-) x1, BNP 95600 - TTE: EF 50%, grade III diastolic dysfunction, mod TR, sev MR, sev pulmonary HTN - h/o CAD SP PPM // COPD exacerbation // PUD / esophagitis // CKD3 // PAD // DM2 - HbA1c 7.9% // Cirrhosis // Tobacco abuse // Negative MRSA screen // No ABX allergies // Full Code PLAN: - ok to DC off of ABX from ID standpoint. Limit cefepime after today d# 5 / 5 - taper steroids per pulm - f/u cultures - monitor CBC, temperatures - monitor BMP - monitor CXR - tobacco cessation - outpt angiogram per vascular Subjective Allergies: Coded Allergies: IODINE (Verified Allergy, Unknown, 10/16/16) Subjective remains afebrile. comfortable DC planning ongoing Objective Vital Signs Last 24 Hour Vital Signs Date Time Temp Pulse Resp B/P Pulse Ox O2 Delivery O2 Flow Rate FiO2 11/02/16 16:00 98.4 82 20 130/88 99 Nasal Cannula 2.0 11/02/16 15:51 98.3 11/02/16 11:51 98.3 80 21 129/76 97 Room Air 11/02/16 08:27 128/76 11/02/16 08:27 81 128/76 11/02/16 08:15 98.4 89 20 154/82 97 Nasal Cannula 2.0 11/02/16 07:35 80 16 Nasal Cannula 2.0 28 11/02/16 07:35 Nasal Cannula 2.0 11/02/16 07:35 98 Nasal Cannula 2.0 28 11/02/16 04:00 98.2 78 20 127/66 Nasal Cannula 11/02/16 00:00 98.2 78 20 127/66 Nasal Cannula 11/01/16 20:38 80 122/68 11/01/16 19:35 Nasal Cannula 2.0 11/01/16 19:35 99 Nasal Cannula 2.0 28 11/01/16 19:32 78 17 Nasal Cannula 2.0 28 11/01/16 19:00 98.1 80 18 122/68 Nasal Cannula 2.0 Height (Feet): 5 Height (Inches): 4.00 Weight (Pounds): 108 General Appearance: no acute distress Respiratory/Chest: no respiratory distress Cardiovascular: normal rate, regular rhythm Abdomen: normal bowel sounds, soft, non tender, non distended Laboratory Tests Test 11/02/16 06:20 White Blood Count 5.9 K/UL (4.8-10.8) Red Blood Count 2.62 M/UL (4.70-6.10) L Hemoglobin 8.0 G/DL (14.2-18.0) L Hematocrit 25.1 % (42.0-52.0) L Mean Corpuscular Volume 96 FL (80-99) Mean Corpuscular Hemoglobin 30.5 PG (27.0-31.0) Mean Corpuscular Hemoglobin Concent 31.7 G/DL (32.0-36.0) L Red Cell Distribution Width 15.3 % (11.6-14.8) H Platelet Count 143 K/UL (150-450) L Mean Platelet Volume 8.9 FL (6.5-10.1) Neutrophils (%) (Auto) 67.8 % (45.0-75.0) Lymphocytes (%) (Auto) 22.6 % (20.0-45.0) Monocytes (%) (Auto) 8.8 % (1.0-10.0) Eosinophils (%) (Auto) 0.1 % (0.0-3.0) Basophils (%) (Auto) 0.8 % (0.0-2.0) Prothrombin Time 13.7 SEC (9.30-11.50) H Prothromb Time International Ratio 1.3 (0.9-1.1) H Activated Partial Thromboplast Time 31 SEC (23-33) Sodium Level 137 mEQ/L (135-145) Potassium Level 4.9 mEQ/L (3.4-4.9) Chloride Level 96 mEQ/L (98-107) L Carbon Dioxide Level 28 mEQ/L (20-30) Anion Gap 13 (5-15) Blood Urea Nitrogen 35 mg/dL (7-23) H Creatinine 2.2 mg/dL (0.7-1.2) H Estimat Glomerular Filtration Rate 29.9 mL/min (>60) Glucose Level 369 mg/dL (74-106) H Calcium Level 7.7 mg/dL (8.6-10.2) L Phosphorus Level 3.8 mg/dL (2.5-4.8) Magnesium Level 1.9 mg/dL (1.7-2.5) Total Bilirubin 0.3 mg/dL (0.0-1.2) Aspartate Amino Transf (AST/SGOT) 9 U/L (5-40) Alanine Aminotransferase (ALT/SGPT) 11 U/L (3-41) Alkaline Phosphatase 113 U/L (40-129) Total Protein 5.1 g/dL (6.6-8.7) L Albumin 2.7 g/dL (3.5-5.2) L Globulin 2.4 g/dL Albumin/Globulin Ratio 1.1 (1.0-2.7) Current Medications Medications (Trade) Dose Ordered Sig/Kevin Route PRN Reason Start Time Stop Time Status Last Admin Dose Admin Acetaminophen (Tylenol) 650 mg Q4H PRN ORAL Mild Pain (Pain Scale 1-3) 10/31/16 21:30 11/30/16 21:29 Albuterol/ Ipratropium (DuoNeb 0.5-3(2.5)mg/3ml) 3 ml Q4H PRN HHN Shortness of Breath 10/31/16 21:30 11/05/16 21:29 Aspirin (Ecotrin) 81 mg DAILY ORAL 11/01/16 09:00 12/01/16 08:59 11/02/16 08:26 Atorvastatin Calcium (Lipitor) 20 mg BEDTIME ORAL 10/31/16 22:30 11/30/16 22:29 11/01/16 20:38 Carvedilol (Coreg) 12.5 mg Q12HR ORAL 10/31/16 22:30 11/30/16 22:29 11/02/16 08:27 Cefepime HCl/ Dextrose (Maxipime/D5W) 55 ml @ 110 mls/hr Q24H IVPB 11/01/16 13:00 11/05/16 12:59 11/02/16 12:10 Clopidogrel Bisulfate (Plavix) 75 mg DAILY ORAL 11/01/16 09:00 12/01/16 08:59 11/02/16 08:26 Dextrose (Dextrose 50%) STAT PRN IV Hypoglycemia 11/01/16 14:15 12/01/16 14:14 Docusate Sodium (Colace) 100 mg EVERY 12 HOURS ORAL 10/31/16 22:30 11/30/16 22:29 11/02/16 08:26 Furosemide (Lasix) 20 mg DAILY ORAL 11/02/16 09:00 12/02/16 08:59 11/02/16 08:27 Heparin Sodium (Porcine) (Heparin 5000 units/ml) 5,000 units EVERY 12 HOURS SUBQ 10/31/16 22:30 11/30/16 22:29 11/01/16 21:16 Insulin Aspart (NovoLOG) BEFORE MEALS AND HS SUBQ 10/31/16 22:30 11/30/16 22:29 11/02/16 16:26 Insulin Detemir (Levemir) 5 units BEDTIME SUBQ 10/31/16 22:30 11/30/16 22:29 11/01/16 21:17 Levothyroxine Sodium (Synthroid) 25 mcg ACBREAKFAST ORAL 11/01/16 06:30 12/01/16 06:29 11/02/16 06:09 Lisinopril (Zestril) 2.5 mg DAILY ORAL 11/02/16 09:00 12/02/16 08:59 11/02/16 08:27 Lorazepam (Ativan 2mg/ml 1ml) 0.5 mg Q4H PRN IV For Anxiety 10/31/16 21:30 11/07/16 21:29 Morphine Sulfate (Morphine Sulfate) 2 mg Q4H PRN IVP FOR MODERATE TO SEVERE PAIN 10/31/16 21:30 11/07/16 21:29 11/02/16 15:21 Nicotine (Nicoderm) 1 patch Q24H TDERMAL 11/01/16 15:00 12/01/16 14:59 11/02/16 14:12 Nitroglycerin (Ntg) 0.4 mg Q5MIN X 3 D0SES PRN SL Prn Chest Pain 10/31/16 21:05 11/30/16 21:04 Ondansetron HCl (Zofran) 4 mg Q6H PRN IVP Nausea & Vomiting 10/31/16 21:30 11/30/16 21:29 Pantoprazole (Protonix) 40 mg EVERY 12 HOURS ORAL 10/31/16 22:30 11/30/16 22:29 11/02/16 08:28 Polyethylene Glycol (Miralax) 17 gm DAILYPRN PRN ORAL Constipation 10/31/16 21:30 11/30/16 21:29 Prednisone (predniSONE) 20 mg DAILY ORAL 11/02/16 09:00 12/02/16 08:59 11/02/16 08:26 Pregabalin (Lyrica) 100 mg Q8HR ORAL 10/31/16 22:00 11/30/16 21:59 11/02/16 14:11 Ranitidine HCl (Zantac) 150 mg QHS ORAL 10/31/16 22:30 11/30/16 22:29 11/01/16 20:39 Sertraline HCl (Zoloft) 25 mg DAILY ORAL 11/01/16 09:00 12/01/16 08:59 11/02/16 08:28 Tamsulosin HCl (Flomax) 0.4 mg BEDTIME ORAL 10/31/16 22:30 11/30/16 22:29 11/01/16 20:39 Temazepam (Restoril) 15 mg DAILYPRN PRN ORAL Insomnia 10/31/16 21:30 11/07/16 21:29 11/01/16 21:25 TAMIKO BUSTOS Nov 02, 2016 16:44
[2016-11-02 19:00] VITALS: BP 128/82
[2016-11-02] MEDS: Tamsulosin 0.4mg cap ORAL SCH (20:58)
[2016-11-02] MEDS: Atorvastatin 20mg tab ORAL SCH (20:59)
[2016-11-02] MEDS: Levemir Flexpen SUBQ SCH (21:06)
--- NOTE | 2016-11-02 23:14 | Pulmonology Progress Note ---
Assessment/Plan Problems: (1) Acute respiratory failure (2) COPD (chronic obstructive pulmonary disease) (3) PVD (peripheral vascular disease) (4) Cardiomyopathy (5) Cachexia (6) Severe protein-calorie malnutrition (7) Diabetes mellitus Assessment/Plan taper steroids respiratory treatment cardiology f/u outpatient angiogram when more stable, family aware, they will talk to primary physician once he gets discharged. check cultures prbc prn dc planing for am pt/ot Subjective ROS Limited/Unobtainable: No Constitutional: Reports: no symptoms Respiratory: Reports: no symptoms Cardiovascular: Reports: no symptoms Allergies: Coded Allergies: IODINE (Verified Allergy, Unknown, 10/16/16) Objective Last 24 Hour Vital Signs Date Time Temp Pulse Resp B/P Pulse Ox O2 Delivery O2 Flow Rate FiO2 11/02/16 20:58 77 130/88 11/02/16 19:53 98.4 11/02/16 19:20 Nasal Cannula 2.0 11/02/16 19:12 77 16 Nasal Cannula 2.0 28 11/02/16 19:12 97 Nasal Cannula 2.0 28 11/02/16 19:00 97.9 76 20 128/82 93 Nasal Cannula 2.0 11/02/16 16:00 98.4 82 20 130/88 99 Nasal Cannula 2.0 11/02/16 11:51 98.3 80 21 129/76 97 Room Air 11/02/16 08:27 128/76 11/02/16 08:27 81 128/76 11/02/16 08:15 98.4 89 20 154/82 97 Nasal Cannula 2.0 11/02/16 07:35 80 16 Nasal Cannula 2.0 28 11/02/16 07:35 Nasal Cannula 2.0 11/02/16 07:35 98 Nasal Cannula 2.0 28 11/02/16 04:00 98.2 78 20 127/66 Nasal Cannula 11/02/16 00:00 98.2 78 20 127/66 Nasal Cannula Intake and Output 11/01/16 11/02/16 19:00 07:00 Intake Total 535 ml 360 ml Balance 535 ml 360 ml Intake Oral 480 ml 360 ml IV Total 55 ml # Voids 2 6 # Bowel Movements 1 General Appearance: cachetic HEENT: normocephalic, atraumatic Respiratory/Chest: chest wall non-tender, normal breath sounds Cardiovascular: normal peripheral pulses, regular rhythm Abdomen: normal bowel sounds, soft, non tender Extremities: no cyanosis Skin: no rash Laboratory Tests 11/02/16 06:20: White Blood Count 5.9, Red Blood Count 2.62L, Hemoglobin 8.0L, Hematocrit 25.1L , Mean Corpuscular Volume 96, Mean Corpuscular Hemoglobin 30.5, Mean Corpuscular Hemoglobin Concent 31.7L, Red Cell Distribution Width 15.3H, Platelet Count 143L, Mean Platelet Volume 8.9, Neutrophils (%) (Auto) 67.8, Lymphocytes (%) (Auto) 22.6, Monocytes (%) (Auto) 8.8, Eosinophils (%) (Auto) 0.1, Basophils (%) (Auto) 0.8, Prothrombin Time 13.7H, Prothromb Time International Ratio 1.3H, Activated Partial Thromboplast Time 31, Sodium Level 137, Potassium Level 4.9, Chloride Level 96L, Carbon Dioxide Level 28, Anion Gap 13, Blood Urea Nitrogen 35H, Creatinine 2.2H, Estimat Glomerular Filtration Rate 29.9, Glucose Level 369H, Calcium Level 7.7L, Phosphorus Level 3.8, Magnesium Level 1.9, Total Bilirubin 0.3, Aspartate Amino Transf (AST/SGOT) 9, Alanine Aminotransferase (ALT/SGPT) 11, Alkaline Phosphatase 113, Total Protein 5.1L, Albumin 2.7L, Globulin 2.4, Albumin/Globulin Ratio 1.1 Current Medications Medications (Trade) Dose Ordered Sig/Keivn Route PRN Reason Start Time Stop Time Status Last Admin Dose Admin Acetaminophen (Tylenol) 650 mg Q4H PRN ORAL Mild Pain (Pain Scale 1-3) 10/31/16 21:30 11/30/16 21:29 Albuterol/ Ipratropium (DuoNeb 0.5-3(2.5)mg/3ml) 3 ml Q4H PRN HHN Shortness of Breath 10/31/16 21:30 11/05/16 21:29 Aspirin (Ecotrin) 81 mg DAILY ORAL 11/01/16 09:00 12/01/16 08:59 11/02/16 08:26 Atorvastatin Calcium (Lipitor) 20 mg BEDTIME ORAL 10/31/16 22:30 11/30/16 22:29 11/02/16 20:59 Carvedilol (Coreg) 12.5 mg Q12HR ORAL 10/31/16 22:30 11/30/16 22:29 11/02/16 20:58 Cefepime HCl/ Dextrose (Maxipime/D5W) 55 ml @ 110 mls/hr Q24H IVPB 11/01/16 13:00 11/02/16 23:59 11/02/16 12:10 Clopidogrel Bisulfate (Plavix) 75 mg DAILY ORAL 11/01/16 09:00 12/01/16 08:59 11/02/16 08:26 Dextrose (Dextrose 50%) STAT PRN IV Hypoglycemia 11/01/16 14:15 12/01/16 14:14 Docusate Sodium (Colace) 100 mg EVERY 12 HOURS ORAL 10/31/16 22:30 11/30/16 22:29 11/02/16 20:58 Furosemide (Lasix) 20 mg DAILY ORAL 11/02/16 09:00 12/02/16 08:59 11/02/16 08:27 Heparin Sodium (Porcine) (Heparin 5000 units/ml) 5,000 units EVERY 12 HOURS SUBQ 10/31/16 22:30 11/30/16 22:29 11/01/16 21:16 Insulin Aspart (NovoLOG) BEFORE MEALS AND HS SUBQ 10/31/16 22:30 11/30/16 22:29 11/02/16 21:06 Insulin Detemir (Levemir) 5 units BEDTIME SUBQ 10/31/16 22:30 11/30/16 22:29 11/02/16 21:06 Levothyroxine Sodium (Synthroid) 25 mcg ACBREAKFAST ORAL 11/01/16 06:30 12/01/16 06:29 11/02/16 06:09 Lisinopril (Zestril) 2.5 mg DAILY ORAL 11/02/16 09:00 12/02/16 08:59 11/02/16 08:27 Lorazepam (Ativan 2mg/ml 1ml) 0.5 mg Q4H PRN IV For Anxiety 10/31/16 21:30 11/07/16 21:29 Morphine Sulfate (Morphine Sulfate) 2 mg Q4H PRN IVP FOR MODERATE TO SEVERE PAIN 10/31/16 21:30 11/07/16 21:29 11/02/16 19:23 Nicotine (Nicoderm) 1 patch Q24H TDERMAL 11/01/16 15:00 12/01/16 14:59 11/02/16 14:12 Nitroglycerin (Ntg) 0.4 mg Q5MIN X 3 D0SES PRN SL Prn Chest Pain 10/31/16 21:05 11/30/16 21:04 Ondansetron HCl (Zofran) 4 mg Q6H PRN IVP Nausea & Vomiting 10/31/16 21:30 11/30/16 21:29 Pantoprazole (Protonix) 40 mg EVERY 12 HOURS ORAL 10/31/16 22:30 11/30/16 22:29 11/02/16 20:59 Polyethylene Glycol (Miralax) 17 gm DAILYPRN PRN ORAL Constipation 10/31/16 21:30 11/30/16 21:29 Prednisone (predniSONE) 20 mg DAILY ORAL 11/02/16 09:00 12/02/16 08:59 11/02/16 08:26 Pregabalin (Lyrica) 100 mg Q8HR ORAL 10/31/16 22:00 11/30/16 21:59 11/02/16 20:58 Ranitidine HCl (Zantac) 150 mg QHS ORAL 10/31/16 22:30 11/30/16 22:29 11/02/16 20:58 Sertraline HCl (Zoloft) 25 mg DAILY ORAL 11/01/16 09:00 12/01/16 08:59 11/02/16 08:28 Tamsulosin HCl (Flomax) 0.4 mg BEDTIME ORAL 10/31/16 22:30 11/30/16 22:29 11/02/16 20:58 Temazepam (Restoril) 15 mg DAILYPRN PRN ORAL Insomnia 10/31/16 21:30 11/07/16 21:29 11/02/16 20:59 HALIMA JOSEPH Nov 02, 2016 23:14
[2016-11-03] VITALS: BP 145/80
[2016-11-03 04:00] VITALS: BP 144/88
[2016-11-03] MEDS: Morphine Sulfate 2mg/ml Inj IVP PRN ×5 (05:06→22:38)
[2016-11-03] MEDS: Levothyroxine 25mcg tab ORAL SCH (06:03)
[2016-11-03] MEDS: Lyrica 50mg cap ORAL SCH ×3 (06:03→21:33)
[2016-11-03] MEDS: NovoLOG Insulin Flexpen SUBQ SCH ×4 (06:07→21:36)
[2016-11-03 08:00] VITALS: BP 128/63
[2016-11-03 08:00] LABS: BASOPHILS % (AUTO) 0.5 % (0.0-2.0); EOSINOPHILS % (AUTO) 0.2 % (0.0-3.0); MEAN CORPUSCULAR HEMOGLOBIN 29.2 PG (27.0-31.0); MEAN CORPUSCULAR HGB CONC 31.5 G/DL (32.0-36.0); MEAN CORPUSCULAR VOLUME 93 FL (80-99); MEAN PLATELET VOLUME 9.1 FL (6.5-10.1); MONOCYTES % (AUTO) 8.1 % (1.0-10.0); NEUTROPHILS % (AUTO) 72.2 % (45.0-75.0); PLATELET COUNT 146 K/UL (150-450); RED BLOOD COUNT 3.68 M/UL (4.70-6.10); RED CELL DISTRIBUTION WIDTH 16.2 % (11.6-14.8); WHITE BLOOD COUNT 9.4 K/UL (4.8-10.8)
[2016-11-03 08:17] LABS: CALCIUM 8.3 mg/dL (8.6-10.2); CREATININE 2.4 mg/dL (0.7-1.2); GLOMERULAR FILTRATION RATE 27.1 mL/min (>60); POTASSIUM 4.5 mEQ/L (3.4-4.9)
[2016-11-03] MEDS: Sertraline 50mg tab ORAL SCH (08:50)
[2016-11-03] MEDS: Lisinopril 2.5mg tab ORAL SCH (08:50)
[2016-11-03] MEDS: Docusate 100mg cap ORAL SCH ×2 (08:50→21:34)
[2016-11-03] MEDS: Aspirin EC 81mg tab ORAL SCH (08:51)
[2016-11-03] MEDS: Carvedilol 12.5mg tab ORAL SCH ×2 (08:51→21:34)
[2016-11-03] MEDS: PredniSONE 20mg tab ORAL SCH (08:51)
[2016-11-03] MEDS: Heparin 5000 units/ml inj SUBQ SCH ×2 (09:00→21:00)
--- NOTE | 2016-11-03 11:33 | GI Progress Note ---
Assessment/Plan Problems: (1) LFTs abnormal ICD Codes: R79.89 - Other specified abnormal findings of blood chemistry SNOMED: 861627262 (2) Hypoalbuminemia ICD Codes: E88.09 - Other disorders of plasma-protein metabolism, not elsewhere classified SNOMED: 552024699 (3) Occult blood in stools ICD Codes: R19.5 - Other fecal abnormalities SNOMED: 05510259, 103727139 (4) Hematemesis ICD Codes: K92.0 - Hematemesis SNOMED: 8821471 (5) Severe protein-calorie malnutrition ICD Codes: E43 - Unspecified severe protein-calorie malnutrition SNOMED: 193236325 Status Narrative Discussed with Dr. Marino. Assessment/Plan iron panel reviewed OB stool positive >> dark H Pylori negative s/p EGD 10/20/15 - SUMMARY OF FINDINGS: 1. Severe distal esophagitis grade 4 2. Small hiatal hernia. 3. Gastritis, status post biopsy. 4. Duodenal ulcer. ok for DC per GI standpoint defer colonoscopy at this time, ok for outpatient monitor H&H, transfuse prn ppi + H2 DM mgmt ADA diet fu labs Subjective Gastrointestinal/Abdominal: Reports: no symptoms Objective Last 24 Hour Vital Signs Date Time Temp Pulse Resp B/P Pulse Ox O2 Delivery O2 Flow Rate FiO2 11/03/16 08:51 83 128/63 11/03/16 08:50 128/63 11/03/16 08:00 97.7 83 20 128/63 97 Room Air 11/03/16 04:00 97.2 83 18 144/88 96 Nasal Cannula 2.0 11/03/16 00:00 98.2 74 16 145/80 100 Nasal Cannula 2.0 11/02/16 20:58 77 130/88 11/02/16 19:53 98.4 11/02/16 19:20 Nasal Cannula 2.0 11/02/16 19:12 77 16 Nasal Cannula 2.0 28 11/02/16 19:12 97 Nasal Cannula 2.0 28 11/02/16 19:00 97.9 76 20 128/82 93 Nasal Cannula 2.0 11/02/16 16:00 98.4 82 20 130/88 99 Nasal Cannula 2.0 11/02/16 11:51 98.3 80 21 129/76 97 Room Air Intake and Output 11/02/16 11/03/16 19:00 07:00 Intake Total 480 ml 540 ml Balance 480 ml 540 ml Intake Oral 480 ml 540 ml # Voids 6 Laboratory Tests Test 11/03/16 07:30 White Blood Count 9.4 K/UL (4.8-10.8) # Red Blood Count 3.68 M/UL (4.70-6.10) L Hemoglobin 10.8 G/DL (14.2-18.0) #L Hematocrit 34.1 % (42.0-52.0) #L Mean Corpuscular Volume 93 FL (80-99) Mean Corpuscular Hemoglobin 29.2 PG (27.0-31.0) Mean Corpuscular Hemoglobin Concent 31.5 G/DL (32.0-36.0) L Red Cell Distribution Width 16.2 % (11.6-14.8) H Platelet Count 146 K/UL (150-450) L Mean Platelet Volume 9.1 FL (6.5-10.1) Neutrophils (%) (Auto) 72.2 % (45.0-75.0) Lymphocytes (%) (Auto) 19.0 % (20.0-45.0) L Monocytes (%) (Auto) 8.1 % (1.0-10.0) Eosinophils (%) (Auto) 0.2 % (0.0-3.0) Basophils (%) (Auto) 0.5 % (0.0-2.0) Sodium Level 142 mEQ/L (135-145) Potassium Level 4.5 mEQ/L (3.4-4.9) Chloride Level 99 mEQ/L (98-107) Carbon Dioxide Level 32 mEQ/L (20-30) H Anion Gap 11 (5-15) Blood Urea Nitrogen 34 mg/dL (7-23) H Creatinine 2.4 mg/dL (0.7-1.2) H Estimat Glomerular Filtration Rate 27.1 mL/min (>60) Glucose Level 140 mg/dL (74-106) #H Calcium Level 8.3 mg/dL (8.6-10.2) L Height (Feet): 5 Height (Inches): 4.00 Weight (Pounds): 110 General Appearance: no apparent distress, alert, thin Cardiovascular: normal rate Respiratory/Chest: normal breath sounds, no respiratory distress Abdominal Exam: normal bowel sounds, non tender, soft Extremities: normal range of motion Melvi Mallory N.P. Nov 03, 2016 11:33
[2016-11-03 11:57] VITALS: BP 134/76
--- NOTE | 2016-11-03 15:16 | Infectious Diseases Prog Note ---
Assessment/Plan Assessment/Plan ASSESSMENT: 66 y/o male with: // Dyspnea, suspect multifactorial: COPD, diastolic CHF, severe pulmonary HTN, severe MR, bilateral pleural effusions - SCx uncollected - CXR: Mild interstitial edema and bilateral pleural effusions. Cardiomegaly. - negative: influenza // Leukocytosis, mild - resolved, afebrile // Acute on chronic diastolic CHF - trop(-) x1, BNP 20484 - TTE: EF 50%, grade III diastolic dysfunction, mod TR, sev MR, sev pulmonary HTN - h/o CAD SP PPM // COPD exacerbation // PUD / esophagitis // CKD3 // PAD // DM2 - HbA1c 7.9% // Cirrhosis // Tobacco abuse // Negative MRSA screen // No ABX allergies // Full Code PLAN: - ok to DC off of ABX from ID standpoint. ( 11/02 SP cefepime d# 5 / ) - taper steroids per pulm - f/u final cultures - monitor CBC, temperatures - monitor BMP - monitor CXR - tobacco cessation - outpt angiogram per vascular Subjective Allergies: Coded Allergies: IODINE (Verified Allergy, Unknown, 10/16/16) Subjective remains afebrile. comfortable DC planning ongoing Objective Vital Signs Last 24 Hour Vital Signs Date Time Temp Pulse Resp B/P Pulse Ox O2 Delivery O2 Flow Rate FiO2 11/03/16 11:57 97.7 77 19 134/76 99 Room Air 11/03/16 08:51 83 128/63 11/03/16 08:50 128/63 11/03/16 08:00 97.7 83 20 128/63 97 Room Air 11/03/16 04:00 97.2 83 18 144/88 96 Nasal Cannula 2.0 11/03/16 00:00 98.2 74 16 145/80 100 Nasal Cannula 2.0 11/02/16 20:58 77 130/88 11/02/16 19:53 98.4 11/02/16 19:20 Nasal Cannula 2.0 11/02/16 19:12 77 16 Nasal Cannula 2.0 28 11/02/16 19:12 97 Nasal Cannula 2.0 28 11/02/16 19:00 97.9 76 20 128/82 93 Nasal Cannula 2.0 11/02/16 16:00 98.4 82 20 130/88 99 Nasal Cannula 2.0 Height (Feet): 5 Height (Inches): 4.00 Weight (Pounds): 110 General Appearance: no acute distress Respiratory/Chest: no respiratory distress Cardiovascular: normal rate, regular rhythm Abdomen: normal bowel sounds, soft, non tender, non distended Laboratory Tests Test 11/03/16 07:30 White Blood Count 9.4 K/UL (4.8-10.8) # Red Blood Count 3.68 M/UL (4.70-6.10) L Hemoglobin 10.8 G/DL (14.2-18.0) #L Hematocrit 34.1 % (42.0-52.0) #L Mean Corpuscular Volume 93 FL (80-99) Mean Corpuscular Hemoglobin 29.2 PG (27.0-31.0) Mean Corpuscular Hemoglobin Concent 31.5 G/DL (32.0-36.0) L Red Cell Distribution Width 16.2 % (11.6-14.8) H Platelet Count 146 K/UL (150-450) L Mean Platelet Volume 9.1 FL (6.5-10.1) Neutrophils (%) (Auto) 72.2 % (45.0-75.0) Lymphocytes (%) (Auto) 19.0 % (20.0-45.0) L Monocytes (%) (Auto) 8.1 % (1.0-10.0) Eosinophils (%) (Auto) 0.2 % (0.0-3.0) Basophils (%) (Auto) 0.5 % (0.0-2.0) Sodium Level 142 mEQ/L (135-145) Potassium Level 4.5 mEQ/L (3.4-4.9) Chloride Level 99 mEQ/L (98-107) Carbon Dioxide Level 32 mEQ/L (20-30) H Anion Gap 11 (5-15) Blood Urea Nitrogen 34 mg/dL (7-23) H Creatinine 2.4 mg/dL (0.7-1.2) H Estimat Glomerular Filtration Rate 27.1 mL/min (>60) Glucose Level 140 mg/dL (74-106) #H Calcium Level 8.3 mg/dL (8.6-10.2) L Current Medications Medications (Trade) Dose Ordered Sig/Kevin Route PRN Reason Start Time Stop Time Status Last Admin Dose Admin Acetaminophen (Tylenol) 650 mg Q4H PRN ORAL Mild Pain (Pain Scale 1-3) 10/31/16 21:30 11/30/16 21:29 Albuterol/ Ipratropium (DuoNeb 0.5-3(2.5)mg/3ml) 3 ml Q4H PRN HHN Shortness of Breath 10/31/16 21:30 11/05/16 21:29 Aspirin (Ecotrin) 81 mg DAILY ORAL 11/01/16 09:00 12/01/16 08:59 11/03/16 08:51 Atorvastatin Calcium (Lipitor) 20 mg BEDTIME ORAL 10/31/16 22:30 11/30/16 22:29 11/02/16 20:59 Carvedilol (Coreg) 12.5 mg Q12HR ORAL 10/31/16 22:30 11/30/16 22:29 11/03/16 08:51 Clopidogrel Bisulfate (Plavix) 75 mg DAILY ORAL 11/01/16 09:00 12/01/16 08:59 11/03/16 08:50 Dextrose (Dextrose 50%) STAT PRN IV Hypoglycemia 11/01/16 14:15 12/01/16 14:14 Docusate Sodium (Colace) 100 mg EVERY 12 HOURS ORAL 10/31/16 22:30 11/30/16 22:29 11/03/16 08:50 Furosemide (Lasix) 20 mg DAILY ORAL 11/02/16 09:00 12/02/16 08:59 11/03/16 08:50 Heparin Sodium (Porcine) (Heparin 5000 units/ml) 5,000 units EVERY 12 HOURS SUBQ 10/31/16 22:30 11/30/16 22:29 11/01/16 21:16 Insulin Aspart (NovoLOG) BEFORE MEALS AND HS SUBQ 10/31/16 22:30 11/30/16 22:29 11/03/16 11:58 Insulin Detemir (Levemir) 5 units BEDTIME SUBQ 10/31/16 22:30 11/30/16 22:29 11/02/16 21:06 Levothyroxine Sodium (Synthroid) 25 mcg ACBREAKFAST ORAL 11/01/16 06:30 12/01/16 06:29 11/03/16 06:03 Lisinopril (Zestril) 2.5 mg DAILY ORAL 11/02/16 09:00 12/02/16 08:59 11/03/16 08:50 Lorazepam (Ativan 2mg/ml 1ml) 0.5 mg Q4H PRN IV For Anxiety 10/31/16 21:30 11/07/16 21:29 Morphine Sulfate (Morphine Sulfate) 2 mg Q4H PRN IVP FOR MODERATE TO SEVERE PAIN 10/31/16 21:30 11/07/16 21:29 11/03/16 13:23 Nicotine (Nicoderm) 1 patch Q24H TDERMAL 11/01/16 15:00 12/01/16 14:59 11/03/16 14:09 Nitroglycerin (Ntg) 0.4 mg Q5MIN X 3 D0SES PRN SL Prn Chest Pain 10/31/16 21:05 11/30/16 21:04 Ondansetron HCl (Zofran) 4 mg Q6H PRN IVP Nausea & Vomiting 10/31/16 21:30 11/30/16 21:29 Pantoprazole (Protonix) 40 mg EVERY 12 HOURS ORAL 10/31/16 22:30 11/30/16 22:29 11/03/16 08:50 Polyethylene Glycol (Miralax) 17 gm DAILYPRN PRN ORAL Constipation 10/31/16 21:30 11/30/16 21:29 Prednisone (predniSONE) 20 mg DAILY ORAL 11/02/16 09:00 12/02/16 08:59 11/03/16 08:51 Pregabalin (Lyrica) 100 mg Q8HR ORAL 10/31/16 22:00 11/30/16 21:59 11/03/16 14:08 Ranitidine HCl (Zantac) 150 mg QHS ORAL 10/31/16 22:30 11/30/16 22:29 11/02/16 20:58 Sertraline HCl (Zoloft) 25 mg DAILY ORAL 11/01/16 09:00 12/01/16 08:59 11/03/16 08:50 Tamsulosin HCl (Flomax) 0.4 mg BEDTIME ORAL 10/31/16 22:30 11/30/16 22:29 11/02/16 20:58 Temazepam (Restoril) 15 mg DAILYPRN PRN ORAL Insomnia 10/31/16 21:30 11/07/16 21:29 11/02/16 20:59 TAMIKO BUSTOS Nov 03, 2016 15:15
--- NOTE | 2016-11-03 15:18 | General Progress Note ---
Assessment/Plan Status: unchanged Status Narrative Cr 2.4 Assessment/Plan Renal failure due to DM and HTN DM and Proteinuria, Nephropathy-chronic renal insufficiency h/o GI bleed- ? dehydration acute hypercapnic respiratory failure on chronic respiratory failure, requiring BiPASP chronic hypoxemia ( home O2 dependent) acute COPD exacerbation possible PNA acute diastolic CHF current smoker hepatic cirrhosis hx of ETOH abuse severe pulmonary HTN severe MR moderate TR hypothyroidism anemia h/o elevated CEA Cachexia Pacer / ICD CHF / Cardiomyopathy previous EjFx 20% PVD Iodine allergy Plan: Mag supplement as needed Phos supplement as needed kidney ADE- Negative- on previous admission Avoid Nephrotoxics- optimize cardiac and pulmonary status Monitor renal parameters Per orders ? Dc planning? Subjective ROS Limited/Unobtainable: No Allergies: Coded Allergies: IODINE (Verified Allergy, Unknown, 10/16/16) Objective Last 24 Hour Vital Signs Date Time Temp Pulse Resp B/P Pulse Ox O2 Delivery O2 Flow Rate FiO2 11/03/16 11:57 97.7 77 19 134/76 99 Room Air 11/03/16 08:51 83 128/63 11/03/16 08:50 128/63 11/03/16 08:00 97.7 83 20 128/63 97 Room Air 11/03/16 04:00 97.2 83 18 144/88 96 Nasal Cannula 2.0 11/03/16 00:00 98.2 74 16 145/80 100 Nasal Cannula 2.0 11/02/16 20:58 77 130/88 11/02/16 19:53 98.4 11/02/16 19:20 Nasal Cannula 2.0 11/02/16 19:12 77 16 Nasal Cannula 2.0 28 11/02/16 19:12 97 Nasal Cannula 2.0 28 11/02/16 19:00 97.9 76 20 128/82 93 Nasal Cannula 2.0 11/02/16 16:00 98.4 82 20 130/88 99 Nasal Cannula 2.0 Intake and Output 11/02/16 11/03/16 19:00 07:00 Intake Total 480 ml 540 ml Balance 480 ml 540 ml Intake Oral 480 ml 540 ml # Voids 6 Laboratory Tests 11/03/16 07:30: White Blood Count 9.4#, Red Blood Count 3.68L, Hemoglobin 10.8#L, Hematocrit 34.1#L, Mean Corpuscular Volume 93, Mean Corpuscular Hemoglobin 29.2, Mean Corpuscular Hemoglobin Concent 31.5L, Red Cell Distribution Width 16.2H, Platelet Count 146L, Mean Platelet Volume 9.1, Neutrophils (%) (Auto) 72.2, Lymphocytes (%) (Auto) 19.0L, Monocytes (%) (Auto) 8.1, Eosinophils (%) (Auto) 0.2, Basophils (%) (Auto) 0.5, Sodium Level 142, Potassium Level 4.5, Chloride Level 99, Carbon Dioxide Level 32H, Anion Gap 11, Blood Urea Nitrogen 34H, Creatinine 2.4H, Estimat Glomerular Filtration Rate 27.1, Glucose Level 140#H, Calcium Level 8.3L Height (Feet): 5 Height (Inches): 4.00 Weight (Pounds): 110 General Appearance: no apparent distress, lethargic JESUS REA Nov 03, 2016 15:18
[2016-11-03 16:00] VITALS: BP 147/80
--- NOTE | 2016-11-03 17:05 | Pulmonology Progress Note ---
Assessment/Plan Problems: (1) Acute respiratory failure (2) COPD (chronic obstructive pulmonary disease) (3) PVD (peripheral vascular disease) (4) Cardiomyopathy (5) Cachexia (6) Severe protein-calorie malnutrition (7) Diabetes mellitus Assessment/Plan respiratory treatment cardiology f/u outpatient angiogram when more stable, family aware, they will talk to primary physician once he gets discharged. check cultures prbc prn dc planing for today pt/ot Subjective ROS Limited/Unobtainable: No Interval Events: no new complains Allergies: Coded Allergies: IODINE (Verified Allergy, Unknown, 10/16/16) Objective Last 24 Hour Vital Signs Date Time Temp Pulse Resp B/P Pulse Ox O2 Delivery O2 Flow Rate FiO2 11/03/16 16:00 98.1 82 18 147/80 98 Room Air 11/03/16 11:57 97.7 77 19 134/76 99 Room Air 11/03/16 08:51 83 128/63 11/03/16 08:50 128/63 11/03/16 08:00 97.7 83 20 128/63 97 Room Air 11/03/16 04:00 97.2 83 18 144/88 96 Nasal Cannula 2.0 11/03/16 00:00 98.2 74 16 145/80 100 Nasal Cannula 2.0 11/02/16 20:58 77 130/88 11/02/16 19:53 98.4 11/02/16 19:20 Nasal Cannula 2.0 11/02/16 19:12 77 16 Nasal Cannula 2.0 28 11/02/16 19:12 97 Nasal Cannula 2.0 28 11/02/16 19:00 97.9 76 20 128/82 93 Nasal Cannula 2.0 Intake and Output 11/02/16 11/03/16 19:00 07:00 Intake Total 480 ml 540 ml Balance 480 ml 540 ml Intake Oral 480 ml 540 ml # Voids 6 General Appearance: WD/WN HEENT: normocephalic, atraumatic Respiratory/Chest: chest wall non-tender, normal breath sounds Cardiovascular: normal peripheral pulses, normal rate Abdomen: normal bowel sounds, soft, non tender Genitourinary: normal external genitalia Skin: no rash Laboratory Tests 11/03/16 07:30: White Blood Count 9.4#, Red Blood Count 3.68L, Hemoglobin 10.8#L, Hematocrit 34.1#L, Mean Corpuscular Volume 93, Mean Corpuscular Hemoglobin 29.2, Mean Corpuscular Hemoglobin Concent 31.5L, Red Cell Distribution Width 16.2H, Platelet Count 146L, Mean Platelet Volume 9.1, Neutrophils (%) (Auto) 72.2, Lymphocytes (%) (Auto) 19.0L, Monocytes (%) (Auto) 8.1, Eosinophils (%) (Auto) 0.2, Basophils (%) (Auto) 0.5, Sodium Level 142, Potassium Level 4.5, Chloride Level 99, Carbon Dioxide Level 32H, Anion Gap 11, Blood Urea Nitrogen 34H, Creatinine 2.4H, Estimat Glomerular Filtration Rate 27.1, Glucose Level 140#H, Calcium Level 8.3L Current Medications Medications (Trade) Dose Ordered Sig/Kevin Route PRN Reason Start Time Stop Time Status Last Admin Dose Admin Acetaminophen (Tylenol) 650 mg Q4H PRN ORAL Mild Pain (Pain Scale 1-3) 10/31/16 21:30 11/30/16 21:29 Albuterol/ Ipratropium (DuoNeb 0.5-3(2.5)mg/3ml) 3 ml Q4H PRN HHN Shortness of Breath 10/31/16 21:30 11/05/16 21:29 Aspirin (Ecotrin) 81 mg DAILY ORAL 11/01/16 09:00 12/01/16 08:59 11/03/16 08:51 Atorvastatin Calcium (Lipitor) 20 mg BEDTIME ORAL 10/31/16 22:30 11/30/16 22:29 11/02/16 20:59 Carvedilol (Coreg) 12.5 mg Q12HR ORAL 10/31/16 22:30 11/30/16 22:29 11/03/16 08:51 Clopidogrel Bisulfate (Plavix) 75 mg DAILY ORAL 11/01/16 09:00 12/01/16 08:59 11/03/16 08:50 Dextrose (Dextrose 50%) STAT PRN IV Hypoglycemia 11/01/16 14:15 12/01/16 14:14 Docusate Sodium (Colace) 100 mg EVERY 12 HOURS ORAL 10/31/16 22:30 11/30/16 22:29 11/03/16 08:50 Furosemide (Lasix) 20 mg DAILY ORAL 11/02/16 09:00 12/02/16 08:59 11/03/16 08:50 Heparin Sodium (Porcine) (Heparin 5000 units/ml) 5,000 units EVERY 12 HOURS SUBQ 10/31/16 22:30 11/30/16 22:29 11/01/16 21:16 Insulin Aspart (NovoLOG) BEFORE MEALS AND HS SUBQ 10/31/16 22:30 11/30/16 22:29 11/03/16 11:58 Insulin Detemir (Levemir) 5 units BEDTIME SUBQ 10/31/16 22:30 11/30/16 22:29 11/02/16 21:06 Levothyroxine Sodium (Synthroid) 25 mcg ACBREAKFAST ORAL 11/01/16 06:30 12/01/16 06:29 11/03/16 06:03 Lisinopril (Zestril) 2.5 mg DAILY ORAL 11/02/16 09:00 12/02/16 08:59 11/03/16 08:50 Lorazepam (Ativan 2mg/ml 1ml) 0.5 mg Q4H PRN IV For Anxiety 10/31/16 21:30 11/07/16 21:29 Morphine Sulfate (Morphine Sulfate) 2 mg Q4H PRN IVP FOR MODERATE TO SEVERE PAIN 10/31/16 21:30 11/07/16 21:29 11/03/16 13:23 Nicotine (Nicoderm) 1 patch Q24H TDERMAL 11/01/16 15:00 12/01/16 14:59 11/03/16 14:09 Nitroglycerin (Ntg) 0.4 mg Q5MIN X 3 D0SES PRN SL Prn Chest Pain 10/31/16 21:05 11/30/16 21:04 Ondansetron HCl (Zofran) 4 mg Q6H PRN IVP Nausea & Vomiting 10/31/16 21:30 11/30/16 21:29 Pantoprazole (Protonix) 40 mg EVERY 12 HOURS ORAL 10/31/16 22:30 11/30/16 22:29 11/03/16 08:50 Polyethylene Glycol (Miralax) 17 gm DAILYPRN PRN ORAL Constipation 10/31/16 21:30 11/30/16 21:29 Prednisone (predniSONE) 20 mg DAILY ORAL 11/02/16 09:00 12/02/16 08:59 11/03/16 08:51 Pregabalin (Lyrica) 100 mg Q8HR ORAL 10/31/16 22:00 11/30/16 21:59 11/03/16 14:08 Ranitidine HCl (Zantac) 150 mg QHS ORAL 10/31/16 22:30 11/30/16 22:29 11/02/16 20:58 Sertraline HCl (Zoloft) 25 mg DAILY ORAL 11/01/16 09:00 12/01/16 08:59 11/03/16 08:50 Tamsulosin HCl (Flomax) 0.4 mg BEDTIME ORAL 10/31/16 22:30 11/30/16 22:29 11/02/16 20:58 Temazepam (Restoril) 15 mg DAILYPRN PRN ORAL Insomnia 10/31/16 21:30 11/07/16 21:29 11/02/16 20:59 HALIMA JOSEPH Nov 03, 2016 17:05
[2016-11-03] MEDS ORDERED: LEVEMIR100 UNIT/1 SUBQ (17:41)
[2016-11-03] MEDS ORDERED: Levemir Flexpen SUBQ ONE (18:15)
[2016-11-03 20:00] VITALS: BP 140/72
[2016-11-03] MEDS: Atorvastatin 20mg tab ORAL SCH (21:34)
[2016-11-03] MEDS: Tamsulosin 0.4mg cap ORAL SCH (21:34)
[2016-11-03] MEDS: Levemir Flexpen SUBQ SCH (21:37)
[2016-11-04] VITALS: BP 130/76
[2016-11-04] MEDS: Morphine Sulfate 2mg/ml Inj IVP PRN ×3 (02:38→14:08)
[2016-11-04 04:00] VITALS: BP_SYST 142; BP_SYST 158; BP_DIAS 70; BP_DIAS 76
[2016-11-04] MEDS: Levothyroxine 25mcg tab ORAL SCH (05:37)
[2016-11-04] MEDS: Lyrica 50mg cap ORAL SCH ×2 (05:40→13:45)
[2016-11-04] MEDS: NovoLOG Insulin Flexpen SUBQ SCH ×2 (06:30→13:47)
[2016-11-04 07:37] LABS: BASOPHILS % (AUTO) 0.6 % (0.0-2.0); EOSINOPHILS % (AUTO) 0.2 % (0.0-3.0); MEAN CORPUSCULAR HEMOGLOBIN 29.3 PG (27.0-31.0); MEAN CORPUSCULAR HGB CONC 31.5 G/DL (32.0-36.0); MEAN CORPUSCULAR VOLUME 93 FL (80-99); MEAN PLATELET VOLUME 9.3 FL (6.5-10.1); MONOCYTES % (AUTO) 10.2 % (1.0-10.0); PLATELET COUNT 128 K/UL (150-450); RED BLOOD COUNT 3.65 M/UL (4.70-6.10); RED CELL DISTRIBUTION WIDTH 16.7 % (11.6-14.8); WHITE BLOOD COUNT 7.3 K/UL (4.8-10.8)
[2016-11-04 07:59] VITALS: BP 133/66
[2016-11-04 08:05] LABS: CALCIUM 8.1 mg/dL (8.6-10.2); CREATININE 2.3 mg/dL (0.7-1.2); GLOMERULAR FILTRATION RATE 28.4 mL/min (>60); POTASSIUM 3.7 mEQ/L (3.4-4.9)
[2016-11-04] MEDS: Heparin 5000 units/ml inj SUBQ SCH (09:00)
[2016-11-04] MEDS: Lisinopril 2.5mg tab ORAL SCH (09:26)
[2016-11-04] MEDS: Aspirin EC 81mg tab ORAL SCH (09:27)
[2016-11-04] MEDS: Docusate 100mg cap ORAL SCH (09:27)
[2016-11-04] MEDS: PredniSONE 20mg tab ORAL SCH (09:27)
[2016-11-04] MEDS: Sertraline 50mg tab ORAL SCH (09:27)
[2016-11-04] MEDS: Carvedilol 12.5mg tab ORAL SCH (09:27)
--- NOTE | 2016-11-04 11:41 | General Progress Note ---
Assessment/Plan Status: unchanged Status Narrative Cr same Assessment/Plan Renal failure due to DM and HTN DM and Proteinuria, Nephropathy-chronic renal insufficiency h/o GI bleed- ? dehydration acute hypercapnic respiratory failure on chronic respiratory failure, requiring BiPASP chronic hypoxemia ( home O2 dependent) acute COPD exacerbation possible PNA acute diastolic CHF current smoker hepatic cirrhosis hx of ETOH abuse severe pulmonary HTN severe MR moderate TR hypothyroidism anemia h/o elevated CEA Cachexia Pacer / ICD CHF / Cardiomyopathy previous EjFx 20% PVD Iodine allergy Plan: Mag supplement as needed Phos supplement as needed kidney ADE- Negative- on previous admission Avoid Nephrotoxics- optimize cardiac and pulmonary status Monitor renal parameters Per orders ? Dc planning? Subjective ROS Limited/Unobtainable: No Constitutional: Reports: malaise, weakness Allergies: Coded Allergies: IODINE (Verified Allergy, Unknown, 10/16/16) Objective Last 24 Hour Vital Signs Date Time Temp Pulse Resp B/P Pulse Ox O2 Delivery O2 Flow Rate FiO2 11/04/16 09:27 72 133/66 11/04/16 09:26 133/66 11/04/16 07:59 97.5 72 14 133/66 100 Room Air 11/04/16 07:58 99 Room Air 21 11/04/16 07:58 Room Air 21 11/04/16 07:58 79 16 Room Air 21 11/04/16 07:27 97.3 11/04/16 04:00 97.3 80 20 158/76 100 Nasal Cannula 2.0 11/04/16 00:00 97.9 76 18 130/76 100 Nasal Cannula 2.0 11/03/16 21:34 77 140/72 11/03/16 20:00 99.0 77 17 140/72 100 Room Air 11/03/16 19:00 95 Room Air 21 11/03/16 19:00 Room Air 21 11/03/16 19:00 78 16 Room Air 21 11/03/16 16:00 98.1 82 18 147/80 98 Room Air 11/03/16 11:57 97.7 77 19 134/76 99 Room Air Intake and Output 11/03/16 11/04/16 19:00 07:00 Intake Total 240 ml 530 ml Balance 240 ml 530 ml Intake Oral 240 ml 530 ml # Voids 3 3 Laboratory Tests 11/04/16 05:05: White Blood Count 7.3, Red Blood Count 3.65L, Hemoglobin 10.7L, Hematocrit 33.9L , Mean Corpuscular Volume 93, Mean Corpuscular Hemoglobin 29.3, Mean Corpuscular Hemoglobin Concent 31.5L, Red Cell Distribution Width 16.7H, Platelet Count 128L, Mean Platelet Volume 9.3, Neutrophils (%) (Auto) 71.0, Lymphocytes (%) (Auto) 18.0L, Monocytes (%) (Auto) 10.2H, Eosinophils (%) (Auto ) 0.2, Basophils (%) (Auto) 0.6, Sodium Level 142, Potassium Level 3.7, Chloride Level 98, Carbon Dioxide Level 29, Anion Gap 15, Blood Urea Nitrogen 32H, Creatinine 2.3H, Estimat Glomerular Filtration Rate 28.4, Glucose Level 42L , Calcium Level 8.1L Height (Feet): 5 Height (Inches): 4.00 Weight (Pounds): 109 General Appearance: no apparent distress, lethargic Cardiovascular: normal rate Respiratory/Chest: decreased breath sounds Abdomen: soft JESUS REA Nov 04, 2016 11:41
[2016-11-04 11:42] VITALS: BP 122/68
[2016-11-04 15:43] VITALS: BP 140/61
[2016-11-04] MEDS ORDERED: NS 275ml ONE (18:02)
[2016-11-04] MEDS ORDERED: Tubing Blood Filter IV ONE (18:02)
[2016-11-04] MEDS ORDERED: Tubing IV Secondary IV ONE (18:02)
--- NOTE | 2016-11-04 18:09 | Pulmonology Progress Note ---
Assessment/Plan Problems: (1) Acute respiratory failure (2) COPD (chronic obstructive pulmonary disease) (3) PVD (peripheral vascular disease) (4) Cardiomyopathy (5) Cachexia (6) Severe protein-calorie malnutrition (7) Diabetes mellitus Assessment/Plan discharge was delayed because of high blood sugar respiratory treatment cardiology f/u outpatient angiogram when more stable, family aware, they will talk to primary physician once he gets discharged. check cultures prbc prn dc planing for today pt/ot Subjective ROS Limited/Unobtainable: No Allergies: Coded Allergies: IODINE (Verified Allergy, Unknown, 10/16/16) Objective Last 24 Hour Vital Signs Date Time Temp Pulse Resp B/P Pulse Ox O2 Delivery O2 Flow Rate FiO2 11/04/16 15:43 97.9 78 16 140/61 100 Room Air 11/04/16 14:38 97.6 11/04/16 11:42 97.6 77 15 122/68 100 Room Air 11/04/16 09:27 72 133/66 11/04/16 09:26 133/66 11/04/16 07:59 97.5 72 14 133/66 100 Room Air 11/04/16 07:58 99 Room Air 21 11/04/16 07:58 Room Air 21 11/04/16 07:58 79 16 Room Air 21 11/04/16 04:00 97.3 80 20 158/76 100 Nasal Cannula 2.0 11/04/16 00:00 97.9 76 18 130/76 100 Nasal Cannula 2.0 11/03/16 21:34 77 140/72 11/03/16 20:00 99.0 77 17 140/72 100 Room Air 11/03/16 19:00 95 Room Air 21 11/03/16 19:00 Room Air 21 11/03/16 19:00 78 16 Room Air 21 Intake and Output 11/03/16 11/04/16 19:00 07:00 Intake Total 240 ml 530 ml Balance 240 ml 530 ml Intake Oral 240 ml 530 ml # Voids 3 3 Objective Objective General Appearance: WD/WN, no apparent distress, alert EENT: PERRL/EOMI, normal ENT inspection, TMs normal, hair lose. Neck: non-tender, normal alignment, supple, normal inspection Cardiovascular: normal peripheral pulses, normal rate, regular rhythm, no murmur. Respiratory/Chest: CTA, crackles/rales, rhonchi , no wheezing Abdomen: normal bowel sounds, non tender, soft, no mass Extremities: normal range of motion, non-tender Neurologic: assignment manager II-XII grossly normal, Moving all extremities. Skin: normal pigmentation, warm/dry Laboratory Tests 11/04/16 05:05: White Blood Count 7.3, Red Blood Count 3.65L, Hemoglobin 10.7L, Hematocrit 33.9L , Mean Corpuscular Volume 93, Mean Corpuscular Hemoglobin 29.3, Mean Corpuscular Hemoglobin Concent 31.5L, Red Cell Distribution Width 16.7H, Platelet Count 128L, Mean Platelet Volume 9.3, Neutrophils (%) (Auto) 71.0, Lymphocytes (%) (Auto) 18.0L, Monocytes (%) (Auto) 10.2H, Eosinophils (%) (Auto ) 0.2, Basophils (%) (Auto) 0.6, Sodium Level 142, Potassium Level 3.7, Chloride Level 98, Carbon Dioxide Level 29, Anion Gap 15, Blood Urea Nitrogen 32H, Creatinine 2.3H, Estimat Glomerular Filtration Rate 28.4, Glucose Level 42L , Calcium Level 8.1L HALIMA JOSEPH Nov 04, 2016 18:09
--- NOTE | 2016-11-06 15:56 | Discharge Summary ---
Discharge Summary Hospital Course Date of Admission Oct 29, 2016 at 11:36 Date of Discharge Nov 04, 2016 at 18:03 Admitting Diagnosis SOB HPI Dieudonne Wagner is a 66 year old male who was admitted on Oct 29, 2016 at 11:36 for Shortness Of Breath Hospital Course dc summary dictated #[id number] Discharge Medications Continued Medications: Atorvastatin Calcium* (Atorvastatin Calcium*) 40 Mg Tablet 80 MG ORAL BEDTIME, TAB Carvedilol* (Carvedilol*) 25 Mg Tablet Unknown Dose ORAL EVERY 12 HOURS, TAB Clopidogrel Bisulfate* (Plavix*) 75 Mg Tablet Unknown Dose ORAL DAILY, TAB Docusate Sodium* (Docusil*) 100 Mg Capsule 100 MG ORAL DAILY, CAP Ferrous Sulfate* (Ferrous Sulfate*) 325 Mg Tablet 325 MG ORAL DAILY, #30 TAB 0 Refills Insulin Aspart (Novolog Mix 70-30 Flexpen Syrn) 100 Unit/1 Ml Insuln.pen Unknown Dose SUBQ, VIAL Insulin Detemir (Levemir) 100 Unit/1 Ml Vial 10 SUBQ BID, VIAL Levothyroxine Sodium* (Levothyroxine Sodium*) 25 Mcg Tablet 25 MCG ORAL DAILY, TAB Take in the morning on an empty stomach, at least 30 minutes before food. Lipase/Protease/Amylase (Zenpep Dr 10,000 Units Capsule) 1 Each Capsule.dr Unknown Dose PO, CAP Loratadine (Loratadine) 10 Mg Tab.rapdis 10 MG PO, TAB Nitroglycerin (Nitrostat) 0.4 Mg Tab.subl 0.4 MG SL Q5M X3 DOSES PRN for CHEST PAIN, #25 TAB 0 Refills OXYCODONE HCl* (Roxicodone*) 15 Mg Tablet Unknown Dose ORAL Q6H PRN for For Pain, TAB Pregabalin* (Lyrica*) 75 Mg Capsule 100 MG ORAL THREE TIMES A DAY, CAP Sertraline Hcl* (Sertraline Hcl*) 25 Mg Tablet 25 MG ORAL DAILY, TAB Tamsulosin Hcl (Tamsulosin Hcl*) 0.4 Mg Cap.er.24h 0.4 MG ORAL BEDTIME, CAP Discharge Condition Upon Discharge: stable Discharge Disposition Patient was discharged to SNF/Subacute Facility(03) Discharge Diagnoses: Jerod (Vancgisel)Jocy NP Nov 06, 2016 15:56
--- NOTE | 2016-11-07 04:59 | Discharge Summary 2 SIG ---
DATE OF ADMISSION: 10/29/2016 DATE OF DISCHARGE: 11/04/2016 REASON FOR HOSPITALIZATION: 66-year-old male presented to the emergency department for increased shortness of breath for one week. The patient was recently discharged from [facility]. He was stable for few days and then started to develop progressive shortness of breath, worse for the last four days according to the son. The son reported cough, productive with yellow phlegm. No hemoptysis. No wheezing . Complained of chest tightness. As reported by his son, the day before admission developed increased leg edema and took diuretic at home with some decrease in edema. The patient himself denies chest pain, palpitations, dizziness. The patient chronically oxygen dependent and has oxygen at home, still smoking about 1/3 pack a day. Past medical history significant for COPD, diabetes, pacemaker, hypertension, CHF, hepatic cirrhosis, history of alcohol abuse, diabetic neuropathy, and chronic renal insufficiency. In the emergency room, chest x-ray revealed perihilar infiltrate. ABG revealed hypercapnia. Laboratory work significant for mild leukocytosis; baseline hemoglobin and hematocrit. Electrolytes stable. Troponin negative. Pro BNP - 33,232. The patient was given diuretic, antibiotic, and nebulizing treatment in ED. The patient initially started on the BiPAP in emergency department and subsequently transferred to [facility] for further management. ADMITTING DIAGNOSES: 1. Acute hypercapnic respiratory failure on chronic respiratory failure requiring BiPAP. 2. Chronic hypoxemia. 3. Acute chronic obstructive pulmonary disease exacerbation. 4. Possible pneumonia. 5. Acute diastolic congestive heart failure. 6. Metabolic alkalosis. 7. Current smoker. 8. Diabetes mellitus. 9. Anemia. HOSPITAL STAY: The patient admitted to [facility]. The patient was on the BiPAP . Daily ABG were done with titration of settings. The patient was able to be weaned from the BiPAP. Pulmonary toilet was provided. IV steroids started and tapered gradually, changed to oral and subsequently discontinued. The patient started on empiric antibiotics. Blood cultures were negative. Influenza screen test was negative. Unable to obtain sputum culture since the patient was dry. Follow up chest x-ray was stable, minimally improved interstitial congestion, off antibiotics. Infectious Disease cleared for discharge off antibiotics with close observation. c Echocardiogram on previous admission revealed ejection fraction of 50% and right ventricular systolic pressure of 62 consistent with severe pulmonary hypertension. Severe mitral regurgitation. Grade 3 diastolic dysfunction. Moderate tricuspid regurgitation. The patient started on the diuretic gently. 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 Blood pressure was managed with beta-miguel and diuretic. No HEATHER ARB due to the chronic renal disease, Renal parameters were closely monitored. Worsening renal parameters: creatinine from 1.7 to 2.3. Retail Department Reset clsoely followed the patient. Per manager collection, the patient has acute on chronic renal insufficiency with chronic kidney disease stage III. Kidney failure secondary to diabetic nephropathy and proteinuria. Recommended closely monitor electrolytes in the snf facility and avoid nephrotoxics. The patient counseled on smoking cessation. Nicotine patch started. The patient with known history of alcohol abuse. He stopped eight years ago as per his son. LFTs were stable. Encourage to continue abstinence from alcohol. Blood sugar was managed with Levemir and sliding scale insulin, optimize dose as outpatient as needed. Hemoglobin A1c - 7.9, still not at goal. Alkalosis resolved. Iron supplement continued. Hemoglobin and hematocrit were closely monitored. Stool OB was positive, however, no trend down in hemoglobin and hematocrit. Recommended GI procedure as outpatient, since CEA was with small elevation on previous admission, though may related to long history of smoking. DVT and GI prophylaxis provided. TSH was stable on previous admission. Current dose of levothyroxine was continued, Initial shortness of breath was multifactorial secondary to COPD exacerbation, CHF exacerbation as well as severe pulmonary hypertension and bilateral pleural effusion. Currently no shortness of breath. Leukocytosis, resolved, afebrile. All consultants cleared for discharge to the snf facility. Of note, arterial duplex of bilateral lower extremities revealed severe critical ischemia bilaterally. Abdominal ultrasound revealed possible significant stenosis of left common iliac artery. Venous duplex of bilateral lower extremities was negative. Recommended Vascular Surgery evaluation as outpatient. DISCHARGE MEDICATIONS: See medication reconciliation list. DISCHARGE INSTRUCTIONS: The patient discharged to snf facility. Follow up with medical doctor at the facility. Vascular Surgery evaluation strongly recommended DISCHARGE DIAGNOSES: 1. Acute hypercapnic respiratory failure on chronic respiratory failure requiring BiPAP. 2. Chronic hypoxemia (home O2 dependent). 3. Acute chronic obstructive pulmonary disease exacerbation. 4. Possible pneumonia. 5. Acute diastolic congestive heart failure. 6. Metabolic alkalosis, resolved. 7. Severe PAD 8. Possible left common iliac artery stenosis. 9. Hepatic cirrhosis, alcohol induced. 10. Hypertension. 11. Severe pulmonary hypertension. 12. Severe mitral regurgitation. 13. Moderate tricuspid regurgitation. 14. Pacemaker. 15. Diabetes mellitus. 16. Acute on chronic renal disease stage III. 17. Hypothyroidism. 18. Anemia,- stable. 19. Elevated CEA. 20. Current smoker 21. History of alcohol abuse Sue Mayer M.D. I have been assigned to dictate discharge summary on this account and I was not involved in the patient's management. Jocy MartinezUniversity Of Vermont Health NetworkIon N.PAlton DR: Fuad JOB#: [id number] CC: BRITTNI
--- NOTE | 2016-12-20 04:29 | Consultation ---
DATE OF CONSULTATION: 10/30/2016 REFERRING PHYSICIAN: Sue Mayer M.D. REASON FOR EVALUATION: Lower extremity leg pain and PAD. HISTORY PRESENT ILLNESS: This is a 66-year-old male, who suffers from multiorgan disease dysfunction. The patient was found to have lower extremity leg pain and was found to have severe peripheral arterial disease with no evidence of ulceration. He does have intermittent claudication. He has multiple issues with heart failure, liver failure, lung failure and anemia. Vascular surgery is consulted for further evaluation. The patient denies any history of leg pain or foot ulcers. He does have chronic leg disabling claudication. PAST MEDICAL HISTORY: As above. History of congestive heart failure with ejection fraction of 20% with an intracardiac device, COPD with daily smoker on home oxygen, severe pulmonary hypertension, liver cirrhosis with alcohol abuse, anemia with history of gastrointestinal bleeding, and renal failure. MEDICATIONS: See attached MAR. ALLERGIES: Possible iodine allergy. SOCIAL HISTORY: He smokes, history of alcohol abuse, and no history of drug use. FAMILY HISTORY: Unremarkable. REVIEW OF SYSTEMS: Cardiovascular: Chest pain. Pulmonary: He has shortness of breath and cough. Gastrointestinal: No history of abdominal pain, constipation, or diarrhea. Genitourinary: No urinary symptoms. Neurological: No history of stroke or seizures. PHYSICAL EXAMINATION: GENERAL: This is an elderly gentleman, in no apparent distress. VITAL SIGNS: Temperature is 98.4 degrees, oxygen saturation 100% on 2 liters, heart rate is 90, and blood pressure 135/69. LUNGS: Rhonchi bilaterally. HEART: Regular rate and rhythm. ABDOMEN: Soft and nontender. EXTREMITIES: Palpable femoral pulses. Absent popliteal and pedal pulses bilaterally. LABORATORY AND DIAGNOSTIC DATA: Laboratory revealed WBC of 9.5, hemoglobin 10.1, and platelet count 222,000. BUN is 19, creatinine 1.7, sodium 141, and potassium 4. Lactic acid is 1.3. Troponin is negative. IMPRESSION: 1. Calcific multilevel arterial occlusive disease with chronic leg disabling claudication and intermittent resting with no foot ulceration. 2. Absent pedal pulses. 3. Multiple risk factors with heart failure. Ejection fraction is 20%. 4. Chronic obstructive pulmonary disease, daily smoker. 5. Liver cirrhosis. 6. Alcohol abuse. 7. History of anemia. 8. Renal failure. 9. Severe pulmonary hypertension. PLAN AND RECOMMENDATION: 1. Medical optimization. 2. We will complete the lower extremity duplex imaging. 3. Continue DVT and decubitus precautions. 4. We will benefit from selective leg angiography to assess for percutaneous revascularization as an outpatient. 5. Continue with dual antiplatelet and statin therapy. 6. He is cleared by gastroenterology service. 7. The above is discussed at length with the patient and nurse at bedside. Delroy Harry M.D. DR: TRESSA JOB#: [id number] CC: BRITTNI
== END 2016-11-04 18:03 | DRG 189 ==
LOC: EDBD 10:40 → EMR 11:15 → 2W 11:36 → EDBEDREQSVC 13:51 → EDBEDREQ 18:46 → 2E 10-30 19:40 → 4E 10-31 20:16
PROC: 5A09357 Assistance with Respiratory Ventilation, Less than 24 Consecutive Hours, Continuous Positive Airway Pressure (ICD-10-PCS; principal; 2016-10-29)
PROC: 30233N1 Transfusion of Nonautologous Red Blood Cells into Peripheral Vein, Percutaneous Approach (ICD-10-PCS; 2016-11-02)
DX: J96.22 Acute and chronic respiratory failure with hypercapnia (principal); E43 Unspecified severe protein-calorie malnutrition; I50.33 Acute on chronic diastolic (congestive) heart failure; J18.9 Pneumonia, unspecified organism; E87.3 Alkalosis; I42.9 Cardiomyopathy, unspecified; E11.21 Type 2 diabetes mellitus with diabetic nephropathy; K26.9 Duodenal ulcer, unspecified as acute or chronic, without hemorrhage or perforation; J44.1 Chronic obstructive pulmonary disease with (acute) exacerbation; Z68.1 Body mass index [BMI] 19.9 or less, adult; I82.503 Chronic embolism and thrombosis of unspecified deep veins of lower extremity, bilateral; J96.21 Acute and chronic respiratory failure with hypoxia; E86.0 Dehydration; I27.2 Other secondary pulmonary hypertension; F17.200 Nicotine dependence, unspecified, uncomplicated; K74.60 Unspecified cirrhosis of liver; I08.1 Rheumatic disorders of both mitral and tricuspid valves; Z95.0 Presence of cardiac pacemaker; I12.9 Hypertensive chronic kidney disease with stage 1 through stage 4 chronic kidney disease, or unspecified chronic kidney disease; E03.9 Hypothyroidism, unspecified; D64.9 Anemia, unspecified; Z99.81 Dependence on supplemental oxygen; E11.40 Type 2 diabetes mellitus with diabetic neuropathy, unspecified; R97.0 Elevated carcinoembryonic antigen [CEA]; N18.3 Chronic kidney disease, stage 3 (moderate); F10.21 Alcohol dependence, in remission; I25.10 Atherosclerotic heart disease of native coronary artery without angina pectoris; Z95.5 Presence of coronary angioplasty implant and graft; N40.0 Benign prostatic hyperplasia without lower urinary tract symptoms; Z88.8 Allergy status to other drugs, medicaments and biological substances; K44.9 Diaphragmatic hernia without obstruction or gangrene; K20.9 Esophagitis, unspecified; K29.70 Gastritis, unspecified, without bleeding
CPT/HCPCS: 36415; 36600; 71010; 76705; 80048; 80053; 81003; 82270; 82550; 82553; 82607; 82728; 82746; 82803; 82962; 82977; 83036; 83540; 83550; 83605; 83735; 83880; 84100; 84300; 84443; 84484; 84550; 85025; 85610; 85730; 86140; 86710; 86850; 86900; 86901; 86920; 87040; 87081; 93005; 93880; 93925; 93970; 94660; 94664; 94760; J1815; S5561